=== PATIENT | male | born 1935 | race Caucasian/White ===

== ENCOUNTER 2016-10-28 07:00 | Emergency (ER) | payer MEDICARE ==
[~2016-10-28 07:00] MED LIST: /ADVA50050 INH; /TIOT18INH INH; ACET500C PO; ADVA115A INH; ALBU83IN IN; AMIO20TA PO; AMLO10TA PO; ASPI325T PO; ASPI81TA83 OR; BACITAB; CARD4TAB2 PO; CARV12.5 PO; CARV6.25 PO; CEFT250T OR; DIGO0.12 PO; ELIQ5TAB PO; FAMO20TA2 PO; FURO20TA2 PO; IMODIUM OR; LASI20TA PO; LISI-538 PO; LISI5TAB PO; LOPE2CA PO; MULTIVIT PO; NIFE15CA PO; PANT40TA2 PO; PEPCID PO; POLY150C4 PO; PRED10TA2; PRED10TA2 OR; PRED20TA OR; PRED50TA OR; ProAir HFA INH; QUESTRAN; RANI15TA PO; RANI1TAB6 PO; RANTIDINE PO; SPIR1CAP INH; TRAM50TA2 OR; TUMS500C PO; TYLE167L PO; VIBR100C; XOPEAER; XOPENEX
[2016-10-28] MEDS ORDERED: AMIODARONE 200 MG TAB (PACERONE) As Ordered ONE ×2 (07:34→10:25)
[2016-10-28] MEDS ORDERED: LISINOPRIL 10 MG TAB As Ordered ONE (07:35)
[2016-10-28] MEDS ORDERED: FUROSEMIDE 20 MG TAB As Ordered ONE (07:35)
[2016-10-28 07:41] LABS: BASO % 0.6 % (0.0-1.0); EOS # 0.2 K/mm3 (0.0-0.50); EOS % 3.4 % (0.0-3.0); LARGE UNSTAINED CELL # 0.2 K/mm3 (0.0-0.4); LYMPH % 24.8 % (24.0-44.0); MEAN CORPUSCULAR HEMOGLOBIN 28.8 pg (27.0-33.0); MEAN CORPUSCULAR HGB CONC 31.6 g/dl (32.0-36.5); MEAN CORPUSCULAR VOLUME 91.2 fl (80.0-96.0); MONO # 0.6 K/mm3 (0.0-0.8); MONO % 7.8 % (0.0-5.0); NEUTROPHILS # 4.5 K/mm3 (1.8-7.7); NEUTROPHILS % 60.5 % (36.0-66.0); PLATELET COUNT, AUTOMATED 233 k/mm3 (150-450); RED CELL DISTRIBUTION WIDTH 21.1 % (11.5-14.5); WHITE BLOOD COUNT 7.4 K/mm3 (4.0-10.0)
[2016-10-28 08:07] LABS: CALCIUM LEVEL 8.2 MG/DL (8.8-10.2); CREATININE FOR GFR 1.64 MG/DL (0.70-1.30); DIGOXIN LEVEL 0.8 NG/ML (0.5-2.0); GLOMERULAR FILTRATION RATE 43.1 (>35); MAGNESIUM LEVEL 2.2 MG/DL (1.8-2.4); POTASSIUM SERUM 3.8 MEQ/L (3.5-5.1)
--- NOTE | 2016-10-28 08:52 | REP ---
Portable chest x-ray: Sitting AP view. History: Defibrillator firing. Comparison study: March 26, 2016. Findings: Moderate cardiomegaly is observed. A multi lead pacemaker is seen in place in the right heart via the right subclavian vein unchanged. There is no evidence of pneumothorax or hydrothorax. No infiltrate is seen. Pulmonary vasculature is not increased. The aorta is calcific and tortuous. There is mild bibasilar linear fibrosis unchanged. Impression: Cardiomegaly with pacemaker. No acute changes. Signed by Domenico Flores MD 10/28/2016 10:22 A
--- NOTE | 2016-10-28 09:31 | ECGEPIP ---
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
[2016-10-28] MEDS ORDERED: RIVAROXABAN 15 MG TAB (XARELTO) As Ordered ONE (10:36)
[2016-10-28] MEDS ORDERED: APIXABAN 2.5 MG TAB (ELIQUIS) As Ordered ONE (10:48)
--- NOTE | 2016-10-28 11:22 | EDDOCDS ---
Nurse's Notes [facility] Name: Savanah Haro Age: 81 yrs Sex: Male : 1935 Arrival Date: 10/28/2016 Time: 07:00 Bed 4 Private MD: Martín Ramirez H. Diagnosis: Encounter for adjustment and management of automatic implantable cardiac defibrillator;Paroxysmal atrial fibrillation Presentation: 10/28 07:07 Presenting complaint: Patient states: the he got up to got to the bathroom, felt jc4 "normal" then defibrillator fired. Pt states is scheduled to have battery changed on defibrillator in [place] on 11/09. Adult Sepsis Screening: The patient does not have new or worsening altered mentation. Patient's respiratory rate is less than 22. Systolic blood pressure is greater than 100. Patient has a qSOFA score of 0- Negative Sepsis Screen. Suicide/Homicide risk assessment- the patient denies having any suicidal and/or homicidal ideations and does not present with any other emotional, behavioral or mental health complaints. 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 Transition of care: patient was not received from another setting of care. 07:07 Acuity: NESTOR Level 2 4 07:07 Method Of Arrival: Ambulance jc4 Triage Assessment: 07:17 General: Appears in no apparent distress. Pain: Denies pain. The patient is triaged at jc4 the bedside. See Assessment in Nurses Notes section of ED record. Historical: - Allergies: Prednisonesuicidal thoughts; - Home Meds: 1. Advair HFA 115-21 mcg/actuation inhalation HFAA 2 puffs 2 times per day (Last dose: 10/27/2016) 2. amiodarone 200 mg Oral tab 1 tab once daily (Last dose: 10/27/2016) 3. carvedilol 12.5 mg oral tab 1 tab 2 times per day (Last dose: 10/27/2016) 4. digoxin 125 mcg Oral tab 1 tab once daily take Saturday (Last dose: 10/27/2016) 5. furosemide 20 mg Oral tab 1 tab once daily (Last dose: 10/27/2016) 6. levothyroxine 200 mcg Oral tab 1 tab once daily (Last dose: 10/27/2016) 7. lisinopril 5 mg Oral tab 1 tab once daily (Last dose: 10/27/2016) 8. losartan 25 mg oral tab 1 tab once daily (Last dose: 10/27/2016) 9. Protonix 40 mg Oral TbEC 1 tab once daily (Last dose: 10/27/2016) 10. Spiriva with HandiHaler 18 mcg Inhl CpDv 1 cap once daily (Last dose: 10/27/2016) - PMHx: CHF; COPD; Hypothyroidism; GERD; Heart Disease; - PSHx: Cholecystectomy (1980); Appendectomy (1968); colon resection 1996; 1968- ulcer surgery; heart cath jul 2013; Colonoscopy (November 2014); Bilateral Hip Replacements; Pacemaker/AICD; - Social history: No barriers to communication noted, The patient speaks fluent Portuguese, Smoking status: Patient states former smoker of tobacco. - Family history: Not pertinent. - : The pt / caregiver states he / she is not on anticoagulants. Home medication list is obtained from the patient. - Exposure Risk Screening:: None identified. Screenin:18 Screening information is obtained from the patient. Fall risk: No risks identified. jc4 Assistance ADL's: requires no assistance with activities of daily living. Abuse/DV Screen: The patient / caregiver reports he/she is: not in a situation that causes fear, pain or injury. Nutritional screening: No deficits noted. Advance Directives: Currently, there is no health care proxy. There is no active DNR order. There is no living will. There is no Power of Nutrition Manager. home support is adequate. Assessment: 07:28 General: Dr. Raymundo in to examine patient. [facility] 07:28 General: Appears in no apparent distress, Behavior is cooperative, pleasant. Pain: jc4 Denies pain. Neurological: Level of Consciousness is awake, alert, Oriented to person, place, time. Cardiovascular: Rhythm is paced rhythm Chest pain is denied. Respiratory: Airway is patent Respiratory effort is even, unlabored, Respiratory pattern is regular, symmetrical, Breath sounds are diminished bilaterally. GI: Abdomen is non- distended Bowel sounds present X 4 quads. Abd is soft and non tender X 4 quads. Derm: Skin is pink, warm & dry. 08:28 General: Pt resting on stretcher. Family at bedside. Denies any complaint at this time. jc4 Aware awaiting Dr. Dinero. fence supervisor - paced rhythm. Call mai in reach. 09:10 General: Pt resting on stretcher. Color pink, skin warm and dry. Respirations easy and jc4 full. Pt complains of a mild headache. Declines offer of dimming lights or analgesia at this time. Family members at bedside. Call mai in reach. Aware awaiting Dr. Dinero. 09:54 General: Pt sitting up on stretcher. No distress noted at this time. States that jc4 headache is resolving. 10:29 General: Pt resting on stretcher. No distress noted at this time. Color pink, skin warm jc4 and dry. Respirations easy and full. at bedside. Pt has been evaluated by Dr. Dinero. 11:19 General: Appears in no apparent distress, Behavior is cooperative, pleasant. Pain: jc4 Denies pain. Neurological: Level of Consciousness is awake, alert, Oriented to person, place, time. Cardiovascular: Rhythm is paced rhythm Chest pain is denied. Respiratory: Airway is patent Respiratory effort is even, unlabored, Respiratory pattern is regular, symmetrical. Derm: Skin is pink, warm & dry. Vital Signs: 07:15 BP 191 / 93; Pulse 72; Resp 18; Temp 98.8(TE); Pulse Ox 94% on R/A; dem1 07:16 Weight 69.4 kg; Height 5 ft. 7 in. (170.18 cm); dem1 07:20 Pulse 60 MON; Pulse Ox 95% ; jc4 07:21 BP 184 / 94 (auto/); jc4 07:36 BP 177 / 90 (auto/); jc4 07:36 Pulse 68 MON; Pulse Ox 94% ; jc4 07:51 BP 171 / 80 (auto/); jc4 07:51 Pulse 70 MON; Pulse Ox 95% ; jc4 08:06 BP 156 / 76 (auto/); jc4 08:06 Pulse 64 MON; Pulse Ox 94% ; jc4 08:20 Pulse 64 MON; Pulse Ox 93% ; jc4 08:21 BP 175 / 84 (auto/); jc4 08:34 Pulse 64 MON; Pulse Ox 94% ; jc4 08:36 BP 147 / 78 (auto/); jc4 08:50 Pulse 64 MON; Pulse Ox 92% ; jc4 08:51 BP 161 / 78 (auto/); jc4 09:05 Pulse 64 MON; Pulse Ox 93% ; jc4 09:06 BP 179 / 82 (auto/); jc4 09:20 Pulse 64 MON; Pulse Ox 93% ; jc4 09:21 BP 157 / 80 (auto/); jc4 09:36 BP 164 / 77 (auto/); jc4 09:36 Pulse 64 MON; Pulse Ox 93% ; jc4 09:49 Pulse 64 MON; Pulse Ox 93% ; jc4 09:51 BP 139 / 85 (auto/); jc4 10:05 Pulse 64 MON; Pulse Ox 94% ; jc4 10:06 BP 174 / 81 (auto/); jc4 10:21 BP 164 / 80 (auto/); jc4 10:21 Pulse 64 MON; Pulse Ox 95% ; jc4 10:36 BP 177 / 85 (auto/); jc4 10:36 Pulse 64 MON; Pulse Ox 95% ; jc4 10:50 Pulse 64 MON; Pulse Ox 95% ; jc4 10:51 BP 167 / 69 (auto/); jc4 11:19 BP 169 / 91; Pulse 64; Resp 20; Temp 98.7(TE); Pulse Ox 95% on R/A; Pain 0/10; jc4 07:16 Body Mass Index 23.96 (69.40 kg, 170.18 cm) [facility] Vitals: 07:15 Log In Time N/A - ambulance arrival. [facility] ED Course: 07:01 Patient visited by Torri Tellez PCA. ar3 07:01 Patient moved to Waiting ar3 07:02 Martín Ramirez is Private Physician. ar3 07:02 Patient moved to 4 ar3 07:09 Triage Initiated jc4 07:15 Pt greeted and oriented to ED. Patient advised of names of staff involved in care, [facility] location of call mai, wait times and NPO status. Patient has correct armband on for positive identification. Placed in gown. Bed in low position. Call light in reach. Side rails up X2. fence supervisor on. Pulse ox on. NIBP on. 07:15 EKG done. (by ED staff). Reviewed by Jase Lowe MD. [facility] 07:17 Patient visited by Steven Rivera. [facility] 07:18 Maintain field IV. Dressing intact. Site clean & dry. Gauge & site: 18 gauge left jc4 antecubital. 07:19 The patient / caregiver is instructed regarding the plan of care and ED course. jc4 07:20 Jase Lowe MD is Attending Physician. ml 07:20 Patient visited by Jase Lowe MD. ml 07:33 Digoxin Level Sent. jc4 07:33 Magnesium Level Sent. jc4 07:33 MED Profile Sent. jc4 07:33 CBC with Diff Sent. jc4 08:27 [facility] Payment Agreement was scanned into [employer] and attached to record. lg 08:29 Patient visited by Roxana Hall RN. jc4 09:06 Patient visited by Roxana Hall RN. jc4 09:17 Chest, 1 View Returned. EDMS 09:43 EKG-ADULT Returned. EDMS 09:54 Patient visited by Roxana Hall RN. jc4 10:29 Patient visited by Roxana Hall RN. jc4 10:40 Chest, 1 View Returned. EDMS 10:58 Martín Ramirez is Referral Physician. ml 10:58 Noemí Dinero is Referral Physician. ml 11:21 Discontinued lock intact, bleeding controlled, pressure dressing applied, No jc4 redness/swelling at site. No procedures done that require assistance. Administered Medications: 07:43 Drug: amiodarone 200 mg [amiodarone 200 mg tablet (1 tabs)] Route: PO; jc4 07:43 Drug: Lisinopril 5 mg [lisinopril 10 mg tablet (0.5 tabs)] Route: PO; jc4 07:43 Drug: Furosemide 20 mg [furosemide 20 mg tablet (1 tabs)] Route: PO; jc4 10:27 Drug: amiodarone 200 mg [amiodarone 200 mg tablet (1 tabs)] Route: PO; jc4 10:37 Not Given (Duplicate Order): Rivaroxaban 15 mg PO once ml 10:53 Drug: Apixaban 2.5 mg [apixaban 2.5 mg tablet (1 tabs)] Route: PO; jc4 10:53 Drug: Apixaban 2.5 mg [apixaban 2.5 mg tablet (1 tabs)] {Note: Dispensed by MD for home jc4 use.} Route: PO; Order Results: Lab Order: CBC with Diff; SPEC'M 10/28/16 07:25 Test: WHITE BLOOD COUNT; Value: 7.4; Range: 4.0-10.0; Units: K/mm3; Status: F Test: RED BLOOD COUNT; Value: 4.42; Range: 4.30-6.10; Units: M/mm3; Status: F Test: HEMOGLOBIN; Value: 12.7; Range: 14.0-18.0; Abnormal: Below low normal; Units: g/dl; Status: F Test: HEMATOCRIT; Value: 40.3; Range: 42.0-52.0; Abnormal: Below low normal; Units: %; Status: F Test: MEAN CORPUSCULAR VOLUME; Value: 91.2; Range: 80.0-96.0; Units: fl; Status: F Test: MEAN CORPUSCULAR HEMOGLOBIN; Value: 28.8; Range: 27.0-33.0; Units: pg; Status: F Test: MEAN CORPUSCULAR HGB CONC; Value: 31.6; Range: 32.0-36.5; Abnormal: Below low normal; Units: g/dl; Status: F Test: RED CELL DISTRIBUTION WIDTH; Value: 21.1; Range: 11.5-14.5; Abnormal: Above high normal; Units: %; Status: F Test: PLATELET COUNT, AUTOMATED; Value: 233; Range: 150-450; Units: k/mm3; Status: F Test: NEUTROPHILS %; Value: 60.5; Range: 36.0-66.0; Units: %; Status: F Test: LYMPH %; Value: 24.8; Range: 24.0-44.0; Units: %; Status: F Test: MONO %; Value: 7.8; Range: 0.0-5.0; Abnormal: Above high normal; Units: %; Status: F Test: EOS %; Value: 3.4; Range: 0.0-3.0; Abnormal: Above high normal; Units: %; Status: F Test: BASO %; Value: 0.6; Range: 0.0-1.0; Units: %; Status: F Test: LARGE UNSTAINED CELL %; Value: 3.0; Range: 0.0-4.0; Units: %; Status: F Test: NEUTROPHILS #; Value: 4.5; Range: 1.8-7.7; Units: K/mm3; Status: F Test: LYMPH #; Value: 2.0; Range: 1.5-4.5; Units: K/mm3; Status: F Test: MONO #; Value: 0.6; Range: 0.0-0.8; Units: K/mm3; Status: F Test: EOS #; Value: 0.2; Range: 0.0-0.50; Units: K/mm3; Status: F Test: BASO #; Value: 0.0; Range: 0.0-0.2; Units: K/mm3; Status: F Test: LARGE UNSTAINED CELL #; Value: 0.2; Range: 0.0-0.4; Units: K/mm3; Status: F Lab Order: MED Profile; SPEC'M 10/28/16 07:25 Test: GLUCOSE, FASTING; Value: 103; Range: 83-110; Units: MG/DL; Status: F Test: BLOOD UREA NITROGEN; Value: 13; Range: 7-18; Units: MG/DL; Status: F Test: CREATININE FOR GFR; Value: 1.64; Range: 0.70-1.30; Abnormal: Above high normal; Units: MG/DL; Status: F Test: GLOMERULAR FILTRATION RATE; Value: 43.1; Range: >35; Status: F Test: SODIUM LEVEL; Value: 146; Range: 136-145; Abnormal: Above high normal; Units: MEQ/L; Status: F Test: POTASSIUM SERUM; Value: 3.8; Range: 3.5-5.1; Units: MEQ/L; Status: F Test: CHLORIDE LEVEL; Value: 105; Range: 98-107; Units: MEQ/L; Status: F Test: CARBON DIOXIDE LEVEL; Value: 31; Range: 21-32; Units: MEQ/L; Status: F Test: ANION GAP; Value: 10; Range: 8-16; Units: MEQ/L; Status: F Test: CALCIUM LEVEL; Value: 8.2; Range: 8.8-10.2; Abnormal: Below low normal; Units: MG/DL; Status: F Test Note: ; Units are mL/min/1.73 m2 Chronic Kidney Disease Staging per NKF: Stage I & II GFR >=60 Normal to Mildly Decreased Stage III GFR 30-59 Moderately Decreased Stage IV GFR 15-29 Severely Decreased Stage V GFR <15 Very Little GFR Left ESRD GFR <15 on MEAT BONER Lab Order: Magnesium Level; SPEC'M 10/28/16 07:25 Test: MAGNESIUM LEVEL; Value: 2.2; Range: 1.8-2.4; Units: MG/DL; Status: F Lab Order: Digoxin Level; SPEC'M 10/28/16 07:25 Test: DIGOXIN LEVEL; Value: 0.8; Range: 0.5-2.0; Units: NG/ML; Status: F Radiology Order: EKG-ADULT Test: EKG-ADULT REASON FOR EXAMINATION: HX: DEFIB FIRED; Stationary ECG Study; [facility] - ED; ; Test Date: 2016-10-28; Pat Name: SAVANAH HARO Department:; Room: -; 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; : 1935 Requested By: ISACC Miranda; Order Number: [id number] Reading MD: Jethro Hopper; Measurements; Intervals [place]; Rate: 60 P: 128; VA: 143 QRS: 217; QRSD: 166 T: 84; QT: 384; QTc: 385; Interpretive Statements; ELECTRONIC ATRIAL PACEMAKER; ELECTRONIC VENTRICULAR PACEMAKER; ; ; Electronically Signed On 10-28-2016 9:31:13 EST by Jethro Hopper; Radiology Order: Chest, 1 View Test: Chest, 1 View REASON FOR EXAMINATION: defib firing; Portable chest x-ray: Sitting AP view.; ; History: Defibrillator firing.; ; Comparison study: March 26, 2016.; ; Findings: Moderate cardiomegaly is observed. A multi lead pacemaker is seen in; place in the right heart via the right subclavian vein unchanged. There is no; evidence of pneumothorax or hydrothorax. No infiltrate is seen. Pulmonary; vasculature is not increased. The aorta is calcific and tortuous. There is mild; bibasilar linear fibrosis unchanged.; ; Impression:; ; Cardiomegaly with pacemaker. No acute changes.; ; ; Signed by; Domenico Flores MD 10/28/2016 10:22 A; Outcome: 10:58 Discharge ordered by Provider. ml 11:21 Discharge Assessment: Patient awake, alert and oriented x 3. No cognitive and/or jc4 functional deficits noted. Patient verbalized understanding of disposition instructions. patient administered narcotics - no. The following High Risk Discharge criteria are identified: None. Discharged to home via wheelchair, with significant other. Condition: stable. Discharge instructions given to patient, Instructed on discharge instructions, follow up and referral plans. medication usage, Demonstrated understanding of instructions, medications, Pt was receptive of discharge instructions/ teaching. Prescriptions given X 1. No special radiology studies were completed. Property :Personal belongings accompany Pt. 11:22 Patient left the ED. jc4 Signatures: Dispatcher [employer] EDOK Jase Lowe MD MD ml Eileen Barahona, Reg Reg lg Torri Tellez, CYTOGENETICS TECHNOLOGIST CYTOGENETICS TECHNOLOGIST Roxana Lynn RN RN jc4 Steven Rivera1 ZEN
--- NOTE | 2016-10-28 11:22 | EDDOCDS ---
Physician Documentation [facility] Name: Alex Sheikh Age: 81 yrs Sex: Male : 1935 Arrival Date: 10/28/2016 Time: 07:00 Bed 4 Private MD: Martín Ramirez H. Disposition: 10/28/16 10:58 Discharged to Home/Self Care. Impression: Encounter for adjustment and management of automatic implantable cardiac defibrillator, Paroxysmal atrial fibrillation. - Condition is Stable. - Discharge Instructions: Atrial Fibrillation. - Prescriptions for amiodarone 200 mg Oral tablet - take 2 tablet by ORAL route 2 times per day; 60 tablet. apixaban 2.5 mg Oral Tablet - take 1 tablet by ORAL route 2 times per day; 30 tablet. - Medication Reconciliation, Local Pharmacy Hours form. - Follow up: Martín Ramirez; When: 1 - 2 days. Follow up: Noemí Dinero; When: Tomorrow. - Problem is new. - Symptoms have improved. - Notes: diagnosis - firing of defibrillator. per dr dinero increase amiodarone - 400 mg every 12 hours and eliquis 2.5 mg every 12 hours. stop by his office tomorrow. make sure they are aware of medication change. Historical: - Allergies: Prednisonesuicidal thoughts; - Home Meds: 1. Advair HFA 115-21 mcg/actuation inhalation HFAA 2 puffs 2 times per day (Last dose: 10/27/2016) 2. amiodarone 200 mg Oral tab 1 tab once daily (Last dose: 10/27/2016) 3. carvedilol 12.5 mg oral tab 1 tab 2 times per day (Last dose: 10/27/2016) 4. digoxin 125 mcg Oral tab 1 tab once daily take Saturday (Last dose: 10/27/2016) 5. furosemide 20 mg Oral tab 1 tab once daily (Last dose: 10/27/2016) 6. levothyroxine 200 mcg Oral tab 1 tab once daily (Last dose: 10/27/2016) 7. lisinopril 5 mg Oral tab 1 tab once daily (Last dose: 10/27/2016) 8. losartan 25 mg oral tab 1 tab once daily (Last dose: 10/27/2016) 9. Protonix 40 mg Oral TbEC 1 tab once daily (Last dose: 10/27/2016) 10. Spiriva with HandiHaler 18 mcg Inhl CpDv 1 cap once daily (Last dose: 10/27/2016) - PMHx: CHF; COPD; Hypothyroidism; GERD; Heart Disease; - PSHx: Cholecystectomy (1980); Appendectomy (1968); colon resection 1996; 1968- ulcer surgery; heart cath jul 2013; Colonoscopy (November 2014); Bilateral Hip Replacements; Pacemaker/AICD; - Social history: No barriers to communication noted, The patient speaks fluent Telugu, Smoking status: Patient states former smoker of tobacco. - Family history: Not pertinent. - : The pt / caregiver states he / she is not on anticoagulants. Home medication list is obtained from the patient. - Exposure Risk Screening:: None identified. Vital Signs: 10/28 07:15 BP 191 / 93; Pulse 72; Resp 18; Temp 98.8(TE); Pulse Ox 94% on R/A; dem1 07:16 Weight 69.4 kg / 153 lbs; Height 5 ft. 7 in. (170.18 cm); dem1 07:20 Pulse 60 MON; Pulse Ox 95% ; jc4 07:21 BP 184 / 94 (auto/); jc4 07:36 BP 177 / 90 (auto/); jc4 07:36 Pulse 68 MON; Pulse Ox 94% ; jc4 07:51 BP 171 / 80 (auto/); jc4 07:51 Pulse 70 MON; Pulse Ox 95% ; jc4 08:06 BP 156 / 76 (auto/); jc4 08:06 Pulse 64 MON; Pulse Ox 94% ; jc4 08:20 Pulse 64 MON; Pulse Ox 93% ; jc4 08:21 BP 175 / 84 (auto/); jc4 08:34 Pulse 64 MON; Pulse Ox 94% ; jc4 08:36 BP 147 / 78 (auto/); jc4 08:50 Pulse 64 MON; Pulse Ox 92% ; jc4 08:51 BP 161 / 78 (auto/); jc4 09:05 Pulse 64 MON; Pulse Ox 93% ; jc4 09:06 BP 179 / 82 (auto/); jc4 09:20 Pulse 64 MON; Pulse Ox 93% ; jc4 09:21 BP 157 / 80 (auto/); jc4 09:36 BP 164 / 77 (auto/); jc4 09:36 Pulse 64 MON; Pulse Ox 93% ; jc4 09:49 Pulse 64 MON; Pulse Ox 93% ; jc4 09:51 BP 139 / 85 (auto/); jc4 10:05 Pulse 64 MON; Pulse Ox 94% ; jc4 10:06 BP 174 / 81 (auto/); jc4 10:21 BP 164 / 80 (auto/); jc4 10:21 Pulse 64 MON; Pulse Ox 95% ; jc4 10:36 BP 177 / 85 (auto/); jc4 10:36 Pulse 64 MON; Pulse Ox 95% ; jc4 10:50 Pulse 64 MON; Pulse Ox 95% ; jc4 10:51 BP 167 / 69 (auto/); jc4 11:19 BP 169 / 91; Pulse 64; Resp 20; Temp 98.7(TE); Pulse Ox 95% on R/A; Pain 0/10; jc4 07:16 Body Mass Index 23.96 (69.40 kg, 170.18 cm) dem1 MDM: 07:08 ECG WITH READING ER PHYS+CARDIAG ordered. EDMS 07:29 IV Saline Lock ordered. ml 07:29 Tableau Report Developer/Pulse Ox/q 15 min VS ordered. ml 07:29 Rhythm Strip to chart ordered. ml 07:30 Chest, 1 View Ordered. EDMS 07:30 CBC with Diff Ordered. EDMS 07:31 MED Profile Ordered. EDMS 07:31 Magnesium Level Ordered. EDMS 07:31 Digoxin Level Ordered. EDMS 07:31 amiodarone 200 mg PO once ordered. ml 07:32 Lisinopril 5 mg PO once ordered. ml 07:33 Furosemide 20 mg PO once ordered. ml 08:23 Financial registration complete. lg 08:24 CBC with Diff Reviewed. ml 08:24 MED Profile Reviewed. ml 08:24 Magnesium Level Reviewed. ml 08:24 Digoxin Level Reviewed. ml 08:27 [facility] [place] Agreement was scanned into [employer] and attached to record. lg 10:18 amiodarone 200 mg PO once ordered. ml 10:33 Rivaroxaban 15 mg PO once ordered. ml 10:37 EKG-ADULT Reviewed. ml 10:37 Chest, 1 View Reviewed. ml 10:38 Apixaban 2.5 mg PO once; to go 12 hrs alter ordered. ml 10:38 Apixaban 2.5 mg PO once; to go 12 hrs alter ordered. ml Administered Medications: 07:43 Drug: amiodarone 200 mg [amiodarone 200 mg tablet (1 tabs)] Route: PO; jc4 07:43 Drug: Lisinopril 5 mg [lisinopril 10 mg tablet (0.5 tabs)] Route: PO; jc4 07:43 Drug: Furosemide 20 mg [furosemide 20 mg tablet (1 tabs)] Route: PO; jc4 10:27 Drug: amiodarone 200 mg [amiodarone 200 mg tablet (1 tabs)] Route: PO; jc4 10:37 Not Given (Duplicate Order): Rivaroxaban 15 mg PO once ml 10:53 Drug: Apixaban 2.5 mg [apixaban 2.5 mg tablet (1 tabs)] Route: PO; jc4 10:53 Drug: Apixaban 2.5 mg [apixaban 2.5 mg tablet (1 tabs)] {Note: Dispensed by MD for home jc4 use.} Route: PO; Signatures: Dispatcher [employer] Jase Davis MD MD ml Eileen Barahona, David Reg lg Roxana Hall RN RN jc4 The chart was reviewed and I authenticate all verbal orders and agree with the evaluation and treatment provided.Attachments: : [facility] Payment Agreement lg [id number]
--- NOTE | 2016-10-28 12:46 | ER ---
DATE OF CONSULTATION: 10/28/2016 REFERRING PHYSICIAN: Jase Lowe MD, at [facility] Emergency Room INDICATION: Implantable cardioverter-defibrillator (ICD) discharge. HISTORY OF PRESENT ILLNESS: Mr. Sheikh is known to me. He is a very pleasant 81-year-old man who has known nonischemic cardiomyopathy with severe left ventricular systolic dysfunction. He also has a history of paroxysmal atrial fibrillation/flutter that has been reasonably well-controlled on amiodarone. He presented after discharge. He tells me that he woke up in the morning, went to bathroom, and then after he urinated and he was coming back towards his bed, he started feeling dizzy and lightheaded, and shortly thereafter experienced discharge from his ICD. Ambulance was called, and he was brought to the emergency room. On arrival here, he was in sinus rhythm and otherwise stable vital signs. At the time of my interview, he feels reasonably well. When I interrogated his ICD, it turns out that as of last few weeks, he had innumerous episodes of atrial fibrillation with variable rate control, but the current defibrillation was likely due to atrial fibrillation (AFib) with rapid ventricular response. Otherwise, the ICD is working appropriately. Unfortunately, we ran out of printer paper from the device, and I was not able to document that for hospital record. PAST MEDICAL HISTORY: 1. Nonischemic cardiomyopathy, as above. His left ventricle ejection fraction was estimated 25% to 30% based on his last echocardiogram December 2015. 2. Chronic obstructive pulmonary disease (COPD). Last pulmonary function tests (PFTs) in August 2016 revealed 68% predicted, FVC 43% predicted, FEV1, and 32% of diffusing capacity of lung for carbon monoxide (DLCO). 3. Hypertension. 4. Dyslipidemia. 5. Chronic congestive heart failure, manifesting itself mostly as a fatigue and low cardiac output. OUTPATIENT MEDICATIONS: - aspirin 325 a day - amiodarone 205 a day - Advair - Coreg 12.5 twice a day - digoxin three times a week - iron sulfate 325 once a day - furosemide 20 mg a day - levothyroxine 75 a day - losartan 25 a day - multivitamin - pantoprazole 40 a day - ranitidine 150 a day - Spiriva He reports intolerance to spirolactone and prednisone. SURGICAL HISTORY: Is positive for cholecystectomy, bilateral hip replacement, colectomy ICD implant, and cataract surgeries. FAMILY HISTORY: Father of heart attack in his 60s. Mother is also and was a diabetic. SOCIAL HISTORY: He is . Lives with his . Has been retired for a long time. Does not smoke but quit in 1975. On the review of systems, he tells me that in the last week or so, he had symptoms of upper respiratory infection and feels tired but denies any other cardiac symptoms, and there has been no paroxysmal nocturnal dyspnea (PND), no orthopnea. He has chronic exertional dyspnea, [place] Heart [employer] class III. No chest pain. No palpitations. No syncope, near syncope, and no prior ICD discharges. PHYSICAL EXAMINATION: Mr. Sheikh is an elderly man who appears to be in no particular distress in the emergency room. Blood pressure 112/70, heart rate is in 60s, is sinus rhythm with occasional ventricular ectopy, and saturation high 90s on supplemental oxygen by nasal cannula. His lungs are clear. I do not appreciate jugular venous pressure (JVP) elevation. Heart examination: Regular rhythm. There is a faint murmur at the apex. I do not appreciate any gallop or rub. Abdomen is soft and nontender. There is no peripheral edema. Neurologically, he is intact. LABORATORY-TABOR: CBC: Hemoglobin 12.7, hematocrit 40, platelet count 233,000. Basic metabolic panel: Potassium 3.8, BUN 13, creatinine 1.6, for GFR 43, and digoxin level is 0.8. ASSESSMENT AND PLAN: Mr. Sheikh is an elderly man who has nonischemic cardiomyopathy and received ICD discharge due to atrial fibrillation with rapid ventricular response. He used to have a history of atrial fibrillation, but it was previously well controlled on amiodarone. At this point, it is believed that there is very high risk of recurrence, as his ICD interrogation indeed reports fairly frequent episodes that were self-terminating lately. I would increase the dose of amiodarone temporarily to 400 mg twice a day. We also should provide some form of anticoagulation, as certainly he is at increased risk of stroke. I think that probably the appropriate choice would be Xarelto with the advantage of just once-a-day dosing. His glomerular filtration rate (GFR) is 43; and consequently, he will get reduced dose of 15 mg daily. Otherwise, he has been feeling well, and I believe he can be discharged home. I spoke about this with Dr. Raymundo in the emergency room. I will arrange for a fairly early outpatient followup. He is scheduled to have his ICD replaced on 11/11/2016 because there is a recall. I would also consider performing AV negin ablation. That would allow avoidance of similar events in the future. Addendum: Patient was in past on Eliquis and consequently he was discharged on Eliquis 2.5mg po bid instead of Xarelto. MTDD
--- NOTE | 2016-10-30 12:44 | EDDOCDS ---
Physician Documentation [facility] Name: Alex Sheikh Age: 81 yrs Sex: Male : 1935 Arrival Date: 10/28/2016 Time: 07:00 Bed 4 Private MD: Martín Ramirez H. Disposition: 10/28/16 10:58 Discharged to Home/Self Care. Impression: Encounter for adjustment and management of automatic implantable cardiac defibrillator, Paroxysmal atrial fibrillation. - Condition is Stable. - Discharge Instructions: Atrial Fibrillation. - Prescriptions for amiodarone 200 mg Oral tablet - take 2 tablet by ORAL route 2 times per day; 60 tablet. apixaban 2.5 mg Oral Tablet - take 1 tablet by ORAL route 2 times per day; 30 tablet. - Medication Reconciliation, Local Pharmacy Hours form. - Follow up: Martín Ramirez; When: 1 - 2 days. Follow up: Noemí Dinero; When: Tomorrow. - Problem is new. - Symptoms have improved. - Notes: diagnosis - firing of defibrillator. per dr dinero increase amiodarone - 400 mg every 12 hours and eliquis 2.5 mg every 12 hours. stop by his office tomorrow. make sure they are aware of medication change. Historical: - Allergies: Prednisonesuicidal thoughts; - Home Meds: 1. Advair HFA 115-21 mcg/actuation inhalation HFAA 2 puffs 2 times per day (Last dose: 10/27/2016) 2. amiodarone 200 mg Oral tab 1 tab once daily (Last dose: 10/27/2016) 3. carvedilol 12.5 mg oral tab 1 tab 2 times per day (Last dose: 10/27/2016) 4. digoxin 125 mcg Oral tab 1 tab once daily take Saturday (Last dose: 10/27/2016) 5. furosemide 20 mg Oral tab 1 tab once daily (Last dose: 10/27/2016) 6. levothyroxine 200 mcg Oral tab 1 tab once daily (Last dose: 10/27/2016) 7. lisinopril 5 mg Oral tab 1 tab once daily (Last dose: 10/27/2016) 8. losartan 25 mg oral tab 1 tab once daily (Last dose: 10/27/2016) 9. Protonix 40 mg Oral TbEC 1 tab once daily (Last dose: 10/27/2016) 10. Spiriva with HandiHaler 18 mcg Inhl CpDv 1 cap once daily (Last dose: 10/27/2016) - PMHx: CHF; COPD; Hypothyroidism; GERD; Heart Disease; - PSHx: Cholecystectomy (1980); Appendectomy (1968); colon resection 1996; 1968- ulcer surgery; heart cath jul 2013; Colonoscopy (November 2014); Bilateral Hip Replacements; Pacemaker/AICD; - Social history: No barriers to communication noted, The patient speaks fluent Ukrainian, Smoking status: Patient states former smoker of tobacco. - Family history: Not pertinent. - : The pt / caregiver states he / she is not on anticoagulants. Home medication list is obtained from the patient. - Exposure Risk Screening:: None identified. Vital Signs: 10/28 07:15 BP 191 / 93; Pulse 72; Resp 18; Temp 98.8(TE); Pulse Ox 94% on R/A; dem1 07:16 Weight 69.4 kg / 153 lbs; Height 5 ft. 7 in. (170.18 cm); dem1 07:20 Pulse 60 MON; Pulse Ox 95% ; jc4 07:21 BP 184 / 94 (auto/); jc4 07:36 BP 177 / 90 (auto/); jc4 07:36 Pulse 68 MON; Pulse Ox 94% ; jc4 07:51 BP 171 / 80 (auto/); jc4 07:51 Pulse 70 MON; Pulse Ox 95% ; jc4 08:06 BP 156 / 76 (auto/); jc4 08:06 Pulse 64 MON; Pulse Ox 94% ; jc4 08:20 Pulse 64 MON; Pulse Ox 93% ; jc4 08:21 BP 175 / 84 (auto/); jc4 08:34 Pulse 64 MON; Pulse Ox 94% ; jc4 08:36 BP 147 / 78 (auto/); jc4 08:50 Pulse 64 MON; Pulse Ox 92% ; jc4 08:51 BP 161 / 78 (auto/); jc4 09:05 Pulse 64 MON; Pulse Ox 93% ; jc4 09:06 BP 179 / 82 (auto/); jc4 09:20 Pulse 64 MON; Pulse Ox 93% ; jc4 09:21 BP 157 / 80 (auto/); jc4 09:36 BP 164 / 77 (auto/); jc4 09:36 Pulse 64 MON; Pulse Ox 93% ; jc4 09:49 Pulse 64 MON; Pulse Ox 93% ; jc4 09:51 BP 139 / 85 (auto/); jc4 10:05 Pulse 64 MON; Pulse Ox 94% ; jc4 10:06 BP 174 / 81 (auto/); jc4 10:21 BP 164 / 80 (auto/); jc4 10:21 Pulse 64 MON; Pulse Ox 95% ; jc4 10:36 BP 177 / 85 (auto/); jc4 10:36 Pulse 64 MON; Pulse Ox 95% ; jc4 10:50 Pulse 64 MON; Pulse Ox 95% ; jc4 10:51 BP 167 / 69 (auto/); jc4 11:19 BP 169 / 91; Pulse 64; Resp 20; Temp 98.7(TE); Pulse Ox 95% on R/A; Pain 0/10; jc4 07:16 Body Mass Index 23.96 (69.40 kg, 170.18 cm) dem1 MDM: 07:08 ECG WITH READING ER PHYS+CARDIAG ordered. EDMS 07:29 IV Saline Lock ordered. ml 07:29 Superintendent Drilling/Pulse Ox/q 15 min VS ordered. ml 07:29 Rhythm Strip to chart ordered. ml 07:30 Chest, 1 View Ordered. EDMS 07:30 CBC with Diff Ordered. EDMS 07:31 MED Profile Ordered. EDMS 07:31 Magnesium Level Ordered. EDMS 07:31 Digoxin Level Ordered. EDMS 07:31 amiodarone 200 mg PO once ordered. ml 07:32 Lisinopril 5 mg PO once ordered. ml 07:33 Furosemide 20 mg PO once ordered. ml 08:23 Financial registration complete. lg 08:24 CBC with Diff Reviewed. ml 08:24 MED Profile Reviewed. ml 08:24 Magnesium Level Reviewed. ml 08:24 Digoxin Level Reviewed. ml 08:27 [facility] [place] Payment Agreement was scanned into [employer] and attached to record. lg 10:18 amiodarone 200 mg PO once ordered. ml 10:33 Rivaroxaban 15 mg PO once ordered. ml 10:37 EKG-ADULT Reviewed. ml 10:37 Chest, 1 View Reviewed. ml 10:38 Apixaban 2.5 mg PO once; to go 12 hrs alter ordered. ml 10:38 Apixaban 2.5 mg PO once; to go 12 hrs alter ordered. ml 12:11 T-Sheet-- Draft Copy was scanned into [employer] and attached to record. [facility] 12:15 ECG/EKG was scanned into [employer] and attached to record. 12:16 Trend VS was scanned into [employer] and attached to record. 12:16 Rhythm Strip was scanned into [employer] and attached to record. gb Administered Medications: 07:43 Drug: amiodarone 200 mg [amiodarone 200 mg tablet (1 tabs)] Route: PO; jc4 07:43 Drug: Lisinopril 5 mg [lisinopril 10 mg tablet (0.5 tabs)] Route: PO; jc4 07:43 Drug: Furosemide 20 mg [furosemide 20 mg tablet (1 tabs)] Route: PO; jc4 10:27 Drug: amiodarone 200 mg [amiodarone 200 mg tablet (1 tabs)] Route: PO; jc4 10:37 Not Given (Duplicate Order): Rivaroxaban 15 mg PO once ml 10:53 Drug: Apixaban 2.5 mg [apixaban 2.5 mg tablet (1 tabs)] Route: PO; jc4 10:53 Drug: Apixaban 2.5 mg [apixaban 2.5 mg tablet (1 tabs)] {Note: Dispensed by for home jc4 use.} Route: PO; Signatures: Dispatcher [employer] EDMS Jase Lowe MD MD ml Barnhardt, Gloria, Reg Reg gb Eileen Barahona, Reg Reg lg Roxana Hall RN RN jc4 Jaquelin Vang The chart was reviewed and I authenticate all verbal orders and agree with the evaluation and treatment provided.Attachments: 08:27 [facility] [place] Payment Agreement lg 12:11 T-Sheet-- Draft Copy [facility] 12:15 ECG/EKG Chart Complete MTDD
--- NOTE | 2016-10-30 12:44 | EDDOCDS ---
Nurse's Notes [facility] Name: Savanah Haro Age: 81 yrs Sex: Male : 1935 Arrival Date: 10/28/2016 Time: 07:00 Bed 4 Private MD: Martín Ramirez H. Diagnosis: Encounter for adjustment and management of automatic implantable cardiac defibrillator;Paroxysmal atrial fibrillation Presentation: 10/28 07:07 Presenting complaint: Patient states: the he got up to got to the bathroom, felt jc4 "normal" then defibrillator fired. Pt states is scheduled to have battery changed on defibrillator in [place] on 11/09. Adult Sepsis Screening: The patient does not have new or worsening altered mentation. Patient's respiratory rate is less than 22. Systolic blood pressure is greater than 100. Patient has a qSOFA score of 0- Negative Sepsis Screen. Suicide/Homicide risk assessment- the patient denies having any suicidal and/or homicidal ideations and does not present with any other emotional, behavioral or mental health complaints. Status: Patient is not a client services administrator or dependent. Transition of care: patient was not received from another setting of care. 07:07 Acuity: NESTOR Level 2 4 07:07 Method Of Arrival: Ambulance jc4 Triage Assessment: 07:17 General: Appears in no apparent distress. Pain: Denies pain. The patient is triaged at jc4 the bedside. See Assessment in Nurses Notes section of ED record. Historical: - Allergies: Prednisonesuicidal thoughts; - Home Meds: 1. Advair HFA 115-21 mcg/actuation inhalation HFAA 2 puffs 2 times per day (Last dose: 10/27/2016) 2. amiodarone 200 mg Oral tab 1 tab once daily (Last dose: 10/27/2016) 3. carvedilol 12.5 mg oral tab 1 tab 2 times per day (Last dose: 10/27/2016) 4. digoxin 125 mcg Oral tab 1 tab once daily take Saturday (Last dose: 10/27/2016) 5. furosemide 20 mg Oral tab 1 tab once daily (Last dose: 10/27/2016) 6. levothyroxine 200 mcg Oral tab 1 tab once daily (Last dose: 10/27/2016) 7. lisinopril 5 mg Oral tab 1 tab once daily (Last dose: 10/27/2016) 8. losartan 25 mg oral tab 1 tab once daily (Last dose: 10/27/2016) 9. Protonix 40 mg Oral TbEC 1 tab once daily (Last dose: 10/27/2016) 10. Spiriva with HandiHaler 18 mcg Inhl CpDv 1 cap once daily (Last dose: 10/27/2016) - PMHx: CHF; COPD; Hypothyroidism; GERD; Heart Disease; - PSHx: Cholecystectomy (1980); Appendectomy (1968); colon resection 1996; 1968- ulcer surgery; heart cath jul 2013; Colonoscopy (November 2014); Bilateral Hip Replacements; Pacemaker/AICD; - Social history: No barriers to communication noted, The patient speaks fluent [place], Smoking status: Patient states former smoker of tobacco. - Family history: Not pertinent. - : The pt / caregiver states he / she is not on anticoagulants. Home medication list is obtained from the patient. - Exposure Risk Screening:: None identified. Screenin:18 Screening information is obtained from the patient. Fall risk: No risks identified. jc4 Assistance ADL's: requires no assistance with activities of daily living. Abuse/DV Screen: The patient / caregiver reports he/she is: not in a situation that causes fear, pain or injury. Nutritional screening: No deficits noted. Advance Directives: Currently, there is no health care proxy. There is no active DNR order. There is no living will. There is no Power of Car Clerk Pullman. home support is adequate. Assessment: 07:28 General: Dr. Raymundo in to examine patient. [facility] 07:28 General: Appears in no apparent distress, Behavior is cooperative, pleasant. Pain: jc4 Denies pain. Neurological: Level of Consciousness is awake, alert, Oriented to person, place, time. Cardiovascular: Rhythm is paced rhythm Chest pain is denied. Respiratory: Airway is patent Respiratory effort is even, unlabored, Respiratory pattern is regular, symmetrical, Breath sounds are diminished bilaterally. GI: Abdomen is non- distended Bowel sounds present X 4 quads. Abd is soft and non tender X 4 quads. Derm: Skin is pink, warm & dry. 08:28 General: Pt resting on stretcher. Family at bedside. Denies any complaint at this time. jc4 Aware awaiting Dr. Dinero. youth nutritional monitor - paced rhythm. Call mai in reach. 09:10 General: Pt resting on stretcher. Color pink, skin warm and dry. Respirations easy and jc4 full. Pt complains of a mild headache. Declines offer of dimming lights or analgesia at this time. Family members at bedside. Call mai in reach. Aware awaiting Dr. Dinero. 09:54 General: Pt sitting up on stretcher. No distress noted at this time. States that jc4 headache is resolving. 10:29 General: Pt resting on stretcher. No distress noted at this time. Color pink, skin warm jc4 and dry. Respirations easy and full. at bedside. Pt has been evaluated by Dr. Dinero. 11:19 General: Appears in no apparent distress, Behavior is cooperative, pleasant. Pain: jc4 Denies pain. Neurological: Level of Consciousness is awake, alert, Oriented to person, place, time. Cardiovascular: Rhythm is paced rhythm Chest pain is denied. Respiratory: Airway is patent Respiratory effort is even, unlabored, Respiratory pattern is regular, symmetrical. Derm: Skin is pink, warm & dry. Vital Signs: 07:15 BP 191 / 93; Pulse 72; Resp 18; Temp 98.8(TE); Pulse Ox 94% on R/A; dem1 07:16 Weight 69.4 kg; Height 5 ft. 7 in. (170.18 cm); dem1 07:20 Pulse 60 MON; Pulse Ox 95% ; jc4 07:21 BP 184 / 94 (auto/); jc4 07:36 BP 177 / 90 (auto/); jc4 07:36 Pulse 68 MON; Pulse Ox 94% ; jc4 07:51 BP 171 / 80 (auto/); jc4 07:51 Pulse 70 MON; Pulse Ox 95% ; jc4 08:06 BP 156 / 76 (auto/); jc4 08:06 Pulse 64 MON; Pulse Ox 94% ; jc4 08:20 Pulse 64 MON; Pulse Ox 93% ; jc4 08:21 BP 175 / 84 (auto/); jc4 08:34 Pulse 64 MON; Pulse Ox 94% ; jc4 08:36 BP 147 / 78 (auto/); jc4 08:50 Pulse 64 MON; Pulse Ox 92% ; jc4 08:51 BP 161 / 78 (auto/); jc4 09:05 Pulse 64 MON; Pulse Ox 93% ; jc4 09:06 BP 179 / 82 (auto/); jc4 09:20 Pulse 64 MON; Pulse Ox 93% ; jc4 09:21 BP 157 / 80 (auto/); jc4 09:36 BP 164 / 77 (auto/); jc4 09:36 Pulse 64 MON; Pulse Ox 93% ; jc4 09:49 Pulse 64 MON; Pulse Ox 93% ; jc4 09:51 BP 139 / 85 (auto/); jc4 10:05 Pulse 64 MON; Pulse Ox 94% ; jc4 10:06 BP 174 / 81 (auto/); jc4 10:21 BP 164 / 80 (auto/); jc4 10:21 Pulse 64 MON; Pulse Ox 95% ; jc4 10:36 BP 177 / 85 (auto/); jc4 10:36 Pulse 64 MON; Pulse Ox 95% ; jc4 10:50 Pulse 64 MON; Pulse Ox 95% ; jc4 10:51 BP 167 / 69 (auto/); jc4 11:19 BP 169 / 91; Pulse 64; Resp 20; Temp 98.7(TE); Pulse Ox 95% on R/A; Pain 0/10; jc4 07:16 Body Mass Index 23.96 (69.40 kg, 170.18 cm) [facility] Vitals: 07:15 Log In Time N/A - ambulance arrival. [facility] ED Course: 07:01 Patient visited by Torri Tellez PCA. ar3 07:01 Patient moved to Waiting ar3 07:02 Martín Ramirez is Private Physician. ar3 07:02 Patient moved to 4 ar3 07:09 Triage Initiated jc4 07:15 Pt greeted and oriented to ED. Patient advised of names of staff involved in care, [facility] location of call mai, wait times and NPO status. Patient has correct armband on for positive identification. Placed in gown. Bed in low position. Call light in reach. Side rails up X2. youth nutritional monitor on. Pulse ox on. NIBP on. 07:15 EKG done. (by ED staff). Reviewed by Jase Lowe MD. [facility] 07:17 Patient visited by Steven Rivera. [facility] 07:18 Maintain field IV. Dressing intact. Site clean & dry. Gauge & site: 18 gauge left jc4 antecubital. 07:19 The patient / caregiver is instructed regarding the plan of care and ED course. jc4 07:20 Jase Lowe MD is Attending Physician. ml 07:20 Patient visited by Jase Lowe MD. ml 07:33 Digoxin Level Sent. jc4 07:33 Magnesium Level Sent. jc4 07:33 MED Profile Sent. jc4 07:33 CBC with Diff Sent. jc4 08:27 [facility] Payment Agreement was scanned into [employer] and attached to record. lg 08:29 Patient visited by Roxana Hall RN. jc4 09:06 Patient visited by Roxana Hall RN. jc4 09:17 Chest, 1 View Returned. EDMS 09:43 EKG-ADULT Returned. EDMS 09:54 Patient visited by Roxana Hall RN. jc4 10:29 Patient visited by Roxana Hall RN. jc4 10:40 Chest, 1 View Returned. EDMS 10:58 Martín Ramirez is Referral Physician. ml 10:58 Noemí Dinero is Referral Physician. ml 11:21 Discontinued lock intact, bleeding controlled, pressure dressing applied, No jc4 redness/swelling at site. No procedures done that require assistance. 12:11 T-Sheet-- Draft Copy was scanned into [employer] and attached to record. seh 12:15 ECG/EKG was scanned into [employer] and attached to record. gb 12:16 Trend VS was scanned into [employer] and attached to record. gb 12:16 Rhythm Strip was scanned into [employer] and attached to record. gb Administered Medications: 07:43 Drug: amiodarone 200 mg [amiodarone 200 mg tablet (1 tabs)] Route: PO; jc4 07:43 Drug: Lisinopril 5 mg [lisinopril 10 mg tablet (0.5 tabs)] Route: PO; jc4 07:43 Drug: Furosemide 20 mg [furosemide 20 mg tablet (1 tabs)] Route: PO; jc4 10:27 Drug: amiodarone 200 mg [amiodarone 200 mg tablet (1 tabs)] Route: PO; jc4 10:37 Not Given (Duplicate Order): Rivaroxaban 15 mg PO once ml 10:53 Drug: Apixaban 2.5 mg [apixaban 2.5 mg tablet (1 tabs)] Route: PO; jc4 10:53 Drug: Apixaban 2.5 mg [apixaban 2.5 mg tablet (1 tabs)] {Note: Dispensed by MD for home jc4 use.} Route: PO; Attachments: 12:16 Trend VS gb 12:16 Rhythm Strip gb Order Results: Lab Order: CBC with Diff; SPEC'M 10/28/16 07:25 Test: WHITE BLOOD COUNT; Value: 7.4; Range: 4.0-10.0; Units: K/mm3; Status: F Test: RED BLOOD COUNT; Value: 4.42; Range: 4.30-6.10; Units: M/mm3; Status: F Test: HEMOGLOBIN; Value: 12.7; Range: 14.0-18.0; Abnormal: Below low normal; Units: g/dl; Status: F Test: HEMATOCRIT; Value: 40.3; Range: 42.0-52.0; Abnormal: Below low normal; Units: %; Status: F Test: MEAN CORPUSCULAR VOLUME; Value: 91.2; Range: 80.0-96.0; Units: fl; Status: F Test: MEAN CORPUSCULAR HEMOGLOBIN; Value: 28.8; Range: 27.0-33.0; Units: pg; Status: F Test: MEAN CORPUSCULAR HGB CONC; Value: 31.6; Range: 32.0-36.5; Abnormal: Below low normal; Units: g/dl; Status: F Test: RED CELL DISTRIBUTION WIDTH; Value: 21.1; Range: 11.5-14.5; Abnormal: Above high normal; Units: %; Status: F Test: PLATELET COUNT, AUTOMATED; Value: 233; Range: 150-450; Units: k/mm3; Status: F Test: NEUTROPHILS %; Value: 60.5; Range: 36.0-66.0; Units: %; Status: F Test: LYMPH %; Value: 24.8; Range: 24.0-44.0; Units: %; Status: F Test: MONO %; Value: 7.8; Range: 0.0-5.0; Abnormal: Above high normal; Units: %; Status: F Test: EOS %; Value: 3.4; Range: 0.0-3.0; Abnormal: Above high normal; Units: %; Status: F Test: BASO %; Value: 0.6; Range: 0.0-1.0; Units: %; Status: F Test: LARGE UNSTAINED CELL %; Value: 3.0; Range: 0.0-4.0; Units: %; Status: F Test: NEUTROPHILS #; Value: 4.5; Range: 1.8-7.7; Units: K/mm3; Status: F Test: LYMPH #; Value: 2.0; Range: 1.5-4.5; Units: K/mm3; Status: F Test: MONO #; Value: 0.6; Range: 0.0-0.8; Units: K/mm3; Status: F Test: EOS #; Value: 0.2; Range: 0.0-0.50; Units: K/mm3; Status: F Test: BASO #; Value: 0.0; Range: 0.0-0.2; Units: K/mm3; Status: F Test: LARGE UNSTAINED CELL #; Value: 0.2; Range: 0.0-0.4; Units: K/mm3; Status: F Lab Order: MED Profile; SPEC'M 10/28/16 07:25 Test: GLUCOSE, FASTING; Value: 103; Range: 83-110; Units: MG/DL; Status: F Test: BLOOD UREA NITROGEN; Value: 13; Range: 7-18; Units: MG/DL; Status: F Test: CREATININE FOR GFR; Value: 1.64; Range: 0.70-1.30; Abnormal: Above high normal; Units: MG/DL; Status: F Test: GLOMERULAR FILTRATION RATE; Value: 43.1; Range: >35; Status: F Test: SODIUM LEVEL; Value: 146; Range: 136-145; Abnormal: Above high normal; Units: MEQ/L; Status: F Test: POTASSIUM SERUM; Value: 3.8; Range: 3.5-5.1; Units: MEQ/L; Status: F Test: CHLORIDE LEVEL; Value: 105; Range: 98-107; Units: MEQ/L; Status: F Test: CARBON DIOXIDE LEVEL; Value: 31; Range: 21-32; Units: MEQ/L; Status: F Test: ANION GAP; Value: 10; Range: 8-16; Units: MEQ/L; Status: F Test: CALCIUM LEVEL; Value: 8.2; Range: 8.8-10.2; Abnormal: Below low normal; Units: MG/DL; Status: F Test Note: ; Units are mL/min/1.73 m2 Chronic Kidney Disease Staging per NKF: Stage I & II GFR >=60 Normal to Mildly Decreased Stage III GFR 30-59 Moderately Decreased Stage IV GFR 15-29 Severely Decreased Stage V GFR <15 Very Little GFR Left ESRD GFR <15 on CLEAN UP WORKER Lab Order: Magnesium Level; SPEC'M 10/28/16 07:25 Test: MAGNESIUM LEVEL; Value: 2.2; Range: 1.8-2.4; Units: MG/DL; Status: F Lab Order: Digoxin Level; SPEC'M 10/28/16 07:25 Test: DIGOXIN LEVEL; Value: 0.8; Range: 0.5-2.0; Units: NG/ML; Status: F Radiology Order: EKG-ADULT Test: EKG-ADULT REASON FOR EXAMINATION: HX: DEFIB FIRED; Stationary ECG Study; [facility] - ED; ; Test Date: 2016-10-28; Pat Name: SAVANAH HARO Department:; Room: -; Gender: M 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; : 1935 Requested By: ISACC Miranda; Order Number: [id number] Reading MD: Jethro Hopper; Measurements; Intervals [place]; Rate: 60 P: 128; PA: 143 QRS: 217; QRSD: 166 T: 84; QT: 384; QTc: 385; Interpretive Statements; ELECTRONIC ATRIAL PACEMAKER; ELECTRONIC VENTRICULAR PACEMAKER; ; ; Electronically Signed On 10-28-2016 9:31:13 EST by Jethro Hopper; Radiology Order: Chest, 1 View Test: Chest, 1 View REASON FOR EXAMINATION: defib firing; Portable chest x-ray: Sitting AP view.; ; History: Defibrillator firing.; ; Comparison study: March 26, 2016.; ; Findings: Moderate cardiomegaly is observed. A multi lead pacemaker is seen in; place in the right heart via the right subclavian vein unchanged. There is no; evidence of pneumothorax or hydrothorax. No infiltrate is seen. Pulmonary; vasculature is not increased. The aorta is calcific and tortuous. There is mild; bibasilar linear fibrosis unchanged.; ; Impression:; ; Cardiomegaly with pacemaker. No acute changes.; ; ; Signed by; Domenico Flores MD 10/28/2016 10:22 A; Outcome: 10:58 Discharge ordered by Provider. 11:21 Discharge Assessment: Patient awake, alert and oriented x 3. No cognitive and/or jc4 functional deficits noted. Patient verbalized understanding of disposition instructions. patient administered narcotics - no. The following High Risk Discharge criteria are identified: None. Discharged to home via wheelchair, with significant other. Condition: stable. Discharge instructions given to patient, Instructed on discharge instructions, follow up and referral plans. medication usage, Demonstrated understanding of instructions, medications, Pt was receptive of discharge instructions/ teaching. Prescriptions given X 1. No special radiology studies were completed. Property :Personal belongings accompany Pt. 11:22 Patient left the ED. jc4 Signatures: Dispatcher [employer] EDMS Jase Lowe MD MD ml Lindsey Watts, Reg Reg gb Eileen Barahona, Reg Reg lg Torri Tellez, CREDIT PROCESSOR CREDIT PROCESSOR ar3 Roxana Hall RN RN jc4 Steven Rivera1 Jaquelin Vang Chart Complete MTDD
--- NOTE | 2016-10-30 12:44 | EDDOCDS ---
Physician Documentation [facility] Name: Alex Sheikh Age: 81 yrs Sex: Male : 1935 Arrival Date: 10/28/2016 Time: 07:00 Bed 4 Private MD: Martín Ramirez H. Disposition: 10/28/16 10:58 Discharged to Home/Self Care. Impression: Encounter for adjustment and management of automatic implantable cardiac defibrillator, Paroxysmal atrial fibrillation. - Condition is Stable. - Discharge Instructions: Atrial Fibrillation. - Prescriptions for amiodarone 200 mg Oral tablet - take 2 tablet by ORAL route 2 times per day; 60 tablet. apixaban 2.5 mg Oral Tablet - take 1 tablet by ORAL route 2 times per day; 30 tablet. - Medication Reconciliation, Local Pharmacy Hours form. - Follow up: Martín Ramirez; When: 1 - 2 days. Follow up: Noemí Dinero; When: Tomorrow. - Problem is new. - Symptoms have improved. - Notes: diagnosis - firing of defibrillator. per dr dinero increase amiodarone - 400 mg every 12 hours and eliquis 2.5 mg every 12 hours. stop by his office tomorrow. make sure they are aware of medication change. Historical: - Allergies: Prednisonesuicidal thoughts; - Home Meds: 1. Advair HFA 115-21 mcg/actuation inhalation HFAA 2 puffs 2 times per day (Last dose: 10/27/2016) 2. amiodarone 200 mg Oral tab 1 tab once daily (Last dose: 10/27/2016) 3. carvedilol 12.5 mg oral tab 1 tab 2 times per day (Last dose: 10/27/2016) 4. digoxin 125 mcg Oral tab 1 tab once daily take Saturday (Last dose: 10/27/2016) 5. furosemide 20 mg Oral tab 1 tab once daily (Last dose: 10/27/2016) 6. levothyroxine 200 mcg Oral tab 1 tab once daily (Last dose: 10/27/2016) 7. lisinopril 5 mg Oral tab 1 tab once daily (Last dose: 10/27/2016) 8. losartan 25 mg oral tab 1 tab once daily (Last dose: 10/27/2016) 9. Protonix 40 mg Oral TbEC 1 tab once daily (Last dose: 10/27/2016) 10. Spiriva with HandiHaler 18 mcg Inhl CpDv 1 cap once daily (Last dose: 10/27/2016) - PMHx: CHF; COPD; Hypothyroidism; GERD; Heart Disease; - PSHx: Cholecystectomy (1980); Appendectomy (1968); colon resection 1996; 1968- ulcer surgery; heart cath jul 2013; Colonoscopy (November 2014); Bilateral Hip Replacements; Pacemaker/AICD; - Social history: No barriers to communication noted, The patient speaks fluent Maltese, Smoking status: Patient states former smoker of tobacco. - Family history: Not pertinent. - : The pt / caregiver states he / she is not on anticoagulants. Home medication list is obtained from the patient. - Exposure Risk Screening:: None identified. Vital Signs: 10/28 07:15 BP 191 / 93; Pulse 72; Resp 18; Temp 98.8(TE); Pulse Ox 94% on R/A; dem1 07:16 Weight 69.4 kg / 153 lbs; Height 5 ft. 7 in. (170.18 cm); dem1 07:20 Pulse 60 MON; Pulse Ox 95% ; jc4 07:21 BP 184 / 94 (auto/); jc4 07:36 BP 177 / 90 (auto/); jc4 07:36 Pulse 68 MON; Pulse Ox 94% ; jc4 07:51 BP 171 / 80 (auto/); jc4 07:51 Pulse 70 MON; Pulse Ox 95% ; jc4 08:06 BP 156 / 76 (auto/); jc4 08:06 Pulse 64 MON; Pulse Ox 94% ; jc4 08:20 Pulse 64 MON; Pulse Ox 93% ; jc4 08:21 BP 175 / 84 (auto/); jc4 08:34 Pulse 64 MON; Pulse Ox 94% ; jc4 08:36 BP 147 / 78 (auto/); jc4 08:50 Pulse 64 MON; Pulse Ox 92% ; jc4 08:51 BP 161 / 78 (auto/); jc4 09:05 Pulse 64 MON; Pulse Ox 93% ; jc4 09:06 BP 179 / 82 (auto/); jc4 09:20 Pulse 64 MON; Pulse Ox 93% ; jc4 09:21 BP 157 / 80 (auto/); jc4 09:36 BP 164 / 77 (auto/); jc4 09:36 Pulse 64 MON; Pulse Ox 93% ; jc4 09:49 Pulse 64 MON; Pulse Ox 93% ; jc4 09:51 BP 139 / 85 (auto/); jc4 10:05 Pulse 64 MON; Pulse Ox 94% ; jc4 10:06 BP 174 / 81 (auto/); jc4 10:21 BP 164 / 80 (auto/); jc4 10:21 Pulse 64 MON; Pulse Ox 95% ; jc4 10:36 BP 177 / 85 (auto/); jc4 10:36 Pulse 64 MON; Pulse Ox 95% ; jc4 10:50 Pulse 64 MON; Pulse Ox 95% ; jc4 10:51 BP 167 / 69 (auto/); jc4 11:19 BP 169 / 91; Pulse 64; Resp 20; Temp 98.7(TE); Pulse Ox 95% on R/A; Pain 0/10; jc4 07:16 Body Mass Index 23.96 (69.40 kg, 170.18 cm) dem1 MDM: 07:08 ECG WITH READING ER PHYS+CARDIAG ordered. EDMS 07:29 IV Saline Lock ordered. ml 07:29 Shot Core Drill Operator Helper/Pulse Ox/q 15 min VS ordered. ml 07:29 Rhythm Strip to chart ordered. ml 07:30 Chest, 1 View Ordered. EDMS 07:30 CBC with Diff Ordered. EDMS 07:31 MED Profile Ordered. EDMS 07:31 Magnesium Level Ordered. EDMS 07:31 Digoxin Level Ordered. EDMS 07:31 amiodarone 200 mg PO once ordered. ml 07:32 Lisinopril 5 mg PO once ordered. ml 07:33 Furosemide 20 mg PO once ordered. ml 08:23 Financial registration complete. lg 08:24 CBC with Diff Reviewed. ml 08:24 MED Profile Reviewed. ml 08:24 Magnesium Level Reviewed. ml 08:24 Digoxin Level Reviewed. ml 08:27 [facility] [place] [facility] Payment Agreement was scanned into [employer] and attached to record. lg 10:18 amiodarone 200 mg PO once ordered. ml 10:33 Rivaroxaban 15 mg PO once ordered. ml 10:37 EKG-ADULT Reviewed. ml 10:37 Chest, 1 View Reviewed. ml 10:38 Apixaban 2.5 mg PO once; to go 12 hrs alter ordered. ml 10:38 Apixaban 2.5 mg PO once; to go 12 hrs alter ordered. ml 12:11 T-Sheet-- Draft Copy was scanned into [employer] and attached to record. [facility] 12:15 ECG/EKG was scanned into [employer] and attached to record. 12:16 Trend VS was scanned into [employer] and attached to record. 12:16 Rhythm Strip was scanned into [employer] and attached to record. gb Administered Medications: 07:43 Drug: amiodarone 200 mg [amiodarone 200 mg tablet (1 tabs)] Route: PO; jc4 07:43 Drug: Lisinopril 5 mg [lisinopril 10 mg tablet (0.5 tabs)] Route: PO; jc4 07:43 Drug: Furosemide 20 mg [furosemide 20 mg tablet (1 tabs)] Route: PO; jc4 10:27 Drug: amiodarone 200 mg [amiodarone 200 mg tablet (1 tabs)] Route: PO; jc4 10:37 Not Given (Duplicate Order): Rivaroxaban 15 mg PO once ml 10:53 Drug: Apixaban 2.5 mg [apixaban 2.5 mg tablet (1 tabs)] Route: PO; jc4 10:53 Drug: Apixaban 2.5 mg [apixaban 2.5 mg tablet (1 tabs)] {Note: Dispensed by for home jc4 use.} Route: PO; Signatures: Dispatcher [employer] EDMS Jase Lowe MD MD ml Barnhardt, Gloria, Reg Reg gb Eileen Barahona, Reg Reg lg Roxana Hall RN RN jc4 Jaquelin Vang The chart was reviewed and I authenticate all verbal orders and agree with the evaluation and treatment provided.Attachments: 08:27 [facility] [place] Payment Agreement lg 12:11 T-Sheet-- Draft Copy [facility] 12:15 ECG/EKG Chart Complete MTDD
== END 2016-10-28 11:22 | disposition home or self-care (01) ==
LOC: M ED 07:00
DX: I48.0 Paroxysmal atrial fibrillation (principal); I50.20 Unspecified systolic (congestive) heart failure; J44.9 Chronic obstructive pulmonary disease, unspecified; E03.9 Hypothyroidism, unspecified; K21.9 Gastro-esophageal reflux disease without esophagitis; I25.10 Atherosclerotic heart disease of native coronary artery without angina pectoris; Z87.891 Personal history of nicotine dependence; Z95.0 Presence of cardiac pacemaker; Z79.51 Long term (current) use of inhaled steroids; Z79.899 Other long term (current) drug therapy; Z96.643 Presence of artificial hip joint, bilateral; Z88.8 Allergy status to other drugs, medicaments and biological substances

== ENCOUNTER → 2017-01-30 | Outpatient (CLI) | payer MEDICARE ==
[2017-01-30 19:10] LABS: BASO % 0.8 % (0.0-1.0); EOS # 0.2 K/mm3 (0.0-0.50); EOS % 2.7 % (0.0-3.0); LARGE UNSTAINED CELL # 0.1 K/mm3 (0.0-0.4); LARGE UNSTAINED CELL % 2.3 % (0.0-4.0); LYMPH # 1.4 K/mm3 (1.5-4.5); LYMPH % 23.9 % (24.0-44.0); MEAN CORPUSCULAR HEMOGLOBIN 31.4 pg (27.0-33.0); MEAN CORPUSCULAR HGB CONC 32.4 g/dl (32.0-36.5); MEAN CORPUSCULAR VOLUME 96.9 fl (80.0-96.0); MONO # 0.4 K/mm3 (0.0-0.8); MONO % 7.2 % (0.0-5.0); NEUTROPHILS # 3.5 K/mm3 (1.8-7.7); NEUTROPHILS % 63.1 % (36.0-66.0); PLATELET COUNT, AUTOMATED 227 k/mm3 (150-450); RED CELL DISTRIBUTION WIDTH 14.3 % (11.5-14.5); WHITE BLOOD COUNT 5.5 K/mm3 (4.0-10.0)
[2017-01-30 19:23] LABS: CALCIUM LEVEL 8.8 MG/DL (8.8-10.2); CREATININE FOR GFR 1.63 MG/DL (0.70-1.30); GLOMERULAR FILTRATION RATE 43.4 (>35); POTASSIUM SERUM 4.1 MEQ/L (3.5-5.1)
== END ==
LOC: M SMT 15:15
PROVIDERS: ATTEND Internal Medicine Cardiovascular Disease
DX: I48.0 Paroxysmal atrial fibrillation (principal)

== ENCOUNTER 2017-04-12 20:16 | Emergency (ER) | payer MEDICARE ==
[~2017-04-12] VITALS: Ht 170.2 cm; Wt 68.2 kg
[2017-04-12] MEDS ORDERED: PROA1AER (20:27)
[2017-04-12] MEDS ORDERED: FERR325T (20:27)
[2017-04-12] MEDS ORDERED: ELIQ2.5T PO (20:27)
[2017-04-12] MEDS ORDERED: LOSA50TA20 (20:27)
[2017-04-12] MEDS ORDERED: FURO20TA2 (20:27)
[2017-04-12] MEDS ORDERED: LEVO75TA4 (20:27)
[2017-04-12] MEDS ORDERED: PERCOCET 5MG/325MG TAB PO ONE ×3 (21:00→22:30)
--- NOTE | 2017-04-12 22:10 | REPUSA ---
CT of the lumbar spine without contrast Clinical history: Pain. Technique: Multiple axial CT images were obtained through the lumbar spine without administration of contrast. Coronal and sagittal 3-D reconstructed images were also obtained. Findings: The lumbar vertebral bodies are in satisfactory positioning and alignment. No fractures or dislocatio ns are demonstrated. Intervertebral disc spaces are well-maintained. There is no evidence of facet xie bluxation. The neural foramen appear grossly patent. The spinal canal demonstrates normal caliber and contour without evidence of spinal stenosis. The surrounding soft tissues are within normal limits. Impression: Unremarkable CT examination of the lumbar spine.
[2017-04-12] MEDS ORDERED: PERC5TAB6 PO (22:19)
[2017-04-12 22:28] VITALS: BP 119/74
--- NOTE | 2017-04-13 09:18 | REP ---
LUMBAR SPINE COMPLETE: 04/12/2017. COMPARISON: No prior study. CLINICAL HISTORY: Back pain. No radicular symptoms. Denies injury. FINDINGS: Five views were provided. There are bilateral total hip arthroplasties evident. There are surgical clips in the right upper quadrant from prior cholecystectomy. AICD pacer wire at the extreme upper aspect of the field of view. There is a gentle levoconvex curve of the lumbar spine centered at L2. Pedicles, spinous and transverse processes are grossly intact. Vascular calcifications of the aorta and iliac vessels noted. SI joints, sacral ala and foramina as well as the iliac bones are grossly intact. There is facet arthropathy at L4-5 and L5, S1, less at L3-4. Lordosis is slightly exaggerated at the lumbosacral junction and a few millimeters of anterolisthesis is noted of L5 on S1 due to facet arthritis. No spondylolysis. Disc space heights slightly narrowed L3-4, and L5-S1. IMPRESSION: 1. Degenerative disc changes and facet arthropathy as described with a few millimeters of anterolisthesis of L5 on S1 related to that arthropathy of the facets. 2. No compression fracture or destructive lesion. 3. Vascular calcification aorta and branches and bilateral total hip arthroplasty noted. Signed by Osman Perez MD 04/13/2017 07:48 P
== END 2017-04-12 22:29 | disposition home or self-care (01) ==
LOC: M ED 21:14
DX: M54.5 Low back pain (principal); I25.10 Atherosclerotic heart disease of native coronary artery without angina pectoris; I50.9 Heart failure, unspecified; I10 Essential (primary) hypertension; N40.0 Benign prostatic hyperplasia without lower urinary tract symptoms; Z87.891 Personal history of nicotine dependence

== ENCOUNTER 2017-07-04 18:06 | Inpatient (IN) | payer MEDICARE ==
[~2017-07-04] VITALS: Ht 170.2 cm; Wt 145.8 kg
[~2017-07-04 18:06] MED LIST changes: +ELIQ2.5T PO; +FERR1TAB8 PO; +LEVO75TA4 PO; +LOSA50TA20 PO; +PERC5TAB12 PO; +PROAAER10 INH
[2017-07-04] MEDS ORDERED: SPIR1CAP (18:23)
[2017-07-04] MEDS ORDERED: methylPREDNISolone INJ 125 MG/2 ML VIAL (J2930) IV ONE ×2 (18:45)
[2017-07-04] MEDS ORDERED: IPRATROPIUM 0.5MG/ALBUTEROL 2.5MG INH SOL UD 3ML (DUONEB)(J7620) NEB ONE (18:45)
[2017-07-04 18:59] LABS: BASO % 0.5 % (0.0-1.0); EOS # 0.2 K/mm3 (0.0-0.50); EOS % 2.5 % (0.0-3.0); LARGE UNSTAINED CELL # 0.1 K/mm3 (0.0-0.4); LYMPH # 1.1 K/mm3 (1.5-4.5); LYMPH % 17.1 % (24.0-44.0); MEAN CORPUSCULAR HEMOGLOBIN 31.7 pg (27.0-33.0); MEAN CORPUSCULAR HGB CONC 31.4 g/dl (32.0-36.5); MEAN CORPUSCULAR VOLUME 100.9 fl (80.0-96.0); MONO # 0.4 K/mm3 (0.0-0.8); MONO % 5.7 % (0.0-5.0); NEUTROPHILS # 4.6 K/mm3 (1.8-7.7); NEUTROPHILS % 72.1 % (36.0-66.0); PLATELET COUNT, AUTOMATED 228 k/mm3 (150-450); RED CELL DISTRIBUTION WIDTH 13.3 % (11.5-14.5); WHITE BLOOD COUNT 6.4 K/mm3 (4.0-10.0)
[2017-07-04 19:01] LABS: ABG BASE EXCESS -3.5 (-2.0-2.0); ABG HCO3 20.1 MEQ/L (22.0-26.0); ABG PARTIAL PRESSURE CO2 31.9 mmHg (35.0-45.0); ABG PARTIAL PRESSURE O2 97.4 mmHg (75.0-100.0); ABG STANDARD HCO3 21.6 MEQ/L (22.0-26.0); ABG TOTAL CO2 21.1 MEQ/L (23.0-31.0); ABG pH (ARTERIAL) 7.417 UNITS (7.350-7.450)
[2017-07-04 19:05] LABS: INR 1.19
--- NOTE | 2017-07-04 19:12 | REP ---
Clinical: Dyspnea. Comparison: 10/28/2016. Findings: Examination is limited by portable technique and underpenetration with accentuation of the interstitium and pulmonary vasculature. Cardiomegaly is appreciated with pacemaker in stable position. Interstitial edema and mild pulmonary vascular congestion cannot be excluded as well as right basilar atelectasis. No obvious effusion. No pneumothorax. Skeletal structures intact. Impression: Stable cardiomegaly and chronic changes. Cannot exclude interstitial edema as well as right basilar atelectasis. Signed by Wolf Larsen MD 07/04/2017 07:02 P
[2017-07-04 19:33] LABS: ALBUMIN 3.2 GM/DL (3.2-5.2); ALBUMIN/GLOBULIN RATIO 1.07 (1.00-1.93); BILIRUBIN,DIRECT 0.1 MG/DL (0.0-0.2); BILIRUBIN,TOTAL 0.5 MG/DL (0.2-1.0); CALCIUM LEVEL 7.7 MG/DL (8.8-10.2); CREATININE FOR GFR 1.46 MG/DL (0.70-1.30); GLOMERULAR FILTRATION RATE 49.3 (>35); POTASSIUM SERUM 4.2 MEQ/L (3.5-5.1); TOTAL PROTEIN 6.2 GM/DL (6.4-8.2)
[2017-07-04] MEDS ORDERED: FUROSEMIDE 100 MG/10 ML VIAL (J1940) IV ONE (20:15)
[2017-07-04] MEDS: ADVAIR HFA 115/21MCG INHALER INH SCH (21:00)
[2017-07-04] MEDS ORDERED: VITMTA PO (21:23)
[2017-07-04] MEDS ORDERED: SPIR1CAP INH (21:23)
[2017-07-04] MEDS ORDERED: ASPI81TAEC PO (21:23)
[2017-07-04] MEDS ORDERED: TYLE500T78 PO (21:23)
[2017-07-04] MEDS ORDERED: IPRATROPIUM 0.5MG/ALBUTEROL 2.5MG INH SOL UD 3ML (DUONEB)(J7620) NEB PRN (22:15)
[2017-07-04] MEDS: PANTOPRAZOLE 40MG TAB (PROTONIX) PO SCH (23:03)
[2017-07-04] MEDS: CARVedilol 12.5 MG TAB PO SCH (23:03)
[2017-07-04] MEDS: FERROUS SULFATE 325MG TAB PO SCH (23:03)
[2017-07-04] MEDS: APIXABAN 2.5 MG TAB (ELIQUIS) PO SCH (23:03)
[2017-07-04] MEDS: DOXYCYCLINE HYCLATE 100 MG TAB PO SCH (23:04)
--- NOTE | 2017-07-04 23:18 | HPE ---
DATE OF ADMISSION: 07/04/2017 PRIMARY CARE PROVIDER: Martín Ramirez MD STRIPPING MACHINE OPERATOR: Dave Dinero MD HOME INSURANCE AGENT: Lui Stoddard MD CHIEF COMPLAINT: Shortness of breath. HISTORY: Alex Sheikh came to the emergency room because he was short of breath this afternoon with pain in his chest, worse with a deep inspiration. His history is severe chronic obstructive pulmonary disease (COPD) and nonischemic cardiomyopathy. Says he has had a "head cold" for a better part of a week, now starting to cough more. Says he feels better after treatments received in the emergency room, but still dyspneic, requires hospitalization. He has a history of COPD with frequent hospitalizations. He uses chronic supplemental oxygen and is followed by pulmonary associates, specifically Dr. Stoddard. His most recent spirometry that I have available is from August 2016, FEV1 of 43%, predicted FVC 68% predicted. DL/CO reduced to 32%. He has systolic congestive heart failure, nonischemic, left ventricular ejection fraction, echocardiogram from 12/2015 was 25 to 30%. Also has a history of hypertension, hyperlipidemia, hypothyroidism. OTHER PAST MEDICAL HISTORY: Includes: Elevated prostate-specific antigen (PSA) for which considering his age and comorbidities, probably does not bear aggressive evaluation. Hypertension. Osteoarthritis. He has a history of atrial flutter, also has an implantable cardioverter defibrillator (ICD) dual chamber pacemaker. PAST SURGICAL HISTORY: Cholecystectomy. Bilateral hip replacement. Partial colectomy. Coronary angiogram 2012, apparently does not show ischemic heart disease. Colonoscopy November 2014. SOCIAL HISTORY: , former smoker. Does not smoke currently. No alcohol use. FAMILY HISTORY: Father had heart disease, mother diabetes. Four brothers with heart disease. One had a stroke. ALLERGIES: PREDNISONE made him become very depressed. REVIEW OF SYSTEMS: No fever, chills, hemoptysis. No lower extremity edema. PHYSICAL EXAMINATION: Blood pressure 147/89, pulse 110, respiratory rate 18, 97% oxygen saturation. General appearance: Chronic, ill-appearing dyspneic with speaking full sentences. Showing no retractions. Pupils equal, reactive to light. TMs and oropharynx benign. Mucous membranes dry. Neck: Supple. Bilateral soft carotid bruits. Heart: Regular rate and rhythm. Tachycardic. Lungs: Have fibrotic rales both bases. Expiratory wheezes. Heart: Regular without murmur. Trace 1+ peripheral edema. No clubbing or cyanosis. LABS: White count 6.4, hemoglobin 12.4, platelet 228, INR 1.1. Sodium 142, potassium 4.2, BUN 11, creatinine 1.4, glucose 218, lactic acid 3.5. BMP 801. ABG 7.41/. Chest x-ray showed interstitial edema, COPD changes. EKG showed atrial tachycardia versus atrial flutter. Rate was around 110. Left bundle branch block. IMPRESSION: 1. Exacerbation of COPD from presumed bronchitis. Being admitted to a telemetry bed. Nebulized bronchodilator and advance Solu-Medrol, empiric antibiotic therapy has been ordered. There is no distinct infiltrate on the chest x-ray so we should be able to get by with an oral antibiotic. I will use doxycycline 100 mg by mouth twice a day. 2. Chest pain. Probably nonischemic. Serial enzymes, telemetry. Suspect pulmonary as the cause for his chest pain. 3. 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 Plan: He looks to be in some failure both by chest x-ray, BMP and exam. I will initiate gentle diuresis, looking for a net diuresis of approximately 1000 liters per day with intravenous Lasix. Repeat lab work for his potassium has been ordered. 4. Hypothyroidism. Continue current dose of levothyroxine 75 mcg daily. 5. Presence of ICD. He has had no discharges. Check magnesium level. Check digoxin level. 6. History of atrial fibrillation/flutter. He is on Eliquis 2.5 mg twice a day, which we will continue. Also on aspirin 81 mg daily. He has no documented coronary artery disease. Aspirin might increase his bleeding risk with the Eliquis. Defer decision on this to his outpatient provider. 7. Hypertension. Continue with Losartan and carvedilol. Dr. Mackenzie will be assuming his care tomorrow morning.
[2017-07-04 23:42] VITALS: BP 115/90
[2017-07-04 23:45] VITALS: BP 141/80
[2017-07-04] MEDS: FUROSEMIDE 40 MG/4 ML VIAL (J1940) IV SCH (23:47)
[2017-07-05] MEDS: IPRATROPIUM 0.5MG/ALBUTEROL 2.5MG INH SOL UD 3ML (DUONEB)(J7620) NEB SCH ×4 (01:59→20:00)
[2017-07-05 04:58] VITALS: BP 141/81
[2017-07-05] MEDS: FUROSEMIDE 40 MG/4 ML VIAL (J1940) IV SCH ×3 (05:04→18:31)
[2017-07-05] MEDS ORDERED: methylPREDNISolone INJ 125 MG/2 ML VIAL (J2930) IV SCH (06:00)
[2017-07-05 08:00] VITALS: BP 146/79
[2017-07-05] MEDS: ADVAIR HFA 115/21MCG INHALER INH SCH ×2 (08:11→20:26)
[2017-07-05] MEDS: TIOTROPIUM INHALER/CAPSULE (SPIRIVA) INH SCH (08:21)
[2017-07-05 08:29] LABS: MEAN CORPUSCULAR HEMOGLOBIN 33.6 pg (27.0-33.0); MEAN CORPUSCULAR HGB CONC 33.6 g/dl (32.0-36.5); MEAN CORPUSCULAR VOLUME 100.2 fl (80.0-96.0); RED CELL DISTRIBUTION WIDTH 13.7 % (11.5-14.5); WHITE BLOOD COUNT 8.9 K/mm3 (4.0-10.0)
[2017-07-05] MEDS: LOSARTAN 50 MG TAB PO SCH (08:48)
[2017-07-05] MEDS: MULTIVITAMINS/MINERALS THERAP 1 TAB PO SCH (08:48)
[2017-07-05] MEDS: LEVOTHYROXINE 75MCG TABLET (0.075MG) PO SCH (08:49)
[2017-07-05] MEDS: ASPIRIN 81 MG ENTERIC TAB PO SCH (08:49)
[2017-07-05] MEDS: CARVedilol 12.5 MG TAB PO SCH ×2 (08:49→20:18)
[2017-07-05] MEDS: APIXABAN 2.5 MG TAB (ELIQUIS) PO SCH ×2 (08:49→20:17)
[2017-07-05] MEDS: DOXYCYCLINE HYCLATE 100 MG TAB PO SCH ×2 (08:49→20:18)
[2017-07-05] MEDS: DIGOXIN 0.125 MG TAB PO SCH (08:49)
[2017-07-05 08:52] LABS: CALCIUM LEVEL 8.9 MG/DL (8.8-10.2); CREATININE FOR GFR 1.45 MG/DL (0.70-1.30); GLOMERULAR FILTRATION RATE 49.7 (>35); MAGNESIUM LEVEL 2.1 MG/DL (1.8-2.4); POTASSIUM SERUM 4.4 MEQ/L (3.5-5.1)
[2017-07-05] MEDS ORDERED: LEVOTHYROXINE 75MCG TABLET (0.075MG) PO SCH (09:00)
[2017-07-05 12:00] VITALS: BP 127/72
[2017-07-05 16:00] VITALS: BP 164/66
--- NOTE | 2017-07-05 17:07 | IPNPDOC ---
Date Seen The patient was seen on 07/05/17. Progress Note Hospitalist Progress Note Subjective: Patient states that he is feeling much better and his breathing has improved Objective: Physical Exam: Vitals: Vital Sign - Last 24 Hours 07/04/17 07/04/17 07/04/17 07/04/17 18:06 18:34 18:36 18:42 Temp 98.3 Pulse 101 102 B/P (MAP) 140/65 (90) 152/86 (108) Pulse Ox 93 97 O2 Delivery Room Air O2 Flow Rate 2.0 07/04/17 07/04/17 07/04/17 07/04/17 18:49 18:51 19:04 19:06 Pulse 104 110 B/P (MAP) 149/96 (113) 151/85 (107) Pulse Ox 98 97 07/04/17 07/04/17 07/04/17 07/04/17 19:08 19:19 19:21 19:36 Pulse 110 110 Resp 24 B/P (MAP) 129/93 (105) Pulse Ox 96 97 97 O2 Delivery Room Air 07/04/17 07/04/17 07/04/17 07/04/17 19:49 19:51 20:04 20:06 Pulse 108 106 B/P (MAP) 159/91 (113) 159/91 (113) Pulse Ox 98 98 07/04/17 07/04/17 07/04/17 07/04/17 20:19 20:21 20:36 20:51 Pulse 108 106 110 B/P (MAP) 189/98 (128) Pulse Ox 97 96 97 07/04/17 07/04/17 07/04/17 07/04/17 21:04 21:06 21:19 21:21 Pulse 110 112 B/P (MAP) 163/83 (109) 199/97 (131) Pulse Ox 96 97 07/04/17 07/04/17 07/04/17 07/04/17 21:34 21:36 21:51 22:04 Pulse 110 118 B/P (MAP) 147/89 (108) 109/82 (91) Pulse Ox 97 95 07/04/17 07/04/17 07/04/17 07/04/17 22:06 22:19 22:21 22:34 Pulse 112 116 B/P (MAP) 126/87 (100) 138/89 (105) Pulse Ox 96 97 07/04/17 07/04/17 07/04/17 07/04/17 22:36 22:49 22:51 23:03 Temp 98.1 Pulse 114 112 B/P (MAP) 149/94 (112) 115/90 Pulse Ox 96 07/04/17 07/04/17 07/05/17 07/05/17 23:42 23:45 01:52 04:58 Temp 97.0 96.4 Pulse 115 86 Resp 22 20 B/P (MAP) 115/90 (98) 141/80 (100) 141/81 (101) Pulse Ox 92 98 O2 Delivery Nasal Cannula Nasal Cannula Nasal Cannula O2 Flow Rate 2.0 2.0 2.0 07/05/17 07/05/17 07/05/17 07/05/17 04:59 08:00 08:00 08:48 Temp 97.4 Pulse 71 Resp 20 B/P (MAP) 146/79 (101) 146/79 Pulse Ox 93 O2 Delivery Nasal Cannula Room Air Room Air O2 Flow Rate 2.0 07/05/17 07/05/17 07/05/17 07/05/17 08:49 08:49 12:00 12:00 Temp 98.6 Pulse 69 69 79 Resp 20 B/P (MAP) 146/79 127/72 (90) Pulse Ox 95 O2 Delivery Room Air Room Air General: Awake, alert, no acute distress HEENT: Normocephalic, atraumatic, moist mucous membranes CV: Regular rate and rhythm Lungs: Clear in all of the left lung garcia, crackles at the right base, mild rhonchi at the right upper lobe Abd: Soft, nontender, nondistended Extremities: No peripheral edema Neuro: Alert and oriented 3, normal speech Psych: And normal mood and affect Labs and Imaging: Laboratory Tests 07/04/17 18:23 Red Blood Count 3.92 L, Mean Corpuscular Volume 100.9 H, Mean Corpuscular Hemoglobin 31.7, Mean Corpuscular Hemoglobin Concent 31.4 L, Red Cell Distribution Width 13.3, Neutrophils (%) (Auto) 72.1 H, Lymphocytes (%) (Auto) 17.1 L, Monocytes (%) (Auto) 5.7 H, Eosinophils (%) (Auto) 2.5, Basophils (%) ( Auto) 0.5, Neutrophils # (Auto) 4.6, Lymphocytes # (Auto) 1.1 L, Monocytes # ( Auto) 0.4, Eosinophils # (Auto) 0.2, Basophils # (Auto) 0.0 07/05/17 08:09 Red Blood Count 3.99 L, Mean Corpuscular Volume 100.2 H, Mean Corpuscular Hemoglobin 33.6 H, Mean Corpuscular Hemoglobin Concent 33.6, Red Cell Distribution Width 13.7, Calcium Level 8.9 #, Total Creatine Kinase 48 Assessment and Plan: 81-year-old male with COPD, hypertension, osteoarthritis, atrial flutter status post ICD with dual-chamber pacemaker placement, chronic systolic CHF, hyperlipidemia, hypothyroidism, chronic kidney disease stage III who presented to the emergency department with shortness of breath and is admitted with acute on chronic systolic CHF exacerbation, as well as COPD exacerbation. 1. Acute on chronic systolic CHF exacerbation: The patient diuresed over 2 L yesterday. We will continue IV Lasix but at a decreased dose and monitor his daily I/Os and weights. Currently holding home oral Lasix. By report in the H&P , he had an echo in December 2015 which still showed ejection fraction of 25-30%. I do not see an echocardiogram in our EMR, so we will complete a current one. 2. COPD exacerbation: The patient does not use any oxygen at baseline, and he is not currently requiring any at the moment. He has minimal wheeze, so we will wean his IV steroids. We will continue scheduled and as needed DuoNeb's, as well as doxycycline. Continue home Spiriva and Advair. 3. Hypertension: Continue home beta inés and ARB. 4. Atrial flutter status post ICD with dual-chamber pacemaker placement: Continue home beta inés and digoxin. Digoxin level is currently normal. Continue home eliquis. 5. Hypothyroidism: Continue home Synthroid. 6. Chronic kidney disease stage III: Baseline creatinine appears to be in the mid to upper ones. He is currently at baseline. We will continue to monitor closely while diuresing. DVT prophylaxis: eliquis Dispo: pending adequate diuresis and ability to transition to oral steroids, as well as echo results VS, I&O, 24H, Fishbone Vital Signs/I&O Vital Signs Date Time Temp Pulse Resp B/P (MAP) Pulse Ox O2 Delivery O2 Flow Rate FiO2 07/05/17 12:00 Room Air 07/05/17 12:00 98.6 79 20 127/72 (90) 95 07/05/17 04:59 2.0 I&O- Last 24 Hours up to 6 AM 07/05/17 06:00 Intake Total 180 ml Output Total 3525 ml Balance -3345 ml Laboratory Data 24H LABS Laboratory Tests 2 07/04/17 18:23: White Blood Count 6.4, Red Blood Count 3.92L, Hemoglobin 12.4L, Hematocrit 39.6L , Mean Corpuscular Volume 100.9H, Mean Corpuscular Hemoglobin 31.7, Mean Corpuscular Hemoglobin Concent 31.4L, Red Cell Distribution Width 13.3, Platelet Count 228, Neutrophils (%) (Auto) 72.1H, Lymphocytes (%) (Auto) 17.1L, Monocytes (%) (Auto) 5.7H, Eosinophils (%) (Auto) 2.5, Basophils (%) (Auto) 0.5 , Neutrophils # (Auto) 4.6, Lymphocytes # (Auto) 1.1L, Monocytes # (Auto) 0.4, Eosinophils # (Auto) 0.2, Basophils # (Auto) 0.0, Large Unclassified Cells % 2.0 , Large Unclassified Cells # 0.1, Prothrombin Time 15.3H, Prothromb Time International Ratio 1.19, Anion Gap 12, Glomerular Filtration Rate 49.3, Lactic Acid Level 3.5*H, Calcium Level 7.7L, Magnesium Level 2.0, Aspartate Amino Transf (AST/SGOT) 10L, Alanine Aminotransferase (ALT/SGPT) 15, Alkaline Phosphatase 63, Total Bilirubin 0.5, Direct Bilirubin 0.1, Total Creatine Kinase 55, Creatine Kinase MB 1.5, Creatine Kinase MB Relative Index 2.72, Troponin I 0.03, B-Type Natriuretic Peptide 801H, Total Protein 6.2L, Albumin 3.2, Albumin/Globulin Ratio 1.07, Thyroid Stimulating Hormone (TSH) 3.510, Digoxin Level 1.0 07/04/17 18:54: Blood Gas Bicarbonate Standard 21.6L, Arterial Blood pH 7.417, Arterial Blood Partial Pressure CO2 31.9L, Arterial Blood Partial Pressure O2 97.4, Arterial Blood Total CO2 21.1L, Arterial Blood HCO3 20.1L, Arterial Blood Base Excess - 3.5L, Arterial Blood Oxygen Saturation 97.2 07/04/17 23:55: Lactic Acid Followup at 4 Hours 1.2 07/05/17 08:09: Anion Gap 9, Glomerular Filtration Rate 49.7, Calcium Level 8.9#, Magnesium Level 2.1, Total Creatine Kinase 48, Creatine Kinase MB 1.2, Creatine Kinase MB Relative Index 2.50, Troponin I 0.04#, Blood Urea Nitrogen 14, Creatinine 1.45H , Sodium Level 144, Potassium Level 4.4, Chloride Level 105, Carbon Dioxide Level 30 07/05/17 12:03: Total Creatine Kinase 50, Creatine Kinase MB 1.8, Creatine Kinase MB Relative Index 3.60, Troponin I 0.03# CBC/BMP Laboratory Tests 07/04/17 18:23 Red Blood Count 3.92 L, Mean Corpuscular Volume 100.9 H, Mean Corpuscular Hemoglobin 31.7, Mean Corpuscular Hemoglobin Concent 31.4 L, Red Cell Distribution Width 13.3, Neutrophils (%) (Auto) 72.1 H, Lymphocytes (%) (Auto) 17.1 L, Monocytes (%) (Auto) 5.7 H, Eosinophils (%) (Auto) 2.5, Basophils (%) ( Auto) 0.5, Neutrophils # (Auto) 4.6, Lymphocytes # (Auto) 1.1 L, Monocytes # ( Auto) 0.4, Eosinophils # (Auto) 0.2, Basophils # (Auto) 0.0 07/05/17 08:09 Red Blood Count 3.99 L, Mean Corpuscular Volume 100.2 H, Mean Corpuscular Hemoglobin 33.6 H, Mean Corpuscular Hemoglobin Concent 33.6, Red Cell Distribution Width 13.7, Calcium Level 8.9 #, Total Creatine Kinase 48 Microbiology Microbiology 07/04/17 Blood Culture, Received Pending 07/04/17 Blood Culture, Received Pending OLE CHAPIN Jul 05, 2017 17:07
[2017-07-05] MEDS: methylPREDNISolone INJ 40 MG/1 ML VIAL (J2920) IV SCH (18:26)
[2017-07-05 19:53] VITALS: BP 129/95
[2017-07-05] MEDS: FAMOTIDINE 20 MG TAB PO SCH (20:18)
[2017-07-05] MEDS: PANTOPRAZOLE 40MG TAB (PROTONIX) PO SCH (20:18)
[2017-07-05] MEDS: FERROUS SULFATE 325MG TAB PO SCH (20:18)
[2017-07-05 20:55] VITALS: BP 142/84
[2017-07-06] VITALS (7 sets, daily range): BP systolic 114–150; BP diastolic 60–78
[2017-07-06] MEDS: IPRATROPIUM 0.5MG/ALBUTEROL 2.5MG INH SOL UD 3ML (DUONEB)(J7620) NEB SCH ×4 (02:00→20:00)
[2017-07-06 05:28] LABS: MEAN CORPUSCULAR HEMOGLOBIN 32.4 pg (27.0-33.0); MEAN CORPUSCULAR HGB CONC 32.5 g/dl (32.0-36.5); MEAN CORPUSCULAR VOLUME 99.6 fl (80.0-96.0); RED CELL DISTRIBUTION WIDTH 13.6 % (11.5-14.5); WHITE BLOOD COUNT 10.6 K/mm3 (4.0-10.0)
[2017-07-06] MEDS: LEVOTHYROXINE 75MCG TABLET (0.075MG) PO SCH (05:38)
[2017-07-06] MEDS: methylPREDNISolone INJ 40 MG/1 ML VIAL (J2920) IV SCH ×2 (05:38→18:00)
[2017-07-06 05:51] LABS: CALCIUM LEVEL 8.6 MG/DL (8.8-10.2); CREATININE FOR GFR 1.33 MG/DL (0.70-1.30); GLOMERULAR FILTRATION RATE 54.9 (>35); POTASSIUM SERUM 4.1 MEQ/L (3.5-5.1)
[2017-07-06] MEDS: ADVAIR HFA 115/21MCG INHALER INH SCH ×2 (07:11→20:59)
[2017-07-06] MEDS: APIXABAN 2.5 MG TAB (ELIQUIS) PO SCH ×2 (08:03→20:16)
[2017-07-06] MEDS: MULTIVITAMINS/MINERALS THERAP 1 TAB PO SCH (08:03)
[2017-07-06] MEDS: DOXYCYCLINE HYCLATE 100 MG TAB PO SCH ×2 (08:03→20:16)
[2017-07-06] MEDS: LOSARTAN 50 MG TAB PO SCH (08:03)
[2017-07-06] MEDS: ASPIRIN 81 MG ENTERIC TAB PO SCH (08:03)
[2017-07-06] MEDS: FUROSEMIDE 40 MG/4 ML VIAL (J1940) IV SCH ×2 (08:03→18:30)
[2017-07-06] MEDS: CARVedilol 12.5 MG TAB PO SCH ×2 (08:03→20:16)
[2017-07-06] MEDS: TIOTROPIUM INHALER/CAPSULE (SPIRIVA) INH SCH (11:20)
[2017-07-06] MEDS ORDERED: ONDANSETRON 4MG/2ML VIAL (J2405) IV PRN (12:00)
--- NOTE | 2017-07-06 16:08 | IPNPDOC ---
Date Seen The patient was seen on 07/06/17. Progress Note Hospitalist Progress Note Subjective: Patient states that he is feeling much better and his breathing has improved but it is still not quite baseline. Denies chest pain. Objective: Physical Exam: Vitals: Vital Sign - Last 24 Hours 07/05/17 07/05/17 07/05/17 07/05/17 19:38 19:53 20:00 20:18 Temp 98.2 Pulse 79 79 Resp 20 B/P (MAP) 129/95 (106) 129/95 Pulse Ox 94 O2 Delivery Room Air Room Air Room Air 07/05/17 07/06/17 07/06/17 07/06/17 20:55 00:00 00:17 04:00 Temp 97.9 98.5 Pulse 73 73 Resp 18 18 B/P (MAP) 142/84 (103) 150/78 (102) Pulse Ox 92 92 O2 Delivery Room Air Room Air Room Air 07/06/17 07/06/17 07/06/17 07/06/17 05:34 07:59 08:00 08:03 Temp 98.5 97.9 Pulse 73 70 70 Resp 18 18 B/P (MAP) 130/63 (85) 122/67 (85) 122/67 Pulse Ox 91 96 O2 Delivery Room Air Room Air Room Air 07/06/17 07/06/17 07/06/17 07/06/17 08:03 12:04 12:10 15:41 Temp 98.5 96.9 Pulse 68 72 Resp 18 18 B/P (MAP) 122/67 114/60 (78) 128/73 (91) Pulse Ox 93 92 O2 Delivery Room Air Room Air Room Air General: Awake, alert, no acute distress HEENT: Normocephalic, atraumatic, moist mucous membranes CV: Regular rate and rhythm Lungs: Clear in all of the left lung garcia, crackles at the right base Abd: Soft, nontender, nondistended Extremities: No peripheral edema Neuro: Alert and oriented 3, normal speech Psych: normal mood and affect Labs and Imaging: Laboratory Tests 07/06/17 04:53 Red Blood Count 3.99 L, Mean Corpuscular Volume 99.6 H, Mean Corpuscular Hemoglobin 32.4, Mean Corpuscular Hemoglobin Concent 32.5, Red Cell Distribution Width 13.6, Calcium Level 8.6 L Assessment and Plan: 81-year-old male with COPD, hypertension, osteoarthritis, atrial flutter status post ICD with dual-chamber pacemaker placement, chronic systolic CHF, hyperlipidemia, hypothyroidism, chronic kidney disease stage III who presented to the emergency department with shortness of breath and is admitted with acute on chronic systolic CHF exacerbation, as well as COPD exacerbation. 1. Acute on chronic systolic CHF exacerbation: The patient diuresed over 3 L since admission. We will continue IV Lasix and monitor his daily I/Os and weights. Currently holding home oral Lasix. By report in the H&P, he had an echo in December 2015 which still showed ejection fraction of 25-30%. Repeat echo pending. 2. COPD exacerbation: The patient does not use any oxygen at baseline, and he is not currently requiring any at the moment. He has minimal wheeze, so we will wean his IV steroids. We will continue scheduled and as needed DuoNeb's, as well as doxycycline. Continue home Spiriva and Advair. 3. Hypertension: Continue home beta inés and ARB. 4. Atrial flutter status post ICD with dual-chamber pacemaker placement: Continue home beta inés and digoxin. Digoxin level is currently normal. Continue home eliquis. 5. Hypothyroidism: Continue home Synthroid. 6. Chronic kidney disease stage III: Baseline creatinine appears to be in the mid to upper ones. He is currently at baseline. We will continue to monitor closely while diuresing. DVT prophylaxis: eliquis Dispo: pending adequate diuresis and ability to transition to oral steroids, as well as echo results; transfer to the floor VS, I&O, [facility] Vital Signs/I&O Vital Signs Date Time Temp Pulse Resp B/P (MAP) Pulse Ox O2 Delivery O2 Flow Rate FiO2 07/06/17 15:41 96.9 72 18 128/73 (91) 92 Room Air 07/05/17 04:59 2.0 I&O- Last 24 Hours up to 6 AM 07/06/17 06:00 Intake Total 1620 ml Output Total 1825 ml Balance -205 ml Laboratory Data 24H LABS Laboratory Tests 2 07/05/17 19:57: Total Creatine Kinase 50, Creatine Kinase MB 1.7, Creatine Kinase MB Relative Index 3.40, Troponin I 0.03 07/06/17 04:53: Anion Gap 8, Glomerular Filtration Rate 54.9, Blood Urea Nitrogen 25#H, Creatinine 1.33H, Sodium Level 144, Potassium Level 4.1, Chloride Level 103, Carbon Dioxide Level 33H, Calcium Level 8.6L, Magnesium Level 2.0 CBC/BMP Laboratory Tests 07/06/17 04:53 Red Blood Count 3.99 L, Mean Corpuscular Volume 99.6 H, Mean Corpuscular Hemoglobin 32.4, Mean Corpuscular Hemoglobin Concent 32.5, Red Cell Distribution Width 13.6, Calcium Level 8.6 L Microbiology Microbiology 07/04/17 Blood Culture - Preliminary, Resulted No growth after 24 hours . All specim... 07/04/17 Blood Culture - Preliminary, Resulted No growth after 24 hours . All specim... OLE CHAPIN Jul 06, 2017 16:08
[2017-07-06] MEDS: FAMOTIDINE 20 MG TAB PO SCH (20:16)
[2017-07-06] MEDS: FERROUS SULFATE 325MG TAB PO SCH (20:16)
[2017-07-06] MEDS: PANTOPRAZOLE 40MG TAB (PROTONIX) PO SCH (20:16)
[2017-07-07] VITALS (7 sets, daily range): BP systolic 117–144; BP diastolic 58–70
[2017-07-07] MEDS: IPRATROPIUM 0.5MG/ALBUTEROL 2.5MG INH SOL UD 3ML (DUONEB)(J7620) NEB SCH ×5 (02:00→20:23)
[2017-07-07] MEDS: methylPREDNISolone INJ 40 MG/1 ML VIAL (J2920) IV SCH (05:39)
[2017-07-07] MEDS: LEVOTHYROXINE 75MCG TABLET (0.075MG) PO SCH (05:39)
[2017-07-07 06:52] LABS: MEAN CORPUSCULAR HEMOGLOBIN 32.1 pg (27.0-33.0); MEAN CORPUSCULAR VOLUME 97.1 fl (80.0-96.0); RED CELL DISTRIBUTION WIDTH 13.5 % (11.5-14.5); WHITE BLOOD COUNT 11.8 K/mm3 (4.0-10.0)
[2017-07-07 07:02] LABS: CALCIUM LEVEL 8.3 MG/DL (8.8-10.2); CREATININE FOR GFR 1.46 MG/DL (0.70-1.30); GLOMERULAR FILTRATION RATE 49.3 (>35); MAGNESIUM LEVEL 2.3 MG/DL (1.8-2.4); POTASSIUM SERUM 3.6 MEQ/L (3.5-5.1)
[2017-07-07] MEDS: TIOTROPIUM INHALER/CAPSULE (SPIRIVA) INH SCH (08:12)
[2017-07-07] MEDS: ADVAIR HFA 115/21MCG INHALER INH SCH ×2 (08:12→19:49)
[2017-07-07] MEDS: MULTIVITAMINS/MINERALS THERAP 1 TAB PO SCH (08:59)
[2017-07-07] MEDS: CARVedilol 12.5 MG TAB PO SCH ×2 (09:00→21:00)
[2017-07-07] MEDS: ASPIRIN 81 MG ENTERIC TAB PO SCH (09:01)
[2017-07-07] MEDS: APIXABAN 2.5 MG TAB (ELIQUIS) PO SCH ×2 (09:01→21:00)
[2017-07-07] MEDS: DOXYCYCLINE HYCLATE 100 MG TAB PO SCH ×2 (09:02→21:00)
--- NOTE | 2017-07-07 13:05 | IPNPDOC ---
Date Seen The patient was seen on 07/07/17. Progress Note Hospitalist Progress Note Subjective: Patient states that he feels dizzy, but that this is something he had been having intermittent difficulty with prior to admission Objective: Physical Exam: Vitals: Vital Sign - Last 24 Hours 07/06/17 07/06/17 07/06/17 07/06/17 15:41 17:30 18:00 20:16 Temp 96.9 97.5 Pulse 72 59 117 Resp 18 18 B/P (MAP) 128/73 (91) 126/69 (88) 122/71 Pulse Ox 92 97 O2 Delivery Room Air Room Air Room Air 07/06/17 07/06/17 07/07/17 07/07/17 21:00 22:00 02:00 06:00 Temp 98.2 98.4 97.2 Pulse 117 89 53 Resp 17 16 B/P (MAP) 122/71 (88) 123/63 (83) 120/61 (80) Pulse Ox 94 94 93 O2 Delivery Room Air Room Air Room Air Room Air 07/07/17 07/07/17 09:00 10:00 Temp 97.1 Pulse 80 55 Resp 18 B/P (MAP) 126/79 117/58 (77) Pulse Ox 93 O2 Delivery Room Air I&O- Last 24 Hours up to 6 AM 07/07/17 06:00 Intake Total 960 ml Output Total 900 ml Balance 60 ml General: Awake, alert, no acute distress HEENT: Normocephalic, atraumatic, moist mucous membranes CV: Regular rate and rhythm Lungs: Clear in all of the left lung garcia, crackles at the right base Abd: Soft, nontender, nondistended Extremities: No peripheral edema Neuro: Alert and oriented 3, normal speech Psych: normal mood and affect Labs and Imaging: Laboratory Tests 07/07/17 06:21 Red Blood Count 3.97 L, Mean Corpuscular Volume 97.1 H, Mean Corpuscular Hemoglobin 32.1, Mean Corpuscular Hemoglobin Concent 33.0, Red Cell Distribution Width 13.5, Calcium Level 8.3 L Assessment and Plan: 81-year-old male with COPD, hypertension, osteoarthritis, atrial flutter status post ICD with dual-chamber pacemaker placement, chronic systolic CHF, hyperlipidemia, hypothyroidism, chronic kidney disease stage III who presented to the emergency department with shortness of breath and is admitted with acute on chronic systolic CHF exacerbation, as well as COPD exacerbation. 1. Acute on chronic systolic CHF exacerbation: The patient diuresed over 3 L since admission, and appears to be at baseline. Stop IV lasix and plan to restart home meds tomorrow. Continue to monitor his daily I/Os and weights. By report in the H&P, he had an echo in December 2015 which still showed ejection fraction of 25-30%. Repeat echo pending. 2. COPD exacerbation: The patient does not use any oxygen at baseline, and he is not currently requiring any at the moment. He has minimal wheeze, so we will wean his IV steroids again. He reports an "allergy" to prednisone and when asked what happens, he tells me he gets suicidal. He is unsure if he has safely taken any oral steroids. He is already on a very low dose solumedrol here, so we will wean that again and attempt to have him off all steroids prior to discharge. We will continue scheduled and as needed DuoNeb's, as well as doxycycline. Continue home Spiriva and Advair. 3. Hypertension: Continue home beta inés and ARB. 4. Atrial flutter status post ICD with dual-chamber pacemaker placement: Continue home beta inés and digoxin. Digoxin level is currently normal. Continue home eliquis. 5. Hypothyroidism: Continue home Synthroid. 6. Chronic kidney disease stage III: Baseline creatinine appears to be in the mid to upper ones. He is currently at baseline. We will continue to monitor closely while diuresing. 7. Dizziness: Has been an intermittent issue since prior to discharge. Will check orthostatics; may have gotten slightly overdiuresed here. Will ask PT/OT to evaluate for safety. DVT prophylaxis: eliquis Dispo: pending echo results and PT/OT safety eval VS, I&O, 24H, Fishbone Vital Signs/I&O Vital Signs Date Time Temp Pulse Resp B/P (MAP) Pulse Ox O2 Delivery O2 Flow Rate FiO2 07/07/17 10:00 97.1 55 18 117/58 (77) 93 Room Air 07/05/17 04:59 2.0 I&O- Last 24 Hours up to 6 AM 07/07/17 06:00 Intake Total 960 ml Output Total 900 ml Balance 60 ml Laboratory Data 24H LABS Laboratory Tests 2 9/17/17 06:21: Anion Gap 10, Glomerular Filtration Rate 49.3, Blood Urea Nitrogen 44#H, Creatinine 1.46H, Sodium Level 144, Potassium Level 3.6, Chloride Level 104, Carbon Dioxide Level 30, Calcium Level 8.3L, Magnesium Level 2.3, B-Type Natriuretic Peptide 294H CBC/BMP Laboratory Tests 07/07/17 06:21 Red Blood Count 3.97 L, Mean Corpuscular Volume 97.1 H, Mean Corpuscular Hemoglobin 32.1, Mean Corpuscular Hemoglobin Concent 33.0, Red Cell Distribution Width 13.5, Calcium Level 8.3 L Microbiology Microbiology 07/04/17 Blood Culture - Preliminary, Resulted No Growth after 48 hours. All Specime... 07/04/17 Blood Culture - Preliminary, Resulted No Growth after 48 hours. All Specime... OLE CHAPIN Jul 07, 2017 13:05
--- NOTE | 2017-07-07 13:39 | ECHO ---
DATE: 07/07/2017 REFERRING PHYSICIAN: Dr. Ivelisse Mackenzie Study was performed 07/07/2017 for indication of congestive heart failure, dilated cardiomyopathy. Patient measures 67 inches and weighs 150 pounds. DIMENSIONS: IVS 1.2 LV 5.8 LVPW 1.0 LA 5.3 Aorta 3.4 Ascending aorta 2.9 RV 3.1 FINDINGS: The study is of fair technical quality. Left ventricle is mildly dilated and globally hypokinetic. In some views, inferior wall appears essentially akinetic. Overall estimated ejection fraction (EF) is in the neighborhood of 30-35%. Right ventricle appears mildly dilated. Both atria are likely severely enlarged, left more than right. There are artifacts in right-sided heart chambers consistent with pacemaker/implantable cardioverter-defibrillator (ICD) electrodes. Aortic valve is mildly sclerotic but has normal mobility. Mitral valve and tricuspid valves also appear grossly normal. Pulmonic valve was poorly visualized but also appears grossly normal. No pericardial effusion is noted. Inferior vena cava is normal size and appropriately collapses with respiration indicative of likely normal central venous pressure. Aortic root is normal. Aortic arch was not well seen. Abdominal aorta appears normal. Doppler interrogation reveals no aortic stenosis or insufficiency. There is mild mitral insufficiency and mild tricuspid insufficiency calculated pulmonary artery pressure is around 40 mmHg corresponding borderline between mild and moderate pulmonary hypertension. Evaluation of diastolic function indicates grade 2 diastolic dysfunction (E prime septal 5.3, E prime lateral 7.7 cm/s). The evaluation is complicated by frequent ventricular ectopy and intermittent ventricular pacing. CONCLUSIONS: 1. Study is of fair technical quality. 2. Mildly dilated left ventricle with global hypokinesis and probably inferior akinesis and overall ejection fraction (EF) in neighborhood of 30-35%. Grade 2 diastolic dysfunction. 3. No hemodynamically significant valvular disease. 4. Likely normal central venous pressure and mild to moderate pulmonary hypertension. 5. Presence of pacemaker or implantable cardioverter-defibrillator electrodes in right-sided heart chambers. COMMENT: Subacute bacterial endocarditis (SBE) prophylaxis not recommended. MTDD
[2017-07-07] MEDS: PANTOPRAZOLE 40MG TAB (PROTONIX) PO SCH (21:00)
[2017-07-07] MEDS: FAMOTIDINE 20 MG TAB PO SCH (21:00)
[2017-07-07] MEDS: FERROUS SULFATE 325MG TAB PO SCH (21:00)
[2017-07-08] VITALS (9 sets, daily range): BP systolic 93–131; BP diastolic 56–82
[2017-07-08] MEDS: LEVOTHYROXINE 75MCG TABLET (0.075MG) PO SCH (05:57)
[2017-07-08 06:12] LABS: MEAN CORPUSCULAR HEMOGLOBIN 32.8 pg (27.0-33.0); MEAN CORPUSCULAR HGB CONC 33.5 g/dl (32.0-36.5); MEAN CORPUSCULAR VOLUME 97.9 fl (80.0-96.0); RED CELL DISTRIBUTION WIDTH 13.5 % (11.5-14.5); WHITE BLOOD COUNT 8.3 K/mm3 (4.0-10.0)
[2017-07-08 06:25] LABS: CALCIUM LEVEL 8.2 MG/DL (8.8-10.2); CREATININE FOR GFR 1.26 MG/DL (0.70-1.30); GLOMERULAR FILTRATION RATE 58.5 (>35); MAGNESIUM LEVEL 2.4 MG/DL (1.8-2.4); POTASSIUM SERUM 3.4 MEQ/L (3.5-5.1)
[2017-07-08] MEDS ORDERED: POTASSIUM CHLORIDE 10 MEQ SR TABLET PO ONE (06:45)
[2017-07-08] MEDS: IPRATROPIUM 0.5MG/ALBUTEROL 2.5MG INH SOL UD 3ML (DUONEB)(J7620) NEB SCH ×3 (07:26→20:00)
[2017-07-08] MEDS: TIOTROPIUM INHALER/CAPSULE (SPIRIVA) INH SCH (07:26)
[2017-07-08] MEDS: ADVAIR HFA 115/21MCG INHALER INH SCH ×2 (07:27→19:43)
--- NOTE | 2017-07-08 07:54 | ECGEPIP ---
Stationary ECG Study [facility] - ED Test Date: 2017-07-04 Pat Name: SAVANAH HARO Department: Room: [place] [address] Gender: M [employer]: : 1935 Requested By: Jaquelin Johnson Order Number: [id number] Reading MD: Jethro Hopper Measurements Intervals [place] Rate: 110 P: [place]: 0 QRS: -24 QRSD: 169 T: 97 QT: 370 QTc: 502 Interpretive Statements ATRIAL FIBRILLATION/TACHYCARDIA WITH RAPID VENTRICULAR RESPONSE WITH ABERRANT CONDUCTION OR VENTRICULAR PREMATURE COMPLEXES LEFT BUNDLE BRANCH BLOCK RHYTHM CHANGE COMPARED TO 05/27/14 Electronically Signed On 07-08-2017 7:54:45 EDT by Jethro Hopper
[2017-07-08] MEDS: DOXYCYCLINE HYCLATE 100 MG TAB PO SCH ×2 (08:58→20:53)
[2017-07-08] MEDS: MULTIVITAMINS/MINERALS THERAP 1 TAB PO SCH (08:58)
[2017-07-08] MEDS: APIXABAN 2.5 MG TAB (ELIQUIS) PO SCH ×2 (08:58→20:53)
[2017-07-08] MEDS: ASPIRIN 81 MG ENTERIC TAB PO SCH (08:58)
[2017-07-08] MEDS: DIGOXIN 0.125 MG TAB PO SCH (08:59)
[2017-07-08] MEDS ORDERED: methylPREDNISolone INJ 40 MG/1 ML VIAL (J2920) IV SCH (09:00)
[2017-07-08] MEDS: LOSARTAN 50 MG TAB PO SCH (10:35)
[2017-07-08] MEDS: CARVedilol 12.5 MG TAB PO SCH ×2 (10:35→20:54)
--- NOTE | 2017-07-08 14:56 | IPNPDOC ---
Date Seen The patient was seen on 07/08/17. Progress Note Hospitalist Progress Note Subjective: Patient states that he continues to feel dizzy but his breathing is good Objective: Physical Exam: Vitals: Vital Sign - Last 24 Hours 07/07/17 07/07/17 07/07/17 07/07/17 18:00 21:00 21:45 22:00 Temp 97.6 96.3 Pulse 69 68 68 Resp 16 18 B/P (MAP) 144/70 (94) 128/65 128/65 (86) Pulse Ox 96 96 O2 Delivery Room Air Room Air Room Air 07/08/17 07/08/17 07/08/17 07/08/17 02:00 06:00 06:21 08:59 Temp 96.3 96.3 Pulse 50 69 42 62 54 68 Resp 18 18 B/P (MAP) 119/64 (82) 109/57 (74) 117/58 (77) 110/56 (74) 93/59 (70) Pulse Ox 96 96 O2 Delivery Room Air Room Air 07/08/17 07/08/17 07/08/17 07/08/17 09:00 10:00 10:35 10:35 Temp 97.6 Pulse 70 62 Resp 18 B/P (MAP) 114/66 (82) 110/64 110/64 Pulse Ox 97 O2 Delivery Room Air Room Air 07/08/17 14:00 Temp 98.0 Pulse 68 Resp 18 B/P (MAP) 111/62 (78) Pulse Ox 98 O2 Delivery Room Air I&O- Last 24 Hours up to 6 AM 07/08/17 06:00 Intake Total 1080 ml Output Total 1050 ml Balance 30 ml General: Awake, alert, no acute distress HEENT: Normocephalic, atraumatic, moist mucous membranes CV: Regular rate and rhythm Lungs: Clear to auscultation bilaterally Abd: Soft, nontender, nondistended Extremities: No peripheral edema Neuro: Alert and oriented 3, normal speech Psych: normal mood and affect Labs and Imaging: Laboratory Tests 07/08/17 05:38 Red Blood Count 3.94 L, Mean Corpuscular Volume 97.9 H, Mean Corpuscular Hemoglobin 32.8, Mean Corpuscular Hemoglobin Concent 33.5, Red Cell Distribution Width 13.5, Calcium Level 8.2 L Assessment and Plan: 81-year-old male with COPD, hypertension, osteoarthritis, atrial flutter status post ICD with dual-chamber pacemaker placement, chronic systolic CHF, hyperlipidemia, hypothyroidism, chronic kidney disease stage III who presented to the emergency department with shortness of breath and is admitted with acute on chronic systolic CHF exacerbation, as well as COPD exacerbation. He is now complaining of dizziness and noted to be orthostatic with mild bradycardia. 1. Acute on chronic systolic CHF exacerbation: The patient diuresed over 3 L since admission, and appears to be at baseline. IV lasix was last given 2 nights ago; still holding off on restarting home PO lasix given orthostasis. Continue to monitor his daily I/Os and weights. By report in the H&P, he had an echo in December 2015 which still showed ejection fraction of 25-30%. Repeat echo on this admission showed EF 30-35%, grade 2 diastolic dysfunction, no valvular abnormalities, and mild to mod pHTN. 2. COPD exacerbation: The patient does not use any oxygen at baseline, and he is not currently requiring any at the moment. His lungs are clear. He reports an "allergy" to prednisone and when asked what happens, he tells me he gets suicidal. He is unsure if he has safely taken any oral steroids. He is already on a very low dose solumedrol here, so we will stop that rather than change to oral steroids. We will continue scheduled and as needed DuoNeb's, as well as doxycycline. Continue home Spiriva and Advair. 3. Hypertension: Hold home beta inés and ARB today. 4. Atrial flutter status post ICD with dual-chamber pacemaker placement: Continue digoxin. Digoxin level is currently normal. Continue home eliquis. Hold home beta inés given some HRs in the 50s. 5. Hypothyroidism: Continue home Synthroid. 6. Chronic kidney disease stage III: Baseline creatinine appears to be in the mid to upper ones. He is currently at baseline. We will continue to monitor closely. 7. Dizziness: Has been an intermittent issue since prior to discharge. Orthostatics are positive; may have gotten slightly overdiuresed here. All diuretics are on hold today. Also noted to be mildly bradycardic to 50s, so will hold beta inés for now. PT/OT to evaluate for safety. DVT prophylaxis: eliquis Dispo: pending improvement in HR and orthostasis; PT/OT safety eval VS, I&O, 24H, Fishbone Vital Signs/I&O Vital Signs Date Time Temp Pulse Resp B/P (MAP) Pulse Ox O2 Delivery O2 Flow Rate FiO2 07/08/17 14:00 98.0 68 18 111/62 (78) 98 Room Air 07/05/17 04:59 2.0 I&O- Last 24 Hours up to 6 AM 07/08/17 06:00 Intake Total 1080 ml Output Total 1050 ml Balance 30 ml Laboratory Data 24H LABS Laboratory Tests 2 07/08/17 05:38: Anion Gap 4L, Glomerular Filtration Rate 58.5, Blood Urea Nitrogen 39H, Creatinine 1.26, Sodium Level 142, Potassium Level 3.4L, Chloride Level 105, Carbon Dioxide Level 33H, Calcium Level 8.2L, Magnesium Level 2.4 CBC/BMP Laboratory Tests 07/08/17 05:38 Red Blood Count 3.94 L, Mean Corpuscular Volume 97.9 H, Mean Corpuscular Hemoglobin 32.8, Mean Corpuscular Hemoglobin Concent 33.5, Red Cell Distribution Width 13.5, Calcium Level 8.2 L Microbiology Microbiology 07/04/17 Blood Culture - Preliminary, Resulted No Growth after 72 hours. All specime... 07/04/17 Blood Culture - Preliminary, Resulted No Growth after 72 hours. All specime... OLE CHAPIN Jul 08, 2017 14:56
[2017-07-08] MEDS: PANTOPRAZOLE 40MG TAB (PROTONIX) PO SCH (20:53)
[2017-07-08] MEDS: FAMOTIDINE 20 MG TAB PO SCH (20:53)
[2017-07-08] MEDS: FERROUS SULFATE 325MG TAB PO SCH (20:53)
[2017-07-09] MEDS: IPRATROPIUM 0.5MG/ALBUTEROL 2.5MG INH SOL UD 3ML (DUONEB)(J7620) NEB SCH ×4 (01:32→19:04)
[2017-07-09] MEDS: LEVOTHYROXINE 75MCG TABLET (0.075MG) PO SCH (05:31)
[2017-07-09 06:00] VITALS: BP 142/83
[2017-07-09] MEDS: TIOTROPIUM INHALER/CAPSULE (SPIRIVA) INH SCH (07:27)
[2017-07-09 07:28] LABS: MEAN CORPUSCULAR HEMOGLOBIN 31.6 pg (27.0-33.0); MEAN CORPUSCULAR HGB CONC 31.9 g/dl (32.0-36.5); RED CELL DISTRIBUTION WIDTH 13.5 % (11.5-14.5); WHITE BLOOD COUNT 8.3 K/mm3 (4.0-10.0)
[2017-07-09 07:40] LABS: ANION GAP 7 MEQ/L (8-16); BLOOD UREA NITROGEN 30 MG/DL (7-18); CALCIUM LEVEL 7.7 MG/DL (8.8-10.2); CARBON DIOXIDE LEVEL 29 MEQ/L (21-32); CHLORIDE LEVEL 108 MEQ/L (98-107); CREATININE FOR GFR 1.09 MG/DL (0.70-1.30); GLOMERULAR FILTRATION RATE > 60.0 (>35); GLUCOSE, FASTING 104 MG/DL (83-110); MAGNESIUM LEVEL 2.6 MG/DL (1.8-2.4); POTASSIUM SERUM 3.9 MEQ/L (3.5-5.1); SODIUM LEVEL 144 MEQ/L (136-145)
[2017-07-09] MEDS: APIXABAN 2.5 MG TAB (ELIQUIS) PO SCH ×2 (09:33→20:39)
[2017-07-09] MEDS: DOXYCYCLINE HYCLATE 100 MG TAB PO SCH ×2 (09:33→20:39)
[2017-07-09] MEDS: ASPIRIN 81 MG ENTERIC TAB PO SCH (09:34)
[2017-07-09] MEDS: DIGOXIN 0.125 MG TAB PO SCH (09:34)
[2017-07-09] MEDS: MULTIVITAMINS/MINERALS THERAP 1 TAB PO SCH (09:34)
[2017-07-09] MEDS: CARVedilol 12.5 MG TAB PO SCH (09:34)
[2017-07-09] MEDS: ADVAIR HFA 115/21MCG INHALER INH SCH ×2 (10:09→20:21)
[2017-07-09 12:47] VITALS: BP_SYST 156; BP_SYST 160; BP_SYST 179; BP_DIAS 80; BP_DIAS 88; BP_DIAS 90
--- NOTE | 2017-07-09 12:51 | IPNPDOC ---
Date Seen The patient was seen on 07/09/17. Progress Note Hospitalist Progress Note Subjective: Patient states that he continues to feel dizzy but no longer has any issues with his breathing Objective: Physical Exam: Vitals: Vital Sign - Last 24 Hours 07/08/17 07/08/17 07/08/17 07/08/17 14:00 18:00 19:10 20:54 Temp 98.0 98.1 Pulse 68 70 123 110 117 75 Resp 18 18 B/P (MAP) 111/62 (78) 116/66 (83) 115/82 (93) 127/73 121/82 (95) 115/69 (84) Pulse Ox 98 98 O2 Delivery Room Air Room Air 07/08/17 07/08/17 07/08/17 07/09/17 21:14 22:00 23:39 06:00 Temp 98.7 97.8 Pulse 110 74 73 71 76 Resp 18 18 B/P (MAP) 127/73 (91) 131/74 (93) 142/83 (102) 122/68 (86) 116/64 (81) Pulse Ox 94 95 O2 Delivery Room Air Room Air Room Air 07/09/17 07/09/17 07/09/17 09:15 09:34 09:34 Pulse 66 66 B/P (MAP) 148/92 O2 Delivery Room Air General: Awake, alert, no acute distress HEENT: Normocephalic, atraumatic, moist mucous membranes CV: Regular rate and rhythm Lungs: Clear to auscultation bilaterally Abd: Soft, nontender, nondistended Extremities: No peripheral edema Neuro: Alert and oriented 3, normal speech Psych: normal mood and affect Labs and Imaging: Laboratory Tests 07/09/17 07:01 Red Blood Count 3.87 L, Mean Corpuscular Volume 99.0 H, Mean Corpuscular Hemoglobin 31.6, Mean Corpuscular Hemoglobin Concent 31.9 L, Red Cell Distribution Width 13.5, Calcium Level 7.7 L Assessment and Plan: 81-year-old male with COPD, hypertension, osteoarthritis, atrial flutter status post ICD with dual-chamber pacemaker placement, chronic systolic CHF, hyperlipidemia, hypothyroidism, chronic kidney disease stage III who presented to the emergency department with shortness of breath and is admitted with acute on chronic systolic CHF exacerbation, as well as COPD exacerbation. He is now complaining of dizziness and noted to be orthostatic with mild bradycardia. 1. Acute on chronic systolic CHF exacerbation: The patient diuresed over 3 L since admission, and appears to be at baseline. IV lasix was last given 3 nights ago; still holding off on restarting home PO lasix given dizziness. Continue to monitor his daily I/Os and weights. By report in the H&P, he had an echo in December 2015 which still showed ejection fraction of 25-30%. Repeat echo on this admission showed EF 30-35%, grade 2 diastolic dysfunction, no valvular abnormalities, and mild to mod pHTN. 2. COPD exacerbation: The patient does not use any oxygen at baseline, and he is not currently requiring any at the moment. His lungs are clear. He reports an "allergy" to prednisone and when asked what happens, he tells me he gets suicidal. He is unsure if he has safely taken any oral steroids. He has now been weaned off of all steroids. We will continue scheduled and as needed DuoNeb 's, as well as doxycycline. Continue home Spiriva and Advair. 3. Hypertension: Stop home beta inés and ARB given bradycardia and soft BPs. 4. Atrial flutter status post ICD with dual-chamber pacemaker placement: Continue digoxin. Digoxin level is currently normal. Continue home eliquis. Stopping home beta inés given some HRs in the 40s. 5. Hypothyroidism: Continue home Synthroid. 6. Chronic kidney disease stage III: Baseline creatinine appears to be in the mid to upper ones. He is currently at baseline. We will continue to monitor closely. 7. Dizziness: Has been an intermittent issue since prior to discharge. Orthostatics were initially positive; may have gotten slightly overdiuresed here. He is no longer orthostatic at this point. All diuretics are on hold. Also noted to be bradycardic to 40s; PT was working with him today and again noted a HR in the 40s. Have stopped beta inés for now. Transfer to tele monitoring. PT/OT to evaluate for safety. DVT prophylaxis: eliquis Dispo: pending improvement in HR and being cleared by PT VS, I&O, 24H, Fishbone Vital Signs/I&O Vital Signs Date Time Temp Pulse Resp B/P (MAP) Pulse Ox O2 Delivery O2 Flow Rate FiO2 07/09/17 09:34 66 148/92 07/09/17 09:15 Room Air 07/09/17 06:00 97.8 18 95 07/05/17 04:59 2.0 I&O- Last 24 Hours up to 6 AM 07/09/17 06:00 Intake Total 1110 ml Output Total 1300 ml Balance -190 ml Laboratory Data 24H LABS Laboratory Tests 2 07/09/17 07:01: Anion Gap 7L, Glomerular Filtration Rate > 60.0, Blood Urea Nitrogen 30H, Creatinine 1.09, Sodium Level 144, Potassium Level 3.9, Chloride Level 108H, Carbon Dioxide Level 29, Calcium Level 7.7L, Magnesium Level 2.6H CBC/BMP Laboratory Tests 07/09/17 07:01 Red Blood Count 3.87 L, Mean Corpuscular Volume 99.0 H, Mean Corpuscular Hemoglobin 31.6, Mean Corpuscular Hemoglobin Concent 31.9 L, Red Cell Distribution Width 13.5, Calcium Level 7.7 L Microbiology Microbiology 07/04/17 Blood Culture - Preliminary, Resulted No Growth after 72 hours. All specime... 07/04/17 Blood Culture - Preliminary, Resulted No Growth after 72 hours. All specime... OLE CHAPIN Jul 09, 2017 12:51
[2017-07-09 13:53] VITALS: BP 140/80
[2017-07-09 14:55] VITALS: BP 184/100
[2017-07-09 15:47] VITALS: BP 150/82
[2017-07-09] MEDS ORDERED: SLF 3 ML SYR IV PRN (18:45)
[2017-07-09 20:00] VITALS: BP 148/79
[2017-07-09] MEDS: FAMOTIDINE 20 MG TAB PO SCH (20:38)
[2017-07-09] MEDS: PANTOPRAZOLE 40MG TAB (PROTONIX) PO SCH (20:39)
[2017-07-09] MEDS: SLF 3 ML SYR IV SCH (20:39)
[2017-07-09] MEDS: FERROUS SULFATE 325MG TAB PO SCH (20:39)
[2017-07-10] VITALS (10 sets, daily range): BP systolic 134–190; BP diastolic 60–94
[2017-07-10] MEDS: IPRATROPIUM 0.5MG/ALBUTEROL 2.5MG INH SOL UD 3ML (DUONEB)(J7620) NEB SCH ×4 (02:00→20:00)
[2017-07-10] MEDS: ACETAMINOPHEN 500 MG TAB PO PRN (04:32)
[2017-07-10] MEDS: LEVOTHYROXINE 75MCG TABLET (0.075MG) PO SCH (05:54)
[2017-07-10] MEDS: SLF 3 ML SYR IV SCH ×3 (06:00→21:06)
[2017-07-10 06:19] LABS: MEAN CORPUSCULAR HEMOGLOBIN 31.5 pg (27.0-33.0); MEAN CORPUSCULAR HGB CONC 32.4 g/dl (32.0-36.5); MEAN CORPUSCULAR VOLUME 97.1 fl (80.0-96.0); RED CELL DISTRIBUTION WIDTH 13.2 % (11.5-14.5); WHITE BLOOD COUNT 8.4 K/mm3 (4.0-10.0)
[2017-07-10 06:44] LABS: ANION GAP 6 MEQ/L (8-16); BLOOD UREA NITROGEN 23 MG/DL (7-18); CALCIUM LEVEL 8.5 MG/DL (8.8-10.2); CARBON DIOXIDE LEVEL 31 MEQ/L (21-32); CHLORIDE LEVEL 107 MEQ/L (98-107); GLOMERULAR FILTRATION RATE > 60.0 (>35); GLUCOSE, FASTING 93 MG/DL (83-110); MAGNESIUM LEVEL 2.4 MG/DL (1.8-2.4); POTASSIUM SERUM 3.8 MEQ/L (3.5-5.1); SODIUM LEVEL 144 MEQ/L (136-145)
[2017-07-10] MEDS: ADVAIR HFA 115/21MCG INHALER INH SCH ×2 (07:24→21:25)
[2017-07-10] MEDS: TIOTROPIUM INHALER/CAPSULE (SPIRIVA) INH SCH (07:24)
[2017-07-10] MEDS: APIXABAN 2.5 MG TAB (ELIQUIS) PO SCH ×2 (09:04→21:13)
[2017-07-10] MEDS: DIGOXIN 0.125 MG TAB PO SCH (09:05)
[2017-07-10] MEDS: MULTIVITAMINS/MINERALS THERAP 1 TAB PO SCH (09:05)
[2017-07-10] MEDS: DOXYCYCLINE HYCLATE 100 MG TAB PO SCH (09:05)
[2017-07-10] MEDS: ASPIRIN 81 MG ENTERIC TAB PO SCH (09:05)
--- NOTE | 2017-07-10 15:43 | IPNPDOC ---
Subjective Date Seen The patient was seen on 07/10/17. Subjective Chief Complaint/HPI Patient seen and examined at bedside this morning. States that he is eager to work with physical therapy today to see if his dizziness has resolved. Denies any acute overnight complaints at this time. Objective Physical Examination General Exam: Positive: Alert, Cooperative, No Acute Distress ENT Exam: Positive: Atraumatic, Mucous membr. moist/pink Neck Exam: Negative: JVD Chest Exam: Positive: Clear to auscultation, Normal air movement Heart Exam: Positive: Rate Normal, Normal S1, Normal S2 Abdomen Exam: Positive: Soft, Negative: Tenderness Extremity Exam: Negative: Tenderness, Swelling Psych Exam: Positive: Oriented x 3 Assessment /Plan Plan/VTE VTE Prophylaxis Ordered?: Yes Plan Decompensated Acute Systolic CHF, resolved s/p IV Lasix Patient's respiratory/volume status improved Will cont to monitor I/O's Vertigo, possibly 2/2 Overdiuresis, Bradycardia 2/2 Coreg The patient's Orthostatic's here negative today Coreg held since yesterday--No more episodes of Bradycardia since yesterday We will cont to monitor the patient on Telemetry PT on board We will consider Meclizine if the patient continues to feel dizziness despite negative orthostatics, and normal HR response COPD Exacerbation, resolved Cont current regimen Hypertension Will restart Losartan today Hx of CHF with Systolic EF of 30-35%, Grade II Diastolic Dysfunction s/p AICD with Dual Chamber Pacemaker Placement Cont ASA, ARB, Digoxin Coreg, Lasix with held 2/2 Bradycardia, Overdiuresis Hx of Atrial Flutter Cont Eliquis Rate controlled Hypothyroidism Continue Synthroid CKD stage IIIB Serum creatinine appears to be at baseline. DVT prophylaxis Already on eliquis Dispo--Pending PT Clearance. VS, I&O, 24H, Fishbone Vital Signs/I&O Vital Signs Date Time Temp Pulse Resp B/P (MAP) Pulse Ox O2 Delivery O2 Flow Rate FiO2 07/10/17 14:53 155/67 (96) 07/10/17 12:00 69 70 71 07/10/17 12:00 98.3 20 97 Room Air 07/05/17 04:59 2.0 I&O- Last 24 Hours up to 6 AM 07/11/17 05:59 Intake Total 360 ml Balance 360 ml Laboratory Data 24H LABS Laboratory Tests 2 07/10/17 05:45: Anion Gap 6L, Glomerular Filtration Rate > 60.0, Blood Urea Nitrogen 23H, Creatinine 1.10, Sodium Level 144, Potassium Level 3.8, Chloride Level 107, Carbon Dioxide Level 31, Calcium Level 8.5L, Magnesium Level 2.4 CBC/BMP Laboratory Tests 07/10/17 05:45 Red Blood Count 4.21 L, Mean Corpuscular Volume 97.1 H, Mean Corpuscular Hemoglobin 31.5, Mean Corpuscular Hemoglobin Concent 32.4, Red Cell Distribution Width 13.2, Calcium Level 8.5 L Microbiology Microbiology 07/04/17 Blood Culture - Final, Complete NO GROWTH AFTER 5 DAYS 07/04/17 Blood Culture - Final, Complete NO GROWTH AFTER 5 DAYS EDISON MENDOZA MD Jul 10, 2017 15:43
[2017-07-10] MEDS: LOSARTAN 50 MG TAB PO SCH (16:39)
[2017-07-10] MEDS: FERROUS SULFATE 325MG TAB PO SCH (21:13)
[2017-07-10] MEDS: PANTOPRAZOLE 40MG TAB (PROTONIX) PO SCH (21:13)
[2017-07-10] MEDS: FAMOTIDINE 20 MG TAB PO SCH (21:13)
[2017-07-11] VITALS (9 sets, daily range): BP systolic 110–158; BP diastolic 50–80
[2017-07-11] MEDS: IPRATROPIUM 0.5MG/ALBUTEROL 2.5MG INH SOL UD 3ML (DUONEB)(J7620) NEB SCH ×4 (02:00→20:00)
[2017-07-11] MEDS: SLF 3 ML SYR IV SCH ×3 (05:03→22:00)
[2017-07-11] MEDS: LEVOTHYROXINE 75MCG TABLET (0.075MG) PO SCH (06:01)
[2017-07-11 06:06] LABS: MEAN CORPUSCULAR HEMOGLOBIN 32.3 pg (27.0-33.0); MEAN CORPUSCULAR HGB CONC 33.3 g/dl (32.0-36.5); RED CELL DISTRIBUTION WIDTH 13.2 % (11.5-14.5); WHITE BLOOD COUNT 7.5 K/mm3 (4.0-10.0)
[2017-07-11 06:07] LABS: ANION GAP 9 MEQ/L (8-16); BLOOD UREA NITROGEN 18 MG/DL (7-18); CALCIUM LEVEL 8.6 MG/DL (8.8-10.2); CARBON DIOXIDE LEVEL 28 MEQ/L (21-32); CHLORIDE LEVEL 109 MEQ/L (98-107); CREATININE FOR GFR 1.12 MG/DL (0.70-1.30); GLOMERULAR FILTRATION RATE > 60.0 (>35); GLUCOSE, FASTING 107 MG/DL (83-110); MAGNESIUM LEVEL 2.3 MG/DL (1.8-2.4); POTASSIUM SERUM 3.8 MEQ/L (3.5-5.1); SODIUM LEVEL 146 MEQ/L (136-145)
[2017-07-11] MEDS: TIOTROPIUM INHALER/CAPSULE (SPIRIVA) INH SCH (06:58)
[2017-07-11] MEDS: ADVAIR HFA 115/21MCG INHALER INH SCH ×2 (06:58→21:15)
[2017-07-11] MEDS: MULTIVITAMINS/MINERALS THERAP 1 TAB PO SCH (09:15)
[2017-07-11] MEDS: DIGOXIN 0.125 MG TAB PO SCH (09:15)
[2017-07-11] MEDS: ASPIRIN 81 MG ENTERIC TAB PO SCH (09:15)
[2017-07-11] MEDS: APIXABAN 2.5 MG TAB (ELIQUIS) PO SCH ×2 (09:16→21:00)
[2017-07-11] MEDS: LOSARTAN 50 MG TAB PO SCH (09:16)
--- NOTE | 2017-07-11 11:32 | IPNPDOC ---
Subjective Date Seen The patient was seen on 07/11/17. Subjective Chief Complaint/HPI Patient seen and examined at the bedside. He states that he still has some dizziness when exerting himself. However, he reports that this has been evident over the last couple of months and was recently discussed with his PCP as well. He denies any other acute complaints at this time. Objective Physical Examination General Exam: Positive: Alert, Cooperative, No Acute Distress ENT Exam: Positive: Atraumatic, Mucous membr. moist/pink Neck Exam: Negative: JVD Chest Exam: Positive: Clear to auscultation, Normal air movement Heart Exam: Positive: Rate Normal, Normal S1, Normal S2 Abdomen Exam: Positive: Soft, Negative: Tenderness Extremity Exam: Negative: Tenderness, Swelling Psych Exam: Positive: Oriented x 3 Assessment /Plan Plan/VTE VTE Prophylaxis Ordered?: Yes Plan Decompensated Acute Systolic CHF, resolved s/p IV Lasix Patient's respiratory/volume status improved Will cont to monitor I/O's Vertigo, possibly 2/2 Overdiuresis, ?Episode of Bradycardia 2/2 Coreg The patient's Orthostatic's here negative today No more episodes of Bradycardia We will order a CT of the Head (Unable to have MRI as the patient has a pacemaker), and U/S of the Carotids to further delineate other possible causes We will cont to monitor the patient on Telemetry Physical exam, clinical presentation not consistent with BPPV PT on board Will start patient on Meclizine COPD Exacerbation, resolved Cont current regimen Hypertension Cont Losartan Hx of CHF with Systolic EF of 30-35%, Grade II Diastolic Dysfunction s/p AICD with Dual Chamber Pacemaker Placement Cont ASA, ARB, Digoxin Coreg, Lasix with held 2/2 Bradycardia, Overdiuresis Hx of Atrial Flutter Cont Eliquis Rate controlled Hypothyroidism Continue Synthroid CKD stage IIIB Serum creatinine appears to be at baseline. DVT prophylaxis Already on eliquis Dispo--Pending PT Clearance. VS, I&O, 24H, Fishbone Vital Signs/I&O Vital Signs Date Time Temp Pulse Resp B/P (MAP) Pulse Ox O2 Delivery O2 Flow Rate FiO2 07/11/17 10:43 48 145/80 (101) 07/11/17 08:00 98.0 20 98 Room Air 07/05/17 04:59 2.0 I&O- Last 24 Hours up to 6 AM 07/12/17 05:59 Intake Total 120 ml Output Total 0 ml Balance 120 ml Laboratory Data 24H LABS Laboratory Tests 2 07/11/17 05:31: Anion Gap 9, Glomerular Filtration Rate > 60.0, Blood Urea Nitrogen 18, Creatinine 1.12, Sodium Level 146H, Potassium Level 3.8, Chloride Level 109H, Carbon Dioxide Level 28, Calcium Level 8.6L, Magnesium Level 2.3 CBC/BMP Laboratory Tests 07/11/17 05:31 Red Blood Count 4.14 L, Mean Corpuscular Volume 97.0 H, Mean Corpuscular Hemoglobin 32.3, Mean Corpuscular Hemoglobin Concent 33.3, Red Cell Distribution Width 13.2, Calcium Level 8.6 L Microbiology Microbiology 07/04/17 Blood Culture - Final, Complete NO GROWTH AFTER 5 DAYS 07/04/17 Blood Culture - Final, Complete NO GROWTH AFTER 5 DAYS EDISON MENDOZA MD Jul 11, 2017 11:31
[2017-07-11] MEDS: MECLIZINE 25 MG TABLET PO PRN (11:50)
--- NOTE | 2017-07-11 12:06 | CR ---
DATE OF CONSULTATION: 07/10/2017 Mr. Alex Sheikh came to the hospital on 07/04/2017 with shortness of breath and he was admitted with the diagnosis of exacerbation of chronic obstructive pulmonary disease (COPD) versus decompensated congestive heart failure. Was about to be discharged, on physical therapy when he suddenly complained of lightheadedness and there was report that his heart rate was low in the 40s. Cardiology consult was called. Therefore, I saw Mr. Alex Sheikh yesterday in the evening, he was lying supine in bed, no acute distress at rest. He complains of lightheadedness even when moving his head from side to side and also he complains of lightheadedness upon standing up. He denies any chest pain, palpitations, pedal edema, orthopnea, syncope or near syncope. He thinks that his shortness of breath is stable. There is no report of bleeding. There is no nausea, vomiting, diarrhea , melena or hematemesis. PAST MEDICAL HISTORY: Positive for: Cardiomyopathy for which an automated implantable cardioverter-defibrillator (AICD) was implanted. Hypertension. Hyperlipidemia. Arthritis/osteoarthritis. Chronic obstructive pulmonary disease (COPD). Hypothyroidism. Atrial fibrillation/flutter. Chronic kidney disease. There is no known history of Obstructivecoronary artery disease or myocardial infarction, cerebrovascular accident (CVA), sudden cardiac , diabetes mellitus. PAST SURGICAL HISTORY: Positive for: Cholecystectomy. Bilateral hip surgery. Partial colectomy. AICD/biventricular permanent pacemaker implantation. FAMILY HISTORY: Noncontributory. MEDICATIONS: - Losartan 50 mg by mouth daily - ondansetron 4 mg IV as needed for nausea or vomiting - famotidine 20 mg by mouth daily at bedtime - aspirin 81 mg by mouth daily - digoxin 0.125 mg on Saturday, Saturday, Saturday, and Saturday - multivitamins one tablet by mouth daily - Spiriva HandiHaler one inhalation daily - levothyroxine 75 mcg by mouth daily - DuoNeb 0.5/2.5 mg one every 6 hours via inhalation and one every 2 hours as needed for shortness of breath and wheezing - Apixaban 2.5 mg by mouth twice daily - ferrous sulfate 325 mg by mouth daily at bedtime - pantoprazole 40 mg by mouth daily - Advair discus 115/21 two puffs twice daily SOCIAL HISTORY: Patient denies any smoking, EtOH abuse or elicit drugs. He has allergies the PREDNISONE, SALMETEROL and FLUTICASONE. PHYSICAL EXAMINATION: Patient is alert and oriented, at no acute distress at rest. His vital signs when I saw him revealed a blood pressure of 144/60 with a pulse of 93, respirations 20 and his maximum temperature was 99.3 degrees Fahrenheit with an oxygen saturation of 96% on room air. He was in a positive fluid balance of 360 mL for 07/09/2017. Examination of head is normocephalic, atraumatic. Neck is supple, no jugular venous distention (JVD). Lungs are clear bilaterally without any wheezing or crackles. Cardiac exam reveals normal S1 and S2, without gallops. PMI is displaced inferiorly and laterally. There is no rub. ICD battery noted in the right upper chest. Abdomen is soft and nontender. Bowel sounds are active. Extremities reveals no pedal edema. Neurological examination is negative for cognitive deficit. LABS: Echocardiogram done 07/07/2017 revealed LVEF estimated at 30-35% and grade 2 left ventricular diastolic dysfunction, mild to moderate pulmonary hypertension. EKG on admission revealed a wide complexed tachycardia and demand pacemaker activity. Heart rate was 110 beats per minute. There is nonspecific ST-T abnormalities and isolated PVCs. Chest x-ray on admission revealed stable cardiomegaly and chronic changes. No manifestation of heart failure. No pleural effusion. CBC done on 07/10/2017 revealed a WBC of 8.4, hemoglobin 13.3, hematocrit 40.9 and platelets 277,000. BMP revealed a sodium of 144, potassium 3.8, chloride 107, CO2 31, BUN 23, creatinine 1.1, glomerular filtration rate 60.0. Fasting glucose 93, calcium 8.5. Magnesium is 2.4. PT is 15.3 with an INR of 1.19. Serum digoxin is 1.0. IMPRESSION: 81-year-old male with a history of nonischemic cardiomyopathy with a moderately depressed global left ventricular systolic function for which he had an AICD/biventricular pacemaker implantation, hypertension, hyperlipidemia, hypothyroidism, arthritis, and chronic obstructive pulmonary disease (COPD). He has been complaining of dizziness and lightheadedness, and this does not seem to be cardiac in origin. We should give him a trial of meclizine. There is a concern that his heart rate is low but I doubt it. He has an underlying AICD/ permanent pacemaker. He was checked for orthostatic drop in his blood pressure and they were negative. For some reason, he is not on beta inés and this will be discussed with his primary botanical technical officer, it is probably due to his underlying lung disease. It was a pleasure to assist in the care of Mr. Alex Sheikh for his underlying cardiac condition. I will continue to monitor him along with you and case will be handed off to Dr. Dinero who will be seeing him tomorrow in the morning 07/11/2017. It was a pleasure to particulate in the care of Mr. Alex Sheikh for his underlying cardiac condition. I will continue to monitor him along with you while in the hospital. At this present time, he appears to be stable. ZEN
[2017-07-11] MEDS: ACETAMINOPHEN 500 MG TAB PO PRN (15:11)
--- NOTE | 2017-07-11 16:25 | REP ---
Duplex carotid sonography: History: Dizziness. Comparison study is from April 10, 2006. Sonographic findings: We were not able to identify either vertebral artery. Right carotid: The right common carotid artery shows diffuse intimal thickening and soft plaquing. There is mixed soft plaquing in the bulb and proximal ICA and proximal ECA on the right side on two-dimensional scanning. Color flow and spectral Doppler interrogation are unremarkable on the right however. Velocity chart right carotid: CCA PSV 60 cm/s ICA PSV 31 cm/s ICA EDV 7 cm/s ECA PSV 48 cm/s Right ICA/CCA ratio normal 0.5. Impression: 16-49% category narrowing in the right ICA by Doppler velocity criteria. Moderate soft plaquing. Velocities have not increased since the prior study. Left carotid: The left common carotid artery shows diffuse intimal thickening and mild soft plaquing. There is mild mixed plaquing in the bulb on the left side on two-dimensional scanning. Color flow and spectral Doppler interrogation are unremarkable on the left. Velocity chart left carotid: CCA PSV 36 cm/s ICA PSV 44 cm/s ICA EDV 11 cm/s ECA PSV 30 cm/s Left ICA/CCA ratio normal 1.22. Impression: 16 to 49% category narrowing in the left ICA by Doppler velocity criteria. Velocities have not changed since the prior study. Signed by Domenico Flores MD 07/11/2017 06:02 P
--- NOTE | 2017-07-11 17:19 | REP ---
Noncontrast brain CT: History: Dizziness. Findings: Preliminary digital administration professional radiograph is unremarkable. Bone window settings demonstrate an intact bony calvarium. Visualized paranasal sinuses are clear. There is vascular calcification in the distal carotid and distal vertebral arteries bilaterally. On soft tissue window settings, there is diffuse moderate atrophy. Mild small vessel changes are seen. There is a small old lacunar infarct in the inferior aspect of the right basal ganglia. No acute infarction is seen. No intracranial hemorrhage, mass, extra-axial fluid collection or midline shift is seen. Impression: Moderate diffuse atrophy. Vascular calcification. Small vessel changes. 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 No acute intracranial abnormality. Signed by Domenico Flores MD 07/11/2017 06:04 P
--- NOTE | 2017-07-11 20:21 | IPN ---
DATE: 07/11/2017 Mr. Sheikh continues to complain about episodes of dizziness. It is a sensation of unsteadiness, not ni vertigo, it is triggered by motion, often with ambulation but also turning his head while sitting, not associated nausea. He has had these symptoms for several months. He believes that the onset was sometime in early summer. It is disabling to the point that he has difficulty walking. Vital signs: Blood pressure 152/68, heart rate is in 70s, afebrile, saturation 98% on room air. Fluid balance was roughly equal. Weight is documented 64.4 kg. He is alert and oriented and appropriate. I do not appreciate any JVP elevation, may be 1 cm centimeter above clavicle. Lungs are fairly clear to auscultation. Heart exam reveals regular rhythm without gallop. There is a murmur at the apex, maybe 2/6 intensity at maximum. ICD in left subclavian pocket. Abdomen soft, nontender. No peripheral edema. Neurologically he is intact other than to dizziness. LABORATORY DATA: CBC: Hemoglobin 13.4, hematocrit 40, platelet count 221,000. Basic metabolic panel is essentially normal, potassium 3.8, BUN 18, creatinine 1.1, glucose 107. Digoxin level was 1.4 on 07/04/2017. ASSESSMENT/PLAN: Mr. Sheikh is an 81-year-old man who has nonischemic cardiomyopathy with severe LV systolic dysfunction and who has biventricular defibrillator in place. He was previously on amiodarone for a very long period of time but when his pulmonary function test in August 2016 revealed a disproportion decrease in DLCO (32% of predicted), he underwent atrial fibrillation / flutter ablation on 02/27/2017 and his amiodarone was discontinued. He now presents with mild shortness of breath which is probably not much different compared to his baseline. There is a combination of underlying COPD and cardiomyopathy. On my exam he is not acutely exacerbated. I am going to put him back on Coreg. He was on 12.5 twice a day, but for reasons that are not completely clear to me he is currently not on the medication. I will put him on only 6.25 twice a day to start with to assess tolerance. As far as his dominant complaint is concerned, which is dizziness, it does not seem to be cardiac in nature. It is not orthostatic by history it is also not typical vertigo. I have to say that I am uncertain what this could represent and I would recommend to get neurologic input if possible.
[2017-07-11] MEDS: FAMOTIDINE 20 MG TAB PO SCH (20:59)
[2017-07-11] MEDS: PANTOPRAZOLE 40MG TAB (PROTONIX) PO SCH (21:00)
[2017-07-11] MEDS ORDERED: CARVedilol 6.25 MG TAB PO SCH (21:00)
[2017-07-11] MEDS: FERROUS SULFATE 325MG TAB PO SCH (21:00)
[2017-07-12] VITALS (8 sets, daily range): BP systolic 118–152; BP diastolic 60–90
[2017-07-12] MEDS: IPRATROPIUM 0.5MG/ALBUTEROL 2.5MG INH SOL UD 3ML (DUONEB)(J7620) NEB SCH ×4 (02:01→19:41)
[2017-07-12] MEDS: LEVOTHYROXINE 75MCG TABLET (0.075MG) PO SCH (05:48)
[2017-07-12] MEDS: SLF 3 ML SYR IV SCH ×3 (05:48→20:30)
--- NOTE | 2017-07-12 07:58 | IPN ---
DATE: 07/12/2017 Mr. Sheikh tells me that he is feeling little bit better. The dizziness is not as prominent it was yesterday but is certainly not gone. He was able to sleep without major difficulty. His dyspnea is essentially at his baseline. Blood pressure 140/72, he had some orthostatic drop with standing this morning by about 16 mm. Saturation 96% room air. His heart rate this morning was tachycardia in 90s. He is afebrile. Fluid balance yesterday was slightly positive by a volume but weight is unchanged. She is alert and oriented appropriate. His JVP is about a centimeter to above clavicle in virtually horizontal position. Lungs are clear to auscultation with good air movement. Heart: Exam reveals regular rhythm. I do not appreciate any gallop or rub faint murmur is unchanged. Abdomen is soft, nontender. There is no peripheral edema. Peripheral pulses are palpable. LABORATORY: Basic metabolic panel reveals no labs yet this morning. CBC: hemoglobin 13.4, hematocrit 40.2 and platelet count 191,000. ASSESSMENT/PLAN: Mr. Sheikh is an 81-year-old man who has a history of nonischemic cardiomyopathy and longstanding history of paroxysmal atrial fibrillation/flutter. He was admitted a few days ago because of dizziness. The description does not sound orthostatic and does not seem typical for vertigo either. I have to say I am not quite certain what is the cause. He feels that he had it to some degree even over a long period of time but it got markedly aggravated in last week or so when he got "cold." From perspective of congestive heart failure, he seems to be at his baseline. I interrogated his ICD today. It turns out that he has had a lot more frequent episodes of atrial fibrillation in last few days, which led to decrease percentage of ventricular pacing. Ventricular response during episode of atrial fibrillation can be relatively tachycardic but fortunately not approaching the range when he would get shocked. I suspect that this is due to the fact that he has not been getting Coreg. I just restarted it last night and I am going to advance the dose to 12 .5 mg twice a day, which was his standard dose. I am not exactly sure how the medication disappeared from his medication list. Otherwise, I do not have any new recommendations. I have to repeat that even though there has been some orthostatic drop in his blood pressure, he was just woken up and the description of his symptoms certainly does not correspond to orthostatics. He can get dizzy just turn in his head while sitting. ZEN
[2017-07-12] MEDS: MULTIVITAMINS/MINERALS THERAP 1 TAB PO SCH (08:01)
[2017-07-12] MEDS: ASPIRIN 81 MG ENTERIC TAB PO SCH (08:02)
[2017-07-12] MEDS: APIXABAN 2.5 MG TAB (ELIQUIS) PO SCH ×2 (08:02→20:29)
[2017-07-12] MEDS: DIGOXIN 0.125 MG TAB PO SCH (08:02)
[2017-07-12] MEDS: CARVedilol 12.5 MG TAB PO SCH ×2 (08:03→20:29)
[2017-07-12] MEDS: LOSARTAN 50 MG TAB PO SCH (08:03)
[2017-07-12] MEDS: TIOTROPIUM INHALER/CAPSULE (SPIRIVA) INH SCH (08:14)
[2017-07-12] MEDS: ADVAIR HFA 115/21MCG INHALER INH SCH ×2 (08:15→19:40)
--- NOTE | 2017-07-12 11:16 | IPNPDOC ---
Subjective Date Seen The patient was seen on 07/12/17. Subjective Chief Complaint/HPI Patient seen and examined at the bedside. States that his dizziness has slightly improved since yesterday after taking the meclizine. Denies any acute overnight events or complaints at this time. Objective Physical Examination General Exam: Positive: Alert, Cooperative, No Acute Distress ENT Exam: Positive: Atraumatic, Mucous membr. moist/pink Neck Exam: Negative: JVD Chest Exam: Positive: Clear to auscultation, Normal air movement Heart Exam: Positive: Rate Normal, Normal S1, Normal S2 Abdomen Exam: Positive: Soft, Negative: Tenderness Extremity Exam: Negative: Tenderness, Swelling Psych Exam: Positive: Oriented x 3 Assessment /Plan Plan/VTE VTE Prophylaxis Ordered?: Yes Plan Decompensated Acute Systolic CHF, resolved s/p IV Lasix Patient's respiratory/volume status improved Will cont to monitor I/O's Dizziness/Vertigo, possibly 2/2 Overdiuresis The patient's Orthostatic's here have been mostly negative CT Head unremarkable We will cont to monitor the patient on Telemetry Physical exam, clinical presentation not consistent with BPPV PT on board Symptoms improved on Meclizine--we'll cont to monitor progress COPD Exacerbation, resolved Cont current regimen Hypertension Cont Losartan Hx of CHF with Systolic EF of 30-35%, Grade II Diastolic Dysfunction s/p AICD with Dual Chamber Pacemaker Placement Cont ASA, ARB, Digoxin, Coreg Hx of Atrial Flutter Cont Eliquis Rate controlled Hypothyroidism Continue Synthroid CKD stage IIIB Serum creatinine appears to be at baseline. DVT prophylaxis Already on eliquis Dispo--Pending PT Clearance. VS, I&O, 24H, Fishbone Vital Signs/I&O Vital Signs Date Time Temp Pulse Resp B/P (MAP) Pulse Ox O2 Delivery O2 Flow Rate FiO2 07/12/17 08:03 140/78 07/12/17 08:02 62 07/12/17 08:00 98.1 18 100 Room Air Laboratory Data 24H LABS Laboratory Tests 2 07/12/17 05:36: Magnesium Level 2.3 Microbiology Microbiology 07/04/17 Blood Culture - Final, Complete NO GROWTH AFTER 5 DAYS 07/04/17 Blood Culture - Final, Complete NO GROWTH AFTER 5 DAYS EDISON MENDOZA MD Jul 12, 2017 11:16
[2017-07-12] MEDS: FUROSEMIDE 20 MG TAB PO SCH (12:08)
[2017-07-12] MEDS: MECLIZINE 25 MG TABLET PO PRN (12:10)
[2017-07-12] MEDS: FAMOTIDINE 20 MG TAB PO SCH (20:29)
[2017-07-12] MEDS: PANTOPRAZOLE 40MG TAB (PROTONIX) PO SCH (20:29)
[2017-07-12] MEDS: FERROUS SULFATE 325MG TAB PO SCH (20:29)
[2017-07-13] MEDS: IPRATROPIUM 0.5MG/ALBUTEROL 2.5MG INH SOL UD 3ML (DUONEB)(J7620) NEB SCH ×3 (02:00→13:32)
[2017-07-13 04:00] VITALS: BP_SYST 134; BP_SYST 142; BP_SYST 145; BP_DIAS 62; BP_DIAS 63; BP_DIAS 70
[2017-07-13] MEDS: LEVOTHYROXINE 75MCG TABLET (0.075MG) PO SCH (05:29)
[2017-07-13] MEDS: SLF 3 ML SYR IV SCH (05:30)
[2017-07-13 06:22] VITALS: BP 145/70
[2017-07-13] MEDS: ADVAIR HFA 115/21MCG INHALER INH SCH (07:29)
[2017-07-13] MEDS: TIOTROPIUM INHALER/CAPSULE (SPIRIVA) INH SCH (07:29)
[2017-07-13] MEDS: FUROSEMIDE 20 MG TAB PO SCH (08:09)
[2017-07-13] MEDS: APIXABAN 2.5 MG TAB (ELIQUIS) PO SCH (08:09)
[2017-07-13] MEDS: ASPIRIN 81 MG ENTERIC TAB PO SCH (08:09)
[2017-07-13] MEDS: MULTIVITAMINS/MINERALS THERAP 1 TAB PO SCH (08:09)
[2017-07-13 08:10] VITALS: BP 148/60
[2017-07-13] MEDS: CARVedilol 12.5 MG TAB PO SCH (08:10)
[2017-07-13] MEDS: LOSARTAN 50 MG TAB PO SCH (08:10)
[2017-07-13] MEDS ORDERED: TAMSULOSIN 0.4 MG CAP PO SCH (09:00)
[2017-07-13] MEDS: MECLIZINE 25 MG TABLET PO PRN (11:37)
[2017-07-13] MEDS ORDERED: MECL-68 PO (12:38)
[2017-07-13] MEDS ORDERED: FLOM5CAP PO (12:38)
--- NOTE | 2017-07-13 15:09 | DS.PDOC ---
Discharge Summary General Date of Admission Jul 04, 2017 at 21:53 Date of Discharge 07/13/17 Specialist/Consultants Involve: ADRIEN IBANEZ MD Discharge Summary PROCEDURES PERFORMED DURING STAY: None. ADMITTING/DISCHARGE DIAGNOSES: 1. . CHF exacerbation 2. . COPD exacerbation 3. . Vertigo/dizziness COMPLICATIONS/CHIEF COMPLAINT: Chf;Copd Exacerbation. HISTORY OF PRESENT ILLNESS: . 81-year-old male with COPD, hypertension, osteoarthritis, atrial flutter status post ICD with dual-chamber pacemaker placement, chronic systolic CHF, hyperlipidemia, hypothyroidism, chronic kidney disease stage III who presented to the emergency department with shortness of breath. The patient stated that he was taking his inhaler treatments at home but to no relief. He also notes that he had a "head cold" for about a week preceding his symptoms, at which time he had a nonproductive cough. He denied any complaints of fevers, chills, chest pain, palpitations, abdominal pain, or any nausea/vomiting/diarrhea. In the ER, clinical presentation was consistent with decompensated congestive heart failure with possible underlying component of COPD exacerbation. The patient was started on diuretic therapy as well as IV steroids and an antibiotic. He was subsequently admitted to the hospitalist service for further evaluation and management. During hospitalization, the patient's respiratory status improved with the aforementioned therapy. His volume/respiratory status was optimized, and he was feeling much better. However, the patient did experience increased dizziness which limited his functional mobility. The patient states that he had been dealing with this issue for months, but it was worse during this hospitalization then it has been in the past. Cardiology was also consulted during this admission. The patient's dizziness resolved with supportive treatment with meclizine. At this time, the patient states that he is feeling much better and is eager to return home. He has been cleared by physical therapy. I advised the patient to follow-up with his primary care physician within 7 days for further management of his chronic comorbidities. In addition, the patient has been consulted to return to the ER for any acute emergency. DISCHARGE MEDICATIONS: Please see below. ALLERGIES: Please see below. PHYSICAL EXAMINATION ON DISCHARGE: VITAL SIGNS: Please see below. GENERAL: Awake, alert, oriented HEENT: Normocephalic, atraumatic NECK: No JVD CARDIOVASCULAR EXAMINATION: Irregular rhythm RESPIRATORY EXAMINATION: Clear to auscultation bilaterally ABDOMINAL EXAMINATION: Soft, nontender, nondistended EXTREMITIES: No tenderness or swelling LABORATORY DATA: Please see below. IMAGING: Clinical: Dyspnea. Comparison: 10/28/2016. Findings: Examination is limited by portable technique and underpenetration with accentuation of the interstitium and pulmonary vasculature. Cardiomegaly is appreciated with pacemaker in stable position. Interstitial edema and mild pulmonary vascular congestion cannot be excluded as well as right basilar atelectasis. No obvious effusion. No pneumothorax. Skeletal structures intact. Impression: Stable cardiomegaly and chronic changes. Cannot exclude interstitial edema as well as right basilar atelectasis. PROGNOSIS: Fair ACTIVITY: As tolerated. DIET: . 2 g low sodium diet, 1500 mL fluid resection DISCHARGE PLAN: DISPOSITION: Home, Self-Care. DISCHARGE INSTRUCTIONS: 1. . Follow-up with primary care physician within 7 days 2. . Follow-up with cardiology within 2-4 weeks 3. . Return to the ER for any acute emergencies DISCHARGE CONDITION: Stable. TIME SPENT ON DISCHARGE: Greater than 30 minutes. Vital Signs/I&Os Vital Signs Date Time Temp Pulse Resp B/P (MAP) Pulse Ox O2 Delivery O2 Flow Rate FiO2 07/13/17 08:10 148/60 07/13/17 06:22 98.9 70 17 92 Room Air I&O- Last 24 Hours up to 6 AM 07/14/17 05:59 Intake Total 620 ml Output Total 325 ml Balance 295 ml Microbiology Microbiology 07/04/17 Blood Culture - Final, Complete NO GROWTH AFTER 5 DAYS 07/04/17 Blood Culture - Final, Complete NO GROWTH AFTER 5 DAYS Discharge Medications Scheduled Apixaban Base (Eliquis) 2.5 Mg Tab, 2.5 MG PO BID, (Reported) Aspirin (Aspirin EC) 81 Mg Tabec, 81 MG PO DAILY, (Reported) Carvedilol (Carvedilol) 12.5 Mg Tab, 12.5 MG PO BID, (Reported) Digoxin (Digoxin) 0.125 Mg Tab, 0.125 MG PO ASDIRECTED, (Reported) TAKES SATURDAY THRU SATURDAY Ferrous Sulfate (Ferrous Sulfate) 325 Mg Tab, 325 MG PO QHS, (Reported) Furosemide (Furosemide) 20 Mg Tab, 20 MG PO DAILY, (Reported) HAS BEEN ON HOLD PER DR. BARRON BECAUSE OF DEHYDRATION Levothyroxine Sodium (Synthroid) 75 Mcg Tab, 75 MCG PO DAILY, (Reported) Losartan Potassium (Losartan Potassium) 50 Mg Tab, 25 MG PO DAILY, (Reported) Multivitamins *[facility] STOCKED* (Thera M Plus *[facility] STOCKED*) 1 Tab Tab, 1 TAB PO DAILY, (Reported) Pantoprazole Sodium (Pantoprazole Sodium) 40 Mg Tab, 40 MG PO QHS, (Reported) Ranitidine Hcl (Zantac) 150 Mg Tab, 1 TAB PO QHS, (Reported) Salmeterol/Fluticasone (Advair Hfa 115-21 Mcg/Act) 1 Aer Aer, 2 PUFF INH BID, ( Reported) Tamsulosin Hydrochloride (Flomax) 0.4 Mg Cap, 0.4 MG PO DAILY Tiotropium [place] Monohydrate (Spiriva Handihaler) 18 Mcg Cap, 1 INHALATION INH DAILY, (Reported) Scheduled PRN Acetaminophen (Tylenol Extra Strength) 500 Mg Tab, 1,000 MG PO Q6H PRN for PAIN, (Reported) Albuterol Sulfate (Proair Hfa) 108 Mcg/Act Aer, 216 MCG INH QID PRN for SHORTNESS OF BREATH, (Reported) Meclizine HCl (Meclizine HCl) 25 Mg Tab, 25 MG PO BIDP PRN for DIZZINESS Allergies Coded Allergies: Prednisone (Verified Adverse Reaction, Severe, SUICIDAL, HEART RACING, 12/22) Fluticasone (Unverified Adverse Reaction, Mild, COUGH-CAN TAKE THE HFA BUT NOT DISKUS, 12/22/14) Salmeterol (Unverified Adverse Reaction, Mild, COUGH, 12/22/14) EDISON MENDOZA MD Jul 13, 2017 15:09
[2017-07-14] MEDS ORDERED: LOSA25TA8 PO (20:32)
[2017-07-14] MEDS ORDERED: FLOM5CAP PO (20:32)
[2017-07-14] MEDS ORDERED: MECL-68 PO (20:32)
== END 2017-07-13 14:25 | disposition home or self-care (01) | DRG 291 ==
LOC: M ED 18:06 → M ED INP 21:53 → M PCU 07-05 20:47 → M MSPAV 07-06 17:03 → M PCU 07-09 14:59 → M MSPAV 07-12 15:50
PROVIDERS: ADMIT Family Medicine; ATTEND Internal Medicine
DX: I13.0 Hypertensive heart and chronic kidney disease with heart failure and stage 1 through stage 4 chronic kidney disease, or unspecified chronic kidney disease (principal); I50.23 Acute on chronic systolic (congestive) heart failure; J44.1 Chronic obstructive pulmonary disease with (acute) exacerbation; I48.92 Unspecified atrial flutter; I42.0 Dilated cardiomyopathy; N18.3 Chronic kidney disease, stage 3 (moderate); E78.5 Hyperlipidemia, unspecified; E03.9 Hypothyroidism, unspecified; Z95.810 Presence of automatic (implantable) cardiac defibrillator; Z90.49 Acquired absence of other specified parts of digestive tract; Z96.643 Presence of artificial hip joint, bilateral; Z87.891 Personal history of nicotine dependence; Z88.8 Allergy status to other drugs, medicaments and biological substances; Z99.81 Dependence on supplemental oxygen; Z79.82 Long term (current) use of aspirin; Z79.01 Long term (current) use of anticoagulants; Z79.899 Other long term (current) drug therapy

== ENCOUNTER 2017-07-14 18:30 | Inpatient (IN) | payer MEDICARE ==
[~2017-07-14] VITALS: Ht 170.2 cm; Wt 65.5 kg
[~2017-07-14 18:30] MED LIST changes: +ASPI81TAEC PO; +FLOM5CAP PO; +MECL-68 PO; +SPIR1CAP; +TYLE500T78 PO; +VITMTA PO
[2017-07-14 20:04] LABS: BASO % 0.3 % (0.0-1.0); EOS # 0.2 K/mm3 (0.0-0.50); EOS % 1.8 % (0.0-3.0); LARGE UNSTAINED CELL # 0.1 K/mm3 (0.0-0.4); LARGE UNSTAINED CELL % 1.4 % (0.0-4.0); LYMPH # 1.8 K/mm3 (1.5-4.5); LYMPH % 20.8 % (24.0-44.0); MEAN CORPUSCULAR HEMOGLOBIN 32.8 pg (27.0-33.0); MEAN CORPUSCULAR HGB CONC 33.9 g/dl (32.0-36.5); MEAN CORPUSCULAR VOLUME 96.8 fl (80.0-96.0); MONO # 0.6 K/mm3 (0.0-0.8); MONO % 6.9 % (0.0-5.0); NEUTROPHILS # 5.8 K/mm3 (1.8-7.7); NEUTROPHILS % 68.8 % (36.0-66.0); PLATELET COUNT, AUTOMATED 318 k/mm3 (150-450); RED CELL DISTRIBUTION WIDTH 13.4 % (11.5-14.5); WHITE BLOOD COUNT 8.5 K/mm3 (4.0-10.0)
[2017-07-14 20:10] LABS: INR 1.09
[2017-07-14 20:25] LABS: ERYTHROCYTE SEDIMENTATION RATE 17 mm/hr (0-20)
[2017-07-14 20:28] LABS: ALBUMIN 3.1 GM/DL (3.2-5.2); ALBUMIN/GLOBULIN RATIO 1.11 (1.00-1.93); BILIRUBIN,DIRECT 0.1 MG/DL (0.0-0.2); BILIRUBIN,TOTAL 0.4 MG/DL (0.2-1.0); CALCIUM LEVEL 8.1 MG/DL (8.8-10.2); CREATININE FOR GFR 1.65 MG/DL (0.70-1.30); GLOMERULAR FILTRATION RATE 42.8 (>35); POTASSIUM SERUM 4.4 MEQ/L (3.5-5.1); TOTAL PROTEIN 5.9 GM/DL (6.4-8.2)
[2017-07-14] MEDS ORDERED: LOSA25TA8 PO (20:32)
[2017-07-14] MEDS ORDERED: MECL-68 PO (20:32)
[2017-07-14] MEDS ORDERED: FLOM5CAP PO (20:32)
[2017-07-14 20:34] LABS: FREE T4 1.39 NG/DL (0.76-1.46)
[2017-07-14] MEDS ORDERED: FUROSEMIDE 40 MG/4 ML VIAL (J1940) IV ONE (21:00)
[2017-07-14] MEDS: ADVAIR HFA 115/21MCG INHALER INH SCH (21:00)
[2017-07-14] MEDS ORDERED: ONDANSETRON 4MG/2ML VIAL (J2405) IV PRN (22:15)
[2017-07-15] VITALS (7 sets, daily range): BP systolic 84–130; BP diastolic 54–70
[2017-07-15] MEDS: SENOKOT S TAB PO SCH ×3 (00:22→20:43)
[2017-07-15] MEDS: PANTOPRAZOLE 40MG TAB (PROTONIX) PO SCH ×2 (00:22→20:54)
[2017-07-15] MEDS: APIXABAN 2.5 MG TAB (ELIQUIS) PO SCH ×3 (00:22→20:54)
[2017-07-15] MEDS: CARVedilol 12.5 MG TAB PO SCH ×2 (00:23→10:29)
[2017-07-15] MEDS: MECLIZINE 25 MG TABLET PO PRN (00:23)
[2017-07-15] MEDS: FAMOTIDINE 20 MG TAB PO SCH ×2 (00:23→20:54)
[2017-07-15] MEDS: FERROUS SULFATE 325MG TAB PO SCH ×2 (00:23→20:54)
[2017-07-15 01:28] LABS: MAGNESIUM LEVEL 2.1 MG/DL (1.8-2.4)
[2017-07-15] MEDS: LEVOTHYROXINE 75MCG TABLET (0.075MG) PO SCH (06:22)
[2017-07-15 07:13] LABS: CALCIUM LEVEL 8.3 MG/DL (8.8-10.2); CREATININE FOR GFR 1.42 MG/DL (0.70-1.30); GLOMERULAR FILTRATION RATE 50.9 (>35); POTASSIUM SERUM 3.7 MEQ/L (3.5-5.1)
--- NOTE | 2017-07-15 07:16 | HPE ---
DATE OF ADMISSION: 07/14/2017 PRIMARY CARE PHYSICIAN: Dr. Martín Ramirez FREELANCE DIRECTOR: Dr. Dinero. CHIEF COMPLAINT: Severe dizziness and weakness this morning after getting up from bed and starting ambulating. Off and on chest pain of the whole lower part extending from one side to the other. PAST MEDICAL HISTORY: 1. Systolic congestive heart failure which is nonischemic with an ejection fraction (EF) of 25 to 30%. 2. Managed ischemic cardiomyopathy. Has an automatic implantable cardio converter-defibrillator (AICD) in place. 3. Atrial fibrillation, atrial flutter. 4. Chronic pulmonary obstructive disease (COPD). Does not use any oxygen. 5. Hypertension. 6. Hyperlipidemia. 7. Hypothyroidism. 8. Osteoarthritis. 9. Chronic kidney disease (CKD) Stage III. HISTORY OF PRESENT ILLNESS: This is an 81-year-old male who was recently discharged on July 13, 2017 after nine day hospitalization for congestive heart failure exacerbation and COPD exacerbation. He said that he was feeling pretty good yesterday so he went home. This morning when he woke up he started ambulating. After getting out of bed he felt extremely dizzy, lightheaded, weak and his legs almost gave out and he fell. He also started feeling some chest pains off and on involving both the right and left lower chest. He also had very poor appetite and could hardly eat anything. Because of the persistent dizziness and weakness he came back to the emergency room. In the emergency department (ED ) the patient was initially noticed to have a pulse of 41, however the EKG which was in the automated monitoring; but he is a patient with atrial fibrillation flutter so I think it is probably not correct. His EKG shows a ventricular rate of 76, many of which are paced, as well as there is atrial fibrillation present. He had a chest x-ray done in the emergency room which did not show any evidence of vascular congestion or fluid overload. His lab tests were significant for a creatinine of 1.65 which is close to his baseline. He also had a pro brain natriuretic peptide (BNP) level of 1800. His cardiac enzymes were negative. At this point he was not felt to have any fluid overload or any cognitive heart failure exacerbation clinically. He was subsequently admitted to the hospitalist service for evaluation for dizziness and lightheadedness. PAST SURGICAL HISTORY: 1. AICD implantation. 2. Cholecystectomy. 3. Bilateral hip replacement. 4. Partial colectomy. 5. Coronary angiography in 2013 which did not show any ischemic heart disease. 6. Colonoscopy 2014. FAMILY HISTORY: Father had heart disease. Mother had diabetes. Four brothers with heart disease, one had a stroke. ALLERGIES: PREDNISONE which makes him become depressed. SOCIAL HISTORY: Former smoker, quit smoking 40 years ago. No history of alcohol or drug abuse. REVIEW OF SYSTEMS: The patient denies any fever or chills, denies any increased cough or increased shortness of breath. He says he always has some baseline shortness of breath because of his chronic pulmonary obstructive disease (COPD) but it is not any worse than usual. He denied any abdominal pain, any nausea, vomiting or diarrhea. He says his legs are much better than they were a week ago. He does complain of some chest pain in the lower part of his chest extending from the left to the right. He complains of dizziness and lightheadedness when he stands up and starts walking; however, he does not feel much dizziness when he is lying down flat. PHYSICAL EXAMINATION: VITAL SIGNS: Temperature 98.3, pulse 76, respiratory rate 18, blood pressure 111/40, pulse oximetry 93% on room air. GENERAL: Patient is awake, alert and oriented times three. Lying down in bed in no acute distress. HEENT: Normocephalic atraumatic. Moist mucous membranes. Anicteric eyes. CHEST: Bilateral diffuse wheezing present. No crackles. CARDIOVASCULAR: S1, S2 is regular. No rub, murmur or gallop. ABDOMEN: Soft, nontender, bowel sounds present. EXTREMITIES: Trace edema in bilateral lower extremities. NECK: No jugular venous distention (JVD) noted. LABORATORY DATA: WBC 8.5, hemoglobin 12.8, platelets 318. ESR 17. Sodium 146, potassium 4.4, chloride 109, bicarbonate 29, BUN 19, creatinine 1.65. Glucose 94 , calcium 8.9, cardiac enzymes are negative, liver function tests (LFTs) are normal. Pro BNP 1800, CRP 0.7, TSH 6.01, Free T4 1.39. Blood cultures have been ordered. ASSESSMENT AND PLAN: This is an 81-year-old male admitted for dizziness and weakness, etiology to be determined. PLAN: 1. Dizziness and weakness. This is most probably related to prolonged hospitalization and generalized deconditioning; however, will check orthostatic blood pressures while in the hospital twice a day. Will also monitor the patient in the progressive care unit (PCU) to see if there is any acute cardiological events going on to explain his dizziness and weakness. Will continue the patient on Meclizine. 2. Nonischemic cardiomyopathy with ejection fraction (EF) of 25-30% and chronic systolic congestive heart failure. At this point the patient does not seem to be fluid overloaded and the patient is not in any congestive heart failure exacerbation. 3. Chest pain. Will check cardiac markers; however, it could be because of increased work of breathing from chronic pulmonary obstructive disease (COPD) and could be musculoskeletal. 4. COPD. Will continue the patient on nebulizers and Advair and Spiriva. 5. Atrial fibrillation/flutter. Rate is controlled at 76. The patient also has an automatic implantable cardio converter-defibrillator (AICD) in place. The patient is rate controlled with Coreg 12.5 twice a day, Digoxin 0.125 mg five times a week. The patient is also on Eliquis 2.5 mg twice a day. 6. Hypothyroidism. Will continue with Synthroid. 7. Benign prostatic hypertrophy (BPH) with elevated prostate specific antigen (PSA). Will continue with Flomax. 8. History of congestive heart failure. Will continue with Lasix. Will continue with Losartan 25 at this point; however, if there is orthostatic hypotension will have to reduce the dose of Losartan and hold lasix. Will continue with beta inés. 9. Deep venous thrombosis (DVT) prophylaxis. The patient is on Eliquis. 10. Gastrointestinal (GI) prophylaxis: The patient is on pantoprazole as well as on famotidine. MTDD
[2017-07-15] MEDS: IPRATROPIUM 0.5MG/ALBUTEROL 2.5MG INH SOL UD 3ML (DUONEB)(J7620) NEB SCH ×4 (07:23→20:00)
[2017-07-15] MEDS: ADVAIR HFA 115/21MCG INHALER INH SCH ×2 (07:23→21:07)
[2017-07-15] MEDS: TIOTROPIUM INHALER/CAPSULE (SPIRIVA) INH SCH (07:23)
--- NOTE | 2017-07-15 08:36 | ECGEPIP ---
Stationary ECG Study [facility] [place] - ED Test Date: 2017-07-14 Pat Name: SAVANAH HARO Department: Room: [place] [address] Gender: M [employer]: radha : [id number] Requested By: Jaquelin Johnson Order Number: [id number] Reading MD: Jethro Hopper Measurements Intervals [place] Rate: 76 P: 145 LA: 203 QRS: -50 QRSD: 162 T: 97 QT: 392 QTc: 443 Interpretive Statements ELECTRONIC ATRIAL PACEMAKER ELECTRONIC VENTRICULAR PACEMAKER -- CONTOUR ANALYSIS BASED ON INTRINSIC RHYTHM LEFT AXIS DEVIATION LEFT BUNDLE BRANCH BLOCK SIMILAR TO 05/27/14 Electronically Signed On 07-15-2017 8:36:19 EDT by Jethro Hopper
--- NOTE | 2017-07-15 08:44 | REP ---
TWO VIEW CHEST: Two views of the chest are performed and compared to multiple prior exams dating back to 05/24/2014. There is bibasilar fibroatelectatic change. There is some minimal superimposed acute infiltrate or atelectasis in the lung bases as seen on the lateral view. The heart is mildly enlarged. There is calcification of the thoracic aorta. The mediastinal silhouette is unchanged. Right pacemaker is again noted. IMPRESSION: Bibasilar fibroatelectatic change with minimal superimposed acute infiltrate or atelectasis. Mild cardiomegaly. Signed by Troy Raymundo MD 07/15/2017 05:28 P
[2017-07-15] MEDS ORDERED: FUROSEMIDE 20 MG TAB PO SCH (09:00)
[2017-07-15] MEDS: ASPIRIN 81 MG ENTERIC TAB PO SCH (10:30)
[2017-07-15] MEDS: DIGOXIN 0.125 MG TAB PO SCH (10:30)
[2017-07-15] MEDS: LOSARTAN 25 MG TAB PO SCH (10:31)
[2017-07-15] MEDS: TAMSULOSIN 0.4 MG CAP PO SCH (10:32)
--- NOTE | 2017-07-15 11:34 | IPNPDOC ---
Subjective Date Seen The patient was seen on 07/15/17. Subjective Chief Complaint/HPI Patient seen and examined at the bedside. States that he is still having some dizziness today. Denies any other acute complaints at this time. Objective Physical Examination General Exam: Positive: Alert, Cooperative, No Acute Distress ENT Exam: Positive: Atraumatic, Mucous membr. moist/pink Neck Exam: Negative: JVD Chest Exam: Positive: Clear to auscultation, Normal air movement Heart Exam: Positive: Rate Normal, Normal S1, Normal S2 Abdomen Exam: Positive: Soft, Negative: Tenderness Extremity Exam: Negative: Tenderness, Swelling Psych Exam: Positive: Oriented x 3 Assessment /Plan Plan/VTE VTE Prophylaxis Ordered?: Yes Plan Dizziness/Vertigo, possibly 2/2 Orthostatic Hypotension, Generalized Deconditioning The patient's Orthostatic's were positive on admission--however, I do believe that this is less likely the cause of the patient's dizziness, as he was noted to be orthostatic negative on his previous admission and yet still had symptoms of dizziness We will cont to monitor the patient on Telemetry The patient's Lasix has been held Physical exam, clinical presentation not consistent with BPPV PT on board Continue meclizine when necessary I did discuss the possibility of the patient needing a rolling walker with a seat to help prevent some of these dizzy spells and improve the patient's functional status. COPD Exacerbation, resolved Cont current regimen Hypertension Cont Losartan Hx of CHF with Systolic EF of 30-35%, Grade II Diastolic Dysfunction s/p AICD with Dual Chamber Pacemaker Placement Cont ASA, ARB, Digoxin, Coreg Hx of Atrial Flutter Cont Eliquis Rate controlled Hypothyroidism Continue Synthroid CKD stage IIIB Serum creatinine appears to be at baseline. DVT prophylaxis Already on eliquis VS, I&O, 24H, Fishbone Vital Signs/I&O Vital Signs Date Time Temp Pulse Resp B/P (MAP) Pulse Ox O2 Delivery O2 Flow Rate FiO2 07/15/17 10:31 109/60 07/15/17 10:30 78 07/15/17 08:00 96.7 18 90 07/15/17 07:30 Room Air I&O- Last 24 Hours up to 6 AM 07/16/17 05:59 Intake Total 0 ml Output Total 200 ml Balance -200 ml Laboratory Data 24H LABS Laboratory Tests 2 07/14/17 19:33: White Blood Count 8.5, Red Blood Count 3.93L, Hemoglobin 12.9L, Hematocrit 38.0L , Mean Corpuscular Volume 96.8H, Mean Corpuscular Hemoglobin 32.8, Mean Corpuscular Hemoglobin Concent 33.9, Red Cell Distribution Width 13.4, Platelet Count 318, Neutrophils (%) (Auto) 68.8H, Lymphocytes (%) (Auto) 20.8L, Monocytes (%) (Auto) 6.9H, Eosinophils (%) (Auto) 1.8, Basophils (%) (Auto) 0.3 , Neutrophils # (Auto) 5.8, Lymphocytes # (Auto) 1.8, Monocytes # (Auto) 0.6, Eosinophils # (Auto) 0.2, Basophils # (Auto) 0.0, Large Unclassified Cells % 1.4 , Large Unclassified Cells # 0.1, Erythrocyte Sedimentation Rate 17, Prothrombin Time 14.3, Prothromb Time International Ratio 1.09, Anion Gap 8, Glomerular Filtration Rate 42.8, Calcium Level 8.1L, Aspartate Amino Transf (AST /SGOT) 18, Alanine Aminotransferase (ALT/SGPT) 17, Alkaline Phosphatase 60, Total Bilirubin 0.4, Direct Bilirubin 0.1, Total Creatine Kinase 45, Creatine Kinase MB 1.1, Creatine Kinase MB Relative Index 2.44, Troponin I 0.03, C- Reactive Protein, Quantitative 0.70H, JH-Afs-X-Type Natriuretic Peptide 1800H, Total Protein 5.9L, Albumin 3.1L, Albumin/Globulin Ratio 1.11, Lipase 161, Thyroid Stimulating Hormone (TSH) 6.010H, Free Thyroxine 1.39 07/14/17 22:35: Total Creatine Kinase 27L, Creatine Kinase MB 1.0, Creatine Kinase MB Relative Index 3.70, Troponin I 0.03, Magnesium Level 2.1 07/15/17 04:37: Anion Gap 6L, Glomerular Filtration Rate 50.9, Calcium Level 8.3L, Total Creatine Kinase 26L, Creatine Kinase MB 1.0, Creatine Kinase MB Relative Index 3.84, Troponin I 0.03, Blood Urea Nitrogen 18, Creatinine 1.42H, Sodium Level 142, Potassium Level 3.7, Chloride Level 106, Carbon Dioxide Level 30 CBC/BMP Laboratory Tests 07/14/17 19:33 Red Blood Count 3.93 L, Mean Corpuscular Volume 96.8 H, Mean Corpuscular Hemoglobin 32.8, Mean Corpuscular Hemoglobin Concent 33.9, Red Cell Distribution Width 13.4, Neutrophils (%) (Auto) 68.8 H, Lymphocytes (%) (Auto) 20.8 L, Monocytes (%) (Auto) 6.9 H, Eosinophils (%) (Auto) 1.8, Basophils (%) ( Auto) 0.3, Neutrophils # (Auto) 5.8, Lymphocytes # (Auto) 1.8, Monocytes # (Auto ) 0.6, Eosinophils # (Auto) 0.2, Basophils # (Auto) 0.0 07/15/17 04:37 Calcium Level 8.3 L, Total Creatine Kinase 26 L Microbiology Microbiology 07/14/17 Blood Culture, Received Pending 07/14/17 Blood Culture, Received Pending EDISON MENDOZA MD Jul 15, 2017 11:34
[2017-07-15] MEDS ORDERED: SLF 3 ML SYR IV PRN (16:45)
[2017-07-15] MEDS: SLF 3 ML SYR IV SCH (20:54)
[2017-07-16] VITALS (8 sets, daily range): BP systolic 88–148; BP diastolic 40–64
[2017-07-16] MEDS: LEVOTHYROXINE 75MCG TABLET (0.075MG) PO SCH (05:48)
[2017-07-16] MEDS: SLF 3 ML SYR IV SCH ×3 (05:49→21:44)
[2017-07-16 06:19] LABS: BASO % 0.2 % (0.0-1.0); EOS # 0.1 10^3/uL (0.0-0.50); EOS % 1.2 % (0.0-3.0); IMMATURE GRANULOCYTE % 0.6 % (0-0); LYMPH # 1.9 10^3/uL (1.5-4.5); LYMPH % 18.3 % (24.0-44.0); MEAN CORPUSCULAR HEMOGLOBIN 31.3 pg (27.0-33.0); MEAN CORPUSCULAR HGB CONC 32.9 g/dl (32.0-36.5); MEAN CORPUSCULAR VOLUME 95.3 fl (80.0-96.0); MONO % 9.4 % (0.0-5.0); NEUTROPHILS # 7.2 10^3/uL (1.8-7.7); NEUTROPHILS % 70.3 % (36.0-66.0); PLATELET COUNT, AUTOMATED 286 10^3/uL (150-450); WHITE BLOOD COUNT 10.3 10^3/uL (4.0-10.0)
[2017-07-16 06:50] LABS: CALCIUM LEVEL 8.3 MG/DL (8.8-10.2); CREATININE FOR GFR 1.3 MG/DL (0.70-1.30); GLOMERULAR FILTRATION RATE 56.4 (>35); POTASSIUM SERUM 3.7 MEQ/L (3.5-5.1)
[2017-07-16] MEDS: ADVAIR HFA 115/21MCG INHALER INH SCH ×2 (07:28→20:55)
[2017-07-16] MEDS: TIOTROPIUM INHALER/CAPSULE (SPIRIVA) INH SCH (07:29)
[2017-07-16] MEDS: IPRATROPIUM 0.5MG/ALBUTEROL 2.5MG INH SOL UD 3ML (DUONEB)(J7620) NEB SCH ×4 (07:32→20:00)
[2017-07-16] MEDS: LOSARTAN 25 MG TAB PO SCH (08:53)
[2017-07-16] MEDS: ASPIRIN 81 MG ENTERIC TAB PO SCH (08:53)
[2017-07-16] MEDS: APIXABAN 2.5 MG TAB (ELIQUIS) PO SCH ×2 (08:53→21:46)
[2017-07-16] MEDS: CARVedilol 12.5 MG TAB PO SCH ×3 (08:53→21:49)
[2017-07-16] MEDS: TAMSULOSIN 0.4 MG CAP PO SCH (08:53)
[2017-07-16] MEDS: DIGOXIN 0.125 MG TAB PO SCH (08:54)
[2017-07-16] MEDS: SENOKOT S TAB PO SCH (08:54)
[2017-07-16] MEDS ORDERED: LOPERAMIDE 2 MG CAP PO ONE (12:30)
[2017-07-16] MEDS ORDERED: SODIUM CHLORIDE 0.9% 1000 ML IV ONE (16:00)
--- NOTE | 2017-07-16 16:34 | IPN ---
DATE: 07/16/2017 SUBJECTIVE: Patient seen and examined in the room today. Patient did complain about frequent bowel movements. Patient still complained about lightheadedness/dizziness. Patient stated when he is lying in bed resting, he does not feel the dizziness; however, when he has posture changes, he will have recurrence of the symptoms, and the symptoms also occur during exertion. On telemetry, patient had frequent premature ventricular contractions (PVCs). OBJECTIVE: VITAL SIGNS: Temperature 98.4, pulse 85, respirations 20, blood pressure supine is 122/58, sitting is 102/42, standing is 88/40, pulse oximetry 96% in room air. GENERAL: Fatigued. No sign of acute distress, alert and oriented times three. HEENT: Normocephalic, atraumatic. Extraocular motor grossly intact. CARDIOVASCULAR: Positive S1, S2, regular rate. LUNGS: Clear to auscultation bilaterally. ABDOMEN: Soft, nontender, nondistended. Bowel sounds present. No rebound. No guarding. EXTREMITIES: No edema. No sign of cyanosis. LABORATORY DATA: WBC is 10.3, hemoglobin 12, hematocrit 36.5, platelet count is 286. Sodium is 143, potassium 3.7, chloride 106, carbon dioxide 38, BUN 18, creatinine 1.3, GFR is 56.4, fasting glucose is 92, calcium is 8.3, magnesium 2.3. Microbiology: Preliminary showed no growth after 24 hours times two sets. ASSESSMENT AND PLAN: 1. Dizziness and lightheadedness. Patient is currently positive for orthostatic hypotension. Due to the history of systolic and diastolic congestive heart failure, we will be very cautious regarding the fluid status. The patient has been complaining about frequent bowel movements, and clinically patient is dehydrated. We will give a 0.5 fluid bolus. Will continue to check the blood pressures. Patient did have frequent PVCs, even though patient has a automatic implantable cardioverter-defibrillator (AICD) with dual-chamber pacemaker. The case is discussed with the homicide squad lieutenant. The patient has been on a beta inés. Will discontinue the angiotensin receptor inés (ARB). Patient will continue on the digoxin while we monitor the patient. Patient's Lasix has been on hold. Continue to follow with physical therapy. Patient is currently on meclizine. 2. Systolic and diastolic congestive heart failure. Patient had an ejection fraction (EF) of 30-35%. Patient also has grade 2 diastolic congestive heart failure. Patient's has AICD with dual-chamber pacemaker. Patient on aspirin, digoxin, and Coreg. ARB will be discontinued after discussed with homicide squad lieutenant. 3. History of atrial flutter, on Eliquis and Coreg. 4. Hypothyroidism, on Synthroid. 5. Acute on chronic kidney disease. Patient's renal function is approaching his baseline. 6. Deep vein thrombosis (DVT) prophylaxis, on Eliquis.
[2017-07-16] MEDS: FERROUS SULFATE 325MG TAB PO SCH (21:47)
[2017-07-16] MEDS: FAMOTIDINE 20 MG TAB PO SCH (21:47)
[2017-07-16] MEDS: PANTOPRAZOLE 40MG TAB (PROTONIX) PO SCH (21:47)
[2017-07-17] VITALS (7 sets, daily range): BP systolic 100–154; BP diastolic 56–82
[2017-07-17] MEDS: MECLIZINE 25 MG TABLET PO PRN (04:15)
[2017-07-17] MEDS: SLF 3 ML SYR IV SCH ×3 (05:37→20:52)
[2017-07-17] MEDS: LEVOTHYROXINE 75MCG TABLET (0.075MG) PO SCH (05:37)
[2017-07-17 05:47] LABS: BASO % 0.2 % (0.0-1.0); EOS # 0.1 10^3/uL (0.0-0.50); EOS % 1.1 % (0.0-3.0); IMMATURE GRANULOCYTE % 0.4 % (0-0); LYMPH # 1.6 10^3/uL (1.5-4.5); LYMPH % 13.5 % (24.0-44.0); MEAN CORPUSCULAR HGB CONC 33.4 g/dl (32.0-36.5); MEAN CORPUSCULAR VOLUME 95.8 fl (80.0-96.0); MONO # 1.1 10^3/uL (0.0-0.8); MONO % 8.9 % (0.0-5.0); NEUTROPHILS # 9.2 10^3/uL (1.8-7.7); NEUTROPHILS % 75.9 % (36.0-66.0); PLATELET COUNT, AUTOMATED 258 10^3/uL (150-450); RED CELL DISTRIBUTION WIDTH 14.1 % (11.5-14.5); WHITE BLOOD COUNT 12.2 10^3/uL (4.0-10.0)
[2017-07-17 06:10] LABS: ANION GAP 7 MEQ/L (8-16); BLOOD UREA NITROGEN 17 MG/DL (7-18); CALCIUM LEVEL 8.1 MG/DL (8.8-10.2); CARBON DIOXIDE LEVEL 27 MEQ/L (21-32); CHLORIDE LEVEL 109 MEQ/L (98-107); CREATININE FOR GFR 1.11 MG/DL (0.70-1.30); GLOMERULAR FILTRATION RATE > 60.0 (>35); GLUCOSE, FASTING 102 MG/DL (83-110); POTASSIUM SERUM 3.5 MEQ/L (3.5-5.1); SODIUM LEVEL 143 MEQ/L (136-145)
[2017-07-17] MEDS: TIOTROPIUM INHALER/CAPSULE (SPIRIVA) INH SCH (07:50)
[2017-07-17] MEDS: ADVAIR HFA 115/21MCG INHALER INH SCH ×2 (07:50→21:11)
[2017-07-17] MEDS: IPRATROPIUM 0.5MG/ALBUTEROL 2.5MG INH SOL UD 3ML (DUONEB)(J7620) NEB SCH ×4 (08:00→20:00)
[2017-07-17] MEDS: DIGOXIN 0.125 MG TAB PO SCH (10:02)
[2017-07-17] MEDS: TAMSULOSIN 0.4 MG CAP PO SCH (10:02)
[2017-07-17] MEDS: ASPIRIN 81 MG ENTERIC TAB PO SCH (10:03)
[2017-07-17] MEDS: CARVedilol 12.5 MG TAB PO SCH ×2 (10:03→20:53)
[2017-07-17] MEDS: APIXABAN 2.5 MG TAB (ELIQUIS) PO SCH ×2 (10:03→20:52)
[2017-07-17] MEDS ORDERED: LOPERAMIDE 2 MG CAP PO ONE (11:00)
[2017-07-17 11:57] LABS: DIGOXIN LEVEL 2.2 NG/ML (0.5-2.0); POTASSIUM SERUM 3.8 MEQ/L (3.5-5.1)
[2017-07-17] MEDS ORDERED: SODIUM CHLORIDE 0.9% 1000 ML IV ONE (13:00)
[2017-07-17] MEDS ORDERED: ISOVUE-370 76% 100ML VIAL (Q9967) As Ordered ONE (13:36)
--- NOTE | 2017-07-17 15:27 | REP ---
CT ANGIO HEAD: HISTORY: Double vision. CONTRAST: Isovue-370, 75 mL There is no aneurysm or arteriovenous malformation. Calcified atherosclerotic plaques are present in the cavernous internal carotid arteries . These produces mild to moderate stenosis. Major intracranial vessels are patent. The left vertebral artery is dominant. IMPRESSION: 1. There is no aneurysm or arteriovenous malformation. 2. Atherosclerotic disease as described above. Signed by Geo Smith MD 07/17/2017 03:36 P
--- NOTE | 2017-07-17 16:32 | REP ---
CT ANGIO NECK: HISTORY: Light headiness. CONTRAST: Isovue-370 75 mL. Small calcified arthrosclerotic plaques are present at the origin of the right internal carotid artery. There is mild stenosis of 5% of the right internal carotid artery at its origin. The origin of the right external carotid artery is normal. Calcified arteriosclerotic plaques are present at the origin of the left internal carotid artery. There is mild stenosis of 15% of the left internal carotid artery at its origin. There is moderate stenosis of 30% of the left internal carotid artery, 16 mm from its origin. The origin of the left external carotid artery is normal. 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 There is reconstitution of the right vertebral artery at the level of the C4 vertebral body. The left vertebral artery is patent. The left vertebral artery is dominant. Calcified atherosclerotic plaques are present at the origins of the left subclavian, left common carotid and right subclavian artery. There is no significant stenosis. Bullae are present in the lung apices. Degenerative change is present in the cervical spine. Mucosal thickening is present in the ethmoid and maxillary sinuses. IMPRESSION:1. Mild stenosis of 5% of the right internal carotid artery at its origin. 2. Mild stenosis of 15% of the left internal carotid artery at its origin. There is moderate stenosis of 30% of the left internal carotid artery, 16 mm from its origin. 3. 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 There is reconstitution of the right vertebral artery at the level of the C4 vertebral body. Signed by Geo Smith MD 07/17/2017 04:46 P
--- NOTE | 2017-07-17 17:03 | IPN ---
DATE: 07/17/2017 SUBJECTIVE: Patient is seen and examined in the room today. Today, patient complained about double vision. Patient continued to feel lightheadedness, even during rest. The dizziness and lightheadedness is exacerbated during movement changes and also during exertions. Patient only had one large bowel movement this morning and no more bowel movement productions. Per nursing staff report, patient did have multiple bowel movements yesterday evening time. OBJECTIVE: VITAL SIGNS: The most recent vital signs: Temperature is 98.5, pulse is 69, respirations 20, blood pressure supine is 124/62, sitting is 132/60, standing is 120/56. GENERAL: Fatigued. No sign of acute distress, alert and oriented times three. HEENT: Normocephalic, atraumatic. Extraocular motor grossly intact. CARDIOVASCULAR: Positive S1, S2, regular rate. There is some frequent premature ventricular contractions (PVCs) detected on telemetry. LUNGS: Clear to auscultation bilaterally. ABDOMEN: Soft, nontender, nondistended. Bowel sounds present. EXTREMITIES: No edema. No sign of cyanosis. LABORATORY DATA: WBC is 12.2, hemoglobin 11.3, hematocrit 33.8, platelet count is 258. Sodium is 143, potassium 3.5, chloride is 109, carbon dioxide is 27, BUN 17, creatinine 1.11, GFR greater than 60, fasting glucose is 102, calcium is 8.1. ASSESSMENT AND PLAN: 1. Dizziness and lightheadedness. Previously, patient had orthostatic hypotension. Due to the history of systolic and diastolic congestive heart failure, we have been very cautious regarding the fluid status. Patient received intermittent fluid bolus in the past. Today, patient finally does not have orthostatic hypotension. However, patient still complained about lightheadedness and dizziness and patient does have frequent premature ventricular contractions (PVCs) on the telemetry. Patient has an automatic implantable cardioverter-defibrillator (AICD) with a biventricular pacer. We will consult building materials sales attendant to see if we can optimize the patient. Patient does also have symptoms during rest and patient has been having multiple hospitalizations for the similar issue. I have to reach out to the neurologist and we will follow with a CT angiogram of the brain and the neck. We appreciate Dr. Rubio's assistance. 2. Systolic and diastolic congestive heart failure. Patient had an ejection fraction of 30% to 35%. Patient had a grade 2 diastolic dysfunction. Patient has AICD with dual-chamber pacemaker. Patient continued to have frequent PVCs. Patient is on aspirin, digoxin, and Coreg. Angiotensin-receptor inés (ARB) was discontinued due to recommendation. Followup with the digoxin level. When admitted, the patient was on aspirin, digoxin, and Coreg. 3. History of atrial flutter, on Eliquis and Coreg. 4. Hypothyroidism, on Synthroid. 5. Acute on chronic kidney injury, secondary to fluid overload. Patient's renal function is returning to baseline. 6. Deep vein thrombosis (DVT) prophylaxis, on Eliquis.
[2017-07-17] MEDS: MECLIZINE 25 MG TABLET PO SCH (20:51)
[2017-07-17] MEDS: FAMOTIDINE 20 MG TAB PO SCH (20:52)
[2017-07-17] MEDS: FERROUS SULFATE 325MG TAB PO SCH (20:52)
[2017-07-17] MEDS: PANTOPRAZOLE 40MG TAB (PROTONIX) PO SCH (20:52)
[2017-07-18 04:00] VITALS: BP_SYST 144; BP_SYST 150; BP_SYST 154; BP_DIAS 58; BP_DIAS 62
[2017-07-18] MEDS: LEVOTHYROXINE 75MCG TABLET (0.075MG) PO SCH (05:28)
[2017-07-18] MEDS: SLF 3 ML SYR IV SCH ×3 (05:28→20:04)
[2017-07-18 05:50] LABS: BASO % 0.2 % (0.0-1.0); EOS # 0.1 10^3/uL (0.0-0.50); EOS % 1.2 % (0.0-3.0); IMMATURE GRANULOCYTE % 0.5 % (0-0); LYMPH # 1.5 10^3/uL (1.5-4.5); LYMPH % 14.6 % (24.0-44.0); MEAN CORPUSCULAR HEMOGLOBIN 31.8 pg (27.0-33.0); MEAN CORPUSCULAR VOLUME 96.2 fl (80.0-96.0); MONO # 1.1 10^3/uL (0.0-0.8); MONO % 10.7 % (0.0-5.0); NEUTROPHILS # 7.6 10^3/uL (1.8-7.7); NEUTROPHILS % 72.8 % (36.0-66.0); PLATELET COUNT, AUTOMATED 252 10^3/uL (150-450); RED CELL DISTRIBUTION WIDTH 14.2 % (11.5-14.5); WHITE BLOOD COUNT 10.5 10^3/uL (4.0-10.0)
[2017-07-18 06:17] LABS: ANION GAP 6 MEQ/L (8-16); BLOOD UREA NITROGEN 15 MG/DL (7-18); CARBON DIOXIDE LEVEL 26 MEQ/L (21-32); CHLORIDE LEVEL 111 MEQ/L (98-107); CREATININE FOR GFR 0.97 MG/DL (0.70-1.30); GLOMERULAR FILTRATION RATE > 60.0 (>35); GLUCOSE, FASTING 81 MG/DL (83-110); POTASSIUM SERUM 3.9 MEQ/L (3.5-5.1); SODIUM LEVEL 143 MEQ/L (136-145)
[2017-07-18] MEDS: TIOTROPIUM INHALER/CAPSULE (SPIRIVA) INH SCH (07:36)
[2017-07-18] MEDS: IPRATROPIUM 0.5MG/ALBUTEROL 2.5MG INH SOL UD 3ML (DUONEB)(J7620) NEB SCH ×4 (07:40→20:00)
[2017-07-18] MEDS: ADVAIR HFA 115/21MCG INHALER INH SCH ×2 (07:40→20:35)
[2017-07-18 08:15] VITALS: BP 124/52
--- NOTE | 2017-07-18 09:02 | IPN ---
DATE: 07/18/2017 Dr. Hammond has asked me to see Mr. Sheikh again. I saw him last week for the same issue. He was discharged home, but then returned again with the same symptoms of dizziness. I talked to the patient again and his story has not changed any. He gets dizzy principally when moving, but he does not have to be standing, even turning his head in a sitting position or suddenly turning in bed will make his dizziness come on. He denies any chest pain and his shortness of breath has been actually at his baseline or maybe even slightly better. He had several episodes of orthostatic drop in blood pressure that was well documented, but in the last few days it has not been an issue. When I talk to him this morning, he feels that the dizziness is actually slightly improving. On physical examination, blood pressure is 120/60. Heart rate has been in 50s and 60s. It is principally AV sequentially paced rhythm with fairly frequent ventricular and atrial ectopy. Saturation is 92% to 96% on room air. He is afebrile. Weight has been documented at 66.5 kg, which is actually slightly down since his admission weight. His jugular venous pulse (JVP) does not appear high. Lungs are clear with good air movement. Heart exam reveals a regular rhythm. I do not appreciate any gallop. There is a murmur at the apex, very quiet, maybe 1/6, likely representing MR. No peripheral edema. Neurologically, he seems intact other than the dizziness. Laboratory-nguyen, basic metabolic panel is normal, but for a glucose of only 81. His magnesium was 2.2. CRP was 1.7. CBC: hemoglobin 11, hematocrit 33 and platelet count 252,000. His digoxin level yesterday was 2.2, which is certainly too high. He had a neural imaging yesterday that revealed some evidence for intracranial atherosclerosis and one of his vertebral arteries was occluded and reconstituted higher up, but certainly no abnormalities to explain his symptoms. ASSESSMENT/PLAN: Mr. Sheikh is an 81-year-old man who has nonischemic cardiomyopathy and history of paroxysmal atrial fibrillation, status post ablation in February of this year. He has a biventricular defibrillator in place and has been pacing with very high percentage. I have to repeat that my opinion is unchanged. I do not believe that his symptoms are orthostatic in nature. Very likely central cause of dizziness, even though he does not describe it as typical vertigo. Besides reducing the dose of digoxin (and actually I would hold it for a few days until the level drops down), I do not have any new recommendations to his management. I spoke with Dr. Hammond about this issue. ZEN
[2017-07-18] MEDS: ASPIRIN 81 MG ENTERIC TAB PO SCH (09:44)
[2017-07-18] MEDS: APIXABAN 2.5 MG TAB (ELIQUIS) PO SCH ×2 (09:44→20:03)
[2017-07-18] MEDS: MECLIZINE 25 MG TABLET PO SCH ×2 (09:44→20:04)
[2017-07-18] MEDS: TAMSULOSIN 0.4 MG CAP PO SCH (09:44)
[2017-07-18] MEDS: CARVedilol 12.5 MG TAB PO SCH ×2 (09:44→20:03)
[2017-07-18 11:50] VITALS: BP_SYST 100; BP_SYST 110; BP_SYST 118; BP_DIAS 48; BP_DIAS 52; BP_DIAS 56
[2017-07-18 16:00] VITALS: BP 112/58
--- NOTE | 2017-07-18 17:06 | IPN ---
DATE: 07/18/2017 SUBJECTIVE: Patient seen and examined in the room today. Patient still continues to experience lightheadedness during exertion. Today patient had a few episodes of dizziness when he tried to turn his head to the left side. OBJECTIVE: VITAL SIGNS: Temperature is 98.6, pulse is 79, right-sided 20, blood pressure supine is 144/62, sitting is 154/62, standing is 150/58, pulse oximetry is 95% in room air. GENERAL: No sign of acute distress. Alert and oriented times three. HEENT: Normocephalic, atraumatic. Extraocular motor grossly intact. CARDIOVASCULAR: Positive S1, S2, regular. There is a paced rhythm on telemetry. Patient did have frequent PVCs detected. LUNGS: Clear to auscultation bilaterally. ABDOMEN: Soft, nontender, nondistended. Bowel sounds present. EXTREMITIES: No edema. No sign of cyanosis. LABORATORY DATA: WBC is 10.5, hemoglobin 11, hematocrit 33.3, platelet count is 252. Sodium is 143, potassium 3.9, chloride is 111, carbon dioxide 26, BUN 15, creatinine 0.97, GFR greater than 60, fasting glucose 81, calcium is 8, C-reactive protein is 1.68. Microbiology: Blood cultures negative after 72 hours times two sets. Gastrointestinal (GI) panel is negative. ASSESSMENT AND PLAN: 1. Dizziness and lightheadedness. Previously patient had orthostatic hypotension with a few intermittent fluid resuscitations. Also states this has been resolved; however, patient continues to have lightheadedness and dizziness. Patient will continue working with physical therapy. Cardiology and neurology have been consulted, and we appreciate their input. Currently patient is on scheduled meclizine. Per patient, patient feels that he may have some improvement of the symptoms. 2. Systolic and diastolic congestive heart failure. Patient had an ejection fraction of 30-35%. Patient had grade 2 diastolic dysfunction. Patient had automatic implantable cardioverter-defibrillator (AICD) with dual-chamber pacer. Patient has frequent PVCs noted on telemetry. Patient on aspirin, digoxin, and Coreg. Angiotensin receptor blockers (ARBs) have been discontinued per cardiology recommendations. Currently patient does not have a sign of congestive heart failure (CHF) exacerbation. 3. History of atrial flutter, on Eliquis and Coreg. 4. Hypothyroidism, on Synthroid. 5. Acute on chronic kidney injury secondary to fluid overload previously. Renal function has returned to the baseline. 6. Deep vein thrombosis (DVT) prophylaxis, on Eliquis.
[2017-07-18 20:00] VITALS: BP 123/67
[2017-07-18] MEDS: FAMOTIDINE 20 MG TAB PO SCH (20:03)
[2017-07-18] MEDS: FERROUS SULFATE 325MG TAB PO SCH (20:03)
[2017-07-18] MEDS: PANTOPRAZOLE 40MG TAB (PROTONIX) PO SCH (20:03)
--- NOTE | 2017-07-18 23:17 | CR ---
DATE OF CONSULTATION: 07/17/2017 NEUROLOGY CONSULTATION: REFERRING PROVIDER: Stephanie Hammond MD REASON FOR CONSULTATION: Dizziness, diplopia. HISTORY OF PRESENT ILLNESS: The patient is an 81-year-old male who was recently discharged from [facility] for recent congestive heart failure exacerbation, chronic obstructive pulmonary disease (COPD) exacerbation. The patient states that he has been having longstanding history of dizziness and lightheadedness. In the past, the patient has suffered from vertigo. He states that presently he is not having vertigo or room spinning. He did receive a dose of meclizine this morning, which he felt did help him. The patient describes a lightheaded feeling as well. He was noted to have low blood pressure and has been noted to have orthostatic hypotension, which may be contributing towards his lightheaded feeling. He states he has experienced diplopia ongoing since cataract surgery 1 year ago. The symptoms occur rarely, once in a couple of months, lasting only approximately about a minute. The diplopia is usually binocular and occurs first thing in the morning and as soon as he wakes up from a nap. This does not fit with a diagnosis of myasthenia gravis. The patient denies having any sudden weakness or sensory changes throughout any parts of his body. He denies any dysphasia, dysarthria. The patient has not tried vestibular physical therapy. 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 He has a pacemaker automatic implantable cardioverter-defibrillator (AICD) and cannot have an MRI. CT angiogram of the neck reveals 5% stenosis of the right internal carotid artery (ICA) at its origin, 15% stenosis of the left ICA at its origin, and moderate 30% stenosis of the left ICA 16 mm distal from its origin. MR angiogram of the head shows bilateral mild to moderate stenosis of cavernous segment ICAs with no aneurysm noted. The patient is currently under the care of Dr. Dinero for cardiac management of his atrial fibrillation, atrial flutter, congestive heart failure with an ejection fraction of 25-30%. PAST MEDICAL HISTORY: Systolic congestive heart failure, nonischemic ejection fraction (EF) 25-30%, ischemic cardiomyopathy, autonomic implantable cardioverter-defibrillator, atrial fibrillation, atrial flutter, chronic pulmonary obstructive disease, hypertension, hyperlipidemia, hypothyroidism, osteoarthritis, chronic kidney disease stage III. PAST SURGICAL HISTORY: AICD implantation, cholecystectomy, bilateral hip replacement, partial colectomy, coronary angiography in 2013, colonoscopy 2014, bilateral cataract surgery 1 year ago. ALLERGIES: PREDNISONE, causing depression. FAMILY HISTORY: Noncontributory. SOCIAL HISTORY: Patient is a former smoker, quit tobacco 40 years ago. No history of alcohol or illicit drug use. REVIEW OF SYSTEMS: 14-point review of systems obtained and is negative except as per history of present illness (HPI). PHYSICAL EXAMINATION: Blood pressure is 122/60, pulse rate is 51, respiratory rate is 20, temperature is 99.1 degrees Fahrenheit, oxygenation 95% on room air. Current height 5 feet 7 inches, current weight is 65 kg. Patient is awake, alert, oriented to person, place, and time. Speech language, comprehension, repetition are intact. Pupils are 2.5 mm, round, and reactive to light. Both are postsurgical. Extraocular movements intact with some physiologic beats of nystagmus at horizontal end gaze. Sensation in V1, V2, V3 is intact to light touch. No facial asymmetry to activation. Palate elevates symmetrically. No weakness of sternocleidomastoids bilaterally. Hearing subjectively equal to finger rub. There is no pronator drift. Strength is 5/5 including bilateral deltoids, biceps, triceps, hand collator operator. Iliopsoas are 5-. Quadriceps, anterior tibialis are 5/5. Sensory is intact to light touch, temperature, vibration in all for extremities. Coordination normal [id number] without any signs of ataxia or dysmetria. IMPRESSION: 1. History of vertigo, likely benign paroxysmal positional vertigo. 2. Symptoms of diplopia, binocular in nature, transient, rarely occurring, related to probable extraocular muscular weakness resulting from prior surgery of the eyes. Symptoms do not fit with classic myasthenia gravis. 3. Lightheadedness, possibly related to multiple medications for treatment and management of hypertension, congestive heart failure. Side effects of Flomax can also include a lightheaded symptom. Defer management of antihypertensive medications to Dr. Dineor. PLAN: 1. Continue meclizine 25 mg by mouth three times a day. 2. Consider outpatient audiometric testing with videonystagmography and vestibular physical therapy. 3. Patient can followup in the neurology clinic as an outpatient. History obtained from both the patient and the patient's .
[2017-07-18 23:59] VITALS: BP_SYST 110; BP_SYST 113; BP_SYST 120; BP_DIAS 54; BP_DIAS 56; BP_DIAS 62
[2017-07-19 04:00] VITALS: BP 123/56
[2017-07-19] MEDS: LEVOTHYROXINE 75MCG TABLET (0.075MG) PO SCH (05:17)
[2017-07-19] MEDS: SLF 3 ML SYR IV SCH ×3 (05:17→20:35)
[2017-07-19 05:57] LABS: BASO % 0.1 % (0.0-1.0); EOS # 0.1 10^3/uL (0.0-0.50); EOS % 1.5 % (0.0-3.0); IMMATURE GRANULOCYTE % 0.3 % (0-0); LYMPH # 1.4 10^3/uL (1.5-4.5); LYMPH % 15.3 % (24.0-44.0); MEAN CORPUSCULAR HEMOGLOBIN 31.7 pg (27.0-33.0); MEAN CORPUSCULAR HGB CONC 33.2 g/dl (32.0-36.5); MEAN CORPUSCULAR VOLUME 95.3 fl (80.0-96.0); MONO % 10.8 % (0.0-5.0); NEUTROPHILS # 6.6 10^3/uL (1.8-7.7); PLATELET COUNT, AUTOMATED 241 10^3/uL (150-450); WHITE BLOOD COUNT 9.2 10^3/uL (4.0-10.0)
[2017-07-19 06:21] LABS: ANION GAP 8 MEQ/L (8-16); BLOOD UREA NITROGEN 14 MG/DL (7-18); CALCIUM LEVEL 7.9 MG/DL (8.8-10.2); CARBON DIOXIDE LEVEL 25 MEQ/L (21-32); CHLORIDE LEVEL 111 MEQ/L (98-107); GLOMERULAR FILTRATION RATE > 60.0 (>35); GLUCOSE, FASTING 89 MG/DL (83-110); POTASSIUM SERUM 3.6 MEQ/L (3.5-5.1); SODIUM LEVEL 144 MEQ/L (136-145)
[2017-07-19] MEDS: IPRATROPIUM 0.5MG/ALBUTEROL 2.5MG INH SOL UD 3ML (DUONEB)(J7620) NEB SCH ×4 (07:33→20:55)
[2017-07-19] MEDS: TIOTROPIUM INHALER/CAPSULE (SPIRIVA) INH SCH (07:33)
[2017-07-19] MEDS: ADVAIR HFA 115/21MCG INHALER INH SCH ×3 (07:33→21:00)
[2017-07-19 08:00] VITALS: BP_SYST 130; BP_SYST 135; BP_SYST 137; BP_DIAS 61; BP_DIAS 66; BP_DIAS 67
[2017-07-19] MEDS: TAMSULOSIN 0.4 MG CAP PO SCH (09:28)
[2017-07-19] MEDS: MECLIZINE 25 MG TABLET PO SCH ×2 (09:28→20:34)
[2017-07-19] MEDS: CARVedilol 12.5 MG TAB PO SCH ×2 (09:28→20:35)
[2017-07-19] MEDS: APIXABAN 2.5 MG TAB (ELIQUIS) PO SCH ×2 (09:29→20:34)
[2017-07-19] MEDS: ASPIRIN 81 MG ENTERIC TAB PO SCH (09:29)
[2017-07-19 12:00] VITALS: BP 101/56
[2017-07-19 16:00] VITALS: BP_SYST 109; BP_SYST 113; BP_SYST 121; BP_DIAS 59; BP_DIAS 60; BP_DIAS 62
--- NOTE | 2017-07-19 16:12 | IPN ---
DATE: 07/19/2017 SUBJECTIVE: The patient is seen and examined in the room today. The patient stated his lightheadedness and dizziness have been improving. The patient is on scheduled meclizine now. He believes it is helping him. Yesterday during physical therapy session, he felt too exhausted to finish the whole evaluation and treatment sections. OBJECTIVE: VITAL SIGNS: Temperature 98.5, pulse 51, respirations 18, blood pressure in the supine is 137/61, sitting is 135/66, and standing is 130/67. GENERAL: No sign of acute distress. Alert and oriented times three. HEENT: Normocephalic, atraumatic. Extraocular motor grossly intact. CARDIOVASCULAR: Positive S1, S2, regular. There is paced rhythm on the telemetry. Frequent premature ventricular contractions (PVCs) detected. LUNGS: Clear to auscultation bilaterally. ABDOMEN: Soft, nontender, nondistended. Bowel sounds present. EXTREMITIES: No edema. No sign of cyanosis. LABORATORY DATA: WBC 9.2, hemoglobin 10.8, hematocrit 32.5, platelet count is 241. Sodium 144, potassium 3.6, chloride 111, carbon dioxide 25, BUN 13, creatinine one, GFR greater than 60, fasting glucose is 89, calcium 7.9. ASSESSMENT AND PLAN: 1. Lightheadedness and dizziness. The patient does not have orthostatic hypotension anymore. History of intermittent fluid resuscitation in the past. Lightheadedness and dizziness have been improving since the patient started on scheduled meclizine. Cardiology and neurology have been consulted, and recommend physical therapy. The patient is currently being evaluated by physical therapy continuously and continue with the treatment. The patient is not cleared by physical therapy. 2. Systolic and diastolic dysfunction: The patient has an ejection fraction (EF) of 30-35%. The patient has grade 2 diastolic dysfunction. The patient has automatic implantable cardioverter defibrillator (AICD) with dual-chamber pacer. Frequent premature ventricular contractions (PVCs) noted on telemetry. Aspirin, digoxin and Coreg. Currently does not have sign of overload. 3. History of atrial flutter: On Eliquis and Coreg. 4. Hypothyroidism: On Synthroid. 5. Acute kidney injury: Secondary to fluid overload previously. Currently the patient does not have sign of fluid overload. Renal function is in the normal range. 6. Deep venous thrombosis (DVT) prophylaxis: On Eliquis.
[2017-07-19 20:00] VITALS: BP_SYST 110; BP_SYST 116; BP_SYST 120; BP_DIAS 58; BP_DIAS 60
[2017-07-19] MEDS: FERROUS SULFATE 325MG TAB PO SCH (20:34)
[2017-07-19] MEDS: PANTOPRAZOLE 40MG TAB (PROTONIX) PO SCH (20:34)
[2017-07-19] MEDS: FAMOTIDINE 20 MG TAB PO SCH (20:34)
[2017-07-20] VITALS (7 sets, daily range): BP systolic 115–142; BP diastolic 52–70
[2017-07-20] MEDS: ACETAMINOPHEN 500 MG TAB PO PRN ×2 (00:40→16:59)
[2017-07-20] MEDS: LEVOTHYROXINE 75MCG TABLET (0.075MG) PO SCH (05:00)
[2017-07-20] MEDS: SLF 3 ML SYR IV SCH ×3 (05:01→20:14)
[2017-07-20 06:19] LABS: BASO % 0.2 % (0.0-1.0); EOS # 0.1 10^3/uL (0.0-0.50); EOS % 1.2 % (0.0-3.0); IMMATURE GRANULOCYTE % 0.3 % (0-0); LYMPH # 1.4 10^3/uL (1.5-4.5); LYMPH % 15.3 % (24.0-44.0); MEAN CORPUSCULAR HEMOGLOBIN 31.8 pg (27.0-33.0); MEAN CORPUSCULAR VOLUME 96.2 fl (80.0-96.0); MONO % 11.7 % (0.0-5.0); NEUTROPHILS # 6.3 10^3/uL (1.8-7.7); NEUTROPHILS % 71.3 % (36.0-66.0); PLATELET COUNT, AUTOMATED 245 10^3/uL (150-450); RED CELL DISTRIBUTION WIDTH 13.9 % (11.5-14.5); WHITE BLOOD COUNT 8.9 10^3/uL (4.0-10.0)
[2017-07-20 06:42] LABS: ANION GAP 7 MEQ/L (8-16); BLOOD UREA NITROGEN 12 MG/DL (7-18); CALCIUM LEVEL 8.1 MG/DL (8.8-10.2); CARBON DIOXIDE LEVEL 25 MEQ/L (21-32); CHLORIDE LEVEL 111 MEQ/L (98-107); CREATININE FOR GFR 0.94 MG/DL (0.70-1.30); GLOMERULAR FILTRATION RATE > 60.0 (>35); GLUCOSE, FASTING 86 MG/DL (83-110); POTASSIUM SERUM 3.5 MEQ/L (3.5-5.1); SODIUM LEVEL 143 MEQ/L (136-145)
[2017-07-20] MEDS: TIOTROPIUM INHALER/CAPSULE (SPIRIVA) INH SCH (07:33)
[2017-07-20] MEDS: ADVAIR HFA 115/21MCG INHALER INH SCH ×2 (07:35→20:20)
[2017-07-20] MEDS: IPRATROPIUM 0.5MG/ALBUTEROL 2.5MG INH SOL UD 3ML (DUONEB)(J7620) NEB SCH ×4 (07:37→20:20)
[2017-07-20] MEDS: MECLIZINE 25 MG TABLET PO SCH ×2 (08:53→20:13)
[2017-07-20] MEDS: APIXABAN 2.5 MG TAB (ELIQUIS) PO SCH ×2 (08:53→20:13)
[2017-07-20] MEDS: TAMSULOSIN 0.4 MG CAP PO SCH (08:53)
[2017-07-20] MEDS: CARVedilol 12.5 MG TAB PO SCH ×2 (08:53→20:13)
[2017-07-20] MEDS: ASPIRIN 81 MG ENTERIC TAB PO SCH (08:53)
--- NOTE | 2017-07-20 16:03 | IPN ---
DATE: 07/20/2017 SUBJECTIVE: Patient seen and examined in the room today. Patient stated he is feeling better; however, patient still has vertigo. At the time of encounter, patient still has some lightheadedness and dizziness, even during rest. No overnight events reported. OBJECTIVE: VITAL SIGNS: Temperature is 98.6, pulse is 74, respirations 18, blood pressure 130/64, pulse oximetry 94% in room air. GENERAL: No sign of acute distress, alert and oriented times three. HEENT: Normocephalic, atraumatic. Extraocular motor grossly intact. CARDIOVASCULAR: Positive S1, S2. Has a paced rhythm on telemetry. Still observed frequent premature ventricular contractions (PVCs). LUNGS: Clear to auscultation bilaterally. ABDOMEN: Soft, nontender, nondistended. Bowel sounds present. No rebound. No guarding. EXTREMITIES: No edema. No sign of cyanosis. LABORATORY DATA: WBC 8.9, hemoglobin 10.8, hematocrit 32.7, platelet count is 245. Sodium is 143, potassium 3.5, chloride is 111, carbon dioxide 25, BUN 12, creatinine 0.94, GFR greater than 60, fasting glucose is 86, calcium is 8.1. ASSESSMENT AND PLAN: 1. Lightheadedness and dizziness. Patient is placed on meclizine. Continue to follow with orthostasis. Previously patient with orthostatic hypotension; however, it has been improving. Audio Visual Director and neurologist have been consulted on this case since admission. Patient continues to follow with physical therapy. Is not cleared by physical therapy at this moment 2. Systolic and diastolic dysfunction. Patient had ejection fraction (EF) of 30-35%. Has grade 2 diastolic heart failure. Patient also has automatic implantable cardioverter-defibrillator (AICD) with dual-chamber pacer. Frequent PVCs noted on telemetry. On aspirin, Plavix, and Coreg. Currently no sign of fluid overload. 3. History of atrial flutter, on Eliquis and Coreg. 4. Hypothyroidism, on Synthroid. 5. Acute kidney injury secondary to fluid overload previously. Renal function has improved to normal range. 6. Deep vein thrombosis (DVT) prophylaxis, on Eliquis.
[2017-07-20] MEDS: FAMOTIDINE 20 MG TAB PO SCH (20:13)
[2017-07-20] MEDS: FERROUS SULFATE 325MG TAB PO SCH (20:13)
[2017-07-20] MEDS: PANTOPRAZOLE 40MG TAB (PROTONIX) PO SCH (20:13)
[2017-07-21] VITALS (8 sets, daily range): BP systolic 107–162; BP diastolic 55–72
[2017-07-21] MEDS: LEVOTHYROXINE 75MCG TABLET (0.075MG) PO SCH (04:56)
[2017-07-21] MEDS: SLF 3 ML SYR IV SCH ×3 (04:57→20:28)
[2017-07-21 06:14] LABS: BASO % 0.5 % (0.0-1.0); EOS # 0.2 10^3/uL (0.0-0.50); EOS % 1.8 % (0.0-3.0); IMMATURE GRANULOCYTE % 0.4 % (0-0); LYMPH # 1.5 10^3/uL (1.5-4.5); MEAN CORPUSCULAR HEMOGLOBIN 31.5 pg (27.0-33.0); MEAN CORPUSCULAR HGB CONC 32.7 g/dl (32.0-36.5); MEAN CORPUSCULAR VOLUME 96.3 fl (80.0-96.0); MONO % 11.4 % (0.0-5.0); NEUTROPHILS # 5.8 10^3/uL (1.8-7.7); NEUTROPHILS % 67.9 % (36.0-66.0); PLATELET COUNT, AUTOMATED 257 10^3/uL (150-450); WHITE BLOOD COUNT 8.5 10^3/uL (4.0-10.0)
[2017-07-21 06:32] LABS: ANION GAP 8 MEQ/L (8-16); BLOOD UREA NITROGEN 10 MG/DL (7-18); CALCIUM LEVEL 7.9 MG/DL (8.8-10.2); CARBON DIOXIDE LEVEL 24 MEQ/L (21-32); CHLORIDE LEVEL 112 MEQ/L (98-107); CREATININE FOR GFR 0.97 MG/DL (0.70-1.30); GLOMERULAR FILTRATION RATE > 60.0 (>35); GLUCOSE, FASTING 84 MG/DL (83-110); POTASSIUM SERUM 3.6 MEQ/L (3.5-5.1); SODIUM LEVEL 144 MEQ/L (136-145)
[2017-07-21] MEDS: TAMSULOSIN 0.4 MG CAP PO SCH (07:30)
[2017-07-21] MEDS: MECLIZINE 25 MG TABLET PO SCH ×2 (07:31→20:27)
[2017-07-21] MEDS: APIXABAN 2.5 MG TAB (ELIQUIS) PO SCH ×2 (07:31→20:27)
[2017-07-21] MEDS: ASPIRIN 81 MG ENTERIC TAB PO SCH (07:31)
[2017-07-21] MEDS: CARVedilol 12.5 MG TAB PO SCH ×2 (07:33→20:34)
[2017-07-21] MEDS: IPRATROPIUM 0.5MG/ALBUTEROL 2.5MG INH SOL UD 3ML (DUONEB)(J7620) NEB SCH ×4 (08:00→20:00)
[2017-07-21] MEDS: TIOTROPIUM INHALER/CAPSULE (SPIRIVA) INH SCH (08:12)
[2017-07-21] MEDS: ADVAIR HFA 115/21MCG INHALER INH SCH ×2 (08:12→20:13)
[2017-07-21 11:55] LABS: MAGNESIUM LEVEL 2.1 MG/DL (1.8-2.4)
--- NOTE | 2017-07-21 15:27 | IPN ---
DATE: 07/21/2017 SUBJECTIVE: The patient is seen and examined in the room today. The patient stated he is feeling better compared to yesterday. The dizziness frequency and severity has improved. However, the patient is complaining about a poor appetite. Denies any fevers or chills. Denies any difficulty breathing. The patient has regular bowel movements. Denies any diarrhea. OBJECTIVE: VITAL SIGNS: Temperature is 98.6, pulse is 65, respiration rate is 18, blood pressure is 162/66, pulse oximetry is 94% in room air. GENERAL: No sign of acute distress, alert and oriented times three. HEENT: Normocephalic, atraumatic. Extraocular motor grossly intact. CARDIOVASCULAR: Positive S1, S2. There is a paced rhythm on telemetry, still frequent premature ventricular contractions (PVCs). There is an episode of a run of ventricular tachycardia in the morning. ABDOMEN: Soft, nontender, nondistended. Bowel sounds present. No rebound. No guarding. EXTREMITIES: No edema. No cyanosis. LABORATORY DATA: WBC is 8.5, hemoglobin 11.1, hematocrit is 33.9, platelet count is 257. Sodium is 144, potassium 3.6, chloride is 112, carbon dioxide 24, BUN 10, creatinine 0.97, GFR greater than 60, fasting glucose is 84, calcium is 7.9, magnesium 2.1. ASSESSMENT AND PLAN: 1. Lightheadedness and dizziness, possibly due to benign positional vertigo. Continue to work with physical therapy. The patient is on meclizine. Continue to check with orthostasis and he has been negative. The patient received intermittent fluid resuscitation before when the patient had positive orthostasis. Cardiology and neurology have been consulted since this admission. 2. Systolic and diastolic dysfunction. The patient has an ejection fraction (EF) of 30% to 35%. He has grade 2 diastolic dysfunction. The patient also has automatic implantable cardioverter-defibrillator (AICD) with dual-chamber pacer. Frequent premature ventricular contractions (PVCs) noted on telemetry. On aspirin, Plavix, and Coreg. No sign of fluid overload. Continue monitoring input and output and daily weight. 3. History of atrial flutter, on Eliquis and Coreg. Currently, the patient has a paced rhythm on telemetry. 4. Hypothyroidism, on Synthroid. 5. Acute kidney injury, secondary to fluid overload previously. Renal function is at baseline. 6. Deep vein thrombosis (DVT) prophylaxis, on Eliquis.
[2017-07-21] MEDS: FAMOTIDINE 20 MG TAB PO SCH (20:27)
[2017-07-21] MEDS: PANTOPRAZOLE 40MG TAB (PROTONIX) PO SCH (20:27)
[2017-07-21] MEDS: FERROUS SULFATE 325MG TAB PO SCH (20:27)
[2017-07-22 04:00] VITALS: BP_SYST 110; BP_SYST 113; BP_SYST 119; BP_DIAS 57; BP_DIAS 62; BP_DIAS 65
[2017-07-22] MEDS: SLF 3 ML SYR IV SCH ×3 (05:42→20:48)
[2017-07-22] MEDS: LEVOTHYROXINE 75MCG TABLET (0.075MG) PO SCH (05:42)
[2017-07-22 06:03] LABS: BASO % 0.5 % (0.0-1.0); EOS # 0.1 10^3/uL (0.0-0.50); EOS % 2.1 % (0.0-3.0); IMMATURE GRANULOCYTE % 0.2 % (0-0); LYMPH # 1.5 10^3/uL (1.5-4.5); LYMPH % 24.6 % (24.0-44.0); MEAN CORPUSCULAR HEMOGLOBIN 30.7 pg (27.0-33.0); MEAN CORPUSCULAR HGB CONC 31.9 g/dl (32.0-36.5); MEAN CORPUSCULAR VOLUME 96.2 fl (80.0-96.0); MONO # 0.7 10^3/uL (0.0-0.8); MONO % 11.7 % (0.0-5.0); NEUTROPHILS # 3.8 10^3/uL (1.8-7.7); NEUTROPHILS % 60.9 % (36.0-66.0); PLATELET COUNT, AUTOMATED 272 10^3/uL (150-450); WHITE BLOOD COUNT 6.2 10^3/uL (4.0-10.0)
[2017-07-22 06:31] LABS: ANION GAP 6 MEQ/L (8-16); BLOOD UREA NITROGEN 8 MG/DL (7-18); CALCIUM LEVEL 7.9 MG/DL (8.8-10.2); CARBON DIOXIDE LEVEL 28 MEQ/L (21-32); CHLORIDE LEVEL 111 MEQ/L (98-107); GLOMERULAR FILTRATION RATE > 60.0 (>35); GLUCOSE, FASTING 85 MG/DL (83-110); POTASSIUM SERUM 3.2 MEQ/L (3.5-5.1); SODIUM LEVEL 145 MEQ/L (136-145)
[2017-07-22 07:40] VITALS: BP 129/56
[2017-07-22] MEDS: IPRATROPIUM 0.5MG/ALBUTEROL 2.5MG INH SOL UD 3ML (DUONEB)(J7620) NEB SCH ×4 (08:00→20:00)
[2017-07-22] MEDS: ADVAIR HFA 115/21MCG INHALER INH SCH ×2 (08:03→20:08)
[2017-07-22] MEDS: TIOTROPIUM INHALER/CAPSULE (SPIRIVA) INH SCH (08:04)
[2017-07-22] MEDS: APIXABAN 2.5 MG TAB (ELIQUIS) PO SCH ×2 (08:57→20:48)
[2017-07-22] MEDS: CARVedilol 12.5 MG TAB PO SCH ×2 (08:57→20:49)
[2017-07-22] MEDS: ASPIRIN 81 MG ENTERIC TAB PO SCH (08:57)
[2017-07-22] MEDS: MECLIZINE 25 MG TABLET PO SCH ×2 (08:57→20:47)
[2017-07-22] MEDS: DIGOXIN 0.125 MG TAB PO SCH (08:58)
[2017-07-22] MEDS: TAMSULOSIN 0.4 MG CAP PO SCH (08:58)
[2017-07-22 12:00] VITALS: BP_SYST 122; BP_SYST 130; BP_SYST 139; BP_DIAS 60; BP_DIAS 69; BP_DIAS 74
[2017-07-22 16:00] VITALS: BP 129/70
[2017-07-22] MEDS ORDERED: POTASSIUM CHLORIDE 10 MEQ SR TABLET PO ONE (16:00)
[2017-07-22] MEDS ORDERED: SODIUM CHLORIDE 0.9% 1000 ML IV ONE (16:00)
--- NOTE | 2017-07-22 16:11 | IPN ---
DATE: 07/22/2017 SUBJECTIVE: The patient is seen and examined in the room today. The patient still complains of significant lightheadedness and dizziness. The patient is complaining about poor oral intake. OBJECTIVE: VITAL SIGNS: Temperature is 98.5, pulse is 56, respirations 20, blood pressure 129/56, pulse oximetry is 99% on room air. GENERAL: Fatigued. No sign of acute distress, alert and oriented times three. HEENT: Normocephalic, atraumatic. Extraocular motor grossly intact. CARDIOVASCULAR: Positive S1, S2. There is a paced rhythm on telemetry, still frequent premature ventricular contractions (PVCs). LUNGS: Clear to auscultation bilaterally. ABDOMEN: Soft, nontender, nondistended. Bowel sounds present. EXTREMITIES: No edema. No sign of cyanosis. LABORATORY DATA: WBC is 6.2, hemoglobin 10.6, hematocrit 33.2, platelet count is 272. Sodium is 145, potassium 3.2, chloride is 111, carbon dioxide 28, BUN 8, creatinine 0.9, GFR greater than 60, fasting glucose is 85, calcium is 7.9. ASSESSMENT AND PLAN: 1. Dizziness/vertigo. Cardiology and neurology have been consulted during this hospitalization. The patient is currently on meclizine. The patient stated that his symptoms are improving; however, his symptoms are not completely resolved. The patient started to have recurrence of orthostasis due to poor oral intake. The patient will receive intermittent fluid resuscitation based on the patient's fluid status. Continue to follow with physical therapy (PT). The patient is not cleared by physical therapy for discharge. The patient has had hospitalization for similar symptoms. 2. Systolic and diastolic dysfunction. The patient has an ejection fraction (EF) of 30% to 35%. He has grade 2 diastolic dysfunction. We will be very cautious of fluid usage. The patient also has automatic implantable cardioverter-defibrillator (AICD) with dual-chamber pacer. Frequent premature ventricular contractions (PVCs) noted on telemetry. The patient is on aspirin, Plavix, and Coreg. At this moment, no sign of fluid overload. 3. History of atrial flutter, on Eliquis and Coreg. Heart rate is in the satisfactory range. The patient has a paced rhythm on telemetry. 4. Hypothyroidism, on Synthroid. 5. Acute kidney injury, secondary to fluid overload previously. At this moment, the patient's renal function is within normal range. 6. Deep vein thrombosis (DVT) prophylaxis, on Eliquis.
[2017-07-22 20:00] VITALS: BP_SYST 122; BP_SYST 134; BP_SYST 140; BP_DIAS 57; BP_DIAS 60; BP_DIAS 64
[2017-07-22] MEDS: FERROUS SULFATE 325MG TAB PO SCH (20:47)
[2017-07-22] MEDS: PANTOPRAZOLE 40MG TAB (PROTONIX) PO SCH (20:48)
[2017-07-22] MEDS: FAMOTIDINE 20 MG TAB PO SCH (20:48)
[2017-07-23] VITALS (7 sets, daily range): BP systolic 113–165; BP diastolic 58–92; O2SAT 96
[2017-07-23] MEDS: LEVOTHYROXINE 75MCG TABLET (0.075MG) PO SCH (05:48)
[2017-07-23] MEDS: SLF 3 ML SYR IV SCH ×3 (05:48→20:32)
[2017-07-23 06:26] LABS: MEAN CORPUSCULAR HEMOGLOBIN 31.1 pg (27.0-33.0); MEAN CORPUSCULAR HGB CONC 32.3 g/dl (32.0-36.5); MEAN CORPUSCULAR VOLUME 96.3 fl (80.0-96.0); RED CELL DISTRIBUTION WIDTH 13.8 % (11.5-14.5); WHITE BLOOD COUNT 6.8 10^3/uL (4.0-10.0)
[2017-07-23 06:42] LABS: ANION GAP 5 MEQ/L (8-16); BLOOD UREA NITROGEN 9 MG/DL (7-18); CALCIUM LEVEL 8.3 MG/DL (8.8-10.2); CARBON DIOXIDE LEVEL 26 MEQ/L (21-32); CHLORIDE LEVEL 112 MEQ/L (98-107); CREATININE FOR GFR 0.97 MG/DL (0.70-1.30); GLOMERULAR FILTRATION RATE > 60.0 (>35); GLUCOSE, FASTING 90 MG/DL (83-110); POTASSIUM SERUM 3.9 MEQ/L (3.5-5.1); SODIUM LEVEL 143 MEQ/L (136-145)
[2017-07-23] MEDS: TIOTROPIUM INHALER/CAPSULE (SPIRIVA) INH SCH (08:00)
[2017-07-23] MEDS: IPRATROPIUM 0.5MG/ALBUTEROL 2.5MG INH SOL UD 3ML (DUONEB)(J7620) NEB SCH ×4 (08:00→19:08)
[2017-07-23] MEDS: ADVAIR HFA 115/21MCG INHALER INH SCH ×2 (08:00→20:46)
[2017-07-23] MEDS ORDERED: LOPERAMIDE 2 MG CAP PO ONE (08:15)
[2017-07-23] MEDS ORDERED: LOPERAMIDE 2 MG CAP PO PRN (08:15)
[2017-07-23] MEDS: MECLIZINE 25 MG TABLET PO SCH ×2 (08:29→20:30)
[2017-07-23] MEDS: ASPIRIN 81 MG ENTERIC TAB PO SCH (08:30)
[2017-07-23] MEDS: APIXABAN 2.5 MG TAB (ELIQUIS) PO SCH ×2 (08:30→20:30)
[2017-07-23] MEDS: CARVedilol 12.5 MG TAB PO SCH ×2 (08:30→20:41)
[2017-07-23] MEDS: TAMSULOSIN 0.4 MG CAP PO SCH (08:30)
[2017-07-23] MEDS: DIGOXIN 0.125 MG TAB PO SCH (08:31)
--- NOTE | 2017-07-23 13:27 | IPN ---
DATE OF SERVICE: 07/23/2017 Patient seen and examined at the bedside. Chart has been viewed. This morning, the patient continues to have complaints of slight dizziness when he ambulates. Still not cleared by physical therapy due to inability to follow questions with intermittent confusion and disorientation. Currently denies any chest pain, pressure or tightness. Shortness of breath is slightly improved, saturating well at 97% on room air. Temperature 97.7, pulse 61, respiratory rate 22, blood pressure 164/75, 97% on room air. Generally, awake, alert and oriented to person, answers questions. No use of respiratory accessory muscles. Able to speak in full sentences. Lungs are clear to auscultation. No wheezing, rales or rhonchi. Heart S1 and S2, paced rhythm with frequent premature ventricular contractions (PVCs) on telemetry. Abdomen is soft, nontender, nondistended. Positive bowel sounds. Extremities no cyanosis, clubbing or pitting edema. Laboratory data has been reviewed along with imaging studies and microbiology. ASSESSMENT/PLAN: This is an 81-year-old male with history of systolic dysfunction, ejection fraction of 25-30%, nonischemic, AICD in place, atrial fibrillation, atrial flutter, chronic obstructive pulmonary disease (COPD) not on home oxygen, hypertension, hyperlipidemia, hypothyroidism, osteoarthritis (OA), and chronic kidney disease stage III, admitted on 07/14 due to complains of severe dizziness and weakness. Patient was found to have the following issues: Benign paroxysmal positional vertigo (BPPV). Per cardiology and neurology, patient to be continued on as needed meclizine. Physical therapy as outpatient. For recurrence of orthostasis, intermittent IV fluids. Base on fluid status. Continue with physical therapy. Systolic and diastolic dysfunction. Ejection fraction of 30-35%. Grade 2 diastolic dysfunction. With AICD and pacing dual chamber pacer. PVCs on telemetry. On aspirin, Plavix and Coreg. No signs of fluid overload. History of atrial fibrillation and atrial flutter. On Eliquis and Coreg. Heart rate is rate controlled. Paced rhythm on telemetry. Hypothyroidism on Synthroid. Acute kidney injury secondary to fluid overload previously. Appears to be within normal limits. Awaiting physical therapy clearance prior to discharge home. Acute encephalopathy secondary to vertigo with complains of diplopia and lightheadedness due to multiple medications. Side effects of Flomax.
[2017-07-23] MEDS: FERROUS SULFATE 325MG TAB PO SCH (20:30)
[2017-07-23] MEDS: PANTOPRAZOLE 40MG TAB (PROTONIX) PO SCH (20:31)
[2017-07-23] MEDS: FAMOTIDINE 20 MG TAB PO SCH (20:31)
[2017-07-24] VITALS: BP 134/68
[2017-07-24 04:00] VITALS: BP 145/65
[2017-07-24] MEDS: SLF 3 ML SYR IV SCH (04:59)
[2017-07-24] MEDS: LEVOTHYROXINE 75MCG TABLET (0.075MG) PO SCH (05:01)
[2017-07-24 06:01] LABS: MEAN CORPUSCULAR HEMOGLOBIN 31.1 pg (27.0-33.0); MEAN CORPUSCULAR HGB CONC 32.2 g/dl (32.0-36.5); MEAN CORPUSCULAR VOLUME 96.6 fl (80.0-96.0); RED CELL DISTRIBUTION WIDTH 13.7 % (11.5-14.5)
[2017-07-24 06:20] LABS: ANION GAP 6 MEQ/L (8-16); BLOOD UREA NITROGEN 11 MG/DL (7-18); CALCIUM LEVEL 8.3 MG/DL (8.8-10.2); CARBON DIOXIDE LEVEL 26 MEQ/L (21-32); CHLORIDE LEVEL 111 MEQ/L (98-107); CREATININE FOR GFR 1.01 MG/DL (0.70-1.30); GLOMERULAR FILTRATION RATE > 60.0 (>35); GLUCOSE, FASTING 83 MG/DL (83-110); POTASSIUM SERUM 4.1 MEQ/L (3.5-5.1); SODIUM LEVEL 143 MEQ/L (136-145)
[2017-07-24] MEDS: TIOTROPIUM INHALER/CAPSULE (SPIRIVA) INH SCH (07:01)
[2017-07-24] MEDS: ADVAIR HFA 115/21MCG INHALER INH SCH (07:01)
[2017-07-24] MEDS: IPRATROPIUM 0.5MG/ALBUTEROL 2.5MG INH SOL UD 3ML (DUONEB)(J7620) NEB SCH (07:03)
[2017-07-24] MEDS ORDERED: LOPE2CA PO (07:08)
[2017-07-24 08:00] VITALS: BP 131/60
[2017-07-24 09:31] VITALS: BP 131/60
[2017-07-24] MEDS: CARVedilol 12.5 MG TAB PO SCH (09:31)
[2017-07-24] MEDS: MECLIZINE 25 MG TABLET PO SCH (09:31)
[2017-07-24] MEDS: APIXABAN 2.5 MG TAB (ELIQUIS) PO SCH (09:31)
[2017-07-24] MEDS: TAMSULOSIN 0.4 MG CAP PO SCH (09:31)
[2017-07-24] MEDS: ASPIRIN 81 MG ENTERIC TAB PO SCH (09:31)
[2017-07-24] MEDS: DIGOXIN 0.125 MG TAB PO SCH (09:31)
--- NOTE | 2017-07-24 15:03 | DSES ---
DATE OF ADMISSION: 07/16/2017 DATE OF DISCHARGE: 07/24/2017 PRIMARY CARE PROVIDER: Dr. Martín Ramriez PRIMARY DISCHARGE DIAGNOSES: 1. Benign positional vertigo. 2. Orthostatic hypotension. 3. Chronic congestive heart failure (CHF), ejection fraction of 20% with diastolic dysfunction. 4. History of ischemic cardiomyopathy, status post AICD placement. 5. Atrial fibrillation, atrial flutter. 6. Chronic obstructive pulmonary disease (COPD), not on home oxygen. 7. Hypertension. 8. Hyperlipidemia. 9. Osteoarthritis. 10. Chronic kidney disease stage III. 11. Chronic diarrhea, follows with Dr. Kothari. DISCHARGE MEDICATIONS: - meclizine 25 mg by mouth twice a day as needed for dizziness - lopiramide 2 mg as directed - Tylenol extra strength 1 gram every 6 hours as needed - albuterol two puffs four times a day - Eliquis 2.5 mg twice a day - aspirin 81 mg daily - Coreg 12.5 mg twice a day - digoxin 0.125 mg five times weekly - ferrous sulfate 325 mg at night - Lasix 20 mg daily - levothyroxine 75 mcg daily - multivitamin one tablet daily - Protonix 40 mg at night - ranitidine one tablet at night - Advair HFA two puffs twice a day - Flomax 0.4 mg daily - Spiriva one inhalation daily The patient's losartan has been discontinued, 25 mg daily. CONSULTANTS DURING THIS ADMISSION: Harvest Contractor, Dr. Noemí Dinero. Neurologist, Dr. Rubio. HOSPITALIZATION COURSE: This is an 81-year-old male who was turning his head in a seated position, turning in bed with complaints of dizziness. No chest pain or shortness of breath. Multiple episodes with orthostatic drop in blood pressure. The patient was admitted for vertigo, rule out arrhythmia. The patient, at the time, was evaluated by Dr. Dinero, who felt that the patient did not have any orthostasis and that he may have a had central cause of his dizziness. It is recommended that he reduce his dose of digoxin, hold it for a few days as his level was 2.2 on admission. Imaging studies included CTA of the neck and CT angiogram. CTA of the neck showed mild stenosis, 15% left internal carotid artery at its origin, moderate left internal carotid artery, 5% right internal carotid artery. CT angio of the brain showed no AVM, atherosclerotic disease as described. The patient's ELPIDIO inhibitor was discontinued due to systolic pressures of low 100s. The patient was seen by Dr. Rubio, who felt that he had a benign paroxysmal positional vertigo with symptoms of diplopia, which was binocular and transient and related to extraocular muscle weakness from prior surgery of the eye but no signs or symptoms of myasthenia gravis, lightheadedness was though to be due to medications. The patient is to followup with the neurology clinic as an outpatient to have video nystagmography and vestibular physical therapy (PT) as an outpatient with outpatient audiometric testing. LABORATORY DATA: On discharge, white count 7, hemoglobin 10, hematocrit 33, platelet count 281. Sodium 143, potassium 4, chloride 111, bicarbonate 26, BUN 11, creatinine 1, glucose 83. IMAGING STUDIES: CTA with no aneurysm or AVM of the brain. CT angio of the neck showed minimal stenosis, mild stenosis of 5 % right internal, 15% on the left internal carotid. Time spent on discharge: 30 minutes.
== END 2017-07-24 10:52 | disposition home or self-care (01) | DRG 149 ==
LOC: M ED 18:30 → M ED INP 22:06 → M PCU 23:52 → OBSVTOIN 07-16 12:31
PROVIDERS: ADMIT Internal Medicine Nephrology; ATTEND General Practice
DX: H81.10 Benign paroxysmal vertigo, unspecified ear (principal); G93.40 Encephalopathy, unspecified; I50.42 Chronic combined systolic (congestive) and diastolic (congestive) heart failure; N17.9 Acute kidney failure, unspecified; I48.92 Unspecified atrial flutter; J44.1 Chronic obstructive pulmonary disease with (acute) exacerbation; I13.0 Hypertensive heart and chronic kidney disease with heart failure and stage 1 through stage 4 chronic kidney disease, or unspecified chronic kidney disease; N40.0 Benign prostatic hyperplasia without lower urinary tract symptoms; I25.5 Ischemic cardiomyopathy; I48.91 Unspecified atrial fibrillation; E78.5 Hyperlipidemia, unspecified; E03.9 Hypothyroidism, unspecified; N18.3 Chronic kidney disease, stage 3 (moderate); Z90.49 Acquired absence of other specified parts of digestive tract; Z96.643 Presence of artificial hip joint, bilateral; Z88.8 Allergy status to other drugs, medicaments and biological substances; Z95.810 Presence of automatic (implantable) cardiac defibrillator; Z87.891 Personal history of nicotine dependence; Z79.82 Long term (current) use of aspirin; Z79.01 Long term (current) use of anticoagulants

== ENCOUNTER 2017-07-26 19:48 | Emergency (ER) | payer MEDICARE ==
[~2017-07-26] VITALS: Ht 170.2 cm; Wt 61.4 kg
[~2017-07-26 19:48] MED LIST changes: +LOSA25TA8 PO
[2017-07-26] MEDS ORDERED: LOSA25TA8 PO (20:06)
[2017-07-26] MEDS ORDERED: NS 500 ML IV ONE (20:30)
[2017-07-26 21:24] LABS: BASO % 0.3 % (0.0-1.0); EOS # 0.1 10^3/uL (0.0-0.50); EOS % 1.1 % (0.0-3.0); IMMATURE GRANULOCYTE % 0.3 % (0-0); LYMPH # 1.7 10^3/uL (1.5-4.5); LYMPH % 18.6 % (24.0-44.0); MEAN CORPUSCULAR HEMOGLOBIN 31.3 pg (27.0-33.0); MEAN CORPUSCULAR HGB CONC 32.4 g/dl (32.0-36.5); MEAN CORPUSCULAR VOLUME 96.9 fl (80.0-96.0); MONO % 11.4 % (0.0-5.0); NEUTROPHILS # 6.2 10^3/uL (1.8-7.7); NEUTROPHILS % 68.3 % (36.0-66.0); PLATELET COUNT, AUTOMATED 303 10^3/uL (150-450); RED CELL DISTRIBUTION WIDTH 13.8 % (11.5-14.5)
[2017-07-26 21:35] LABS: INR 1.31
[2017-07-26] MEDS ORDERED: cefTRIAXone SOD 1 GM in D5W 50 ML IV ONE (21:45)
[2017-07-26 21:47] LABS: ALBUMIN 2.7 GM/DL (3.2-5.2); ALBUMIN/GLOBULIN RATIO 0.79 (1.00-1.93); ALKALINE PHOSPHATASE 69 U/L (45-117); ALT/SGPT 11 U/L (12-78); ANION GAP 6 MEQ/L (8-16); AST/SGOT 6 U/L (15-37); BILIRUBIN,DIRECT 0.2 MG/DL (0.0-0.2); BILIRUBIN,TOTAL 0.4 MG/DL (0.2-1.0); BLOOD UREA NITROGEN 12 MG/DL (7-18); CALCIUM LEVEL 7.5 MG/DL (8.8-10.2); CARBON DIOXIDE LEVEL 28 MEQ/L (21-32); CHLORIDE LEVEL 108 MEQ/L (98-107); CREATININE FOR GFR 1.15 MG/DL (0.70-1.30); GLOMERULAR FILTRATION RATE > 60.0 (>35); GLUCOSE, FASTING 97 MG/DL (83-110); POTASSIUM SERUM 3.6 MEQ/L (3.5-5.1); SODIUM LEVEL 142 MEQ/L (136-145); TOTAL PROTEIN 6.1 GM/DL (6.4-8.2)
[2017-07-26] MEDS ORDERED: CIPR-250 PO (22:27)
[2017-07-26] MEDS ORDERED: PYRI1TAB5 PO (22:28)
[2017-07-26 22:47] VITALS: BP 136/63
--- NOTE | 2017-07-27 05:50 | ECGEPIP ---
Stationary ECG Study [facility] - ED Test Date: 2017-07-26 Pat Name: SAVANAH HARO Department: Room: - Gender: M Combustion Analyst: : [id number] Requested By: TEREZA OLIVERA PA-C. Order Number: [id number] Reading MD: Jethro Hopper Measurements Intervals [place] Rate: 82 P: 109 MS: 198 QRS: 151 QRSD: 132 T: 14 QT: 405 QTc: 474 Interpretive Statements ELECTRONIC ATRIAL PACEMAKER ELECTRONIC VENTRICULAR PACEMAKER SIMILAR TO 07/14/17 Electronically Signed On 07-27-2017 5:50:31 EDT by Jethro Hopper
== END 2017-07-26 22:53 | disposition home or self-care (01) ==
LOC: M ED 19:48
DX: N30.01 Acute cystitis with hematuria (principal); Z79.51 Long term (current) use of inhaled steroids; Z79.899 Other long term (current) drug therapy; Z79.82 Long term (current) use of aspirin; Z88.8 Allergy status to other drugs, medicaments and biological substances; Z87.891 Personal history of nicotine dependence
CPT/HCPCS: 80048; 80076; 81001; 85025; 85610; 85730; 87088; 87186; 93005; 96374; 99283; J0696

== ENCOUNTER → 2017-07-28 | Outpatient (REF) | payer MEDICARE ==
[~2017-07-28] MED LIST changes: +CIPR-250 PO; +PYRI1TAB5 PO
== END ==
LOC: M LAB REF 19:04
PROVIDERS: ATTEND Physician Assistant
DX: R30.0 Dysuria (principal)

== ENCOUNTER 2017-09-14 08:50 | Inpatient (IN) | payer MEDICARE ==
[~2017-09-14] VITALS: Ht 170.2 cm; Wt 62.6 kg
[2017-09-14 09:28] LABS: BASO # 0.1 10^3/uL (0.0-0.2); BASO % 0.9 % (0.0-1.0); EOS # 0.2 10^3/uL (0.0-0.50); EOS % 2.3 % (0.0-3.0); IMMATURE GRANULOCYTE % 0.3 % (0-0); LYMPH # 1.6 10^3/uL (1.5-4.5); LYMPH % 20.7 % (24.0-44.0); MEAN CORPUSCULAR HEMOGLOBIN 30.7 pg (27.0-33.0); MEAN CORPUSCULAR VOLUME 95.8 fl (80.0-96.0); MONO % 12.9 % (0.0-5.0); NEUTROPHILS # 4.7 10^3/uL (1.8-7.7); NEUTROPHILS % 62.9 % (36.0-66.0); PLATELET COUNT, AUTOMATED 260 10^3/uL (150-450); RED CELL DISTRIBUTION WIDTH 15.3 % (11.5-14.5); WHITE BLOOD COUNT 7.5 10^3/uL (4.0-10.0)
--- NOTE | 2017-09-14 09:43 | REP ---
Clinical: Chest pain. Comparison: 07/14/2017. Findings: Examination is limited by positioning. Increased lower lobe infiltrates (right greater than left) compatible with multifocal pneumonia. Differential diagnosis includes pulmonary vascular congestion. No pneumothorax. Mediastinum and cardiac silhouette are normal. Skeletal structures are grossly intact. Pacemaker noted. Impression: Increased lower lobe infiltrates most compatible with multifocal pneumonia. Differential diagnosis includes pulmonary vascular congestion. Signed by Wolf Larsen MD 09/14/2017 09:34 A
[2017-09-14 09:54] LABS: ALBUMIN 3.2 GM/DL (3.2-5.2); ALBUMIN/GLOBULIN RATIO 1.1 (1.00-1.93); BILIRUBIN,DIRECT 0.2 MG/DL (0.0-0.2); BILIRUBIN,TOTAL 0.7 MG/DL (0.2-1.0); CALCIUM LEVEL 8.5 MG/DL (8.8-10.2); CREATININE FOR GFR 1.53 MG/DL (0.70-1.30); GLOMERULAR FILTRATION RATE 46.6 (>35); POTASSIUM SERUM 4.2 MEQ/L (3.5-5.1); THYROXINE (T4) 10.7 UG/DL (4.5-12.0); TOTAL PROTEIN 6.1 GM/DL (6.4-8.2)
[2017-09-14 09:59] LABS: INR 1.15
[2017-09-14 10:03] LABS: DIGOXIN LEVEL 0.2 NG/ML (0.5-2.0)
[2017-09-14] MEDS ORDERED: FUROSEMIDE 40 MG/4 ML VIAL (J1940) IV ONE (10:30)
[2017-09-14 10:34] LABS: ABG BASE EXCESS 5.8 (-2.0-2.0); ABG HCO3 30.2 MEQ/L (22.0-26.0); ABG PARTIAL PRESSURE CO2 43.4 mmHg (35.0-45.0); ABG PARTIAL PRESSURE O2 73.9 mmHg (75.0-100.0); ABG STANDARD HCO3 29.6 MEQ/L (22.0-26.0); ABG TOTAL CO2 31.6 MEQ/L (23.0-31.0); ABG pH (ARTERIAL) 7.461 UNITS (7.350-7.450)
[2017-09-14] MEDS ORDERED: DIGOXIN INJ 0.5 MG/2 ML AMP (J1160) IV STA (10:53)
[2017-09-14] MEDS ORDERED: LOPE2CA PO (11:00)
[2017-09-14] MEDS ORDERED: ALBU83IN INH (11:00)
[2017-09-14 12:30] VITALS: BP 125/78
[2017-09-14] MEDS ORDERED: ACETAMINOPHEN 500 MG TAB PO PRN (12:30)
[2017-09-14] MEDS ORDERED: MECLIZINE 25 MG TABLET PO PRN (12:30)
[2017-09-14] MEDS ORDERED: ALBUTEROL 90 MCG/ACT 8GM HFA INHALER INH PRN (12:30)
--- NOTE | 2017-09-14 12:45 | HPEPDOC ---
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 Patient noted that he was in his usual state of health and on he began to experience shortness of breath in the evening. Patient has noted that he does experience a cough, although it is not been productive. He denies any fever or chills. Patient does note one pillow orthopnea over the last 3 days hes been experiencing worsening nighttime awakenings. Patient denies any lower extremity edema. Patient denies any chest pain or palpitations. Patient denies any nausea, vomiting, abdominal pain, constipation, diarrhea or dysuria. He is reported that he has been compliant with his medications. However, his agrees with him that he has not been compliant with his low-salt diet, especially around this time of the year. Patient denies any change in his weight or change in his appetite. Home Medications Scheduled Apixaban Base (Eliquis) 2.5 Mg Tab, 2.5 MG PO BID, (Reported) Aspirin (Aspirin EC) 81 Mg Tabec, 81 MG PO DAILY, (Reported) Carvedilol (Carvedilol) 12.5 Mg Tab, 25 MG PO BID, (Reported) Ferrous Sulfate (Ferrous Sulfate) 325 Mg Tab, 325 MG PO QHS, (Reported) Furosemide (Furosemide) 20 Mg Tab, 20 MG PO DAILY, (Reported) Levothyroxine Sodium (Synthroid) 75 Mcg Tab, 75 MCG PO DAILY, (Reported) Multivitamins *[facility] STOCKED* (Thera M Plus *[facility] STOCKED*) 1 Tab Tab, 1 TAB PO DAILY, (Reported) Pantoprazole Sodium (Pantoprazole Sodium) 40 Mg Tab, 40 MG PO QHS, (Reported) Ranitidine Hcl (Zantac) 150 Mg Tab, 1 TAB PO QHS, (Reported) Salmeterol/Fluticasone (Advair Hfa 115-21 Mcg/Act) 1 Aer Aer, 2 PUFF INH BID, ( Reported) Tamsulosin Hydrochloride (Flomax) 0.4 Mg Cap, 0.4 MG PO DAILY, (Reported) LAST FILLED 07/13 FOR 15 DAY SUPPLY Tiotropium [place] Monohydrate (Spiriva Handihaler) 18 Mcg Cap, 1 INHALATION INH DAILY, (Reported) Scheduled PRN Acetaminophen (Tylenol Extra Strength) 500 Mg Tab, 1,000 MG PO Q6H PRN for PAIN, (Reported) Albuterol Sulfate (Proair Hfa) 108 Mcg/Act Aer, 2 PUFFS INH QID PRN for SHORTNESS OF BREATH, (Reported) Albuterol Sulfate (Albuterol Sulfate) 2.5 Mg/3 Ml Nebu, 2.5 MG INH Q2H PRN for SHORTNESS OF BREATH, (Reported) Loperamide HCl (Loperamide HCl) 2 Mg Cap, 2 MG PO for DIARRHEA, (Reported) Meclizine HCl (Meclizine HCl) 25 Mg Tab, 25 MG PO BID PRN for DIZZINESS, ( Reported) Allergies Coded Allergies: Prednisone (Verified Adverse Reaction, Severe, SUICIDAL, HEART RACING, 07/26/17) Fluticasone (Unverified Adverse Reaction, Mild, COUGH-CAN TAKE THE HFA BUT NOT DISKUS, 07/26/17) Salmeterol (Unverified Adverse Reaction, Mild, COUGH, 07/26/17) TOLERATES ADVAIR HFA AND TAKES IT AT HOME Past Medical History Medical History 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/p AICD, Atrial flutter / fibrillation s/ p PM (on Eliquis), COPD, HTN, DLP, CKD3, BPH, Hypothyroidism, OA, and GERD Surgical History AICD / PM Cholecystectomy Bilateral hip replacement Partial colectomy (1996) 2/2 Colon cancer; Repeat colonoscopy 2014, reported normal Coronary angiography (2012); no stent placement Family History Noncontributory given advanced age Social History - Denies the use of alcohol or illicit drugs; Quit smoking 40 years ago, however , has been a smoker of 30 years at 1 pack per day - Denies recent travel or sick contacts - Lives with - 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; 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 Review of Symptoms Other systems 10 point review of systems is negative otherwise stated in HPI Vital Signs - Vitals: BP 123/85, HR 116, RR 20, Sat 96%NC2L, Temp 97.6F - General: Lying in bed, No acute distress, Speaking in full sentences, AAOx3 - HEENT: NC, AT, PERRLA, EOMI - CVS: Tachycardic, Irregular, +S1S2, - Lungs: Fair air entry bilaterally, Positive crackles at bilateral lung bases - Abdomen: Soft, Non-distended, Non-tender, + Bowel sounds x 4 - Extremities: Trace pitting lower extremity edema bilaterally, No calf tenderness - Neuro: No focal motor or sensory deficit - Skin: No visible rashes Laboratory Data Labs 24H Laboratory Tests 2 09/14/17 09:14: Immature Granulocyte % (Auto) 0.3H, White Blood Count 7.5, Red Blood Count 4.04L , Hemoglobin 12.4L, Hematocrit 38.7L, Mean Corpuscular Volume 95.8, Mean Corpuscular Hemoglobin 30.7, Mean Corpuscular Hemoglobin Concent 32.0, Red Cell Distribution Width 15.3H, Platelet Count 260, Neutrophils (%) (Auto) 62.9, Lymphocytes (%) (Auto) 20.7L, Monocytes (%) (Auto) 12.9H, Eosinophils (%) (Auto ) 2.3, Basophils (%) (Auto) 0.9, Neutrophils # (Auto) 4.7, Lymphocytes # (Auto) 1.6, Monocytes # (Auto) 1.0H, Eosinophils # (Auto) 0.2, Basophils # (Auto) 0.1, Immature Granulocyte # (Auto) 0.0, Nucleated Red Blood Cells % (auto) 0.0, Prothrombin Time 14.9H, Prothromb Time International Ratio 1.15, Anion Gap 8, Glomerular Filtration Rate 46.6, Calcium Level 8.5L, Aspartate Amino Transf (AST /SGOT) 16, Alanine Aminotransferase (ALT/SGPT) 12, Alkaline Phosphatase 63, Total Bilirubin 0.7, Direct Bilirubin 0.2, Total Creatine Kinase 45, Creatine Kinase MB 1.9, Creatine Kinase MB Relative Index 4.22H, Troponin I 0.04, NT-Pro- B-Type Natriuretic Peptide 7874H, Total Protein 6.1L, Albumin 3.2, Albumin/ Globulin Ratio 1.10, Thyroid Stimulating Hormone (TSH) 5.280H, Thyroxine (T4) 10.7, Digoxin Level 0.2L 11/25/17 10:07: Lactic Acid Level 1.4 09/14/17 10:31: Blood Gas Bicarbonate Standard 29.6H, Arterial Blood pH 7.461H, Arterial Blood Partial Pressure CO2 43.4, Arterial Blood Partial Pressure O2 73.9L, Arterial Blood Total CO2 31.6H, Arterial Blood HCO3 30.2H, Arterial Blood Base Excess 5.8H, Arterial Blood Oxygen Saturation 94.7L CBC/BMP Laboratory Tests 09/14/17 09:14 Red Blood Count 4.04 L, Mean Corpuscular Volume 95.8, Mean Corpuscular Hemoglobin 30.7, Mean Corpuscular Hemoglobin Concent 32.0, Red Cell Distribution Width 15.3 H, Neutrophils (%) (Auto) 62.9, Lymphocytes (%) (Auto) 20.7 L, Monocytes (%) (Auto) 12.9 H, Eosinophils (%) (Auto) 2.3, Basophils (%) ( Auto) 0.9, Neutrophils # (Auto) 4.7, Lymphocytes # (Auto) 1.6, Monocytes # (Auto ) 1.0 H, Eosinophils # (Auto) 0.2, Basophils # (Auto) 0.1 Microbiology Microbiology 09/14/17 Blood Culture, Received Pending Plan / VTE VTE Prophylaxis Ordered?: Yes Plan Plan Dyspnea - likely 2/2 . Acute decompensated systolic and diastolic congestive heart failure (EF: 30-35%) s/p AICD - likely 2/2 non-ischemic cardiomyopathy - Risk factors include noncompliance with low-salt diet - Presented to the ER with complaints of shortness of breath for the last 3 days after Thanksgiving - Physical signs of crackles bilateral lung garcia, positive JVD, trace lower extremity edema - ECHO 06/2017: EF: 30-35%; Grade 2 Diastolic dysfunction - Elevated BNP on admission - CXR 09/14: Consistent with signs of fluid overload - s/p Furosemide 40 IV - c/w strict Is and Os, daily weights, and head of bed elevation at 30 - Will continue to monitor urine output and clinical signs of hypervolemia and dose furosemide accordingly Acute kidney injury on CKD3 - possibly 2/2 cardio-renal syndrome - Baseline Cr of 1.0-1.1 - Creatinine on admission of 1.53 - Will continue with diuresis in the setting Normocytic anemia - Hg baseline of 11; - Hemoglobin currently appears to be higher than baseline - Continue with ferrous sulfate Atrial flutter / fibrillation s/p PM (on Eliquis) - Patient denied any palpitations or chest pain - Hemodynamically stable - EKG in ER: Atrial flutter/fibrillation with heart rate of 116 - s/p digoxin 125 mcg IV in ER - c/w digitoxin and carvedilol for rate and rhythm control - c/w Eliquis for anticoagulation COPD - No evidence of exacerbation at this time - c/w Albuterol, Advair and Spiriva HTN - c/w carvedilol withholding parameters DLP - Currently not on any medications BPH - c/w Tamsulosin Hypothyroidism - c/w levothyroxine OA - c/w Tylenol GERD - c/w famotidine and Protonix DVT prophylaxis - On full anticoagulation with Eliquis NAMAN ARCE MD Sep 14, 2017 12:45
[2017-09-14 16:00] VITALS: BP 131/75
[2017-09-14 20:00] VITALS: BP 108/67
[2017-09-14] MEDS: ADVAIR HFA 115/21MCG INHALER INH SCH (20:23)
[2017-09-14] MEDS: FAMOTIDINE 20 MG TAB PO SCH (20:57)
[2017-09-14] MEDS: PANTOPRAZOLE 40MG TAB (PROTONIX) PO SCH (20:57)
[2017-09-14] MEDS: APIXABAN 2.5 MG TAB (ELIQUIS) PO SCH (20:57)
[2017-09-14] MEDS: FERROUS SULFATE 325MG TAB PO SCH (20:58)
[2017-09-14] MEDS: CARVedilol 12.5 MG TAB PO SCH (20:58)
[2017-09-14 23:59] VITALS: BP 103/67
[2017-09-15 04:00] VITALS: BP 121/66
[2017-09-15 05:39] LABS: BASO % 0.8 % (0.0-1.0); EOS # 0.1 10^3/uL (0.0-0.50); EOS % 2.5 % (0.0-3.0); IMMATURE GRANULOCYTE % 0.2 % (0-0); LYMPH # 1.4 10^3/uL (1.5-4.5); LYMPH % 27.2 % (24.0-44.0); MEAN CORPUSCULAR HEMOGLOBIN 29.9 pg (27.0-33.0); MEAN CORPUSCULAR HGB CONC 31.9 g/dl (32.0-36.5); MEAN CORPUSCULAR VOLUME 93.9 fl (80.0-96.0); MONO # 0.7 10^3/uL (0.0-0.8); MONO % 13.1 % (0.0-5.0); NEUTROPHILS % 56.2 % (36.0-66.0); PLATELET COUNT, AUTOMATED 222 10^3/uL (150-450); RED CELL DISTRIBUTION WIDTH 15.3 % (11.5-14.5); WHITE BLOOD COUNT 5.3 10^3/uL (4.0-10.0)
[2017-09-15 05:56] LABS: ALBUMIN 2.6 GM/DL (3.2-5.2); ALBUMIN/GLOBULIN RATIO 0.9 (1.00-1.93); BILIRUBIN,TOTAL 0.5 MG/DL (0.2-1.0); CALCIUM LEVEL 8.1 MG/DL (8.8-10.2); CREATININE FOR GFR 1.29 MG/DL (0.70-1.30); GLOMERULAR FILTRATION RATE 56.8 (>35); MAGNESIUM LEVEL 2.1 MG/DL (1.8-2.4); POTASSIUM SERUM 3.6 MEQ/L (3.5-5.1); TOTAL PROTEIN 5.5 GM/DL (6.4-8.2)
[2017-09-15] MEDS: LEVOTHYROXINE 75MCG TABLET (0.075MG) PO SCH (06:30)
[2017-09-15] MEDS: MULTIVITAMINS/MINERALS THERAP 1 TAB PO SCH (08:20)
[2017-09-15] MEDS: CARVedilol 12.5 MG TAB PO SCH ×2 (08:20→20:24)
[2017-09-15] MEDS: APIXABAN 2.5 MG TAB (ELIQUIS) PO SCH ×2 (08:20→20:22)
[2017-09-15] MEDS: TAMSULOSIN 0.4 MG CAP PO SCH (08:20)
[2017-09-15] MEDS: ASPIRIN 81 MG ENTERIC TAB PO SCH (08:20)
[2017-09-15 08:22] VITALS: BP 122/73
[2017-09-15] MEDS: TIOTROPIUM INHALER/CAPSULE (SPIRIVA) INH SCH (08:22)
[2017-09-15] MEDS: ADVAIR HFA 115/21MCG INHALER INH SCH ×2 (08:22→19:45)
[2017-09-15] MEDS: ALBUTEROL SULFATE 2.5 MG/0.5 ML INH NEB SOLN INH PRN ×4 (08:25→19:45)
[2017-09-15] MEDS ORDERED: FUROSEMIDE 40 MG/4 ML VIAL (J1940) IV SCH ×2 (09:00→17:00)
[2017-09-15 12:00] VITALS: BP 117/76
--- NOTE | 2017-09-15 14:40 | IPNPDOC ---
Text Note Date of Service The patient was seen on 09/15/17. 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 Patient was admitted for exacerbation of CHF. Patient was seen and examined at the bedside. Patient notes that her breathing has improved compared to yesterday. They are now off supplemental oxygen. They note improvement in the nighttime sleeping. Denies any cough or fevers. Objective: Vitals (See below) General: Lying in bed, no acute distress, comfortable, AAOx3 HEENT: NC, AT CVS: RRR, +S1S2 Lungs: Fair air entry b/l, no appreciable crackles Abdomen: Soft, ND, NT, +BSx4 Extremities: Trace LE Edema, - Calf tenderness Assessment and plan: Dyspnea - likely 2/2 . Acute decompensated systolic and diastolic congestive heart failure (EF: 30-35%) s/p AICD - likely 2/2 non-ischemic cardiomyopathy - Presented to ER with SOB likely secondary to dietary indiscretion -Physical shows improvement in aeration of bilateral lung garcia, and only trace lower extremity edema. At this point - ECHO 06/2017: EF: 30-35%; Grade 2 Diastolic dysfunction - Elevated BNP on admission - CXR 09/14: Consistent with signs of fluid overload - c/w strict Is and Os, daily weights, and head of bed elevation at 30 - Will continue with Furosemide 40 mg IV BID Acute kidney injury on CKD3 - possibly 2/2 cardio-renal syndrome - Baseline Cr of 1.0-1.1 - Creatinine on admission of 1.53; Creatinine has begun to trend down - Will continue with diuresis in the setting Normocytic anemia - Hg baseline of 11 - c/w ferrous sulfate Atrial flutter / fibrillation s/p PM (on Eliquis) - Patient denied any palpitations or chest pain - Hemodynamically stable - EKG in ER: Atrial flutter/fibrillation with heart rate of 116 - s/p digoxin 125 mcg IV in ER; c/w Digoxin and Carvedilol for rate and rhythm control - c/w Eliquis for anticoagulation COPD - No evidence of exacerbation at this time - c/w Albuterol, Advair and Spiriva HTN - c/w carvedilol withholding parameters DLP - Currently not on any medications BPH - c/w Tamsulosin Hypothyroidism - c/w levothyroxine OA - c/w Tylenol GERD - c/w famotidine and Protonix DVT prophylaxis - On full anticoagulation with Eliquis VS,Fishbone, I+O VS, Fishbone, I+O Laboratory Tests 09/15/17 05:27 Calcium Level 8.1 L, Aspartate Amino Transf (AST/SGOT) 9, Alanine Aminotransferase (ALT/SGPT) 9 L, Alkaline Phosphatase 54, Total Bilirubin 0.5, Total Protein 5.5 L, Albumin 2.6 L 09/15/17 05:28 Red Blood Count 3.74 L, Mean Corpuscular Volume 93.9, Mean Corpuscular Hemoglobin 29.9, Mean Corpuscular Hemoglobin Concent 31.9 L, Red Cell Distribution Width 15.3 H, Neutrophils (%) (Auto) 56.2, Lymphocytes (%) (Auto) 27.2, Monocytes (%) (Auto) 13.1 H, Eosinophils (%) (Auto) 2.5, Basophils (%) ( Auto) 0.8, Neutrophils # (Auto) 3.0, Lymphocytes # (Auto) 1.4 L, Monocytes # ( Auto) 0.7, Eosinophils # (Auto) 0.1, Basophils # (Auto) 0.0 Vital Signs Date Time Temp Pulse Resp B/P (MAP) Pulse Ox O2 Delivery O2 Flow Rate FiO2 09/15/17 08:22 97.1 116 20 122/73 (89) 95 Room Air 09/15/17 08:00 2.0 I&O- Last 24 Hours up to 6 AM 09/16/17 06:00 Intake Total 120 ml Output Total 225 ml Balance -105 ml NAMAN ARCE MD Sep 15, 2017 14:40
[2017-09-15 16:00] VITALS: BP 117/71
[2017-09-15] MEDS: LOPERAMIDE 2 MG CAP PO PRN ×2 (16:42→20:47)
[2017-09-15 20:00] VITALS: BP 103/74
[2017-09-15] MEDS: FAMOTIDINE 20 MG TAB PO SCH (20:22)
[2017-09-15] MEDS: PANTOPRAZOLE 40MG TAB (PROTONIX) PO SCH (20:22)
[2017-09-15] MEDS: FERROUS SULFATE 325MG TAB PO SCH (20:22)
[2017-09-15 23:59] VITALS: BP 102/67
[2017-09-16 04:00] VITALS: BP 99/71
[2017-09-16] MEDS: LEVOTHYROXINE 75MCG TABLET (0.075MG) PO SCH (05:15)
[2017-09-16 05:24] LABS: BASO % 0.6 % (0.0-1.0); EOS # 0.2 10^3/uL (0.0-0.50); EOS % 3.2 % (0.0-3.0); IMMATURE GRANULOCYTE % 0.2 % (0-0); LYMPH # 1.7 10^3/uL (1.5-4.5); LYMPH % 31.3 % (24.0-44.0); MEAN CORPUSCULAR HEMOGLOBIN 30.2 pg (27.0-33.0); MEAN CORPUSCULAR HGB CONC 31.8 g/dl (32.0-36.5); MEAN CORPUSCULAR VOLUME 94.9 fl (80.0-96.0); MONO # 0.7 10^3/uL (0.0-0.8); MONO % 12.5 % (0.0-5.0); NEUTROPHILS # 2.8 10^3/uL (1.8-7.7); NEUTROPHILS % 52.2 % (36.0-66.0); PLATELET COUNT, AUTOMATED 229 10^3/uL (150-450); WHITE BLOOD COUNT 5.3 10^3/uL (4.0-10.0)
[2017-09-16 05:43] LABS: ALBUMIN 2.7 GM/DL (3.2-5.2); ALBUMIN/GLOBULIN RATIO 0.96 (1.00-1.93); BILIRUBIN,TOTAL 0.5 MG/DL (0.2-1.0); CALCIUM LEVEL 7.9 MG/DL (8.8-10.2); CREATININE FOR GFR 1.31 MG/DL (0.70-1.30); GLOMERULAR FILTRATION RATE 55.8 (>35); MAGNESIUM LEVEL 1.9 MG/DL (1.8-2.4); POTASSIUM SERUM 3.5 MEQ/L (3.5-5.1); TOTAL PROTEIN 5.5 GM/DL (6.4-8.2)
[2017-09-16] MEDS ORDERED: SLF 3 ML SYR IV PRN (07:15)
[2017-09-16 08:00] VITALS: BP 120/78
--- NOTE | 2017-09-16 08:20 | ECGEPIP ---
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
--- NOTE | 2017-09-16 08:26 | ECGEPIP ---
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
[2017-09-16 08:27] LABS: DIGOXIN LEVEL 0.4 NG/ML (0.5-2.0)
[2017-09-16] MEDS: ASPIRIN 81 MG ENTERIC TAB PO SCH (08:51)
[2017-09-16] MEDS: TAMSULOSIN 0.4 MG CAP PO SCH (08:51)
[2017-09-16] MEDS: MULTIVITAMINS/MINERALS THERAP 1 TAB PO SCH (08:51)
[2017-09-16] MEDS: CARVedilol 12.5 MG TAB PO SCH ×2 (08:51→20:46)
[2017-09-16] MEDS: APIXABAN 2.5 MG TAB (ELIQUIS) PO SCH ×2 (08:51→20:46)
[2017-09-16] MEDS ORDERED: FUROSEMIDE 40 MG TAB PO SCH (09:00)
[2017-09-16] MEDS: ALBUTEROL SULFATE 2.5 MG/0.5 ML INH NEB SOLN INH PRN ×2 (09:00→11:57)
[2017-09-16] MEDS: ADVAIR HFA 115/21MCG INHALER INH SCH ×2 (09:00→21:27)
[2017-09-16] MEDS: TIOTROPIUM INHALER/CAPSULE (SPIRIVA) INH SCH (09:00)
[2017-09-16] MEDS ORDERED: DIGOXIN INJ 0.5 MG/2 ML AMP (J1160) IV STA (09:17)
[2017-09-16] MEDS: LOPERAMIDE 2 MG CAP PO PRN ×2 (09:36→17:14)
[2017-09-16 12:00] VITALS: BP 119/80
[2017-09-16] MEDS: SLF 3 ML SYR IV SCH ×2 (14:00→20:47)
[2017-09-16 16:00] VITALS: BP 117/74
--- NOTE | 2017-09-16 16:17 | IPNPDOC ---
Text Note Date of Service The patient was seen on 09/16/17. 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 Patient was admitted for exacerbation of CHF. Patient was seen and examined at the bedside. Patient notes that his breathing is doing better. He denies any cough. Denies any nausea, denies vomiting, chest pain or palpitations. His abdominal pain, constipation or diarrhea. Objective: Vitals (See below) General: Lying in bed, no acute distress, comfortable, AAOx3 HEENT: NC, AT CVS: Tachycardic, IrIr, +S1S2 Lungs: Fair air entry b/l, no appreciable crackles Abdomen: Soft, ND, NT, +BSx4 Extremities: Trace LE Edema, - Calf tenderness Assessment and plan: Dyspnea - likely 2/2 . Acute decompensated systolic and diastolic congestive heart failure (EF: 30-35%) s/p AICD - likely 2/2 non-ischemic cardiomyopathy - Presented to ER with SOB likely secondary to dietary indiscretion -Physical shows improvement in aeration of bilateral lung garcia, and only trace lower extremity edema. At this point - ECHO 06/2017: EF: 30-35%; Grade 2 Diastolic dysfunction - Elevated BNP on admission - CXR 09/14: Consistent with signs of fluid overload - c/w strict Is and Os, daily weights, and head of bed elevation at 30 - Will continue with Furosemide 40 mg IV BID Acute kidney injury on CKD3 - possibly 2/2 cardio-renal syndrome - Baseline Cr of 1.0-1.1 - Creatinine on admission of 1.53; Creatinine has begun to trend down - Will continue with diuresis in the setting Normocytic anemia - Hg baseline of 11 - c/w ferrous sulfate Atrial flutter / fibrillation s/p PM (on Eliquis) - Patient denied any palpitations or chest pain - Was noted to be in A. fib with RVR this morning, rate of 120 - Remained hemodynamically stable - EKG in ER: Atrial flutter/fibrillation with heart rate of 116 - s/p digoxin 125 mcg IV in ER - Will give digoxin 250 g IV, now and continue with digoxin 125 g by mouth daily - c/w Carvedilol for rate and rhythm control - c/w Eliquis for anticoagulation COPD - No evidence of exacerbation at this time - c/w Albuterol, Advair and Spiriva HTN - c/w carvedilol with holding parameters DLP - Currently not on any medications BPH - c/w Tamsulosin Hypothyroidism - c/w levothyroxine OA - c/w Tylenol GERD - c/w famotidine and Protonix DVT prophylaxis - On full anticoagulation with Eliquis VS,Fishbone, I+O VS, Fishbone, I+O Laboratory Tests 09/16/17 05:05 Red Blood Count 3.74 L, Mean Corpuscular Volume 94.9, Mean Corpuscular Hemoglobin 30.2, Mean Corpuscular Hemoglobin Concent 31.8 L, Red Cell Distribution Width 15.0 H, Neutrophils (%) (Auto) 52.2, Lymphocytes (%) (Auto) 31.3, Monocytes (%) (Auto) 12.5 H, Eosinophils (%) (Auto) 3.2 H, Basophils (%) ( Auto) 0.6, Neutrophils # (Auto) 2.8, Lymphocytes # (Auto) 1.7, Monocytes # (Auto ) 0.7, Eosinophils # (Auto) 0.2, Basophils # (Auto) 0.0, Calcium Level 7.9 L, Aspartate Amino Transf (AST/SGOT) 9, Alanine Aminotransferase (ALT/SGPT) 9 L, Alkaline Phosphatase 54, Total Bilirubin 0.5, Total Protein 5.5 L, Albumin 2.7 L Vital Signs Date Time Temp Pulse Resp B/P (MAP) Pulse Ox O2 Delivery O2 Flow Rate FiO2 09/16/17 12:00 97.4 107 20 119/80 (93) 94 Room Air 09/16/17 08:00 2.0 I&O- Last 24 Hours up to 6 AM 09/17/17 06:00 Intake Total 480 ml Output Total 600 ml Balance -120 ml NAMAN ARCE MD Sep 16, 2017 16:17
[2017-09-16 20:00] VITALS: BP 112/72
[2017-09-16] MEDS: PANTOPRAZOLE 40MG TAB (PROTONIX) PO SCH (20:46)
[2017-09-16] MEDS: FAMOTIDINE 20 MG TAB PO SCH (20:46)
[2017-09-16] MEDS: FERROUS SULFATE 325MG TAB PO SCH (20:46)
[2017-09-17] VITALS: BP 102/59
[2017-09-17 04:00] VITALS: BP 137/92
[2017-09-17] MEDS: LEVOTHYROXINE 75MCG TABLET (0.075MG) PO SCH (05:41)
[2017-09-17] MEDS: SLF 3 ML SYR IV SCH ×3 (05:41→21:49)
[2017-09-17 06:08] LABS: BASO # 0.1 10^3/uL (0.0-0.2); BASO % 0.9 % (0.0-1.0); EOS # 0.2 10^3/uL (0.0-0.50); EOS % 3.5 % (0.0-3.0); IMMATURE GRANULOCYTE % 0.2 % (0-0); LYMPH # 1.5 10^3/uL (1.5-4.5); LYMPH % 26.8 % (24.0-44.0); MEAN CORPUSCULAR HEMOGLOBIN 29.9 pg (27.0-33.0); MEAN CORPUSCULAR HGB CONC 31.8 g/dl (32.0-36.5); MEAN CORPUSCULAR VOLUME 94.1 fl (80.0-96.0); MONO # 0.7 10^3/uL (0.0-0.8); MONO % 11.8 % (0.0-5.0); NEUTROPHILS # 3.3 10^3/uL (1.8-7.7); NEUTROPHILS % 56.8 % (36.0-66.0); PLATELET COUNT, AUTOMATED 257 10^3/uL (150-450); WHITE BLOOD COUNT 5.8 10^3/uL (4.0-10.0)
[2017-09-17 06:26] LABS: ALBUMIN 2.6 GM/DL (3.2-5.2); ALBUMIN/GLOBULIN RATIO 0.84 (1.00-1.93); ALKALINE PHOSPHATASE 49 U/L (45-117); ALT/SGPT 9 U/L (12-78); ANION GAP 8 MEQ/L (8-16); AST/SGOT 12 U/L (7-37); BILIRUBIN,TOTAL 0.5 MG/DL (0.2-1.0); BLOOD UREA NITROGEN 17 MG/DL (7-18); CALCIUM LEVEL 8.3 MG/DL (8.8-10.2); CARBON DIOXIDE LEVEL 29 MEQ/L (21-32); CHLORIDE LEVEL 105 MEQ/L (98-107); CREATININE FOR GFR 1.13 MG/DL (0.70-1.30); GLOMERULAR FILTRATION RATE > 60.0 (>35); GLUCOSE, FASTING 83 MG/DL (83-110); MAGNESIUM LEVEL 2.1 MG/DL (1.8-2.4); POTASSIUM SERUM 3.7 MEQ/L (3.5-5.1); SODIUM LEVEL 142 MEQ/L (136-145); TOTAL PROTEIN 5.7 GM/DL (6.4-8.2)
[2017-09-17 08:00] VITALS: BP 133/84
[2017-09-17] MEDS: TIOTROPIUM INHALER/CAPSULE (SPIRIVA) INH SCH (08:35)
[2017-09-17] MEDS: ADVAIR HFA 115/21MCG INHALER INH SCH ×2 (08:36→21:14)
[2017-09-17] MEDS: CARVedilol 12.5 MG TAB PO SCH ×2 (08:44→20:54)
[2017-09-17] MEDS: APIXABAN 2.5 MG TAB (ELIQUIS) PO SCH ×2 (08:44→20:54)
[2017-09-17] MEDS: TAMSULOSIN 0.4 MG CAP PO SCH (08:44)
[2017-09-17] MEDS: ASPIRIN 81 MG ENTERIC TAB PO SCH (08:44)
[2017-09-17] MEDS: LOPERAMIDE 2 MG CAP PO PRN ×2 (08:44→14:30)
[2017-09-17] MEDS: MULTIVITAMINS/MINERALS THERAP 1 TAB PO SCH (08:46)
[2017-09-17] MEDS: FUROSEMIDE 40 MG TAB PO SCH ×2 (08:46→16:46)
[2017-09-17] MEDS: DIGOXIN 0.125 MG TAB PO SCH (08:46)
[2017-09-17] MEDS ORDERED: DIGOXIN INJ 0.5 MG/2 ML AMP (J1160) IV STA (09:49)
[2017-09-17 12:00] VITALS: BP 144/84
[2017-09-17 16:00] VITALS: BP 114/87
--- NOTE | 2017-09-17 19:47 | IPN ---
DATE: 09/17/2017 SUBJECTIVE: The patient tells me that he did have an episode where he noticed that his heart was beating faster. He had no specific symptoms associated with it, but he just felt that it was going fast. He denies otherwise shortness of breath, chest pain, nausea, vomiting, lightheadedness, dizziness, fevers, chills. OBJECTIVE: Vital signs: Temperature 98.3, pulse 119 and regular, respiratory rate 17, blood pressure 133/84, oxygen saturation 96% on room air. General: He is a frail elderly man sitting up on the edge of the bed. He is accompanied by his son and his . He does not appear to be in any acute distress. HEENT: He has moist mucous membranes, no appreciable elevation of his jugular venous pressure. Cardiovascular: S1, S2, irregularly irregular. He is not tachycardic at the time of my exam. Respiratory exam is clear. Abdominal exam is benign. Extremities: No clubbing, cyanosis or edema. LABORATORY STUDIES: WBC 5.8, hemoglobin 11.6, hematocrit 36.5, platelet count 257. Chemistry panel: Sodium 142, potassium 3.7, chloride 105, bicarbonate 29, BUN 17, creatinine 1.1. Microbiology: Blood cultures negative at 72 hours. IMAGING: He had a chest x-ray on the that revealed lower lobe infiltrates, most compatible with multifocal pneumonia versus pulmonary vascular congestion. ASSESSMENT AND PLAN: This is an 82-year-old man who presented with acute on chronic systolic diastolic congestive heart failure. PROBLEMS: 1. Acute on chronic systolic diastolic congestive heart failure. The patient has an ejection fraction (EF) of 30 to 35%. He is status post an automatic implantable cardioverter-defibrillator (AICD) and dual chamber pacer secondary to nonischemic cardiomyopathy. There was concern that this was secondary to dietary indiscretion at this time. I suspect an element of uncontrolled atrial fibrillation with rapid ventricular response may be playing a role as well. He has improved significantly with diuresis, appears to be fairly euvolemic at this time. Will continue to monitor his intake and output (I and Os), daily weights. Lasix 40 mg by mouth twice a day. 2. Coronary artery disease. The patient is on aspirin, statin. Increase in aspirin and beta inés. He is not on a statin. I will defer to his outpatient providers. 3. Acute kidney injury. Possibly related to cardiorenal syndrome. He did improve with diuresis. He is back to his baseline. 4. Iron deficiency anemia. He is taking ferrous sulfate. 5. Atrial fibrillation/flutter. He is status post permanent pacemaker. He is anticoagulated with Eliquis, rate controlled with carvedilol, however, he did have an episode of being uncontrolled and breakthrough to rapid ventricular response. This morning he has acceptable blood pressure and as such I have started him on digoxin. He has been on this medication in the past. I will give him an IV dose STAT and continue on 0.125 mg daily. Will keep him in the hospital until his rate is adequately controlled. Should he fail to be under control by tomorrow will consider consulting his legislative advocate, Dr. Dinero. 6. Chronic obstructive pulmonary disease (COPD). He is on continued on albuterol and Advair as previous. He is at his baseline respiratory status. 7. Hypertension. Controlled with carvedilol and digoxin. 8. Benign prostatic hypertrophy (BPH). Continue with tamsulosin. 9. Hypothyroidism. Continue with levothyroxine. 10. Osteoarthritis. Continue with Tylenol as needed. 11. Gastroesophageal reflux disease. Continue with Pepcid and Protonix. 12. Chronic diarrhea. Loperamide as needed. 13. Deep venous thrombosis (DVT) prophylaxis. The patient is on Eliquis.
[2017-09-17 20:00] VITALS: BP 123/82
[2017-09-17] MEDS: FERROUS SULFATE 325MG TAB PO SCH (20:54)
[2017-09-17] MEDS: PANTOPRAZOLE 40MG TAB (PROTONIX) PO SCH (20:54)
[2017-09-17] MEDS: FAMOTIDINE 20 MG TAB PO SCH (20:54)
[2017-09-18] VITALS: BP 118/80
[2017-09-18 04:00] VITALS: BP 113/66
[2017-09-18] MEDS: LEVOTHYROXINE 75MCG TABLET (0.075MG) PO SCH (05:49)
[2017-09-18] MEDS: SLF 3 ML SYR IV SCH ×3 (05:49→22:06)
[2017-09-18 05:52] LABS: BASO # 0.1 10^3/uL (0.0-0.2); BASO % 0.7 % (0.0-1.0); EOS # 0.2 10^3/uL (0.0-0.50); EOS % 2.5 % (0.0-3.0); IMMATURE GRANULOCYTE % 0.3 % (0-0); LYMPH # 1.6 10^3/uL (1.5-4.5); MEAN CORPUSCULAR HEMOGLOBIN 30.4 pg (27.0-33.0); MEAN CORPUSCULAR HGB CONC 32.2 g/dl (32.0-36.5); MEAN CORPUSCULAR VOLUME 94.4 fl (80.0-96.0); MONO # 0.8 10^3/uL (0.0-0.8); MONO % 12.3 % (0.0-5.0); NEUTROPHILS # 4.1 10^3/uL (1.8-7.7); NEUTROPHILS % 61.2 % (36.0-66.0); PLATELET COUNT, AUTOMATED 270 10^3/uL (150-450); RED CELL DISTRIBUTION WIDTH 14.7 % (11.5-14.5); WHITE BLOOD COUNT 6.7 10^3/uL (4.0-10.0)
[2017-09-18 06:15] LABS: ALBUMIN 2.8 GM/DL (3.2-5.2); ALBUMIN/GLOBULIN RATIO 0.88 (1.00-1.93); BILIRUBIN,TOTAL 0.5 MG/DL (0.2-1.0); CALCIUM LEVEL 8.5 MG/DL (8.8-10.2); CREATININE FOR GFR 1.35 MG/DL (0.70-1.30); GLOMERULAR FILTRATION RATE 53.9 (>35); MAGNESIUM LEVEL 1.9 MG/DL (1.8-2.4); POTASSIUM SERUM 3.6 MEQ/L (3.5-5.1)
[2017-09-18] MEDS: ADVAIR HFA 115/21MCG INHALER INH SCH ×2 (07:44→21:27)
[2017-09-18] MEDS: TIOTROPIUM INHALER/CAPSULE (SPIRIVA) INH SCH (07:44)
[2017-09-18 08:00] VITALS: BP 119/77
[2017-09-18] MEDS: TAMSULOSIN 0.4 MG CAP PO SCH (08:52)
[2017-09-18] MEDS: DIGOXIN 0.125 MG TAB PO SCH (08:52)
[2017-09-18] MEDS: APIXABAN 2.5 MG TAB (ELIQUIS) PO SCH ×2 (08:52→21:00)
[2017-09-18] MEDS: CARVedilol 12.5 MG TAB PO SCH ×2 (08:53→20:59)
[2017-09-18] MEDS: FUROSEMIDE 40 MG TAB PO SCH ×2 (08:53→17:54)
[2017-09-18] MEDS: ASPIRIN 81 MG ENTERIC TAB PO SCH (08:53)
[2017-09-18] MEDS: MULTIVITAMINS/MINERALS THERAP 1 TAB PO SCH (08:53)
[2017-09-18 12:00] VITALS: BP 132/79
--- NOTE | 2017-09-18 15:08 | IPN ---
DATE: 09/18/2017 SUBJECTIVE: The patient tells me that he is feeling quite well. He has had no episodes of palpitations. He denies fever or chills, chest pain or shortness of breath. OBJECTIVE: VITAL SIGNS: Temperature 97.5, pulse 80, respiratory rate 18, blood pressure 119/77, oxygen saturation 98% in room air. GENERAL: He is a very pleasant frail elderly man sitting up on the edge of his bed. He does not appear to be in any acute distress. HEENT: Bitemporal wasting. Moist mucous membranes. No elevation of CVP. CARDIOVASCULAR: S1, S2 irregularly irregular. He is not tachycardic. RESPIRATORY: Exam is clear. ABDOMEN: Exam is benign. EXTREMITIES: No clubbing, cyanosis. There is no appreciable edema. LABORATORY STUDIES: WBC 6.7, hemoglobin 12, platelet count 217. Chemistry panel: Sodium 143, potassium 3.6, chloride 104, bicarbonate 33, BUN 17, creatinine 1.3. No new microbiology or imaging. ASSESSMENT/PLAN: This is an 82-year-old man who presented with acute on chronic combined systolic, diastolic congestive heart failure. PROBLEMS: 1. Acute on chronic combined systolic diastolic congestive heart failure. The patient had an ejection fraction of 30-35%. He is status post an AICD and dual chamber pacer related to his nonischemic cardiomyopathy. There was concern that he may have had dietary discretion, however, there was also a suspected element of uncontrolled atrial fibrillation with rapid ventricular response maybe playing a role as well. He has since, improved significantly with diuresis and appears to be euvolemic at this time. We will continued to monitor his input and output and daily weights. He is currently on Lasix 40 mg by mouth twice a day. We are monitoring his renal function. 2. Coronary artery disease: He is not on a statin. He is on an aspirin and a beta inés. Will defer to his outpatient party plan sales host/hostess regarding the need for a statin. Symptoms are stable. 3. Acute kidney injury possibly related to cardiorenal syndrome. He did improve with diuresis. We will continue to monitor his renal function. 4. Iron deficiency anemia: He is on ferrous sulfate. 5. Atrial fibrillation/flutter. He is status post a permanent pacemaker. He is anticoagulated with Eliquis. He is rate controlled with carvedilol. I have started him on digoxin. He has been on this medication in the past as he did have some breakthrough episodes of rapid ventricular response. He appears to be doing quite well at this time. Should he be able to remain without any rapid ventricular response episodes for the next 24 hours, I suspect he can be discharged home with close followup with his party plan sales host/hostess, Dr. Dinero. 6. Chronic obstructive pulmonary disease (COPD): He is stable. He will continue on Albuterol and Advair. He is at his baseline respiratory status. 7. Hypertension: Controlled with carvedilol and digoxin. 8. Hypothyroidism: He is on levothyroxine. 9. Osteoarthritis: He is on Tylenol as needed. 10. Gastroesophageal reflux disease: He is on Pepcid and Protonix. 11. Chronic diarrhea: He is on loperamide as needed. 12. Deep venous thrombosis (DVT) prophylaxis: He is on Eliquis. DISPOSITION: Likely for discharge home within the next 24 to 48 hours. He has been seen by physical therapy yesterday who have cleared him.
[2017-09-18 16:00] VITALS: BP 146/76
[2017-09-18] MEDS: PANTOPRAZOLE 40MG TAB (PROTONIX) PO SCH (20:58)
[2017-09-18] MEDS: FERROUS SULFATE 325MG TAB PO SCH (20:58)
[2017-09-18] MEDS: FAMOTIDINE 20 MG TAB PO SCH (21:00)
[2017-09-18 22:00] VITALS: BP 130/79
[2017-09-18 23:31] LABS: CREATININE FOR GFR 1.38 MG/DL (0.70-1.30); GLOMERULAR FILTRATION RATE 52.5 (>35); MAGNESIUM LEVEL 2.1 MG/DL (1.8-2.4); POTASSIUM SERUM 3.6 MEQ/L (3.5-5.1)
[2017-09-19] MEDS: LEVOTHYROXINE 75MCG TABLET (0.075MG) PO SCH (05:34)
[2017-09-19 06:00] VITALS: BP 121/74
--- NOTE | 2017-09-19 06:18 | ECGEPIP ---
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
[2017-09-19 06:52] LABS: MEAN CORPUSCULAR HEMOGLOBIN 30.3 pg (27.0-33.0); MEAN CORPUSCULAR HGB CONC 32.4 g/dl (32.0-36.5); MEAN CORPUSCULAR VOLUME 93.6 fl (80.0-96.0); NEUTROPHILS % 63.4 % (36.0-66.0); PLATELET COUNT, AUTOMATED 277 10^3/uL (150-450); RED CELL DISTRIBUTION WIDTH 14.6 % (11.5-14.5); WHITE BLOOD COUNT 7.2 10^3/uL (4.0-10.0)
[2017-09-19 06:53] LABS: BASO % 0.6 % (0.0-1.0); EOS # 0.1 10^3/uL (0.0-0.50); EOS % 1.8 % (0.0-3.0); IMMATURE GRANULOCYTE % 0.3 % (0-0); LYMPH # 1.6 10^3/uL (1.5-4.5); MONO # 0.9 10^3/uL (0.0-0.8); MONO % 11.9 % (0.0-5.0); NEUTROPHILS # 4.6 10^3/uL (1.8-7.7)
[2017-09-19 07:18] LABS: ALBUMIN 2.8 GM/DL (3.2-5.2); ALBUMIN/GLOBULIN RATIO 0.88 (1.00-1.93); BILIRUBIN,TOTAL 0.4 MG/DL (0.2-1.0); CALCIUM LEVEL 8.2 MG/DL (8.8-10.2); CREATININE FOR GFR 1.33 MG/DL (0.70-1.30); GLOMERULAR FILTRATION RATE 54.8 (>35); POTASSIUM SERUM 3.6 MEQ/L (3.5-5.1)
[2017-09-19] MEDS: TIOTROPIUM INHALER/CAPSULE (SPIRIVA) INH SCH (07:37)
[2017-09-19] MEDS: ADVAIR HFA 115/21MCG INHALER INH SCH (07:37)
[2017-09-19] MEDS: MULTIVITAMINS/MINERALS THERAP 1 TAB PO SCH (08:03)
[2017-09-19] MEDS: FUROSEMIDE 40 MG TAB PO SCH (08:03)
[2017-09-19] MEDS: APIXABAN 2.5 MG TAB (ELIQUIS) PO SCH (08:03)
[2017-09-19] MEDS: DIGOXIN 0.125 MG TAB PO SCH (08:03)
[2017-09-19] MEDS: TAMSULOSIN 0.4 MG CAP PO SCH (08:03)
[2017-09-19] MEDS: ASPIRIN 81 MG ENTERIC TAB PO SCH (08:03)
[2017-09-19 08:04] VITALS: BP 121/74
[2017-09-19] MEDS: CARVedilol 12.5 MG TAB PO SCH (08:04)
[2017-09-19] MEDS ORDERED: DIGO0.12 PO (10:06)
[2017-09-19] MEDS ORDERED: FURO40TA2 PO (10:06)
--- NOTE | 2017-09-19 20:27 | DSES ---
DATE OF ADMISSION: 09/14/2017 DATE OF DISCHARGE: 09/19/2017 DISCHARGE DIAGNOSIS: Acute on chronic combined systolic and diastolic congestive heart failure. SECONDARY DIAGNOSES: 1. Atrial fibrillation with rapid ventricular response. 2. Acute kidney injury. 3. Coronary artery disease. 4. Iron deficiency anemia. 5. Chronic obstructive pulmonary disease (COPD). 6. Hypertension. 7. Hypothyroidism. 8. Osteoarthritis. 9. Gastroesophageal reflux disease. 10. Chronic diarrhea. HOSPITAL COURSE: The patient is an 82-year-old man who presented with shortness of breath secondary to acute on chronic combined systolic and diastolic congestive heart failure. He has an ejection fraction of 30-35% and is status post an automatic implantable cardioverter defibrillator (AICD) related to nonischemic cardiomyopathy. There was suspicion for dietary indiscretion. Also, while he was here, he was noted to have episodes of uncontrolled rapid ventricular response that may have been playing a contributory role as well. He was diuresed. His symptoms greatly improved. While he was here, his rate controlling agents were altered, he was maxed out on carvedilol 25 mg twice a day. He was started additionally on digoxin and did achieve good rate control. SUBJECTIVE: This morning, the patient tells me that he feels great, he has no complaints whatsoever. OBJECTIVE: VITAL SIGNS: Temperature 98.4, pulse 87, respiratory rate 19, blood pressure 130/79, oxygen saturation 94% on room air. GENERAL: He is a pleasant, frail, elderly, man sitting on the edge of his bed. He is in no distress. HEENT: Cranial II-XII are grossly intact. He has moist mucous membranes. No elevation in central venous pressure (CVP). CARDIOVASCULAR EXAM: S1, S2, irregularly irregular. He is not tachycardic. RESPIRATORY EXAM: Clear. ABDOMINAL EXAM: Bowel sounds are present. The abdomen is soft and nontender. EXTREMITIES: No clubbing, cyanosis, or edema. LABORATORY STUDIES: WBC 7.2, hemoglobin 12.3, platelet count 277. Chemistry panel: Sodium 142, potassium 3.6, chloride 103, bicarbonate 31, BUN 18, creatinine 1.3. Microbiology: No growth after 5 days in blood cultures. IMAGING: He had a chest x-ray on 09/14/2017, which revealed increased lower lobe infiltrates compatible with multifocal pneumonia versus pulmonary vascular congestion. ASSESSMENT AND PLAN: This is an 82-year-old man who presented with acute on chronic combined systolic and diastolic congestive heart failure. 1. Acute on chronic combined systolic and diastolic congestive heart failure. The patient has an ejection fraction (EF) of 30-35% status post automatic implantable cardioverter defibrillator (AICD) with dual chamber pacer secondary to nonischemic cardiomyopathy. Likely decompensation related to dietary indiscretion versus rapid ventricular response of uncontrolled atrial fibrillation. He has improved significantly with diuresis. He is euvolemic at this time. His Lasix was titrated to 40 mg by mouth twice a day. 2. Acute kidney injury, likely related to cardiorenal syndrome. It did improve with diuresis and is back to his baseline. 3. Coronary artery disease. He is on aspirin and a beta inés, not on a statin. Will defer to his outpatient office asst, Dr. Dinero, regarding the need for this. 4. Iron deficiency anemia. He is on ferrous sulfate. 5. Atrial fibrillation/flutter. He is status post permanent pacer. He is anticoagulated with Eliquis. He is normally rate controlled on Coreg 25 mg by mouth twice a day, however he did have episodes of uncontrolled rapid ventricular response while in hospital and, as such, I did start him on digoxin while he was here. He did not have further episodes of rapid ventricular response and is doing quite well 6. Chronic obstructive pulmonary disease (COPD), stable. He was continued on Albuterol and Advair. He is at his baseline respiratory status. 7. Hypertension. Controlled with carvedilol, Lasix. 8. Osteoarthritis. He is on Tylenol as needed. 9. Hypothyroidism. He is on levothyroxine. 10. Gastroesophageal reflux disease. He is on Pepcid and Protonix. 11. Chronic diarrhea. He is on loperamide. 12. Deep venous thrombosis (DVT) prophylaxis. He is on Eliquis. DISPOSITION: The patient is being discharged home to the care of his family. He is at his baseline functional status. He has been cleared by physical therapy. His clinical syndrome has resolved. He is to followup with his primary care provider (PCP) within 7 days and followup with his office asst, Dr. Dinero, within 2 weeks. His activity and diet are as prior to admission. He is to check his weight daily and call Dr. Dinero if greater than three pound weight change and return to the emergency room (ER) if symptoms worsen. MEDICATIONS: At the time of discharge: - digoxin 0.125 mg by mouth daily - Lasix 40 mg twice a day - Tylenol 1 gram every 6 hours as needed for pain - ProAir HFA 108 mcg two puffs four times a day as needed for shortness of breath - albuterol sulfate 2.5 mg every 2 hours as needed for shortness of breath - Eliquis 2.5 mg twice a day - aspirin 81 mg daily - carvedilol 25 mg twice a day - ferrous sulfate 325 mg nightly - levothyroxine 75 mcg daily - loperamide 2 mg as needed for diarrhea - meclizine 25 mg twice a day as needed for dizziness - multivitamin one tablet daily - Protonix 40 mg nightly - Zantac one tablet nightly - Advair two puffs inhaled twice a day - Flomax 0.4 mg daily - Spiriva 18 mcg capsule inhaled daily Greater than 30 minutes spent organizing disposition..
== END 2017-09-19 11:40 | disposition home or self-care (01) | DRG 291 ==
LOC: M ED 08:50 → M ED INP 10:53 → M PCU 12:30 → M MSPAV 09-18 15:45
PROVIDERS: ADMIT Internal Medicine; ATTEND Internal Medicine
DX: I13.0 Hypertensive heart and chronic kidney disease with heart failure and stage 1 through stage 4 chronic kidney disease, or unspecified chronic kidney disease (principal); I50.43 Acute on chronic combined systolic (congestive) and diastolic (congestive) heart failure; N17.9 Acute kidney failure, unspecified; I48.91 Unspecified atrial fibrillation; J44.9 Chronic obstructive pulmonary disease, unspecified; N18.3 Chronic kidney disease, stage 3 (moderate); E78.5 Hyperlipidemia, unspecified; N40.0 Benign prostatic hyperplasia without lower urinary tract symptoms; E03.9 Hypothyroidism, unspecified; I42.9 Cardiomyopathy, unspecified; I25.10 Atherosclerotic heart disease of native coronary artery without angina pectoris; M19.90 Unspecified osteoarthritis, unspecified site; D50.9 Iron deficiency anemia, unspecified; R19.7 Diarrhea, unspecified; K21.9 Gastro-esophageal reflux disease without esophagitis; Z95.0 Presence of cardiac pacemaker; Z79.01 Long term (current) use of anticoagulants; Z91.11 Patient's noncompliance with dietary regimen; Z79.82 Long term (current) use of aspirin; Z79.899 Other long term (current) drug therapy; Z88.8 Allergy status to other drugs, medicaments and biological substances; Z96.643 Presence of artificial hip joint, bilateral; Z90.49 Acquired absence of other specified parts of digestive tract; Z85.038 Personal history of other malignant neoplasm of large intestine; Z87.891 Personal history of nicotine dependence

== ENCOUNTER → 2017-10-09 | Outpatient (REF) | payer MEDICARE ==
[~2017-10-09] MED LIST changes: +ALBU83IN INH; +FURO40TA2 PO
[2017-10-09 12:13] LABS: CALCIUM LEVEL 8.3 MG/DL (8.8-10.2); CREATININE FOR GFR 1.47 MG/DL (0.70-1.30); GLOMERULAR FILTRATION RATE 48.8 (>35)
== END ==
LOC: M LABDRAW1 11:48
PROVIDERS: ATTEND Internal Medicine Cardiovascular Disease
DX: I48.91 Unspecified atrial fibrillation (principal); I42.9 Cardiomyopathy, unspecified

== ENCOUNTER 2017-11-25 10:56 | Emergency (ER) | payer MEDICARE ==
[2017-11-25] MEDS: NORCO, ANEXSIA 5/325MG TABLET (HYDROcodone/ACETAMINOPHEN) PO (13:45)
== END 2017-11-25 16:05 | disposition home or self-care (01) ==
LOC: M ED 10:56
DX: M54.32 Sciatica, left side (principal); R22.42 Localized swelling, mass and lump, left lower limb; I11.0 Hypertensive heart disease with heart failure; I50.9 Heart failure, unspecified; J44.9 Chronic obstructive pulmonary disease, unspecified; N18.9 Chronic kidney disease, unspecified; E03.9 Hypothyroidism, unspecified; I25.10 Atherosclerotic heart disease of native coronary artery without angina pectoris; I48.91 Unspecified atrial fibrillation; E78.5 Hyperlipidemia, unspecified; G89.29 Other chronic pain; K21.9 Gastro-esophageal reflux disease without esophagitis; N40.0 Benign prostatic hyperplasia without lower urinary tract symptoms; Z85.038 Personal history of other malignant neoplasm of large intestine; Z95.0 Presence of cardiac pacemaker; Z79.82 Long term (current) use of aspirin; Z79.01 Long term (current) use of anticoagulants; Z88.8 Allergy status to other drugs, medicaments and biological substances; Z87.891 Personal history of nicotine dependence
CPT/HCPCS: 93971

== ENCOUNTER → 2017-12-11 | Outpatient (CLI) | payer MEDICARE ==
[2017-12-11 13:46] LABS: BASO # 0.1 10^3/uL (0.0-0.2); BASO % 0.8 % (0.0-1.0); EOS # 0.2 10^3/uL (0.0-0.50); EOS % 2.6 % (0.0-3.0); HEMATOCRIT 40.1 % (42.0-52.0); IMMATURE GRANULOCYTE % 0.3 % (0-3.0); LYMPH # 1.6 10^3/uL (1.5-4.5); LYMPH % 23.8 % (24.0-44.0); MEAN CORPUSCULAR HGB CONC 32.4 g/dl (32.0-36.5); MEAN CORPUSCULAR VOLUME 95.7 fl (80.0-96.0); MONO # 0.6 10^3/uL (0.0-0.8); MONO % 9.2 % (0.0-5.0); NEUTROPHILS # 4.2 10^3/uL (1.8-7.7); NEUTROPHILS % 63.3 % (36.0-66.0); PLATELET COUNT, AUTOMATED 214 10^3/uL (150-450); RED BLOOD COUNT 4.19 10^6/uL (4.30-6.10); RED CELL DISTRIBUTION WIDTH 16.7 % (11.5-14.5); WHITE BLOOD COUNT 6.6 10^3/uL (4.0-10.0)
[2017-12-11 14:32] LABS: ANION GAP 9 MEQ/L (8-16); BLOOD UREA NITROGEN 20 MG/DL (7-18); CALCIUM LEVEL 8.5 MG/DL (8.8-10.2); CARBON DIOXIDE LEVEL 27 MEQ/L (21-32); CHLORIDE LEVEL 106 MEQ/L (98-107); CREATININE FOR GFR 1.23 MG/DL (0.70-1.30); GLUCOSE, FASTING 154 MG/DL (70-100); SODIUM LEVEL 142 MEQ/L (136-145)
== END ==
LOC: M SMT 11:46
DX: I50.9 Heart failure, unspecified (principal); I48.91 Unspecified atrial fibrillation
CPT/HCPCS: 80048

== ENCOUNTER 2017-12-19 17:29 | Inpatient (IN) | payer MEDICARE ==
[2017-12-19 18:18] LABS: BASO # 0.1 10^3/uL (0.0-0.2); BASO % 0.7 % (0.0-1.0); EOS # 0.2 10^3/uL (0.0-0.50); EOS % 3.1 % (0.0-3.0); HEMATOCRIT 38.8 % (42.0-52.0); HEMOGLOBIN 12.7 g/dl (14.0-18.0); LYMPH # 1.8 10^3/uL (1.5-4.5); LYMPH % 25.2 % (24.0-44.0); MEAN CORPUSCULAR HEMOGLOBIN 31.4 pg (27.0-33.0); MEAN CORPUSCULAR HGB CONC 32.7 g/dl (32.0-36.5); MONO # 0.9 10^3/uL (0.0-0.8); NEUTROPHILS # 4.2 10^3/uL (1.8-7.7); PLATELET COUNT, AUTOMATED 222 10^3/uL (150-450); RED BLOOD COUNT 4.04 10^6/uL (4.30-6.10); RED CELL DISTRIBUTION WIDTH 17.1 % (11.5-14.5); WHITE BLOOD COUNT 7.1 10^3/uL (4.0-10.0)
[2017-12-19 18:47] LABS: NT-PRO BNP 6497 PG/ML (<450)
[2017-12-19 18:49] LABS: ALBUMIN 3.5 GM/DL (3.2-5.2); ALBUMIN/GLOBULIN RATIO 1.25 (1.00-1.93); ALKALINE PHOSPHATASE 65 U/L (45-117); ALT/SGPT 21 U/L (12-78); ANION GAP 8 MEQ/L (8-16); AST/SGOT 16 U/L (7-37); BILIRUBIN,DIRECT 0.2 MG/DL (0.0-0.2); BILIRUBIN,TOTAL 0.4 MG/DL (0.2-1.0); BLOOD UREA NITROGEN 21 MG/DL (7-18); CALCIUM LEVEL 8.1 MG/DL (8.8-10.2); CARBON DIOXIDE LEVEL 27 MEQ/L (21-32); CHLORIDE LEVEL 111 MEQ/L (98-107); CPK CREATINE PHOSPHOKINASE 58 U/L (39-308); CREATININE FOR GFR 1.29 MG/DL (0.70-1.30); GLOMERULAR FILTRATION RATE 56.8 (>35); GLUCOSE, FASTING 95 MG/DL (70-100); POTASSIUM SERUM 3.6 MEQ/L (3.5-5.1); SODIUM LEVEL 146 MEQ/L (136-145); TOTAL PROTEIN 6.3 GM/DL (6.4-8.2); TROPONIN I 0.03 NG/ML (< 0.10)
[2017-12-19 18:55] LABS: MB/CK RELATIVE INDEX 3.44 (< OR =4)
[2017-12-19] MEDS: ASPIRIN 81 MG CHEW TABLET PO (19:30)
[2017-12-19] MEDS: NITROGLYCERIN 0.4 MG SUBL TABLET SL ×2 (19:47→20:11)
[2017-12-19] MEDS: APIXABAN 2.5 MG TAB (ELIQUIS) PO (21:00)
[2017-12-19] MEDS ORDERED: MECLIZINE 25 MG TABLET PO (21:15)
[2017-12-19] MEDS ORDERED: ACETAMINOPHEN 500 MG TAB PO (21:15)
[2017-12-19] MEDS: CARVedilol 12.5 MG TAB PO (21:44)
[2017-12-19] MEDS: VALSARTAN 80 MG TAB (DIOVAN) PO (21:44)
[2017-12-19] MEDS: GABAPENTIN 100 MG CAP PO (21:45)
[2017-12-19] MEDS: PANTOPRAZOLE 40MG TAB (PROTONIX) PO (21:45)
[2017-12-19] MEDS: FAMOTIDINE 20 MG TAB PO (21:45)
[2017-12-19] MEDS: FERROUS SULFATE 325MG TAB PO (21:45)
[2017-12-20] MEDS: LEVOTHYROXINE 75MCG TABLET (0.075MG) PO (06:00)
[2017-12-20 07:07] LABS: HEMATOCRIT 37.3 % (42.0-52.0); HEMOGLOBIN 12.3 g/dl (14.0-18.0); MEAN CORPUSCULAR HEMOGLOBIN 31.1 pg (27.0-33.0); MEAN CORPUSCULAR VOLUME 94.2 fl (80.0-96.0); PLATELET COUNT, AUTOMATED 203 10^3/uL (150-450); RED BLOOD COUNT 3.96 10^6/uL (4.30-6.10); RED CELL DISTRIBUTION WIDTH 16.8 % (11.5-14.5); WHITE BLOOD COUNT 5.4 10^3/uL (4.0-10.0)
[2017-12-20 07:31] LABS: ANION GAP 9 MEQ/L (8-16); BLOOD UREA NITROGEN 19 MG/DL (7-18); C REACTIVE PROTEIN QUANTITATIV 0.57 MG/DL (0.00-0.30); CALCIUM LEVEL 8.2 MG/DL (8.8-10.2); CARBON DIOXIDE LEVEL 28 MEQ/L (21-32); CHLORIDE LEVEL 109 MEQ/L (98-107); CREATININE FOR GFR 1.21 MG/DL (0.70-1.30); GLOMERULAR FILTRATION RATE > 60.0 (>35); GLUCOSE, FASTING 85 MG/DL (70-100); NT-PRO BNP 6903 PG/ML (<450); POTASSIUM SERUM 3.4 MEQ/L (3.5-5.1); SODIUM LEVEL 146 MEQ/L (136-145); TROPONIN I 0.03 NG/ML (< 0.10)
[2017-12-20 07:54] LABS: ERYTHROCYTE SEDIMENTATION RATE 8 mm/hr (0-20)
[2017-12-20] MEDS: ADVAIR HFA 115/21MCG INHALER INH ×2 (08:39→20:32)
[2017-12-20] MEDS: TIOTROPIUM INHALER/CAPSULE (SPIRIVA) INH (08:40)
[2017-12-20] MEDS: GABAPENTIN 100 MG CAP PO ×2 (09:49→21:46)
[2017-12-20] MEDS: FUROSEMIDE 40 MG TAB PO (09:49)
[2017-12-20] MEDS: MULTIVITAMINS/MINERALS THERAP 1 TAB PO (09:49)
[2017-12-20] MEDS: CARVedilol 12.5 MG TAB PO ×2 (09:49→21:46)
[2017-12-20] MEDS: ASPIRIN 81 MG ENTERIC TAB PO (09:49)
[2017-12-20] MEDS: APIXABAN 2.5 MG TAB (ELIQUIS) PO ×2 (09:49→21:45)
[2017-12-20] MEDS: FUROSEMIDE 40 MG/4 ML VIAL (J1940) IV (16:22)
[2017-12-20] MEDS: POTASSIUM CHLORIDE 10 MEQ SR TABLET PO (20:42)
[2017-12-20] MEDS: FAMOTIDINE 20 MG TAB PO (21:46)
[2017-12-20] MEDS: FERROUS SULFATE 325MG TAB PO (21:46)
[2017-12-20] MEDS: VALSARTAN 80 MG TAB (DIOVAN) PO (21:46)
[2017-12-20] MEDS: PANTOPRAZOLE 40MG TAB (PROTONIX) PO (21:46)
[2017-12-21] MEDS: ALBUTEROL 90 MCG/ACT 8GM HFA INHALER INH (00:53)
[2017-12-21 05:36] LABS: HEMATOCRIT 36.4 % (42.0-52.0); HEMOGLOBIN 12.2 g/dl (14.0-18.0); MEAN CORPUSCULAR HEMOGLOBIN 31.7 pg (27.0-33.0); MEAN CORPUSCULAR HGB CONC 33.5 g/dl (32.0-36.5); MEAN CORPUSCULAR VOLUME 94.5 fl (80.0-96.0); PLATELET COUNT, AUTOMATED 190 10^3/uL (150-450); RED BLOOD COUNT 3.85 10^6/uL (4.30-6.10); RED CELL DISTRIBUTION WIDTH 16.8 % (11.5-14.5); WHITE BLOOD COUNT 5.8 10^3/uL (4.0-10.0)
[2017-12-21] MEDS: LEVOTHYROXINE 75MCG TABLET (0.075MG) PO (05:55)
[2017-12-21 05:59] LABS: ANION GAP 7 MEQ/L (8-16); BLOOD UREA NITROGEN 21 MG/DL (7-18); CALCIUM LEVEL 8.5 MG/DL (8.8-10.2); CARBON DIOXIDE LEVEL 29 MEQ/L (21-32); CHLORIDE LEVEL 107 MEQ/L (98-107); CREATININE FOR GFR 1.12 MG/DL (0.70-1.30); GLOMERULAR FILTRATION RATE > 60.0 (>35); GLUCOSE, FASTING 92 MG/DL (70-100); POTASSIUM SERUM 3.5 MEQ/L (3.5-5.1); SODIUM LEVEL 143 MEQ/L (136-145)
[2017-12-21] MEDS: ADVAIR HFA 115/21MCG INHALER INH ×2 (08:16→19:56)
[2017-12-21] MEDS: TIOTROPIUM INHALER/CAPSULE (SPIRIVA) INH (08:16)
[2017-12-21] MEDS: GABAPENTIN 100 MG CAP PO ×2 (08:56→20:48)
[2017-12-21] MEDS: MULTIVITAMINS/MINERALS THERAP 1 TAB PO (08:56)
[2017-12-21] MEDS: CARVedilol 12.5 MG TAB PO ×2 (08:56→20:51)
[2017-12-21] MEDS: ASPIRIN 81 MG ENTERIC TAB PO (08:56)
[2017-12-21] MEDS: APIXABAN 2.5 MG TAB (ELIQUIS) PO ×2 (08:56→20:51)
[2017-12-21] MEDS: POTASSIUM CHLORIDE 10 MEQ SR TABLET PO ×2 (08:57→20:50)
[2017-12-21] MEDS: FUROSEMIDE 100 MG/10 ML VIAL (J1940) IV ×2 (08:57→16:58)
[2017-12-21] MEDS: PANTOPRAZOLE 40MG TAB (PROTONIX) PO (20:48)
[2017-12-21] MEDS: FAMOTIDINE 20 MG TAB PO (20:48)
[2017-12-21] MEDS: FERROUS SULFATE 325MG TAB PO (20:49)
[2017-12-21] MEDS: VALSARTAN 80 MG TAB (DIOVAN) PO (20:49)
[2017-12-22 05:12] LABS: HEMOGLOBIN 12.1 g/dl (14.0-18.0); MEAN CORPUSCULAR HGB CONC 32.7 g/dl (32.0-36.5); MEAN CORPUSCULAR VOLUME 94.9 fl (80.0-96.0); PLATELET COUNT, AUTOMATED 215 10^3/uL (150-450); RED CELL DISTRIBUTION WIDTH 17.1 % (11.5-14.5); WHITE BLOOD COUNT 6.3 10^3/uL (4.0-10.0)
[2017-12-22 05:31] LABS: ANION GAP 5 MEQ/L (8-16); BLOOD UREA NITROGEN 24 MG/DL (7-18); CARBON DIOXIDE LEVEL 32 MEQ/L (21-32); CHLORIDE LEVEL 108 MEQ/L (98-107); CREATININE FOR GFR 1.47 MG/DL (0.70-1.30); GLOMERULAR FILTRATION RATE 48.8 (>35); GLUCOSE, FASTING 92 MG/DL (70-100); POTASSIUM SERUM 4.6 MEQ/L (3.5-5.1); SODIUM LEVEL 145 MEQ/L (136-145)
[2017-12-22] MEDS: LEVOTHYROXINE 75MCG TABLET (0.075MG) PO (05:42)
[2017-12-22] MEDS: ADVAIR HFA 115/21MCG INHALER INH ×2 (07:09→20:48)
[2017-12-22] MEDS: TIOTROPIUM INHALER/CAPSULE (SPIRIVA) INH (07:09)
[2017-12-22] MEDS: CARVedilol 12.5 MG TAB PO ×3 (10:23→20:01)
[2017-12-22] MEDS: APIXABAN 2.5 MG TAB (ELIQUIS) PO ×2 (10:24→21:15)
[2017-12-22] MEDS: GABAPENTIN 100 MG CAP PO ×2 (10:24→21:15)
[2017-12-22] MEDS: FUROSEMIDE 40 MG TAB PO (10:24)
[2017-12-22] MEDS: MULTIVITAMINS/MINERALS THERAP 1 TAB PO (10:24)
[2017-12-22] MEDS: ASPIRIN 81 MG ENTERIC TAB PO (10:24)
[2017-12-22] MEDS: VALSARTAN 80 MG TAB (DIOVAN) PO (20:01)
[2017-12-22] MEDS: PANTOPRAZOLE 40MG TAB (PROTONIX) PO (21:15)
[2017-12-22] MEDS: FAMOTIDINE 20 MG TAB PO (21:15)
[2017-12-22] MEDS: FERROUS SULFATE 325MG TAB PO (21:16)
[2017-12-23 05:20] LABS: HEMATOCRIT 36.5 % (42.0-52.0); HEMOGLOBIN 12.1 g/dl (14.0-18.0); MEAN CORPUSCULAR HEMOGLOBIN 31.9 pg (27.0-33.0); MEAN CORPUSCULAR HGB CONC 33.2 g/dl (32.0-36.5); MEAN CORPUSCULAR VOLUME 96.3 fl (80.0-96.0); PLATELET COUNT, AUTOMATED 202 10^3/uL (150-450); RED BLOOD COUNT 3.79 10^6/uL (4.30-6.10); RED CELL DISTRIBUTION WIDTH 17.1 % (11.5-14.5); WHITE BLOOD COUNT 6.3 10^3/uL (4.0-10.0)
[2017-12-23] MEDS: LEVOTHYROXINE 75MCG TABLET (0.075MG) PO (05:37)
[2017-12-23 05:44] LABS: ANION GAP 7 MEQ/L (8-16); BLOOD UREA NITROGEN 27 MG/DL (7-18); CALCIUM LEVEL 8.3 MG/DL (8.8-10.2); CARBON DIOXIDE LEVEL 31 MEQ/L (21-32); CHLORIDE LEVEL 106 MEQ/L (98-107); CREATININE FOR GFR 1.38 MG/DL (0.70-1.30); GLOMERULAR FILTRATION RATE 52.5 (>35); GLUCOSE, FASTING 86 MG/DL (70-100); MAGNESIUM LEVEL 2.1 MG/DL (1.8-2.4); POTASSIUM SERUM 4.3 MEQ/L (3.5-5.1); SODIUM LEVEL 144 MEQ/L (136-145)
[2017-12-23] MEDS: TIOTROPIUM INHALER/CAPSULE (SPIRIVA) INH (08:30)
[2017-12-23] MEDS: ADVAIR HFA 115/21MCG INHALER INH ×2 (08:30→21:00)
[2017-12-23] MEDS: CARVedilol 12.5 MG TAB PO ×2 (08:40→20:24)
[2017-12-23] MEDS: GABAPENTIN 100 MG CAP PO ×2 (08:44→20:23)
[2017-12-23] MEDS: FUROSEMIDE 40 MG TAB PO (08:44)
[2017-12-23] MEDS: APIXABAN 2.5 MG TAB (ELIQUIS) PO ×2 (08:45→20:23)
[2017-12-23] MEDS: ASPIRIN 81 MG ENTERIC TAB PO (08:45)
[2017-12-23] MEDS: MULTIVITAMINS/MINERALS THERAP 1 TAB PO (08:45)
[2017-12-23] MEDS: PANTOPRAZOLE 40MG TAB (PROTONIX) PO (20:23)
[2017-12-23] MEDS: FAMOTIDINE 20 MG TAB PO (20:23)
[2017-12-23] MEDS: FERROUS SULFATE 325MG TAB PO (20:24)
[2017-12-23] MEDS: VALSARTAN 80 MG TAB (DIOVAN) PO (20:24)
[2017-12-24] MEDS: LEVOTHYROXINE 75MCG TABLET (0.075MG) PO (05:22)
[2017-12-24 05:30] LABS: HEMATOCRIT 35.6 % (42.0-52.0); HEMOGLOBIN 11.7 g/dl (14.0-18.0); MEAN CORPUSCULAR HEMOGLOBIN 31.2 pg (27.0-33.0); MEAN CORPUSCULAR HGB CONC 32.9 g/dl (32.0-36.5); MEAN CORPUSCULAR VOLUME 94.9 fl (80.0-96.0); PLATELET COUNT, AUTOMATED 204 10^3/uL (150-450); RED BLOOD COUNT 3.75 10^6/uL (4.30-6.10); WHITE BLOOD COUNT 5.6 10^3/uL (4.0-10.0)
[2017-12-24 05:48] LABS: ANION GAP 6 MEQ/L (8-16); BLOOD UREA NITROGEN 29 MG/DL (7-18); CALCIUM LEVEL 8.3 MG/DL (8.8-10.2); CARBON DIOXIDE LEVEL 28 MEQ/L (21-32); CHLORIDE LEVEL 108 MEQ/L (98-107); CREATININE FOR GFR 1.36 MG/DL (0.70-1.30); GLOMERULAR FILTRATION RATE 53.4 (>35); GLUCOSE, FASTING 88 MG/DL (70-100); POTASSIUM SERUM 4.2 MEQ/L (3.5-5.1); SODIUM LEVEL 142 MEQ/L (136-145)
[2017-12-24] MEDS: TIOTROPIUM INHALER/CAPSULE (SPIRIVA) INH (07:24)
[2017-12-24] MEDS: ADVAIR HFA 115/21MCG INHALER INH (07:24)
[2017-12-24] MEDS: FUROSEMIDE 40 MG TAB PO (08:35)
[2017-12-24] MEDS: GABAPENTIN 100 MG CAP PO (08:35)
[2017-12-24] MEDS: APIXABAN 2.5 MG TAB (ELIQUIS) PO (08:36)
[2017-12-24] MEDS: CARVedilol 12.5 MG TAB PO (08:36)
[2017-12-24] MEDS: ASPIRIN 81 MG ENTERIC TAB PO (08:36)
[2017-12-24] MEDS: MULTIVITAMINS/MINERALS THERAP 1 TAB PO (08:36)
== END 2017-12-24 12:29 | disposition home or self-care (01) | DRG 308 ==
LOC: M ED INP 12-20 01:25 → M PCU 12-21 12:58 → M ED 17:29
DX: I47.2 Ventricular tachycardia (principal); I50.43 Acute on chronic combined systolic (congestive) and diastolic (congestive) heart failure; I13.0 Hypertensive heart and chronic kidney disease with heart failure and stage 1 through stage 4 chronic kidney disease, or unspecified chronic kidney disease; I48.92 Unspecified atrial flutter; J44.9 Chronic obstructive pulmonary disease, unspecified; E78.5 Hyperlipidemia, unspecified; N18.3 Chronic kidney disease, stage 3 (moderate); E03.9 Hypothyroidism, unspecified; K21.9 Gastro-esophageal reflux disease without esophagitis; Z90.49 Acquired absence of other specified parts of digestive tract; Z96.643 Presence of artificial hip joint, bilateral; Z95.810 Presence of automatic (implantable) cardiac defibrillator; Z87.891 Personal history of nicotine dependence; Z79.82 Long term (current) use of aspirin; Z79.01 Long term (current) use of anticoagulants; Z79.899 Other long term (current) drug therapy; Z88.8 Allergy status to other drugs, medicaments and biological substances

== ENCOUNTER 2018-03-22 15:07 | Emergency (ER) | payer MEDICARE ==
[2018-03-22 15:57] LABS: BASO % 0.4 % (0.0-1.0); EOS # 0.1 10^3/uL (0.0-0.50); HEMATOCRIT 39.4 % (42.0-52.0); HEMOGLOBIN 12.7 g/dl (13.5-17.5); IMMATURE GRANULOCYTE % 0.3 % (0-3.0); LYMPH % 29.5 % (24.0-44.0); MEAN CORPUSCULAR HEMOGLOBIN 30.9 pg (27.0-33.0); MEAN CORPUSCULAR HGB CONC 32.2 g/dl (32.0-36.5); MEAN CORPUSCULAR VOLUME 95.9 fl (80.0-96.0); MONO # 0.7 10^3/uL (0.0-0.8); NEUTROPHILS % 57.8 % (36.0-66.0); PLATELET COUNT, AUTOMATED 256 10^3/uL (150-450); RED BLOOD COUNT 4.11 10^6/uL (4.30-6.10); WHITE BLOOD COUNT 6.9 10^3/uL (4.0-10.0)
[2018-03-22] MEDS: ASPIRIN 81 MG CHEW TABLET PO (16:07)
[2018-03-22] MEDS: NS 1,000 ML IV (16:07)
[2018-03-22 16:08] LABS: INR 1.25; PROTHROMBIN TIME 15.9 SECONDS (12.4-14.5)
[2018-03-22] MEDS: ALBUTEROL SULFATE 2.5 MG/0.5 ML INH NEB SOLN INH (16:10)
[2018-03-22 16:11] LABS: ALBUMIN 3.5 GM/DL (3.2-5.2); ALBUMIN/GLOBULIN RATIO 1.06 (1.00-1.93); ALKALINE PHOSPHATASE 62 U/L (45-117); ALT/SGPT 12 U/L (12-78); ANION GAP 6 MEQ/L (8-16); AST/SGOT 12 U/L (7-37); BILIRUBIN,DIRECT 0.2 MG/DL (0.0-0.2); BILIRUBIN,TOTAL 0.8 MG/DL (0.2-1.0); BLOOD UREA NITROGEN 14 MG/DL (7-18); CALCIUM LEVEL 8.3 MG/DL (8.8-10.2); CARBON DIOXIDE LEVEL 30 MEQ/L (21-32); CHLORIDE LEVEL 106 MEQ/L (98-107); CPK CREATINE PHOSPHOKINASE 66 U/L (39-308); CREATININE FOR GFR 1.38 MG/DL (0.70-1.30); GLOMERULAR FILTRATION RATE 52.5 (>35); GLUCOSE, FASTING 136 MG/DL (70-100); POTASSIUM SERUM 3.6 MEQ/L (3.5-5.1); SODIUM LEVEL 142 MEQ/L (136-145); TOTAL PROTEIN 6.8 GM/DL (6.4-8.2); TROPONIN I 0.02 NG/ML (< 0.10)
[2018-03-22 16:12] LABS: CK-MB VALUE MASS 1.6 NG/ML (<3.6); MB/CK RELATIVE INDEX 2.42 (< OR =4)
[2018-03-22 16:37] LABS: ABG BASE EXCESS 2.7 (-2.0-2.0); ABG HCO3 26.4 MEQ/L (22.0-26.0); ABG O2 SATURATION 93.7 % (95.0-99.0); ABG PARTIAL PRESSURE CO2 37.3 mmHg (35.0-45.0); ABG PARTIAL PRESSURE O2 68.5 mmHg (75.0-100.0); ABG STANDARD HCO3 26.8 MEQ/L (22.0-26.0); ABG TOTAL CO2 27.5 MEQ/L (23.0-31.0); ABG pH (ARTERIAL) 7.467 UNITS (7.350-7.450)
[2018-03-22 16:53] LABS: LACTIC ACID SEPSIS PROTOCOL 1.3 MMOL/L (0.4-2.0)
== END 2018-03-22 17:43 | disposition home or self-care (01) ==
LOC: M ED 15:07
DX: J44.1 Chronic obstructive pulmonary disease with (acute) exacerbation (principal); I10 Essential (primary) hypertension; Z95.5 Presence of coronary angioplasty implant and graft; Z87.891 Personal history of nicotine dependence; Z82.49 Family history of ischemic heart disease and other diseases of the circulatory system; Z88.8 Allergy status to other drugs, medicaments and biological substances; Z79.899 Other long term (current) drug therapy; Z79.01 Long term (current) use of anticoagulants; Z79.890 Hormone replacement therapy
CPT/HCPCS: 71046

== ENCOUNTER 2018-04-13 09:37 | Inpatient (IN) | payer MEDICARE ==
[2018-04-13 10:42] LABS: BASO # 0.1 10^3/uL (0.0-0.2); BASO % 0.8 % (0.0-1.0); EOS # 0.2 10^3/uL (0.0-0.50); HEMATOCRIT 35.7 % (42.0-52.0); HEMOGLOBIN 11.7 g/dl (13.5-17.5); IMMATURE GRANULOCYTE % 0.3 % (0-3.0); LYMPH # 1.7 10^3/uL (1.5-4.5); LYMPH % 27.3 % (24.0-44.0); MEAN CORPUSCULAR HEMOGLOBIN 30.4 pg (27.0-33.0); MEAN CORPUSCULAR HGB CONC 32.8 g/dl (32.0-36.5); MEAN CORPUSCULAR VOLUME 92.7 fl (80.0-96.0); MONO # 0.8 10^3/uL (0.0-0.8); MONO % 12.2 % (0.0-5.0); NEUTROPHILS # 3.6 10^3/uL (1.8-7.7); NEUTROPHILS % 56.4 % (36.0-66.0); PLATELET COUNT, AUTOMATED 276 10^3/uL (150-450); RED BLOOD COUNT 3.85 10^6/uL (4.30-6.10); RED CELL DISTRIBUTION WIDTH 13.2 % (11.5-14.5); WHITE BLOOD COUNT 6.4 10^3/uL (4.0-10.0)
[2018-04-13 10:44] LABS: VENOUS BASE EXCESS 2.3 (-2.0-2.0); VENOUS HCO3 27.6 MEQ/L (23.0-27.0); VENOUS O2 SATURATION 84.7 % (60.0-80.0); VENOUS PARTIAL PRESSURE CO2 45.8 mmHg (38.0-50.0); VENOUS PH 7.398 UNITS (7.330-7.430); VENOUS STANDARD HCO3 26.2 MEQ/L
[2018-04-13] MEDS ORDERED: ISOVUE-370 76% 100ML VIAL (Q9967) As Ordered (11:01)
[2018-04-13 11:02] LABS: ALBUMIN 3.1 GM/DL (3.2-5.2); ALBUMIN/GLOBULIN RATIO 0.91 (1.00-1.93); ALKALINE PHOSPHATASE 57 U/L (45-117); ALT/SGPT 11 U/L (12-78); ANION GAP 8 MEQ/L (8-16); AST/SGOT 12 U/L (7-37); BILIRUBIN,DIRECT 0.2 MG/DL (0.0-0.2); BILIRUBIN,TOTAL 0.6 MG/DL (0.2-1.0); BLOOD UREA NITROGEN 13 MG/DL (7-18); CALCIUM LEVEL 7.8 MG/DL (8.8-10.2); CARBON DIOXIDE LEVEL 28 MEQ/L (21-32); CHLORIDE LEVEL 107 MEQ/L (98-107); CPK CREATINE PHOSPHOKINASE 50 U/L (39-308); CREATININE FOR GFR 1.24 MG/DL (0.70-1.30); GLOMERULAR FILTRATION RATE 59.4 (>35); GLUCOSE, FASTING 83 MG/DL (70-100); POTASSIUM SERUM 3.9 MEQ/L (3.5-5.1); SODIUM LEVEL 143 MEQ/L (136-145); TOTAL PROTEIN 6.5 GM/DL (6.4-8.2); TROPONIN I < 0.02 NG/ML (< 0.10)
[2018-04-13 11:08] LABS: CK-MB VALUE MASS 1.3 NG/ML (<3.6); NT-PRO BNP 10422 PG/ML (<450)
[2018-04-13] MEDS: FUROSEMIDE 40 MG/4 ML VIAL (J1940) IV ×3 (12:55→20:10)
[2018-04-13] MEDS ORDERED: IPRATROPIUM 0.5MG/ALBUTEROL 2.5MG INH SOL UD 3ML (DUONEB)(J7620) NEB (14:00)
[2018-04-13] MEDS ORDERED: ACETAMINOPHEN TAB 650MG DOSE (2X325MG) PO (14:15)
[2018-04-13] MEDS: APIXABAN 2.5 MG TAB (ELIQUIS) PO (20:11)
[2018-04-13] MEDS: CARVedilol 12.5 MG TAB PO (20:11)
[2018-04-13] MEDS: SOTALOL HCL 80 MG TAB PO (20:11)
[2018-04-13] MEDS: ADVAIR HFA 115/21MCG INHALER INH (20:23)
[2018-04-13] MEDS ORDERED: SLF 3 ML SYR IV (21:00)
[2018-04-13] MEDS: SLF 3 ML SYR IV (21:51)
[2018-04-13 22:26] LABS: ANION GAP 6 MEQ/L (8-16); BLOOD UREA NITROGEN 14 MG/DL (7-18); CALCIUM LEVEL 7.9 MG/DL (8.8-10.2); CARBON DIOXIDE LEVEL 34 MEQ/L (21-32); CHLORIDE LEVEL 104 MEQ/L (98-107); CREATININE FOR GFR 1.37 MG/DL (0.70-1.30); GLUCOSE, FASTING 100 MG/DL (70-100); POTASSIUM SERUM 3.8 MEQ/L (3.5-5.1); SODIUM LEVEL 144 MEQ/L (136-145)
[2018-04-14] MEDS: FUROSEMIDE 40 MG/4 ML VIAL (J1940) IV ×3 (00:12→12:04)
[2018-04-14] MEDS: LEVOTHYROXINE 75MCG TABLET (0.075MG) PO (04:58)
[2018-04-14] MEDS: SLF 3 ML SYR IV ×3 (05:06→21:01)
[2018-04-14 05:51] LABS: BASO # 0.1 10^3/uL (0.0-0.2); BASO % 0.8 % (0.0-1.0); EOS # 0.2 10^3/uL (0.0-0.50); EOS % 2.5 % (0.0-3.0); HEMATOCRIT 36.8 % (42.0-52.0); HEMOGLOBIN 12.2 g/dl (13.5-17.5); IMMATURE GRANULOCYTE % 0.2 % (0-3.0); LYMPH # 1.9 10^3/uL (1.5-4.5); LYMPH % 29.8 % (24.0-44.0); MEAN CORPUSCULAR HEMOGLOBIN 29.9 pg (27.0-33.0); MEAN CORPUSCULAR HGB CONC 33.2 g/dl (32.0-36.5); MEAN CORPUSCULAR VOLUME 90.2 fl (80.0-96.0); MONO # 0.9 10^3/uL (0.0-0.8); MONO % 13.1 % (0.0-5.0); NEUTROPHILS # 3.5 10^3/uL (1.8-7.7); NEUTROPHILS % 53.6 % (36.0-66.0); PLATELET COUNT, AUTOMATED 290 10^3/uL (150-450); RED BLOOD COUNT 4.08 10^6/uL (4.30-6.10); RED CELL DISTRIBUTION WIDTH 13.2 % (11.5-14.5); WHITE BLOOD COUNT 6.5 10^3/uL (4.0-10.0)
[2018-04-14 05:54] LABS: ALBUMIN 3.4 GM/DL (3.2-5.2); ALBUMIN/GLOBULIN RATIO 1.06 (1.00-1.93); ALKALINE PHOSPHATASE 60 U/L (45-117); ALT/SGPT 11 U/L (12-78); ANION GAP 7 MEQ/L (8-16); AST/SGOT 10 U/L (7-37); BILIRUBIN,TOTAL 0.7 MG/DL (0.2-1.0); BLOOD UREA NITROGEN 14 MG/DL (7-18); CALCIUM LEVEL 8.5 MG/DL (8.8-10.2); CARBON DIOXIDE LEVEL 34 MEQ/L (21-32); CHLORIDE LEVEL 102 MEQ/L (98-107); CREATININE FOR GFR 1.42 MG/DL (0.70-1.30); GLOMERULAR FILTRATION RATE 50.8 (>35); GLUCOSE, FASTING 100 MG/DL (70-100); POTASSIUM SERUM 3.6 MEQ/L (3.5-5.1); SODIUM LEVEL 143 MEQ/L (136-145); TOTAL PROTEIN 6.6 GM/DL (6.4-8.2)
[2018-04-14] MEDS: TIOTROPIUM INHALER/CAPSULE (SPIRIVA) INH (08:00)
[2018-04-14] MEDS: SOTALOL HCL 80 MG TAB PO ×2 (09:00→21:01)
[2018-04-14] MEDS: ADVAIR HFA 115/21MCG INHALER INH ×2 (09:00→20:59)
[2018-04-14] MEDS: CARVedilol 12.5 MG TAB PO ×2 (09:00→21:01)
[2018-04-14] MEDS: APIXABAN 2.5 MG TAB (ELIQUIS) PO ×2 (09:00→21:01)
[2018-04-14] MEDS: POTASSIUM CHLORIDE 10 MEQ SR TABLET PO (14:41)
[2018-04-15] MEDS: FUROSEMIDE 40 MG/4 ML VIAL (J1940) IV (00:06)
[2018-04-15 05:36] LABS: BASO % 0.5 % (0.0-1.0); EOS # 0.1 10^3/uL (0.0-0.50); EOS % 2.3 % (0.0-3.0); HEMATOCRIT 37.8 % (42.0-52.0); HEMOGLOBIN 12.1 g/dl (13.5-17.5); IMMATURE GRANULOCYTE % 0.3 % (0-3.0); LYMPH # 1.9 10^3/uL (1.5-4.5); LYMPH % 31.3 % (24.0-44.0); MEAN CORPUSCULAR HEMOGLOBIN 29.3 pg (27.0-33.0); MEAN CORPUSCULAR VOLUME 91.5 fl (80.0-96.0); MONO # 0.9 10^3/uL (0.0-0.8); MONO % 13.9 % (0.0-5.0); NEUTROPHILS # 3.2 10^3/uL (1.8-7.7); NEUTROPHILS % 51.7 % (36.0-66.0); PLATELET COUNT, AUTOMATED 256 10^3/uL (150-450); RED BLOOD COUNT 4.13 10^6/uL (4.30-6.10); RED CELL DISTRIBUTION WIDTH 13.2 % (11.5-14.5); WHITE BLOOD COUNT 6.1 10^3/uL (4.0-10.0)
[2018-04-15] MEDS: LEVOTHYROXINE 75MCG TABLET (0.075MG) PO (05:52)
[2018-04-15] MEDS: SLF 3 ML SYR IV (05:52)
[2018-04-15 06:05] LABS: ALBUMIN 3.1 GM/DL (3.2-5.2); ALBUMIN/GLOBULIN RATIO 0.94 (1.00-1.93); ALKALINE PHOSPHATASE 56 U/L (45-117); ALT/SGPT 11 U/L (12-78); ANION GAP 7 MEQ/L (8-16); AST/SGOT 9 U/L (7-37); BILIRUBIN,TOTAL 0.7 MG/DL (0.2-1.0); BLOOD UREA NITROGEN 21 MG/DL (7-18); CALCIUM LEVEL 8.5 MG/DL (8.8-10.2); CARBON DIOXIDE LEVEL 33 MEQ/L (21-32); CHLORIDE LEVEL 102 MEQ/L (98-107); GLOMERULAR FILTRATION RATE 47.7 (>35); GLUCOSE, FASTING 99 MG/DL (70-100); SODIUM LEVEL 142 MEQ/L (136-145); TOTAL PROTEIN 6.4 GM/DL (6.4-8.2)
[2018-04-15] MEDS: ADVAIR HFA 115/21MCG INHALER INH (07:14)
[2018-04-15] MEDS: TIOTROPIUM INHALER/CAPSULE (SPIRIVA) INH (07:14)
[2018-04-15] MEDS: FUROSEMIDE 20 MG TAB PO (10:17)
[2018-04-15] MEDS: APIXABAN 2.5 MG TAB (ELIQUIS) PO (10:18)
[2018-04-15] MEDS: SOTALOL HCL 80 MG TAB PO (11:32)
[2018-04-15] MEDS: CARVedilol 12.5 MG TAB PO (11:33)
== END 2018-04-15 12:35 | disposition home or self-care (01) | DRG 291 ==
LOC: M ED 09:37 → M ED INP 13:58 → M PCU 17:04
DX: I13.0 Hypertensive heart and chronic kidney disease with heart failure and stage 1 through stage 4 chronic kidney disease, or unspecified chronic kidney disease (principal); I50.23 Acute on chronic systolic (congestive) heart failure; I48.92 Unspecified atrial flutter; J44.9 Chronic obstructive pulmonary disease, unspecified; N18.3 Chronic kidney disease, stage 3 (moderate); E03.9 Hypothyroidism, unspecified; E78.5 Hyperlipidemia, unspecified; R91.8 Other nonspecific abnormal finding of lung field; N40.0 Benign prostatic hyperplasia without lower urinary tract symptoms; I48.91 Unspecified atrial fibrillation; K21.9 Gastro-esophageal reflux disease without esophagitis; M19.90 Unspecified osteoarthritis, unspecified site; Z96.643 Presence of artificial hip joint, bilateral; Z90.49 Acquired absence of other specified parts of digestive tract; Z85.038 Personal history of other malignant neoplasm of large intestine; Z87.891 Personal history of nicotine dependence; Z79.01 Long term (current) use of anticoagulants; Z79.899 Other long term (current) drug therapy; Z88.8 Allergy status to other drugs, medicaments and biological substances; Z95.0 Presence of cardiac pacemaker

== ENCOUNTER 2018-05-09 15:48 | Emergency (ER) | payer MEDICARE ==
[2018-05-09 16:52] LABS: VENOUS BASE EXCESS 2.3 (-2.0-2.0); VENOUS HCO3 28.8 MEQ/L (23.0-27.0); VENOUS PARTIAL PRESSURE CO2 54.2 mmHg (38.0-50.0); VENOUS PARTIAL PRESSURE O2 36.5 mmHg (30.0-50.0); VENOUS PH 7.344 UNITS (7.330-7.430); VENOUS STANDARD HCO3 25.8 MEQ/L; VENOUS TOTAL CO2 30.5 MEQ/L (24.0-28.0)
[2018-05-09 16:54] LABS: BASO % 0.6 % (0.0-1.0); EOS # 0.1 10^3/uL (0.0-0.50); HEMATOCRIT 34.6 % (42.0-52.0); HEMOGLOBIN 10.7 g/dl (13.5-17.5); IMMATURE GRANULOCYTE % 0.2 % (0-3.0); LYMPH # 1.4 10^3/uL (1.5-4.5); LYMPH % 30.7 % (24.0-44.0); MEAN CORPUSCULAR HEMOGLOBIN 28.1 pg (27.0-33.0); MEAN CORPUSCULAR HGB CONC 30.9 g/dl (32.0-36.5); MEAN CORPUSCULAR VOLUME 90.8 fl (80.0-96.0); MONO # 0.7 10^3/uL (0.0-0.8); NEUTROPHILS # 2.4 10^3/uL (1.8-7.7); NEUTROPHILS % 51.5 % (36.0-66.0); PLATELET COUNT, AUTOMATED 284 10^3/uL (150-450); RED BLOOD COUNT 3.81 10^6/uL (4.30-6.10); RED CELL DISTRIBUTION WIDTH 13.5 % (11.5-14.5); WHITE BLOOD COUNT 4.6 10^3/uL (4.0-10.0)
[2018-05-09] MEDS: NS 1,000 ML IV (17:08)
[2018-05-09] MEDS: ASPIRIN 81 MG CHEW TABLET PO (17:08)
[2018-05-09] MEDS: ALBUTEROL SULFATE 2.5 MG/0.5 ML INH NEB SOLN INH ×8 (17:15→17:28)
[2018-05-09 17:18] LABS: ALBUMIN 3.2 GM/DL (3.2-5.2); ALKALINE PHOSPHATASE 65 U/L (45-117); ALT/SGPT 14 U/L (12-78); ANION GAP 8 MEQ/L (8-16); AST/SGOT 9 U/L (7-37); BILIRUBIN,DIRECT 0.2 MG/DL (0.0-0.2); BILIRUBIN,TOTAL 0.5 MG/DL (0.2-1.0); BLOOD UREA NITROGEN 13 MG/DL (7-18); CARBON DIOXIDE LEVEL 31 MEQ/L (21-32); CHLORIDE LEVEL 107 MEQ/L (98-107); CPK CREATINE PHOSPHOKINASE 54 U/L (39-308); CREATININE FOR GFR 1.39 MG/DL (0.70-1.30); GLOMERULAR FILTRATION RATE 52.1 (>35); GLUCOSE, FASTING 109 MG/DL (70-100); POTASSIUM SERUM 3.6 MEQ/L (3.5-5.1); SODIUM LEVEL 146 MEQ/L (136-145); TOTAL PROTEIN 6.4 GM/DL (6.4-8.2); TROPONIN I 0.02 NG/ML (< 0.10)
[2018-05-09 17:21] LABS: INR 1.25; PROTHROMBIN TIME 15.8 SECONDS (12.1-14.4)
[2018-05-09 17:24] LABS: CK-MB VALUE MASS 1.4 NG/ML (<3.6); MB/CK RELATIVE INDEX 2.59 (< OR =4); NT-PRO BNP 8640 PG/ML (<450)
[2018-05-09] MEDS: FUROSEMIDE 20 MG/2 ML VIAL (J1940) IV (18:24)
== END 2018-05-09 19:24 | disposition home or self-care (01) ==
LOC: M ED 15:48
DX: J44.1 Chronic obstructive pulmonary disease with (acute) exacerbation (principal); I11.9 Hypertensive heart disease without heart failure; Z87.891 Personal history of nicotine dependence; Z88.8 Allergy status to other drugs, medicaments and biological substances; Z79.899 Other long term (current) drug therapy; Z79.51 Long term (current) use of inhaled steroids; Z79.01 Long term (current) use of anticoagulants
CPT/HCPCS: J1940

== ENCOUNTER 2018-07-07 19:44 | Emergency (ER) | payer MEDICARE ==
[2018-07-08] MEDS: IPRATROPIUM 0.5MG/ALBUTEROL 2.5MG INH SOL UD 3ML (DUONEB)(J7620) NEB (01:20)
[2018-07-08] MEDS: predniSONE 50 MG TAB PO (01:26)
[2018-07-08] MEDS: traMADol 50 MG TAB PO (01:29)
[2018-07-08] MEDS: BENZONATATE 100 MG CAP PO (02:10)
== END 2018-07-08 02:24 | disposition home or self-care (01) ==
LOC: M ED 07-08 02:24
DX: M54.31 Sciatica, right side (principal); M46.1 Sacroiliitis, not elsewhere classified; J44.9 Chronic obstructive pulmonary disease, unspecified; N18.9 Chronic kidney disease, unspecified; E03.9 Hypothyroidism, unspecified; I42.9 Cardiomyopathy, unspecified; Z79.899 Other long term (current) drug therapy; Z79.01 Long term (current) use of anticoagulants; Z87.891 Personal history of nicotine dependence
CPT/HCPCS: 71046

== ENCOUNTER → 2018-07-16 | Outpatient (CLI) | payer MEDICARE | LOC: M WUC 15:54 | DX: M43.17 Spondylolisthesis, lumbosacral region (principal); M85.88 Other specified disorders of bone density and structure, other site; S32.009D Unspecified fracture of unspecified lumbar vertebra, subsequent encounter for fracture with routine healing; M54.5 Low back pain ==

== ENCOUNTER 2018-07-19 05:17 | Inpatient (IN) | payer MEDICARE ==
[2018-07-19 06:05] LABS: BASO % 0.3 % (0.0-1.0); EOS # 0.1 10^3/uL (0.0-0.50); EOS % 0.6 % (0.0-3.0); HEMATOCRIT 39.1 % (42.0-52.0); HEMOGLOBIN 12.1 g/dl (13.5-17.5); IMMATURE GRANULOCYTE % 0.5 % (0-3.0); LYMPH # 2.2 10^3/uL (1.5-4.5); LYMPH % 19.4 % (24.0-44.0); MEAN CORPUSCULAR HEMOGLOBIN 26.1 pg (27.0-33.0); MEAN CORPUSCULAR HGB CONC 30.9 g/dl (32.0-36.5); MEAN CORPUSCULAR VOLUME 84.3 fl (80.0-96.0); MONO # 1.6 10^3/uL (0.0-0.8); MONO % 13.6 % (0.0-5.0); NEUTROPHILS # 7.5 10^3/uL (1.8-7.7); NEUTROPHILS % 65.6 % (36.0-66.0); PLATELET COUNT, AUTOMATED 419 10^3/uL (150-450); RED BLOOD COUNT 4.64 10^6/uL (4.30-6.10); RED CELL DISTRIBUTION WIDTH 18.4 % (11.5-14.5); WHITE BLOOD COUNT 11.4 10^3/uL (4.0-10.0)
[2018-07-19] MEDS: IPRATROPIUM 0.5MG/ALBUTEROL 2.5MG INH SOL UD 3ML (DUONEB)(J7620) NEB ×3 (06:28→06:29)
[2018-07-19 06:30] LABS: VENOUS HCO3 31.1 MEQ/L (23.0-27.0); VENOUS O2 SATURATION 41.6 % (60.0-80.0); VENOUS PARTIAL PRESSURE CO2 52.8 mmHg (38.0-50.0); VENOUS PARTIAL PRESSURE O2 26.8 mmHg (30.0-50.0); VENOUS PH 7.388 UNITS (7.330-7.430); VENOUS STANDARD HCO3 27.7 MEQ/L; VENOUS TOTAL CO2 32.7 MEQ/L (24.0-28.0)
[2018-07-19 06:45] LABS: ABG BASE EXCESS 3.8 (-2.0-2.0); ABG PARTIAL PRESSURE CO2 35.8 mmHg (35.0-45.0); ABG PARTIAL PRESSURE O2 77.8 mmHg (75.0-100.0); ABG STANDARD HCO3 27.8 MEQ/L (22.0-26.0); ABG TOTAL CO2 28.1 MEQ/L (23.0-31.0); ABG pH (ARTERIAL) 7.495 UNITS (7.350-7.450)
[2018-07-19] MEDS: dexameTHASONE 20 MG/5 ML VIAL (J1100) IV (06:47)
[2018-07-19] MEDS: FUROSEMIDE 100 MG/10 ML VIAL (J1940) IV (06:47)
[2018-07-19] MEDS: NITROGLYCERIN 2% OINT 1 GM *U/D* PKT TOP (06:48)
[2018-07-19 07:17] LABS: ANION GAP 9 MEQ/L (8-16); BLOOD UREA NITROGEN 20 MG/DL (7-18); CALCIUM LEVEL 8.5 MG/DL (8.8-10.2); CARBON DIOXIDE LEVEL 29 MEQ/L (21-32); CHLORIDE LEVEL 98 MEQ/L (98-107); CK-MB VALUE MASS < 1.0 NG/ML (<3.6); CPK CREATINE PHOSPHOKINASE 28 U/L (39-308); CREATININE FOR GFR 1.19 MG/DL (0.70-1.30); GLOMERULAR FILTRATION RATE > 60.0 (>35); GLUCOSE, FASTING 117 MG/DL (70-100); MB/CK RELATIVE INDEX 3.57 (< OR =4); NT-PRO BNP 7177 PG/ML (<450); POTASSIUM SERUM 4.4 MEQ/L (3.5-5.1); SODIUM LEVEL 136 MEQ/L (136-145); TROPONIN I < 0.02 NG/ML (< 0.10)
[2018-07-19] MEDS ORDERED: FUROSEMIDE 20 MG/2 ML VIAL (J1940) IV (08:00)
[2018-07-19] MEDS: AZITHROMYCIN INJ 500 MG, VIAL MATE ADAPTER 1 EACH in D5W 250 ML IV (08:00)
[2018-07-19 08:03] LABS: ALKALINE PHOSPHATASE 94 U/L (45-117); ALT/SGPT 12 U/L (12-78); AST/SGOT 10 U/L (7-37); BILIRUBIN,TOTAL 0.8 MG/DL (0.2-1.0)
[2018-07-19 08:04] LABS: ALBUMIN 2.7 GM/DL (3.2-5.2); ALBUMIN/GLOBULIN RATIO 0.79 (1.00-1.93); BILIRUBIN,DIRECT 0.3 MG/DL (0.0-0.2); TOTAL PROTEIN 6.1 GM/DL (6.4-8.2)
[2018-07-19 08:30] LABS: BASO % 0.2 % (0.0-1.0); EOS % 0.4 % (0.0-3.0); HEMATOCRIT 36.6 % (42.0-52.0); HEMOGLOBIN 11.4 g/dl (13.5-17.5); IMMATURE GRANULOCYTE % 0.5 % (0-3.0); LYMPH # 1.1 10^3/uL (1.5-4.5); LYMPH % 11.3 % (24.0-44.0); MEAN CORPUSCULAR HGB CONC 31.1 g/dl (32.0-36.5); MEAN CORPUSCULAR VOLUME 83.4 fl (80.0-96.0); MONO # 0.6 10^3/uL (0.0-0.8); MONO % 6.6 % (0.0-5.0); NEUTROPHILS # 7.8 10^3/uL (1.8-7.7); PLATELET COUNT, AUTOMATED 352 10^3/uL (150-450); RED BLOOD COUNT 4.39 10^6/uL (4.30-6.10); RED CELL DISTRIBUTION WIDTH 18.3 % (11.5-14.5); WHITE BLOOD COUNT 9.6 10^3/uL (4.0-10.0)
[2018-07-19] MEDS: cefTRIAXone SOD 1 GM in D5W MINI-BAG PLUS 50 ML IV ×2 (08:36→20:57)
[2018-07-19 08:38] LABS: INFLUENZA A AMPLIFICATION NEGATIVE (NEGATIVE); INFLUENZA B AMPLIFICATION NEGATIVE (NEGATIVE)
[2018-07-19] MEDS: ADVAIR HFA 115/21MCG INHALER INH ×2 (09:00→21:48)
[2018-07-19] MEDS ORDERED: ISOVUE-370 76% 100ML VIAL (Q9967) As Ordered (10:42)
[2018-07-19] MEDS ORDERED: AZITHROMYCIN INJ 500 MG, VIAL MATE ADAPTER 1 EACH in D5W 250 ML IV (10:45)
[2018-07-19] MEDS: CARVedilol 12.5 MG TAB PO ×2 (12:49→20:57)
[2018-07-19] MEDS: oxyCODONE 10 MG CR TAB PO ×2 (12:49→21:00)
[2018-07-19] MEDS: APIXABAN 2.5 MG TAB (ELIQUIS) PO ×2 (12:49→20:54)
[2018-07-19] MEDS: MULTIVITAMINS/MINERALS THERAP 1 TAB PO (12:49)
[2018-07-19] MEDS: FUROSEMIDE 40 MG/4 ML VIAL (J1940) IV ×4 (12:51→23:54)
[2018-07-19] MEDS: ALBUTEROL SULFATE 2.5 MG/0.5 ML INH NEB SOLN INH ×5 (13:00→21:00)
[2018-07-19 13:04] LABS: ERYTHROCYTE SEDIMENTATION RATE 29 mm/hr (0-20)
[2018-07-19] MEDS: DOXYCYCLINE HYCLATE 100 MG in D5W MINI-BAG PLUS 100 ML IV (15:54)
[2018-07-19] MEDS: MEGESTROL SUSP 400 MG/10 ML UDC PO (15:55)
[2018-07-19] MEDS: TIOTROPIUM INHALER/CAPSULE (SPIRIVA) INH (16:01)
[2018-07-19] MEDS: POTASSIUM CHLORIDE 10 MEQ SR TABLET PO (20:54)
[2018-07-19] MEDS: SOTALOL HCL 80 MG TAB PO (20:58)
[2018-07-19] MEDS ORDERED: cefTRIAXone SOD 1 GM in D5W MINI-BAG PLUS 50 ML IV (21:00)
[2018-07-20] MEDS: DOXYCYCLINE HYCLATE 100 MG in D5W MINI-BAG PLUS 100 ML IV ×2 (04:39→17:42)
[2018-07-20 05:25] LABS: HEMATOCRIT 30.4 % (42.0-52.0); HEMOGLOBIN 9.6 g/dl (13.5-17.5); IMMATURE GRANULOCYTE % 0.5 % (0-3.0); LYMPH # 0.9 10^3/uL (1.5-4.5); LYMPH % 10.9 % (24.0-44.0); MEAN CORPUSCULAR HEMOGLOBIN 25.9 pg (27.0-33.0); MEAN CORPUSCULAR HGB CONC 31.6 g/dl (32.0-36.5); MEAN CORPUSCULAR VOLUME 82.2 fl (80.0-96.0); MONO # 0.6 10^3/uL (0.0-0.8); MONO % 6.7 % (0.0-5.0); NEUTROPHILS # 6.9 10^3/uL (1.8-7.7); NEUTROPHILS % 81.9 % (36.0-66.0); PLATELET COUNT, AUTOMATED 338 10^3/uL (150-450); RED CELL DISTRIBUTION WIDTH 18.5 % (11.5-14.5); WHITE BLOOD COUNT 8.5 10^3/uL (4.0-10.0)
[2018-07-20 05:55] LABS: ANION GAP 10 MEQ/L (8-16); BLOOD UREA NITROGEN 19 MG/DL (7-18); CALCIUM LEVEL 8.3 MG/DL (8.8-10.2); CARBON DIOXIDE LEVEL 30 MEQ/L (21-32); CHLORIDE LEVEL 101 MEQ/L (98-107); CREATININE FOR GFR 1.08 MG/DL (0.70-1.30); GLOMERULAR FILTRATION RATE > 60.0 (>35); GLUCOSE, FASTING 122 MG/DL (70-100); POTASSIUM SERUM 3.5 MEQ/L (3.5-5.1); SODIUM LEVEL 141 MEQ/L (136-145)
[2018-07-20] MEDS: SLF 3 ML SYR IV ×3 (06:06→20:35)
[2018-07-20] MEDS: FUROSEMIDE 40 MG/4 ML VIAL (J1940) IV ×4 (06:06→23:56)
[2018-07-20] MEDS: LEVOTHYROXINE 50MCG TABLET (0.05MG) PO (06:06)
[2018-07-20] MEDS: ALBUTEROL SULFATE 2.5 MG/0.5 ML INH NEB SOLN INH ×4 (07:24→20:20)
[2018-07-20] MEDS: TIOTROPIUM INHALER/CAPSULE (SPIRIVA) INH (07:24)
[2018-07-20] MEDS: ADVAIR HFA 115/21MCG INHALER INH ×2 (07:25→20:20)
[2018-07-20] MEDS ORDERED: FUROSEMIDE 20 MG TAB PO (09:00)
[2018-07-20] MEDS: MULTIVITAMINS/MINERALS THERAP 1 TAB PO (09:31)
[2018-07-20] MEDS: CARVedilol 12.5 MG TAB PO ×2 (09:32→20:34)
[2018-07-20] MEDS: LOPERAMIDE 2 MG CAP PO ×2 (09:32→14:31)
[2018-07-20] MEDS: APIXABAN 2.5 MG TAB (ELIQUIS) PO ×2 (09:32→20:35)
[2018-07-20] MEDS: oxyCODONE 10 MG CR TAB PO ×2 (09:32→20:30)
[2018-07-20] MEDS: SOTALOL HCL 80 MG TAB PO ×2 (09:32→20:35)
[2018-07-20] MEDS: cefTRIAXone SOD 1 GM in D5W MINI-BAG PLUS 50 ML IV ×2 (09:33→20:35)
[2018-07-20] MEDS: INFLUENZA VIRUS VACCINE HIGH DOSE 0.5 ML SYRINGE (90662) IM (10:10)
[2018-07-20] MEDS: MEGESTROL SUSP 400 MG/10 ML UDC PO (13:21)
[2018-07-20] MEDS: POTASSIUM CHLORIDE 10 MEQ SR TABLET PO (17:43)
[2018-07-21] MEDS: DOXYCYCLINE HYCLATE 100 MG in D5W MINI-BAG PLUS 100 ML IV ×2 (04:19→16:59)
[2018-07-21 05:33] LABS: BASO % 0.2 % (0.0-1.0); EOS % 0.2 % (0.0-3.0); HEMATOCRIT 31.6 % (42.0-52.0); HEMOGLOBIN 9.9 g/dl (13.5-17.5); IMMATURE GRANULOCYTE % 0.6 % (0-3.0); LYMPH # 1.6 10^3/uL (1.5-4.5); LYMPH % 14.9 % (24.0-44.0); MEAN CORPUSCULAR HGB CONC 31.3 g/dl (32.0-36.5); MEAN CORPUSCULAR VOLUME 82.9 fl (80.0-96.0); MONO # 0.8 10^3/uL (0.0-0.8); MONO % 7.6 % (0.0-5.0); NEUTROPHILS # 8.1 10^3/uL (1.8-7.7); NEUTROPHILS % 76.5 % (36.0-66.0); PLATELET COUNT, AUTOMATED 348 10^3/uL (150-450); RED BLOOD COUNT 3.81 10^6/uL (4.30-6.10); RED CELL DISTRIBUTION WIDTH 18.8 % (11.5-14.5); WHITE BLOOD COUNT 10.6 10^3/uL (4.0-10.0)
[2018-07-21] MEDS: FUROSEMIDE 40 MG/4 ML VIAL (J1940) IV ×3 (05:48→23:54)
[2018-07-21] MEDS: SLF 3 ML SYR IV ×5 (05:48→20:27)
[2018-07-21] MEDS: LEVOTHYROXINE 50MCG TABLET (0.05MG) PO (05:48)
[2018-07-21 05:59] LABS: ANION GAP 7 MEQ/L (8-16); BLOOD UREA NITROGEN 17 MG/DL (7-18); CALCIUM LEVEL 8.3 MG/DL (8.8-10.2); CARBON DIOXIDE LEVEL 34 MEQ/L (21-32); CHLORIDE LEVEL 101 MEQ/L (98-107); CREATININE FOR GFR 1.05 MG/DL (0.70-1.30); GLOMERULAR FILTRATION RATE > 60.0 (>35); GLUCOSE, FASTING 98 MG/DL (70-100); POTASSIUM SERUM 3.2 MEQ/L (3.5-5.1); SODIUM LEVEL 142 MEQ/L (136-145)
[2018-07-21] MEDS: POTASSIUM CHLORIDE 10 MEQ SR TABLET PO (06:19)
[2018-07-21] MEDS: LOPERAMIDE 2 MG CAP PO (07:14)
[2018-07-21] MEDS: TIOTROPIUM INHALER/CAPSULE (SPIRIVA) INH (07:53)
[2018-07-21] MEDS: ADVAIR HFA 115/21MCG INHALER INH ×2 (07:53→21:00)
[2018-07-21] MEDS: ALBUTEROL SULFATE 2.5 MG/0.5 ML INH NEB SOLN INH ×4 (07:56→20:34)
[2018-07-21] MEDS: cefTRIAXone SOD 1 GM in D5W MINI-BAG PLUS 50 ML IV ×2 (08:50→20:27)
[2018-07-21] MEDS: CARVedilol 12.5 MG TAB PO ×2 (08:55→20:26)
[2018-07-21] MEDS: APIXABAN 2.5 MG TAB (ELIQUIS) PO ×2 (08:55→20:26)
[2018-07-21] MEDS: MULTIVITAMINS/MINERALS THERAP 1 TAB PO (08:55)
[2018-07-21] MEDS: oxyCODONE 10 MG CR TAB PO (08:56)
[2018-07-21] MEDS: SOTALOL HCL 80 MG TAB PO ×2 (08:56→20:26)
[2018-07-21] MEDS: ACETAMINOPHEN TAB 650MG DOSE (2X325MG) PO (10:09)
[2018-07-21] MEDS: MEGESTROL SUSP 400 MG/10 ML UDC PO (15:17)
[2018-07-22] MEDS: ACETAMINOPHEN TAB 650MG DOSE (2X325MG) PO ×2 (02:13→09:00)
[2018-07-22] MEDS: DOXYCYCLINE HYCLATE 100 MG in D5W MINI-BAG PLUS 100 ML IV ×2 (04:52→16:48)
[2018-07-22] MEDS: SLF 3 ML SYR IV ×2 (05:00→14:00)
[2018-07-22] MEDS: LEVOTHYROXINE 50MCG TABLET (0.05MG) PO (05:00)
[2018-07-22 06:06] LABS: BASO % 0.4 % (0.0-1.0); EOS # 0.1 10^3/uL (0.0-0.50); EOS % 1.6 % (0.0-3.0); HEMOGLOBIN 10.4 g/dl (13.5-17.5); IMMATURE GRANULOCYTE % 0.4 % (0-3.0); LYMPH # 1.9 10^3/uL (1.5-4.5); MEAN CORPUSCULAR HEMOGLOBIN 26.3 pg (27.0-33.0); MEAN CORPUSCULAR HGB CONC 31.5 g/dl (32.0-36.5); MEAN CORPUSCULAR VOLUME 83.5 fl (80.0-96.0); MONO # 0.9 10^3/uL (0.0-0.8); MONO % 10.8 % (0.0-5.0); NEUTROPHILS # 5.6 10^3/uL (1.8-7.7); NEUTROPHILS % 64.8 % (36.0-66.0); PLATELET COUNT, AUTOMATED 313 10^3/uL (150-450); RED BLOOD COUNT 3.95 10^6/uL (4.30-6.10); RED CELL DISTRIBUTION WIDTH 18.6 % (11.5-14.5); WHITE BLOOD COUNT 8.6 10^3/uL (4.0-10.0)
[2018-07-22 06:32] LABS: ANION GAP 9 MEQ/L (8-16); BLOOD UREA NITROGEN 20 MG/DL (7-18); CALCIUM LEVEL 8.1 MG/DL (8.8-10.2); CARBON DIOXIDE LEVEL 31 MEQ/L (21-32); CHLORIDE LEVEL 101 MEQ/L (98-107); CREATININE FOR GFR 1.11 MG/DL (0.70-1.30); GLOMERULAR FILTRATION RATE > 60.0 (>35); GLUCOSE, FASTING 100 MG/DL (70-100); POTASSIUM SERUM 3.4 MEQ/L (3.5-5.1); SODIUM LEVEL 141 MEQ/L (136-145)
[2018-07-22] MEDS: POTASSIUM CHLORIDE 10 MEQ SR TABLET PO (06:53)
[2018-07-22] MEDS: ADVAIR HFA 115/21MCG INHALER INH ×2 (07:14→20:31)
[2018-07-22] MEDS: TIOTROPIUM INHALER/CAPSULE (SPIRIVA) INH (07:14)
[2018-07-22] MEDS: ALBUTEROL SULFATE 2.5 MG/0.5 ML INH NEB SOLN INH ×4 (07:14→21:00)
[2018-07-22 08:11] LABS: MAGNESIUM LEVEL 1.9 MG/DL (1.8-2.4)
[2018-07-22] MEDS: APIXABAN 2.5 MG TAB (ELIQUIS) PO ×2 (08:58→20:13)
[2018-07-22] MEDS: SOTALOL HCL 80 MG TAB PO ×2 (08:59→20:13)
[2018-07-22] MEDS: CARVedilol 12.5 MG TAB PO ×2 (08:59→20:12)
[2018-07-22] MEDS: MULTIVITAMINS/MINERALS THERAP 1 TAB PO (09:00)
[2018-07-22] MEDS: cefTRIAXone SOD 1 GM in D5W MINI-BAG PLUS 50 ML IV ×2 (09:00→20:13)
[2018-07-22] MEDS: guaiFENesin ER 600 MG TAB PO ×2 (10:57→20:11)
[2018-07-22] MEDS: methylPREDNISolone INJ 125 MG/2 ML VIAL (J2930) IV ×2 (11:41→18:10)
[2018-07-22] MEDS: MEGESTROL SUSP 400 MG/10 ML UDC PO (15:09)
[2018-07-23] MEDS: SLF 3 ML SYR IV ×4 (04:35→21:09)
[2018-07-23] MEDS: methylPREDNISolone INJ 125 MG/2 ML VIAL (J2930) IV ×3 (04:35→18:46)
[2018-07-23] MEDS: DOXYCYCLINE HYCLATE 100 MG in D5W MINI-BAG PLUS 100 ML IV ×2 (04:35→17:54)
[2018-07-23] MEDS: LEVOTHYROXINE 50MCG TABLET (0.05MG) PO (05:43)
[2018-07-23 06:19] LABS: BASO % 0.2 % (0.0-1.0); HEMATOCRIT 33.3 % (42.0-52.0); HEMOGLOBIN 10.7 g/dl (13.5-17.5); IMMATURE GRANULOCYTE % 0.5 % (0-3.0); LYMPH % 15.1 % (24.0-44.0); MEAN CORPUSCULAR HEMOGLOBIN 26.2 pg (27.0-33.0); MEAN CORPUSCULAR HGB CONC 32.1 g/dl (32.0-36.5); MEAN CORPUSCULAR VOLUME 81.6 fl (80.0-96.0); MONO # 0.2 10^3/uL (0.0-0.8); MONO % 3.5 % (0.0-5.0); NEUTROPHILS # 5.3 10^3/uL (1.8-7.7); NEUTROPHILS % 80.7 % (36.0-66.0); PLATELET COUNT, AUTOMATED 340 10^3/uL (150-450); RED BLOOD COUNT 4.08 10^6/uL (4.30-6.10); RED CELL DISTRIBUTION WIDTH 18.3 % (11.5-14.5); WHITE BLOOD COUNT 6.5 10^3/uL (4.0-10.0)
[2018-07-23 06:43] LABS: ANION GAP 10 MEQ/L (8-16); BLOOD UREA NITROGEN 23 MG/DL (7-18); CALCIUM LEVEL 8.5 MG/DL (8.8-10.2); CARBON DIOXIDE LEVEL 28 MEQ/L (21-32); CHLORIDE LEVEL 102 MEQ/L (98-107); CREATININE FOR GFR 1.08 MG/DL (0.70-1.30); GLOMERULAR FILTRATION RATE > 60.0 (>35); GLUCOSE, FASTING 150 MG/DL (70-100); SODIUM LEVEL 140 MEQ/L (136-145)
[2018-07-23] MEDS: TIOTROPIUM INHALER/CAPSULE (SPIRIVA) INH (07:36)
[2018-07-23] MEDS: ADVAIR HFA 115/21MCG INHALER INH ×2 (07:36→20:09)
[2018-07-23] MEDS: ALBUTEROL SULFATE 2.5 MG/0.5 ML INH NEB SOLN INH ×4 (08:00→20:09)
[2018-07-23] MEDS: CARVedilol 12.5 MG TAB PO ×2 (09:07→20:51)
[2018-07-23] MEDS: guaiFENesin ER 600 MG TAB PO ×2 (09:08→20:50)
[2018-07-23] MEDS: APIXABAN 2.5 MG TAB (ELIQUIS) PO ×2 (09:08→20:50)
[2018-07-23] MEDS: MULTIVITAMINS/MINERALS THERAP 1 TAB PO (09:08)
[2018-07-23] MEDS: SOTALOL HCL 80 MG TAB PO ×2 (09:08→20:50)
[2018-07-23] MEDS: cefTRIAXone SOD 1 GM in D5W MINI-BAG PLUS 50 ML IV ×2 (09:08→20:46)
[2018-07-23] MEDS: ACETAMINOPHEN TAB 650MG DOSE (2X325MG) PO (09:55)
[2018-07-23] MEDS: LOPERAMIDE 2 MG CAP PO ×2 (10:24→14:58)
[2018-07-23] MEDS: FUROSEMIDE 40 MG/4 ML VIAL (J1940) IV (12:30)
[2018-07-23] MEDS: MEGESTROL SUSP 400 MG/10 ML UDC PO (14:58)
[2018-07-23] MEDS ORDERED: PILL CRUSHER/CUTTER 1 EACH XX (21:00)
[2018-07-23] MEDS: LOSARTAN 25 MG TAB PO (21:09)
[2018-07-24] MEDS: methylPREDNISolone INJ 125 MG/2 ML VIAL (J2930) IV (02:39)
[2018-07-24] MEDS: DOXYCYCLINE HYCLATE 100 MG in D5W MINI-BAG PLUS 100 ML IV (04:24)
[2018-07-24] MEDS: LOPERAMIDE 2 MG CAP PO (04:24)
[2018-07-24] MEDS: LEVOTHYROXINE 50MCG TABLET (0.05MG) PO (05:47)
[2018-07-24] MEDS: SLF 3 ML SYR IV ×4 (05:47→21:07)
[2018-07-24 06:16] LABS: BASO % 0.1 % (0.0-1.0); HEMATOCRIT 35.2 % (42.0-52.0); IMMATURE GRANULOCYTE % 0.6 % (0-3.0); LYMPH # 0.9 10^3/uL (1.5-4.5); LYMPH % 9.1 % (24.0-44.0); MEAN CORPUSCULAR HEMOGLOBIN 26.1 pg (27.0-33.0); MEAN CORPUSCULAR HGB CONC 31.3 g/dl (32.0-36.5); MEAN CORPUSCULAR VOLUME 83.4 fl (80.0-96.0); MONO # 0.3 10^3/uL (0.0-0.8); NEUTROPHILS # 8.3 10^3/uL (1.8-7.7); NEUTROPHILS % 87.2 % (36.0-66.0); PLATELET COUNT, AUTOMATED 288 10^3/uL (150-450); RED BLOOD COUNT 4.22 10^6/uL (4.30-6.10); RED CELL DISTRIBUTION WIDTH 18.7 % (11.5-14.5); WHITE BLOOD COUNT 9.5 10^3/uL (4.0-10.0)
[2018-07-24 06:35] LABS: ANION GAP 9 MEQ/L (8-16); BLOOD UREA NITROGEN 26 MG/DL (7-18); CALCIUM LEVEL 7.7 MG/DL (8.8-10.2); CARBON DIOXIDE LEVEL 25 MEQ/L (21-32); CHLORIDE LEVEL 103 MEQ/L (98-107); CREATININE FOR GFR 1.28 MG/DL (0.70-1.30); GLOMERULAR FILTRATION RATE 57.3 (>35); GLUCOSE, FASTING 137 MG/DL (70-100); POTASSIUM SERUM 3.8 MEQ/L (3.5-5.1); SODIUM LEVEL 137 MEQ/L (136-145)
[2018-07-24] MEDS: TIOTROPIUM INHALER/CAPSULE (SPIRIVA) INH (06:43)
[2018-07-24] MEDS: ADVAIR HFA 115/21MCG INHALER INH ×2 (06:43→20:38)
[2018-07-24] MEDS: ALBUTEROL SULFATE 2.5 MG/0.5 ML INH NEB SOLN INH ×4 (06:59→20:38)
[2018-07-24] MEDS: ACETAMINOPHEN TAB 650MG DOSE (2X325MG) PO ×2 (07:59→16:13)
[2018-07-24] MEDS: MULTIVITAMINS/MINERALS THERAP 1 TAB PO (09:38)
[2018-07-24] MEDS: cefTRIAXone SOD 1 GM in D5W MINI-BAG PLUS 50 ML IV (09:38)
[2018-07-24] MEDS: guaiFENesin ER 600 MG TAB PO ×2 (09:39→21:06)
[2018-07-24] MEDS: APIXABAN 2.5 MG TAB (ELIQUIS) PO ×2 (09:40→21:07)
[2018-07-24] MEDS: SOTALOL HCL 80 MG TAB PO ×2 (09:40→21:07)
[2018-07-24] MEDS: CARVedilol 12.5 MG TAB PO ×2 (09:41→21:07)
[2018-07-24] MEDS: methylPREDNISolone INJ 40 MG/1 ML VIAL (J2920) IV ×2 (11:22→18:25)
[2018-07-24] MEDS: FUROSEMIDE 40 MG/4 ML VIAL (J1940) IV (12:32)
[2018-07-24] MEDS: MEGESTROL SUSP 400 MG/10 ML UDC PO (15:47)
[2018-07-24] MEDS: LOSARTAN 25 MG TAB PO (21:06)
[2018-07-24] MEDS: CEFUROXIME 500 MG TAB PO (21:06)
[2018-07-25] MEDS: methylPREDNISolone INJ 40 MG/1 ML VIAL (J2920) IV ×3 (03:18→18:13)
[2018-07-25] MEDS: LEVOTHYROXINE 50MCG TABLET (0.05MG) PO (05:34)
[2018-07-25] MEDS: SLF 3 ML SYR IV ×3 (05:35→22:00)
[2018-07-25 05:53] LABS: BASO % 0.1 % (0.0-1.0); HEMATOCRIT 33.5 % (42.0-52.0); HEMOGLOBIN 10.8 g/dl (13.5-17.5); IMMATURE GRANULOCYTE % 0.4 % (0-3.0); LYMPH # 0.9 10^3/uL (1.5-4.5); LYMPH % 8.8 % (24.0-44.0); MEAN CORPUSCULAR HGB CONC 32.2 g/dl (32.0-36.5); MEAN CORPUSCULAR VOLUME 80.5 fl (80.0-96.0); MONO # 0.5 10^3/uL (0.0-0.8); MONO % 5.5 % (0.0-5.0); NEUTROPHILS # 8.2 10^3/uL (1.8-7.7); NEUTROPHILS % 85.2 % (36.0-66.0); PLATELET COUNT, AUTOMATED 316 10^3/uL (150-450); RED BLOOD COUNT 4.16 10^6/uL (4.30-6.10); RED CELL DISTRIBUTION WIDTH 18.5 % (11.5-14.5); WHITE BLOOD COUNT 9.7 10^3/uL (4.0-10.0)
[2018-07-25 06:19] LABS: ANION GAP 10 MEQ/L (8-16); BLOOD UREA NITROGEN 31 MG/DL (7-18); CALCIUM LEVEL 8.1 MG/DL (8.8-10.2); CARBON DIOXIDE LEVEL 29 MEQ/L (21-32); CHLORIDE LEVEL 103 MEQ/L (98-107); CREATININE FOR GFR 1.18 MG/DL (0.70-1.30); GLOMERULAR FILTRATION RATE > 60.0 (>35); GLUCOSE, FASTING 122 MG/DL (70-100); POTASSIUM SERUM 3.4 MEQ/L (3.5-5.1); SODIUM LEVEL 142 MEQ/L (136-145)
[2018-07-25] MEDS: ALBUTEROL SULFATE 2.5 MG/0.5 ML INH NEB SOLN INH ×4 (07:46→21:00)
[2018-07-25] MEDS: TIOTROPIUM INHALER/CAPSULE (SPIRIVA) INH (07:46)
[2018-07-25] MEDS: ADVAIR HFA 115/21MCG INHALER INH ×2 (07:46→21:08)
[2018-07-25 08:46] LABS: MAGNESIUM LEVEL 2.1 MG/DL (1.8-2.4)
[2018-07-25] MEDS: POTASSIUM CHLORIDE 10 MEQ SR TABLET PO (09:36)
[2018-07-25] MEDS: SOTALOL HCL 80 MG TAB PO ×2 (09:36→21:03)
[2018-07-25] MEDS: LOPERAMIDE 2 MG CAP PO ×2 (09:36→17:09)
[2018-07-25] MEDS: CARVedilol 12.5 MG TAB PO ×2 (09:36→21:04)
[2018-07-25] MEDS: APIXABAN 2.5 MG TAB (ELIQUIS) PO ×2 (09:36→21:03)
[2018-07-25] MEDS: FUROSEMIDE 20 MG TAB PO (09:37)
[2018-07-25] MEDS: guaiFENesin ER 600 MG TAB PO ×2 (09:37→21:03)
[2018-07-25] MEDS: CEFUROXIME 500 MG TAB PO ×2 (09:37→21:03)
[2018-07-25] MEDS: MULTIVITAMINS/MINERALS THERAP 1 TAB PO (09:37)
[2018-07-25] MEDS: ACETAMINOPHEN TAB 650MG DOSE (2X325MG) PO (13:23)
[2018-07-25] MEDS: MEGESTROL SUSP 400 MG/10 ML UDC PO (14:20)
[2018-07-25] MEDS: LOSARTAN 25 MG TAB PO (21:04)
[2018-07-26] MEDS: methylPREDNISolone INJ 40 MG/1 ML VIAL (J2920) IV ×3 (03:15→18:40)
[2018-07-26] MEDS: SLF 3 ML SYR IV ×3 (05:53→21:54)
[2018-07-26] MEDS: LOPERAMIDE 2 MG CAP PO ×2 (05:53→14:25)
[2018-07-26] MEDS: LEVOTHYROXINE 50MCG TABLET (0.05MG) PO (05:53)
[2018-07-26 06:04] LABS: HEMATOCRIT 36.8 % (42.0-52.0); HEMOGLOBIN 11.6 g/dl (13.5-17.5); IMMATURE GRANULOCYTE % 0.6 % (0-3.0); LYMPH # 0.9 10^3/uL (1.5-4.5); LYMPH % 10.1 % (24.0-44.0); MEAN CORPUSCULAR HEMOGLOBIN 25.7 pg (27.0-33.0); MEAN CORPUSCULAR HGB CONC 31.5 g/dl (32.0-36.5); MEAN CORPUSCULAR VOLUME 81.4 fl (80.0-96.0); MONO # 0.5 10^3/uL (0.0-0.8); NEUTROPHILS # 7.3 10^3/uL (1.8-7.7); NEUTROPHILS % 83.3 % (36.0-66.0); PLATELET COUNT, AUTOMATED 328 10^3/uL (150-450); RED BLOOD COUNT 4.52 10^6/uL (4.30-6.10); RED CELL DISTRIBUTION WIDTH 18.6 % (11.5-14.5); WHITE BLOOD COUNT 8.8 10^3/uL (4.0-10.0)
[2018-07-26 06:47] LABS: ANION GAP 8 MEQ/L (8-16); BLOOD UREA NITROGEN 35 MG/DL (7-18); CALCIUM LEVEL 8.3 MG/DL (8.8-10.2); CARBON DIOXIDE LEVEL 28 MEQ/L (21-32); CHLORIDE LEVEL 105 MEQ/L (98-107); CREATININE FOR GFR 1.21 MG/DL (0.70-1.30); GLOMERULAR FILTRATION RATE > 60.0 (>35); GLUCOSE, FASTING 117 MG/DL (70-100); POTASSIUM SERUM 4.2 MEQ/L (3.5-5.1); SODIUM LEVEL 141 MEQ/L (136-145)
[2018-07-26] MEDS: ADVAIR HFA 115/21MCG INHALER INH ×2 (07:25→20:35)
[2018-07-26] MEDS: TIOTROPIUM INHALER/CAPSULE (SPIRIVA) INH (07:25)
[2018-07-26] MEDS: ALBUTEROL SULFATE 2.5 MG/0.5 ML INH NEB SOLN INH ×4 (07:26→20:34)
[2018-07-26] MEDS: MULTIVITAMINS/MINERALS THERAP 1 TAB PO (08:30)
[2018-07-26] MEDS: APIXABAN 2.5 MG TAB (ELIQUIS) PO ×2 (08:30→21:53)
[2018-07-26] MEDS: CARVedilol 12.5 MG TAB PO ×2 (08:30→21:53)
[2018-07-26] MEDS: guaiFENesin ER 600 MG TAB PO ×2 (08:30→21:53)
[2018-07-26] MEDS: CEFUROXIME 500 MG TAB PO ×2 (08:30→21:53)
[2018-07-26] MEDS: predniSONE 10 MG TAB PO (08:31)
[2018-07-26] MEDS: SOTALOL HCL 80 MG TAB PO ×2 (08:31→21:54)
[2018-07-26] MEDS: FUROSEMIDE 20 MG TAB PO (08:31)
[2018-07-26] MEDS: ACETAMINOPHEN TAB 650MG DOSE (2X325MG) PO (09:05)
[2018-07-26] MEDS: MEGESTROL SUSP 400 MG/10 ML UDC PO (14:24)
[2018-07-26] MEDS: LOSARTAN 25 MG TAB PO (21:54)
[2018-07-27] MEDS: methylPREDNISolone INJ 40 MG/1 ML VIAL (J2920) IV (03:19)
[2018-07-27] MEDS: LEVOTHYROXINE 50MCG TABLET (0.05MG) PO (05:36)
[2018-07-27] MEDS: LOPERAMIDE 2 MG CAP PO (05:36)
[2018-07-27] MEDS: SLF 3 ML SYR IV ×3 (06:00→20:16)
[2018-07-27] MEDS: ADVAIR HFA 115/21MCG INHALER INH (07:30)
[2018-07-27] MEDS: TIOTROPIUM INHALER/CAPSULE (SPIRIVA) INH (07:30)
[2018-07-27] MEDS: ALBUTEROL SULFATE 2.5 MG/0.5 ML INH NEB SOLN INH ×4 (07:31→18:40)
[2018-07-27] MEDS: MULTIVITAMINS/MINERALS THERAP 1 TAB PO (09:09)
[2018-07-27] MEDS: ACETAMINOPHEN TAB 650MG DOSE (2X325MG) PO ×2 (09:09→15:15)
[2018-07-27] MEDS: CEFUROXIME 500 MG TAB PO ×2 (09:09→20:15)
[2018-07-27] MEDS: CARVedilol 12.5 MG TAB PO ×2 (09:09→20:15)
[2018-07-27] MEDS: SOTALOL HCL 80 MG TAB PO ×2 (09:09→20:15)
[2018-07-27] MEDS: predniSONE 10 MG TAB PO (09:10)
[2018-07-27] MEDS: APIXABAN 2.5 MG TAB (ELIQUIS) PO ×2 (09:10→20:15)
[2018-07-27] MEDS: FUROSEMIDE 20 MG TAB PO (09:11)
[2018-07-27] MEDS: guaiFENesin ER 600 MG TAB PO ×2 (09:11→20:15)
[2018-07-27] MEDS: MEGESTROL SUSP 400 MG/10 ML UDC PO (15:15)
[2018-07-27] MEDS: LOSARTAN 25 MG TAB PO (20:14)
[2018-07-28] MEDS: SLF 3 ML SYR IV ×3 (05:32→21:48)
[2018-07-28] MEDS: LEVOTHYROXINE 50MCG TABLET (0.05MG) PO (05:32)
[2018-07-28 06:27] LABS: EOS % 0.1 % (0.0-3.0); HEMOGLOBIN 12.2 g/dl (13.5-17.5); IMMATURE GRANULOCYTE % 0.5 % (0-3.0); LYMPH # 1.3 10^3/uL (1.5-4.5); LYMPH % 13.9 % (24.0-44.0); MEAN CORPUSCULAR HEMOGLOBIN 26.1 pg (27.0-33.0); MEAN CORPUSCULAR HGB CONC 32.1 g/dl (32.0-36.5); MEAN CORPUSCULAR VOLUME 81.4 fl (80.0-96.0); MONO # 0.9 10^3/uL (0.0-0.8); NEUTROPHILS # 6.9 10^3/uL (1.8-7.7); NEUTROPHILS % 75.5 % (36.0-66.0); PLATELET COUNT, AUTOMATED 314 10^3/uL (150-450); RED BLOOD COUNT 4.67 10^6/uL (4.30-6.10); RED CELL DISTRIBUTION WIDTH 18.2 % (11.5-14.5); WHITE BLOOD COUNT 9.1 10^3/uL (4.0-10.0)
[2018-07-28 06:52] LABS: ANION GAP 9 MEQ/L (8-16); BLOOD UREA NITROGEN 37 MG/DL (7-18); CALCIUM LEVEL 8.1 MG/DL (8.8-10.2); CARBON DIOXIDE LEVEL 27 MEQ/L (21-32); CHLORIDE LEVEL 104 MEQ/L (98-107); CREATININE FOR GFR 1.12 MG/DL (0.70-1.30); GLOMERULAR FILTRATION RATE > 60.0 (>35); GLUCOSE, FASTING 99 MG/DL (70-100); POTASSIUM SERUM 3.3 MEQ/L (3.5-5.1); SODIUM LEVEL 140 MEQ/L (136-145)
[2018-07-28] MEDS: ALBUTEROL SULFATE 2.5 MG/0.5 ML INH NEB SOLN INH ×3 (07:42→20:00)
[2018-07-28] MEDS: ADVAIR HFA 115/21MCG INHALER INH ×3 (07:42→21:00)
[2018-07-28] MEDS: TIOTROPIUM INHALER/CAPSULE (SPIRIVA) INH (07:44)
[2018-07-28] MEDS: predniSONE 10 MG TAB PO (09:45)
[2018-07-28] MEDS: guaiFENesin ER 600 MG TAB PO ×2 (09:45→21:46)
[2018-07-28] MEDS: CARVedilol 12.5 MG TAB PO ×2 (09:46→21:46)
[2018-07-28] MEDS: APIXABAN 2.5 MG TAB (ELIQUIS) PO ×2 (09:46→21:45)
[2018-07-28] MEDS: SOTALOL HCL 80 MG TAB PO ×2 (09:46→21:46)
[2018-07-28] MEDS: MULTIVITAMINS/MINERALS THERAP 1 TAB PO (09:46)
[2018-07-28] MEDS: ACETAMINOPHEN TAB 650MG DOSE (2X325MG) PO ×3 (09:46→23:48)
[2018-07-28] MEDS: FUROSEMIDE 20 MG TAB PO (09:47)
[2018-07-28] MEDS: CEFUROXIME 500 MG TAB PO ×2 (10:56→21:45)
[2018-07-28] MEDS: oxyCODONE 10 MG CR TAB PO (13:06)
[2018-07-28] MEDS: MEGESTROL SUSP 400 MG/10 ML UDC PO (15:23)
[2018-07-28] MEDS: LOSARTAN 25 MG TAB PO (21:47)
[2018-07-29] MEDS: oxyCODONE 10 MG CR TAB PO (00:41)
[2018-07-29] MEDS: LEVOTHYROXINE 50MCG TABLET (0.05MG) PO (05:40)
[2018-07-29] MEDS: SLF 3 ML SYR IV ×3 (05:41→21:06)
[2018-07-29] MEDS: POTASSIUM CHLORIDE 10 MEQ SR TABLET PO (06:21)
[2018-07-29] MEDS: LIDOCAINE 5% (LIDODERM) PATCH TD ×2 (06:21→09:07)
[2018-07-29 06:33] LABS: HEMATOCRIT 39.2 % (42.0-52.0); HEMOGLOBIN 12.8 g/dl (13.5-17.5); MEAN CORPUSCULAR HGB CONC 32.7 g/dl (32.0-36.5); MEAN CORPUSCULAR VOLUME 79.7 fl (80.0-96.0); PLATELET COUNT, AUTOMATED 343 10^3/uL (150-450); RED BLOOD COUNT 4.92 10^6/uL (4.30-6.10); RED CELL DISTRIBUTION WIDTH 18.3 % (11.5-14.5); WHITE BLOOD COUNT 12.8 10^3/uL (4.0-10.0)
[2018-07-29 06:55] LABS: ANION GAP 7 MEQ/L (8-16); BLOOD UREA NITROGEN 38 MG/DL (7-18); CALCIUM LEVEL 7.6 MG/DL (8.8-10.2); CARBON DIOXIDE LEVEL 28 MEQ/L (21-32); CHLORIDE LEVEL 102 MEQ/L (98-107); CREATININE FOR GFR 1.11 MG/DL (0.70-1.30); GLOMERULAR FILTRATION RATE > 60.0 (>35); GLUCOSE, FASTING 91 MG/DL (70-100); POTASSIUM SERUM 3.6 MEQ/L (3.5-5.1); SODIUM LEVEL 137 MEQ/L (136-145)
[2018-07-29] MEDS: TIOTROPIUM INHALER/CAPSULE (SPIRIVA) INH (08:12)
[2018-07-29] MEDS: ALBUTEROL SULFATE 2.5 MG/0.5 ML INH NEB SOLN INH ×4 (08:12→19:41)
[2018-07-29] MEDS: ADVAIR HFA 115/21MCG INHALER INH (08:12)
[2018-07-29] MEDS: predniSONE 10 MG TAB PO (09:07)
[2018-07-29] MEDS: FUROSEMIDE 20 MG TAB PO (09:07)
[2018-07-29] MEDS: CEFUROXIME 500 MG TAB PO ×2 (09:07→21:10)
[2018-07-29] MEDS: SOTALOL HCL 80 MG TAB PO ×2 (09:08→21:05)
[2018-07-29] MEDS: ACETAMINOPHEN TAB 650MG DOSE (2X325MG) PO (09:08)
[2018-07-29] MEDS: APIXABAN 2.5 MG TAB (ELIQUIS) PO ×2 (09:08→21:05)
[2018-07-29] MEDS: CARVedilol 12.5 MG TAB PO ×2 (09:08→21:06)
[2018-07-29] MEDS: guaiFENesin ER 600 MG TAB PO ×2 (09:08→21:04)
[2018-07-29] MEDS: MULTIVITAMINS/MINERALS THERAP 1 TAB PO (09:08)
[2018-07-29] MEDS: CYCLOBENZAPRINE 10 MG TAB PO ×3 (11:03→21:04)
[2018-07-29] MEDS: MEGESTROL SUSP 400 MG/10 ML UDC PO (15:22)
[2018-07-29] MEDS: PERCOCET 5MG/325MG TAB PO (17:51)
[2018-07-29] MEDS: LOSARTAN 25 MG TAB PO (21:05)
[2018-07-29] MEDS: **NOTE PATIENT COMMENT** MISC XX (21:06)
[2018-07-30] MEDS: PERCOCET 5MG/325MG TAB PO ×2 (01:04→08:48)
[2018-07-30] MEDS: LEVOTHYROXINE 50MCG TABLET (0.05MG) PO (05:29)
[2018-07-30] MEDS: SLF 3 ML SYR IV ×3 (05:29→20:41)
[2018-07-30] MEDS: APIXABAN 2.5 MG TAB (ELIQUIS) PO ×2 (08:46→20:34)
[2018-07-30] MEDS: CYCLOBENZAPRINE 10 MG TAB PO ×3 (08:46→20:36)
[2018-07-30] MEDS: predniSONE 10 MG TAB PO (08:46)
[2018-07-30] MEDS: CARVedilol 12.5 MG TAB PO ×2 (08:46→20:36)
[2018-07-30] MEDS: LIDOCAINE 5% (LIDODERM) PATCH TD (08:46)
[2018-07-30] MEDS: guaiFENesin ER 600 MG TAB PO ×2 (08:47→20:34)
[2018-07-30] MEDS: FUROSEMIDE 20 MG TAB PO (08:47)
[2018-07-30] MEDS: SOTALOL HCL 80 MG TAB PO ×2 (08:47→20:41)
[2018-07-30] MEDS: MULTIVITAMINS/MINERALS THERAP 1 TAB PO (08:47)
[2018-07-30] MEDS: ADVAIR HFA 115/21MCG INHALER INH ×3 (09:00→21:00)
[2018-07-30] MEDS: ALBUTEROL SULFATE 2.5 MG/0.5 ML INH NEB SOLN INH ×4 (09:33→21:31)
[2018-07-30] MEDS: TIOTROPIUM INHALER/CAPSULE (SPIRIVA) INH (09:34)
[2018-07-30 12:28] LABS: HEMATOCRIT 41.2 % (42.0-52.0); MEAN CORPUSCULAR HEMOGLOBIN 25.9 pg (27.0-33.0); MEAN CORPUSCULAR HGB CONC 31.6 g/dl (32.0-36.5); MEAN CORPUSCULAR VOLUME 82.2 fl (80.0-96.0); PLATELET COUNT, AUTOMATED 273 10^3/uL (150-450); RED BLOOD COUNT 5.01 10^6/uL (4.30-6.10); RED CELL DISTRIBUTION WIDTH 18.8 % (11.5-14.5); WHITE BLOOD COUNT 13.6 10^3/uL (4.0-10.0)
[2018-07-30 12:50] LABS: ANION GAP 8 MEQ/L (8-16); BLOOD UREA NITROGEN 38 MG/DL (7-18); C REACTIVE PROTEIN QUANTITATIV 0.35 MG/DL (0.00-0.30); CALCIUM LEVEL 7.8 MG/DL (8.8-10.2); CARBON DIOXIDE LEVEL 25 MEQ/L (21-32); CHLORIDE LEVEL 104 MEQ/L (98-107); CREATININE FOR GFR 1.17 MG/DL (0.70-1.30); GLOMERULAR FILTRATION RATE > 60.0 (>35); GLUCOSE, FASTING 141 MG/DL (70-100); MAGNESIUM LEVEL 2.3 MG/DL (1.8-2.4); POTASSIUM SERUM 3.8 MEQ/L (3.5-5.1); SODIUM LEVEL 137 MEQ/L (136-145)
[2018-07-30] MEDS: CEFUROXIME 500 MG TAB PO ×2 (13:59→20:33)
[2018-07-30] MEDS: MEGESTROL SUSP 400 MG/10 ML UDC PO (13:59)
[2018-07-30] MEDS: LOSARTAN 25 MG TAB PO (20:35)
[2018-07-30] MEDS: **NOTE PATIENT COMMENT** MISC XX (20:41)
[2018-07-31] MEDS: SLF 3 ML SYR IV ×3 (05:58→20:22)
[2018-07-31] MEDS: LEVOTHYROXINE 50MCG TABLET (0.05MG) PO (05:58)
[2018-07-31] MEDS: ADVAIR HFA 115/21MCG INHALER INH ×2 (07:47→20:16)
[2018-07-31] MEDS: ALBUTEROL SULFATE 2.5 MG/0.5 ML INH NEB SOLN INH ×4 (07:47→20:00)
[2018-07-31] MEDS: TIOTROPIUM INHALER/CAPSULE (SPIRIVA) INH (07:47)
[2018-07-31 09:10] LABS: HEMATOCRIT 41.9 % (42.0-52.0); HEMOGLOBIN 13.1 g/dl (13.5-17.5); MEAN CORPUSCULAR HEMOGLOBIN 26.3 pg (27.0-33.0); MEAN CORPUSCULAR HGB CONC 31.3 g/dl (32.0-36.5); PLATELET COUNT, AUTOMATED 312 10^3/uL (150-450); RED BLOOD COUNT 4.99 10^6/uL (4.30-6.10); RED CELL DISTRIBUTION WIDTH 19.1 % (11.5-14.5); WHITE BLOOD COUNT 13.8 10^3/uL (4.0-10.0)
[2018-07-31] MEDS: MULTIVITAMINS/MINERALS THERAP 1 TAB PO (09:17)
[2018-07-31] MEDS: guaiFENesin ER 600 MG TAB PO ×2 (09:17→20:22)
[2018-07-31] MEDS: SOTALOL HCL 80 MG TAB PO ×2 (09:17→20:22)
[2018-07-31] MEDS: predniSONE 10 MG TAB PO (09:17)
[2018-07-31] MEDS: CEFUROXIME 500 MG TAB PO ×2 (09:17→20:20)
[2018-07-31] MEDS: FUROSEMIDE 20 MG TAB PO (09:18)
[2018-07-31] MEDS: CYCLOBENZAPRINE 10 MG TAB PO ×3 (09:18→20:22)
[2018-07-31] MEDS: APIXABAN 2.5 MG TAB (ELIQUIS) PO ×2 (09:18→20:20)
[2018-07-31] MEDS: CARVedilol 12.5 MG TAB PO ×2 (09:18→20:21)
[2018-07-31] MEDS: LIDOCAINE 5% (LIDODERM) PATCH TD (09:19)
[2018-07-31 09:26] LABS: ANION GAP 8 MEQ/L (8-16); BLOOD UREA NITROGEN 33 MG/DL (7-18); C REACTIVE PROTEIN QUANTITATIV < 0.30 MG/DL (0.00-0.30); CALCIUM LEVEL 8.2 MG/DL (8.8-10.2); CARBON DIOXIDE LEVEL 26 MEQ/L (21-32); CHLORIDE LEVEL 104 MEQ/L (98-107); CREATININE FOR GFR 1.33 MG/DL (0.70-1.30); GLOMERULAR FILTRATION RATE 54.8 (>35); GLUCOSE, FASTING 98 MG/DL (70-100); MAGNESIUM LEVEL 2.4 MG/DL (1.8-2.4); SODIUM LEVEL 138 MEQ/L (136-145)
[2018-07-31] MEDS: MEGESTROL SUSP 400 MG/10 ML UDC PO (16:00)
[2018-07-31] MEDS: LOSARTAN 25 MG TAB PO (20:21)
[2018-07-31] MEDS: **NOTE PATIENT COMMENT** MISC XX (20:22)
[2018-08-01] MEDS: PERCOCET 5MG/325MG TAB PO (04:49)
[2018-08-01] MEDS: SLF 3 ML SYR IV ×3 (06:09→21:42)
[2018-08-01] MEDS: LEVOTHYROXINE 50MCG TABLET (0.05MG) PO (06:09)
[2018-08-01 06:11] LABS: HEMOGLOBIN 12.5 g/dl (13.5-17.5); MEAN CORPUSCULAR HGB CONC 32.1 g/dl (32.0-36.5); MEAN CORPUSCULAR VOLUME 81.3 fl (80.0-96.0); PLATELET COUNT, AUTOMATED 312 10^3/uL (150-450); RED CELL DISTRIBUTION WIDTH 18.8 % (11.5-14.5); WHITE BLOOD COUNT 9.9 10^3/uL (4.0-10.0)
[2018-08-01 06:41] LABS: ANION GAP 8 MEQ/L (8-16); BLOOD UREA NITROGEN 30 MG/DL (7-18); CALCIUM LEVEL 7.4 MG/DL (8.8-10.2); CARBON DIOXIDE LEVEL 27 MEQ/L (21-32); CHLORIDE LEVEL 105 MEQ/L (98-107); CREATININE FOR GFR 1.15 MG/DL (0.70-1.30); GLOMERULAR FILTRATION RATE > 60.0 (>35); GLUCOSE, FASTING 111 MG/DL (70-100); MAGNESIUM LEVEL 2.2 MG/DL (1.8-2.4); POTASSIUM SERUM 3.5 MEQ/L (3.5-5.1); SODIUM LEVEL 140 MEQ/L (136-145)
[2018-08-01] MEDS: TIOTROPIUM INHALER/CAPSULE (SPIRIVA) INH (07:55)
[2018-08-01] MEDS: ADVAIR HFA 115/21MCG INHALER INH ×2 (07:56→21:00)
[2018-08-01] MEDS: ALBUTEROL SULFATE 2.5 MG/0.5 ML INH NEB SOLN INH ×2 (08:00→11:35)
[2018-08-01] MEDS: MULTIVITAMINS/MINERALS THERAP 1 TAB PO (08:52)
[2018-08-01] MEDS: FUROSEMIDE 20 MG TAB PO (08:52)
[2018-08-01] MEDS: CYCLOBENZAPRINE 10 MG TAB PO ×3 (08:52→21:43)
[2018-08-01] MEDS: APIXABAN 2.5 MG TAB (ELIQUIS) PO ×3 (08:56→21:43)
[2018-08-01] MEDS: guaiFENesin ER 600 MG TAB PO ×2 (08:56→21:43)
[2018-08-01] MEDS: predniSONE 20 MG TAB PO (08:56)
[2018-08-01] MEDS: LIDOCAINE 5% (LIDODERM) PATCH TD (08:56)
[2018-08-01] MEDS: SOTALOL HCL 80 MG TAB PO ×2 (09:00→21:46)
[2018-08-01] MEDS: CARVedilol 12.5 MG TAB PO ×2 (09:01→21:00)
[2018-08-01] MEDS: SENNA 8.6 MG TAB (SENOKOT) PO ×2 (10:20→21:43)
[2018-08-01 11:02] LABS: CARCINOEMBRYONIC ANTIGEN 2.5 NG/ML (<2.5)
[2018-08-01] MEDS: MEGESTROL SUSP 400 MG/10 ML UDC PO (15:18)
[2018-08-01] MEDS: **NOTE PATIENT COMMENT** MISC XX (21:00)
[2018-08-01] MEDS: LOSARTAN 25 MG TAB PO (21:00)
[2018-08-02 06:13] LABS: HEMATOCRIT 37.6 % (42.0-52.0); HEMOGLOBIN 11.9 g/dl (13.5-17.5); MEAN CORPUSCULAR HEMOGLOBIN 25.8 pg (27.0-33.0); MEAN CORPUSCULAR HGB CONC 31.6 g/dl (32.0-36.5); MEAN CORPUSCULAR VOLUME 81.4 fl (80.0-96.0); PLATELET COUNT, AUTOMATED 323 10^3/uL (150-450); RED BLOOD COUNT 4.62 10^6/uL (4.30-6.10); RED CELL DISTRIBUTION WIDTH 19.3 % (11.5-14.5); WHITE BLOOD COUNT 7.6 10^3/uL (4.0-10.0)
[2018-08-02] MEDS: LEVOTHYROXINE 50MCG TABLET (0.05MG) PO (06:25)
[2018-08-02] MEDS: SLF 3 ML SYR IV ×3 (06:25→21:31)
[2018-08-02 06:40] LABS: ANION GAP 9 MEQ/L (8-16); BLOOD UREA NITROGEN 29 MG/DL (7-18); CALCIUM LEVEL 7.6 MG/DL (8.8-10.2); CARBON DIOXIDE LEVEL 28 MEQ/L (21-32); CHLORIDE LEVEL 104 MEQ/L (98-107); CREATININE FOR GFR 1.18 MG/DL (0.70-1.30); GLOMERULAR FILTRATION RATE > 60.0 (>35); GLUCOSE, FASTING 122 MG/DL (70-100); MAGNESIUM LEVEL 2.3 MG/DL (1.8-2.4); POTASSIUM SERUM 3.5 MEQ/L (3.5-5.1); SODIUM LEVEL 141 MEQ/L (136-145)
[2018-08-02] MEDS: guaiFENesin ER 600 MG TAB PO ×2 (08:34→21:28)
[2018-08-02] MEDS: CARVedilol 12.5 MG TAB PO ×2 (08:35→21:30)
[2018-08-02] MEDS: FUROSEMIDE 20 MG TAB PO (08:35)
[2018-08-02] MEDS: MULTIVITAMINS/MINERALS THERAP 1 TAB PO (08:35)
[2018-08-02] MEDS: predniSONE 20 MG TAB PO (08:35)
[2018-08-02] MEDS: SOTALOL HCL 80 MG TAB PO ×2 (08:35→21:29)
[2018-08-02] MEDS: LIDOCAINE 5% (LIDODERM) PATCH TD (08:36)
[2018-08-02] MEDS: CYCLOBENZAPRINE 10 MG TAB PO ×3 (08:36→21:29)
[2018-08-02] MEDS: TIOTROPIUM INHALER/CAPSULE (SPIRIVA) INH (12:54)
[2018-08-02] MEDS: ADVAIR HFA 115/21MCG INHALER INH ×2 (12:54→21:22)
[2018-08-02] MEDS: PERCOCET 5MG/325MG TAB PO (14:38)
[2018-08-02] MEDS: MEGESTROL SUSP 400 MG/10 ML UDC PO (14:38)
[2018-08-02] MEDS: LOSARTAN 25 MG TAB PO (21:30)
[2018-08-02] MEDS: **NOTE PATIENT COMMENT** MISC XX (21:31)
[2018-08-03] MEDS: LEVOTHYROXINE 50MCG TABLET (0.05MG) PO (05:37)
[2018-08-03] MEDS: SLF 3 ML SYR IV ×3 (05:38→21:47)
[2018-08-03] MEDS: PERCOCET 5MG/325MG TAB PO ×2 (05:38→21:44)
[2018-08-03] MEDS: ADVAIR HFA 115/21MCG INHALER INH ×2 (06:45→21:00)
[2018-08-03] MEDS: TIOTROPIUM INHALER/CAPSULE (SPIRIVA) INH (06:45)
[2018-08-03 06:49] LABS: HEMATOCRIT 39.3 % (42.0-52.0); HEMOGLOBIN 12.2 g/dl (13.5-17.5); MEAN CORPUSCULAR HEMOGLOBIN 25.8 pg (27.0-33.0); MEAN CORPUSCULAR VOLUME 83.1 fl (80.0-96.0); PLATELET COUNT, AUTOMATED 348 10^3/uL (150-450); RED BLOOD COUNT 4.73 10^6/uL (4.30-6.10); RED CELL DISTRIBUTION WIDTH 19.3 % (11.5-14.5); WHITE BLOOD COUNT 8.2 10^3/uL (4.0-10.0)
[2018-08-03 07:20] LABS: ANION GAP 6 MEQ/L (8-16); BLOOD UREA NITROGEN 32 MG/DL (7-18); CALCIUM LEVEL 7.8 MG/DL (8.8-10.2); CARBON DIOXIDE LEVEL 31 MEQ/L (21-32); CHLORIDE LEVEL 104 MEQ/L (98-107); CREATININE FOR GFR 1.19 MG/DL (0.70-1.30); GLOMERULAR FILTRATION RATE > 60.0 (>35); GLUCOSE, FASTING 98 MG/DL (70-100); MAGNESIUM LEVEL 2.4 MG/DL (1.8-2.4); POTASSIUM SERUM 3.5 MEQ/L (3.5-5.1); SODIUM LEVEL 141 MEQ/L (136-145)
[2018-08-03] MEDS: guaiFENesin ER 600 MG TAB PO ×2 (08:45→21:44)
[2018-08-03] MEDS: predniSONE 20 MG TAB PO (08:45)
[2018-08-03] MEDS: LIDOCAINE 5% (LIDODERM) PATCH TD (08:45)
[2018-08-03] MEDS: CYCLOBENZAPRINE 10 MG TAB PO ×3 (08:46→21:44)
[2018-08-03] MEDS: MULTIVITAMINS/MINERALS THERAP 1 TAB PO (08:46)
[2018-08-03] MEDS: SOTALOL HCL 80 MG TAB PO ×2 (08:46→21:45)
[2018-08-03] MEDS: FUROSEMIDE 20 MG TAB PO (08:46)
[2018-08-03] MEDS: CARVedilol 12.5 MG TAB PO ×2 (08:46→21:47)
[2018-08-03] MEDS: ALBUTEROL SULFATE 2.5 MG/0.5 ML INH NEB SOLN NEB (13:23)
[2018-08-03] MEDS: MEGESTROL SUSP 400 MG/10 ML UDC PO (16:45)
[2018-08-03] MEDS: **NOTE PATIENT COMMENT** MISC XX (21:00)
[2018-08-03] MEDS: LOSARTAN 25 MG TAB PO (21:00)
[2018-08-04] MEDS: LEVOTHYROXINE 50MCG TABLET (0.05MG) PO (05:55)
[2018-08-04] MEDS: SLF 3 ML SYR IV ×3 (05:55→20:48)
[2018-08-04 06:05] LABS: HEMATOCRIT 39.1 % (42.0-52.0); HEMOGLOBIN 12.5 g/dl (13.5-17.5); MEAN CORPUSCULAR HEMOGLOBIN 26.1 pg (27.0-33.0); MEAN CORPUSCULAR VOLUME 81.6 fl (80.0-96.0); PLATELET COUNT, AUTOMATED 361 10^3/uL (150-450); RED BLOOD COUNT 4.79 10^6/uL (4.30-6.10); RED CELL DISTRIBUTION WIDTH 19.6 % (11.5-14.5)
[2018-08-04 06:24] LABS: ANION GAP 9 MEQ/L (8-16); BLOOD UREA NITROGEN 33 MG/DL (7-18); CALCIUM LEVEL 7.8 MG/DL (8.8-10.2); CARBON DIOXIDE LEVEL 28 MEQ/L (21-32); CHLORIDE LEVEL 106 MEQ/L (98-107); GLOMERULAR FILTRATION RATE > 60.0 (>35); GLUCOSE, FASTING 103 MG/DL (70-100); MAGNESIUM LEVEL 2.3 MG/DL (1.8-2.4); POTASSIUM SERUM 3.6 MEQ/L (3.5-5.1); SODIUM LEVEL 143 MEQ/L (136-145)
[2018-08-04] MEDS: TIOTROPIUM INHALER/CAPSULE (SPIRIVA) INH (07:38)
[2018-08-04] MEDS: ADVAIR HFA 115/21MCG INHALER INH ×2 (07:38→19:53)
[2018-08-04] MEDS: CARVedilol 12.5 MG TAB PO ×2 (09:00→20:49)
[2018-08-04] MEDS: SOTALOL HCL 80 MG TAB PO ×2 (09:00→20:49)
[2018-08-04] MEDS: guaiFENesin ER 600 MG TAB PO ×2 (10:39→20:48)
[2018-08-04] MEDS: FUROSEMIDE 20 MG TAB PO (10:39)
[2018-08-04] MEDS: CYCLOBENZAPRINE 10 MG TAB PO ×3 (10:45→20:49)
[2018-08-04] MEDS: MULTIVITAMINS/MINERALS THERAP 1 TAB PO (10:45)
[2018-08-04] MEDS: predniSONE 20 MG TAB PO (10:45)
[2018-08-04] MEDS: LIDOCAINE 5% (LIDODERM) PATCH TD (10:45)
[2018-08-04] MEDS: ALBUTEROL SULFATE 2.5 MG/0.5 ML INH NEB SOLN NEB ×2 (13:17→18:01)
[2018-08-04] MEDS ORDERED: LIDOCAINE 1% MDV 20ML VIAL As Ordered (14:31)
[2018-08-04] MEDS: MEGESTROL SUSP 400 MG/10 ML UDC PO (16:15)
[2018-08-04] MEDS: LOSARTAN 25 MG TAB PO (20:50)
[2018-08-04] MEDS: **NOTE PATIENT COMMENT** MISC XX (20:50)
[2018-08-05] MEDS: ALBUTEROL SULFATE 2.5 MG/0.5 ML INH NEB SOLN NEB (02:12)
[2018-08-05] MEDS: APIXABAN 2.5 MG TAB (ELIQUIS) PO ×3 (02:35→21:27)
[2018-08-05 06:00] LABS: HEMOGLOBIN 11.5 g/dl (13.5-17.5); MEAN CORPUSCULAR HEMOGLOBIN 26.1 pg (27.0-33.0); MEAN CORPUSCULAR HGB CONC 31.9 g/dl (32.0-36.5); MEAN CORPUSCULAR VOLUME 81.8 fl (80.0-96.0); PLATELET COUNT, AUTOMATED 287 10^3/uL (150-450); RED CELL DISTRIBUTION WIDTH 19.5 % (11.5-14.5); WHITE BLOOD COUNT 7.9 10^3/uL (4.0-10.0)
[2018-08-05] MEDS: LEVOTHYROXINE 50MCG TABLET (0.05MG) PO (06:19)
[2018-08-05] MEDS: SLF 3 ML SYR IV ×3 (06:19→21:29)
[2018-08-05 06:25] LABS: ANION GAP 9 MEQ/L (8-16); BLOOD UREA NITROGEN 34 MG/DL (7-18); CALCIUM LEVEL 7.3 MG/DL (8.8-10.2); CARBON DIOXIDE LEVEL 28 MEQ/L (21-32); CHLORIDE LEVEL 106 MEQ/L (98-107); CREATININE FOR GFR 1.23 MG/DL (0.70-1.30); GLUCOSE, FASTING 112 MG/DL (70-100); MAGNESIUM LEVEL 2.3 MG/DL (1.8-2.4); POTASSIUM SERUM 3.2 MEQ/L (3.5-5.1); SODIUM LEVEL 143 MEQ/L (136-145)
[2018-08-05] MEDS: TIOTROPIUM INHALER/CAPSULE (SPIRIVA) INH (07:29)
[2018-08-05] MEDS: ADVAIR HFA 115/21MCG INHALER INH ×2 (07:29→20:14)
[2018-08-05] MEDS: predniSONE 20 MG TAB PO (08:36)
[2018-08-05] MEDS: guaiFENesin ER 600 MG TAB PO ×2 (08:36→21:29)
[2018-08-05] MEDS: LIDOCAINE 5% (LIDODERM) PATCH TD (08:36)
[2018-08-05] MEDS: CARVedilol 12.5 MG TAB PO ×2 (08:38→21:29)
[2018-08-05] MEDS: MULTIVITAMINS/MINERALS THERAP 1 TAB PO (08:38)
[2018-08-05] MEDS: CYCLOBENZAPRINE 10 MG TAB PO ×3 (08:38→21:29)
[2018-08-05] MEDS: SOTALOL HCL 80 MG TAB PO ×2 (08:38→21:28)
[2018-08-05] MEDS: FUROSEMIDE 20 MG TAB PO (08:38)
[2018-08-05] MEDS: MEGESTROL SUSP 400 MG/10 ML UDC PO (15:38)
[2018-08-05] MEDS: PERCOCET 5MG/325MG TAB PO (18:20)
[2018-08-05] MEDS: **NOTE PATIENT COMMENT** MISC XX (21:00)
[2018-08-05] MEDS: LOPERAMIDE 2 MG CAP PO (21:28)
[2018-08-05] MEDS: LOSARTAN 25 MG TAB PO (21:29)
[2018-08-06] MEDS: LEVOTHYROXINE 50MCG TABLET (0.05MG) PO (05:42)
[2018-08-06] MEDS: SLF 3 ML SYR IV ×3 (05:42→20:02)
[2018-08-06 06:14] LABS: HEMATOCRIT 37.1 % (42.0-52.0); HEMOGLOBIN 12.1 g/dl (13.5-17.5); MEAN CORPUSCULAR HEMOGLOBIN 26.9 pg (27.0-33.0); MEAN CORPUSCULAR HGB CONC 32.6 g/dl (32.0-36.5); MEAN CORPUSCULAR VOLUME 82.4 fl (80.0-96.0); PLATELET COUNT, AUTOMATED 294 10^3/uL (150-450); RED CELL DISTRIBUTION WIDTH 19.9 % (11.5-14.5); WHITE BLOOD COUNT 8.2 10^3/uL (4.0-10.0)
[2018-08-06 06:33] LABS: ANION GAP 7 MEQ/L (8-16); BLOOD UREA NITROGEN 27 MG/DL (7-18); CALCIUM LEVEL 7.7 MG/DL (8.8-10.2); CARBON DIOXIDE LEVEL 30 MEQ/L (21-32); CHLORIDE LEVEL 106 MEQ/L (98-107); CREATININE FOR GFR 1.12 MG/DL (0.70-1.30); GLOMERULAR FILTRATION RATE > 60.0 (>35); GLUCOSE, FASTING 98 MG/DL (70-100); MAGNESIUM LEVEL 2.5 MG/DL (1.8-2.4); POTASSIUM SERUM 3.4 MEQ/L (3.5-5.1); SODIUM LEVEL 143 MEQ/L (136-145)
[2018-08-06] MEDS: TIOTROPIUM INHALER/CAPSULE (SPIRIVA) INH (07:24)
[2018-08-06] MEDS: ADVAIR HFA 115/21MCG INHALER INH ×2 (07:24→21:00)
[2018-08-06] MEDS: MULTIVITAMINS/MINERALS THERAP 1 TAB PO (09:50)
[2018-08-06] MEDS: guaiFENesin ER 600 MG TAB PO ×2 (09:50→20:02)
[2018-08-06] MEDS: CYCLOBENZAPRINE 10 MG TAB PO ×3 (09:50→20:01)
[2018-08-06] MEDS: predniSONE 20 MG TAB PO (09:50)
[2018-08-06] MEDS: LIDOCAINE 5% (LIDODERM) PATCH TD (09:51)
[2018-08-06] MEDS: APIXABAN 2.5 MG TAB (ELIQUIS) PO ×2 (09:51→20:01)
[2018-08-06] MEDS: FUROSEMIDE 20 MG TAB PO (09:51)
[2018-08-06] MEDS: POTASSIUM CHLORIDE 10 MEQ SR TABLET PO (09:51)
[2018-08-06] MEDS: CARVedilol 12.5 MG TAB PO ×2 (09:51→20:01)
[2018-08-06] MEDS: SOTALOL HCL 80 MG TAB PO ×2 (09:56→20:01)
[2018-08-06] MEDS: MEGESTROL SUSP 400 MG/10 ML UDC PO (16:23)
[2018-08-06] MEDS: PERCOCET 5MG/325MG TAB PO (16:30)
[2018-08-06] MEDS: LOSARTAN 25 MG TAB PO (19:56)
[2018-08-06] MEDS: **NOTE PATIENT COMMENT** MISC XX (20:02)
[2018-08-07] MEDS: SLF 3 ML SYR IV ×3 (05:44→21:05)
[2018-08-07] MEDS: LEVOTHYROXINE 50MCG TABLET (0.05MG) PO (05:44)
[2018-08-07 06:10] LABS: HEMATOCRIT 36.8 % (42.0-52.0); HEMOGLOBIN 11.4 g/dl (13.5-17.5); MEAN CORPUSCULAR HEMOGLOBIN 26.1 pg (27.0-33.0); MEAN CORPUSCULAR VOLUME 84.2 fl (80.0-96.0); PLATELET COUNT, AUTOMATED 255 10^3/uL (150-450); RED BLOOD COUNT 4.37 10^6/uL (4.30-6.10); RED CELL DISTRIBUTION WIDTH 19.5 % (11.5-14.5); WHITE BLOOD COUNT 9.2 10^3/uL (4.0-10.0)
[2018-08-07 06:35] LABS: ANION GAP 6 MEQ/L (8-16); BLOOD UREA NITROGEN 27 MG/DL (7-18); CALCIUM LEVEL 7.3 MG/DL (8.8-10.2); CARBON DIOXIDE LEVEL 30 MEQ/L (21-32); CHLORIDE LEVEL 105 MEQ/L (98-107); CREATININE FOR GFR 1.19 MG/DL (0.70-1.30); GLOMERULAR FILTRATION RATE > 60.0 (>35); GLUCOSE, FASTING 99 MG/DL (70-100); MAGNESIUM LEVEL 2.2 MG/DL (1.8-2.4); POTASSIUM SERUM 4.2 MEQ/L (3.5-5.1); SODIUM LEVEL 141 MEQ/L (136-145)
[2018-08-07] MEDS: TIOTROPIUM INHALER/CAPSULE (SPIRIVA) INH (07:29)
[2018-08-07] MEDS: ADVAIR HFA 115/21MCG INHALER INH ×2 (07:30→20:08)
[2018-08-07] MEDS: guaiFENesin ER 600 MG TAB PO ×2 (09:42→20:59)
[2018-08-07] MEDS: LIDOCAINE 5% (LIDODERM) PATCH TD (09:42)
[2018-08-07] MEDS: MULTIVITAMINS/MINERALS THERAP 1 TAB PO (09:42)
[2018-08-07] MEDS: CYCLOBENZAPRINE 10 MG TAB PO ×3 (09:42→21:04)
[2018-08-07] MEDS: SOTALOL HCL 80 MG TAB PO ×2 (09:44→21:03)
[2018-08-07] MEDS: CARVedilol 12.5 MG TAB PO ×2 (09:45→21:04)
[2018-08-07] MEDS: APIXABAN 2.5 MG TAB (ELIQUIS) PO ×2 (09:45→21:04)
[2018-08-07] MEDS: predniSONE 20 MG TAB PO (09:45)
[2018-08-07] MEDS: FUROSEMIDE 20 MG TAB PO (09:45)
[2018-08-07] MEDS: PERCOCET 5MG/325MG TAB PO (11:09)
[2018-08-07] MEDS: MEGESTROL SUSP 400 MG/10 ML UDC PO (15:50)
[2018-08-07] MEDS: LOPERAMIDE 2 MG CAP PO (20:59)
[2018-08-07] MEDS: LOSARTAN 25 MG TAB PO (21:00)
[2018-08-07] MEDS: **NOTE PATIENT COMMENT** MISC XX (21:00)
[2018-08-08] MEDS: SLF 3 ML SYR IV ×3 (05:51→20:40)
[2018-08-08] MEDS: LEVOTHYROXINE 50MCG TABLET (0.05MG) PO (05:51)
[2018-08-08] MEDS: CYCLOBENZAPRINE 10 MG TAB PO ×3 (08:03→20:40)
[2018-08-08] MEDS: LIDOCAINE 5% (LIDODERM) PATCH TD (08:03)
[2018-08-08] MEDS: predniSONE 20 MG TAB PO (08:04)
[2018-08-08] MEDS: MULTIVITAMINS/MINERALS THERAP 1 TAB PO (08:04)
[2018-08-08] MEDS: APIXABAN 2.5 MG TAB (ELIQUIS) PO ×2 (08:04→20:40)
[2018-08-08] MEDS: FUROSEMIDE 20 MG TAB PO (08:04)
[2018-08-08] MEDS: SOTALOL HCL 80 MG TAB PO ×2 (08:04→20:38)
[2018-08-08] MEDS: CARVedilol 12.5 MG TAB PO ×2 (08:04→20:38)
[2018-08-08] MEDS: guaiFENesin ER 600 MG TAB PO ×2 (08:04→20:38)
[2018-08-08] MEDS: TIOTROPIUM INHALER/CAPSULE (SPIRIVA) INH (08:06)
[2018-08-08] MEDS: ADVAIR HFA 115/21MCG INHALER INH ×2 (08:06→19:53)
[2018-08-08] MEDS: LEVALBUTEROL 1.25 MG/0.5 ML CONCENTRATE NEB NEB (09:56)
[2018-08-08] MEDS: PERCOCET 5MG/325MG TAB PO (11:11)
[2018-08-08] MEDS: MEGESTROL SUSP 400 MG/10 ML UDC PO (15:23)
[2018-08-08] MEDS: **NOTE PATIENT COMMENT** MISC XX (20:40)
[2018-08-08] MEDS: LOSARTAN 25 MG TAB PO (20:40)
[2018-08-09] MEDS: LEVOTHYROXINE 50MCG TABLET (0.05MG) PO (05:40)
[2018-08-09] MEDS: SLF 3 ML SYR IV (05:41)
[2018-08-09] MEDS: PERCOCET 5MG/325MG TAB PO (05:41)
[2018-08-09] MEDS: ADVAIR HFA 115/21MCG INHALER INH ×2 (07:30→20:00)
[2018-08-09] MEDS: TIOTROPIUM INHALER/CAPSULE (SPIRIVA) INH (07:30)
[2018-08-09] MEDS: guaiFENesin ER 600 MG TAB PO ×2 (08:08→21:20)
[2018-08-09] MEDS: LIDOCAINE 5% (LIDODERM) PATCH TD (08:08)
[2018-08-09] MEDS: predniSONE 20 MG TAB PO (08:08)
[2018-08-09] MEDS: MULTIVITAMINS/MINERALS THERAP 1 TAB PO (08:08)
[2018-08-09] MEDS: CYCLOBENZAPRINE 10 MG TAB PO ×3 (08:08→21:20)
[2018-08-09] MEDS: APIXABAN 2.5 MG TAB (ELIQUIS) PO ×2 (08:17→21:20)
[2018-08-09] MEDS: SOTALOL HCL 80 MG TAB PO ×2 (08:46→21:00)
[2018-08-09] MEDS: FUROSEMIDE 20 MG TAB PO (08:46)
[2018-08-09] MEDS: CARVedilol 12.5 MG TAB PO ×2 (08:46→21:00)
[2018-08-09] MEDS: INFLUENZA VIRUS VACCINE HIGH DOSE 0.5 ML SYRINGE (90662) IM (10:04)
[2018-08-09] MEDS: MEGESTROL SUSP 400 MG/10 ML UDC PO (15:19)
[2018-08-09] MEDS: **NOTE PATIENT COMMENT** MISC XX (21:00)
[2018-08-09] MEDS: LOSARTAN 25 MG TAB PO (21:00)
[2018-08-10] MEDS: LEVOTHYROXINE 50MCG TABLET (0.05MG) PO (05:40)
[2018-08-10] MEDS: PERCOCET 5MG/325MG TAB PO ×2 (08:15→15:36)
[2018-08-10] MEDS: APIXABAN 2.5 MG TAB (ELIQUIS) PO ×2 (08:15→20:26)
[2018-08-10] MEDS: FUROSEMIDE 20 MG TAB PO (08:15)
[2018-08-10] MEDS: MULTIVITAMINS/MINERALS THERAP 1 TAB PO (08:15)
[2018-08-10] MEDS: guaiFENesin ER 600 MG TAB PO ×2 (08:16→20:26)
[2018-08-10] MEDS: LIDOCAINE 5% (LIDODERM) PATCH TD (08:16)
[2018-08-10] MEDS: predniSONE 20 MG TAB PO (08:16)
[2018-08-10] MEDS: CARVedilol 12.5 MG TAB PO ×2 (08:16→20:26)
[2018-08-10] MEDS: CYCLOBENZAPRINE 10 MG TAB PO ×3 (08:16→20:26)
[2018-08-10] MEDS: SOTALOL HCL 80 MG TAB PO ×2 (08:16→20:26)
[2018-08-10] MEDS: ADVAIR HFA 115/21MCG INHALER INH ×2 (11:22→19:24)
[2018-08-10] MEDS: TIOTROPIUM INHALER/CAPSULE (SPIRIVA) INH (11:22)
[2018-08-10] MEDS: MEGESTROL SUSP 400 MG/10 ML UDC PO (15:37)
[2018-08-10] MEDS: **NOTE PATIENT COMMENT** MISC XX (20:20)
[2018-08-10] MEDS: LOSARTAN 25 MG TAB PO (20:26)
[2018-08-11] MEDS: LEVOTHYROXINE 50MCG TABLET (0.05MG) PO (05:36)
[2018-08-11] MEDS: CARVedilol 12.5 MG TAB PO ×2 (07:36→21:00)
[2018-08-11] MEDS: SOTALOL HCL 80 MG TAB PO ×2 (07:36→21:00)
[2018-08-11] MEDS: FUROSEMIDE 20 MG TAB PO (07:37)
[2018-08-11] MEDS: TIOTROPIUM INHALER/CAPSULE (SPIRIVA) INH (07:39)
[2018-08-11] MEDS: ADVAIR HFA 115/21MCG INHALER INH ×2 (07:39→19:17)
[2018-08-11] MEDS: MULTIVITAMINS/MINERALS THERAP 1 TAB PO (07:42)
[2018-08-11] MEDS: LIDOCAINE 5% (LIDODERM) PATCH TD (07:42)
[2018-08-11] MEDS: CYCLOBENZAPRINE 10 MG TAB PO ×3 (07:42→21:06)
[2018-08-11] MEDS: APIXABAN 2.5 MG TAB (ELIQUIS) PO ×2 (07:42→21:06)
[2018-08-11] MEDS: PERCOCET 5MG/325MG TAB PO (07:43)
[2018-08-11] MEDS: guaiFENesin ER 600 MG TAB PO ×2 (07:43→21:06)
[2018-08-11] MEDS: predniSONE 20 MG TAB PO (07:43)
[2018-08-11] MEDS: MEGESTROL SUSP 400 MG/10 ML UDC PO (15:10)
[2018-08-11] MEDS: **NOTE PATIENT COMMENT** MISC XX (21:00)
[2018-08-11] MEDS: LOSARTAN 25 MG TAB PO (21:06)
[2018-08-12] MEDS: PERCOCET 5MG/325MG TAB PO ×2 (06:09→20:07)
[2018-08-12] MEDS: LEVOTHYROXINE 50MCG TABLET (0.05MG) PO (06:09)
[2018-08-12] MEDS: LIDOCAINE 5% (LIDODERM) PATCH TD ×2 (09:00→09:59)
[2018-08-12] MEDS: TIOTROPIUM INHALER/CAPSULE (SPIRIVA) INH (09:36)
[2018-08-12] MEDS: ADVAIR HFA 115/21MCG INHALER INH ×2 (09:37→21:00)
[2018-08-12] MEDS: CARVedilol 12.5 MG TAB PO ×2 (09:57→21:00)
[2018-08-12] MEDS: SOTALOL HCL 80 MG TAB PO ×2 (09:57→21:00)
[2018-08-12] MEDS: CYCLOBENZAPRINE 10 MG TAB PO ×3 (09:59→20:07)
[2018-08-12] MEDS: guaiFENesin ER 600 MG TAB PO ×2 (09:59→20:08)
[2018-08-12] MEDS: FUROSEMIDE 20 MG TAB PO (09:59)
[2018-08-12] MEDS: APIXABAN 2.5 MG TAB (ELIQUIS) PO ×2 (09:59→20:07)
[2018-08-12] MEDS: MULTIVITAMINS/MINERALS THERAP 1 TAB PO (09:59)
[2018-08-12] MEDS: predniSONE 20 MG TAB PO (09:59)
[2018-08-12] MEDS: MEGESTROL SUSP 400 MG/10 ML UDC PO (16:19)
[2018-08-12 17:19] LABS: KETONE, URINE AUTO RFX NEGATIVE (NEGATIVE); LEUKOCYTE ESTERASE UR AUTO RFX NEGATIVE (NEGATIVE); MICROSCOPIC INDICATED? RFX NO (NO); NITRITE, URINE AUTO RFX NEGATIVE (NEGATIVE)
[2018-08-12] MEDS: **NOTE PATIENT COMMENT** MISC XX ×2 (20:08→20:26)
[2018-08-12] MEDS: LOSARTAN 25 MG TAB PO (21:00)
[2018-08-13] MEDS: LEVOTHYROXINE 50MCG TABLET (0.05MG) PO (05:43)
[2018-08-13] MEDS: TIOTROPIUM INHALER/CAPSULE (SPIRIVA) INH (08:20)
[2018-08-13] MEDS: ADVAIR HFA 115/21MCG INHALER INH ×2 (08:20→21:43)
[2018-08-13] MEDS: SOTALOL HCL 80 MG TAB PO ×2 (09:00→21:00)
[2018-08-13] MEDS: FUROSEMIDE 20 MG TAB PO (09:00)
[2018-08-13] MEDS: CARVedilol 12.5 MG TAB PO ×2 (09:00→21:00)
[2018-08-13] MEDS: APIXABAN 2.5 MG TAB (ELIQUIS) PO ×2 (09:14→20:31)
[2018-08-13] MEDS: guaiFENesin ER 600 MG TAB PO ×2 (09:14→20:31)
[2018-08-13] MEDS: CYCLOBENZAPRINE 10 MG TAB PO ×3 (09:15→20:31)
[2018-08-13] MEDS: predniSONE 20 MG TAB PO (09:15)
[2018-08-13] MEDS: MULTIVITAMINS/MINERALS THERAP 1 TAB PO (09:15)
[2018-08-13] MEDS: LIDOCAINE 5% (LIDODERM) PATCH TD (09:21)
[2018-08-13] MEDS: PERCOCET 5MG/325MG TAB PO (09:28)
[2018-08-13] MEDS: MEGESTROL SUSP 400 MG/10 ML UDC PO (15:31)
[2018-08-13] MEDS: LOSARTAN 25 MG TAB PO (20:31)
[2018-08-13] MEDS: **NOTE PATIENT COMMENT** MISC XX ×2 (20:32→21:00)
[2018-08-13] MEDS: ALBUTEROL SULFATE 2.5 MG/0.5 ML INH NEB SOLN NEB (23:20)
[2018-08-14] MEDS: PERCOCET 5MG/325MG TAB PO ×2 (03:02→20:45)
[2018-08-14] MEDS: LEVOTHYROXINE 50MCG TABLET (0.05MG) PO (06:48)
[2018-08-14] MEDS: ADVAIR HFA 115/21MCG INHALER INH ×2 (07:34→20:17)
[2018-08-14] MEDS: TIOTROPIUM INHALER/CAPSULE (SPIRIVA) INH (07:34)
[2018-08-14] MEDS: CARVedilol 12.5 MG TAB PO ×2 (09:00→20:45)
[2018-08-14] MEDS: SOTALOL HCL 80 MG TAB PO ×2 (09:00→20:43)
[2018-08-14] MEDS: CYCLOBENZAPRINE 10 MG TAB PO ×3 (09:17→20:44)
[2018-08-14] MEDS: SENNA 8.6 MG TAB (SENOKOT) PO (09:17)
[2018-08-14] MEDS: MULTIVITAMINS/MINERALS THERAP 1 TAB PO (09:17)
[2018-08-14] MEDS: guaiFENesin ER 600 MG TAB PO ×2 (09:17→20:43)
[2018-08-14] MEDS: predniSONE 20 MG TAB PO (09:17)
[2018-08-14] MEDS: APIXABAN 2.5 MG TAB (ELIQUIS) PO ×2 (09:17→20:43)
[2018-08-14] MEDS: LIDOCAINE 5% (LIDODERM) PATCH TD (09:19)
[2018-08-14] MEDS: FUROSEMIDE 20 MG TAB PO (09:19)
[2018-08-14] MEDS: MEGESTROL SUSP 400 MG/10 ML UDC PO (15:06)
[2018-08-14] MEDS: MOM 30ML SUSPENSION UDC PO (15:06)
[2018-08-14] MEDS: LOSARTAN 25 MG TAB PO (20:44)
[2018-08-15] MEDS: LEVOTHYROXINE 50MCG TABLET (0.05MG) PO (06:04)
[2018-08-15] MEDS: ADVAIR HFA 115/21MCG INHALER INH (07:16)
[2018-08-15] MEDS: TIOTROPIUM INHALER/CAPSULE (SPIRIVA) INH (07:16)
[2018-08-15] MEDS: MOM 30ML SUSPENSION UDC PO (07:19)
[2018-08-15] MEDS: SENNA 8.6 MG TAB (SENOKOT) PO (07:19)
[2018-08-15] MEDS: CARVedilol 12.5 MG TAB PO (07:34)
[2018-08-15] MEDS: SOTALOL HCL 80 MG TAB PO (07:34)
[2018-08-15] MEDS: predniSONE 20 MG TAB PO (07:35)
[2018-08-15] MEDS: LIDOCAINE 5% (LIDODERM) PATCH TD (07:35)
[2018-08-15] MEDS: FUROSEMIDE 20 MG TAB PO (07:36)
[2018-08-15] MEDS: guaiFENesin ER 600 MG TAB PO (07:36)
[2018-08-15] MEDS: CYCLOBENZAPRINE 10 MG TAB PO (07:36)
[2018-08-15] MEDS: APIXABAN 2.5 MG TAB (ELIQUIS) PO (07:36)
[2018-08-15] MEDS: MULTIVITAMINS/MINERALS THERAP 1 TAB PO (07:37)
== END 2018-08-15 08:43 | disposition hospice, inpatient (51) | DRG 987 ==
LOC: M MSPAV 07-27 13:15 → M ED 05:17 → M ED INP 09:31 → M PCU 11:43
PROC: 0QB03ZX Excision of Lumbar Vertebra, Percutaneous Approach, Diagnostic (ICD-10-PCS; principal; 2018-08-04)
DX: I11.0 Hypertensive heart disease with heart failure (principal); J14 Pneumonia due to Hemophilus influenzae; E46 Unspecified protein-calorie malnutrition; M84.58XA Pathological fracture in neoplastic disease, other specified site, initial encounter for fracture; C79.51 Secondary malignant neoplasm of bone; C34.31 Malignant neoplasm of lower lobe, right bronchus or lung; J44.0 Chronic obstructive pulmonary disease with (acute) lower respiratory infection; Z68.1 Body mass index [BMI] 19.9 or less, adult; Z51.5 Encounter for palliative care; Z66 Do not resuscitate; M43.17 Spondylolisthesis, lumbosacral region; E87.6 Hypokalemia; I50.23 Acute on chronic systolic (congestive) heart failure; I42.9 Cardiomyopathy, unspecified; M46.1 Sacroiliitis, not elsewhere classified; I27.20 Pulmonary hypertension, unspecified; I48.2 Chronic atrial fibrillation; D64.9 Anemia, unspecified; G47.33 Obstructive sleep apnea (adult) (pediatric); K21.9 Gastro-esophageal reflux disease without esophagitis; E03.9 Hypothyroidism, unspecified; N40.0 Benign prostatic hyperplasia without lower urinary tract symptoms; E78.5 Hyperlipidemia, unspecified; Z85.038 Personal history of other malignant neoplasm of large intestine; Z90.49 Acquired absence of other specified parts of digestive tract; Z95.810 Presence of automatic (implantable) cardiac defibrillator; Z96.643 Presence of artificial hip joint, bilateral; Z87.891 Personal history of nicotine dependence; Z79.51 Long term (current) use of inhaled steroids; Z79.01 Long term (current) use of anticoagulants; Z79.891 Long term (current) use of opiate analgesic; Z79.899 Other long term (current) drug therapy; Z88.0 Allergy status to penicillin; Z88.8 Allergy status to other drugs, medicaments and biological substances; Z98.61 Coronary angioplasty status